=== PATIENT | male | born 1945 | race Caucasian/White ===

== ENCOUNTER 2023-10-10 11:21 | Outpatient (AMB) | payer MEDICARE, SELFPAY ==
--- NOTE | 2023-10-10 11:09 | A.OFFPC_ITS ---
Vital Signs 10/10/23 11:35 Height 5 ft 7.32 in Weight 230 lb 8 oz BMI 35.8 BP 138/86 Blood Pressure Location Lt brachial Position Sitting Respiration 16 Pulse 82 Pulse Source Pulse Oximeter Temp 98.1 F Temp Source Oral Pulse Oximetry (%) 96 Oxygen Delivery Method Room Air Intake Visit Reasons: new patient visit Intake Note: New patient visit. A1c done 09/28/23, 6.7. Needs refill on Lorsartan, has been out for a couple days. Allergies No Known Allergies Allergy (Verified 10/10/23 11:13) Medication List - Last Reconciled 10/10/23 by Lynn Trivedi PA-C allopurinol mg PO apixaban (Eliquis) mg PO canagliflozin (Invokana) 300 mg PO DAILY levothyroxine mcg PO losartan 12.5 mg PO DAILY metformin 1,000 mg PO BID Tobacco use date assessed: 10/10/23 Fall risk assessment: No Falls in past year Last assessed Fall Risk: 10/10/23 Dental Screening Dental Screen Date: 10/10/23 Did you have a dental visit in the last 12 months?: Yes Did you have a dental problem in the last 6 months where you did not have access to dental care?: No Was dental information given to patient?: Patient has dentist HPI new patient visit HPI Details Patient is a 78 year old male with a significant past medical history of type 2 diabetes, hypothyroidism, gout, dyslipidemia, AFib, s/p micra implant and RAYNE presenting today for a follow up. He was seen by myself on 07/22 for a Medicare wellness visit. CV: Blood pressure today in the office is 138/86. He states at home it is usually 116/70. He is on losartan 12.5 mg and has been out of it for a few days. He is followed with Cardiology, Dr. Burton. He was there last month. Stopped Zetia recently due to leg pain. Unable to tolerate most statins. Last LDL was 127 on 10/29/2023. His HDL is 45, triglycerides 85. Endo: DM- A1c is 6.7. This was done on 10/29/23. He is on Invokana 300 mg and metformin 1000 mg twice a day. He does check his blood sugars but usually every other day. Denies any hyper or hypoglycemic events. Follows with podiatry- Dr. Romo. Follows with ophthamology. Tsh- was wnl on the levothyroxine 88 mcg. GI: has a positive cologuard last year. Derm: had a skin check last month with rasheed. [facility] Medical History (Updated 10/10/23 @ 13:09 by Lynn Trivedi PA-C) Obesity with serious comorbidity Severe obesity Pacemaker Hypothyroid Hyperlipidemia HTN (hypertension) Right hip pain Gout Erectile dysfunction Controlled type 2 diabetes mellitus Chronic a-fib Surgical History (Updated 10/10/23 @ 11:12 by Olivia Herr CMA) History of knee replacement Social History Housing: House Patient Tobacco Use Status: Former Tobacco user Tobacco use type: Cigarette Cigarette Packs Per Day: 1 Years Smoked: 9 e-Cigarette/Vaping Use: Never Used Second Hand Smoke Exposure: No service: Yes Current occupational status: retired Cognitive needs: No Hearing needs: Yes (hearing aids) Vision needs: No Questionnaire PHQ-9 Over the last 2 weeks, how often have you been bothered by any of the following problems? 1. Little interest or pleasure in doing things: not at all 2. Feeling down, depressed, or hopeless: not at all 3. Trouble falling or staying asleep, or sleeping too much: not at all 4. Feeling tired or having little energy: not at all 5. Poor appetite or overeating: not at all 6. Feeling bad about yourself - or that you are a failure or have let yourself or your family down: not at all 7. Trouble concentrating on things, such as reading the newspaper or watching television: not at all 8. Moving or speaking so slowly that other people could have noticed. Or the opposite - being so fidgety or restless that you have been moving around a lot more than usual: not at all 9. Thoughts that you would be better off or of hurting yourself in some way: not at all Total score: 0 Depression Screening Interpretation: Negative Depression Screening Done: Yes 00016 - PHQ-9 Billing: Yes Source: Developed by Drs. David Fleming, Talia Guerrero, Dirk Brody and colleagues, with an educational kojo from [employer]. Thrive Questionnaire Date Thrive assessed: 10/10/23 I am a: Patient What is your living situation today?: I have a steady place to live Within the past 12 months, did the food you bought not last and you didn't have the money to get more?: Never true Within the past 12 months, did you worry whether your food would run out before you got money to buy more?: Never true Do you have trouble paying for medicines?: No Do you have trouble getting transportation to medical appointments?: No Do you have trouble paying your heating and electricity bill?: No Do you have trouble taking care of your child, family member or friend?: No Do you have trouble with day-to-day activities such as bathing, preparing meals, shopping, managing finances, etc.?: No Are you currently unemployed and looking for a job?: No Are you interested in more education?: No Please select the resources that you would like help with: None Currently or been in a relationship where the following occur: no concerns reported THRIVE Score: 0 AUDIT C Alcohol Use Questionnaire (AUDIT-C) 1. How often do you have a drink containing alcohol?: Monthly or less 2. How many drinks containing alcohol do you have on a typical day when you are drinking?: 1 or 2 3. How often do you have six or more drinks on one occasion?: Never Total Score: 1 LILY-7 AMB Questionnaire LILY-7 Date LILY - 7 assessed: 10/10/23 Feeling nervous, anxious, or on edge: 0 = Not at all Not being able to stop or control worryin = Not at all Worrying too much about different things: 0 = Not at all Trouble relaxin = Not at all Being so restless that it is hard to sit still: 0 = Not at all Becoming easily annoyed or irritable: 0 = Not at all Feeling afraid as if something awful might happen: 0 = Not at all Total LILY-7 score (0-4 normal; 5-9 mild; 10-14 moderate; 15-21 severe): 0 Source: Developed by Drs. David Fleming, Talia Guerrero, Dirk Brody and colleagues, with an educational kojo from [employer]. LILY-7 Assessment Billing LILY-7 Assessment Tool: LILY-7 Assessment [id number] Physical exam (Primary Care) Tobacco/Smoking Status: Tobacco use Status Tobacco use date assessed 10/10/23 10/10/23 11:14 Patient Tobacco Use Status Former Tobacco user 10/10/23 11:14 Tobacco use type Cigarette 10/10/23 11:14 Depression Screening Interpretation: Negative Currently or been in a relationship where the following occur: no concerns reported Const Orientation/consciousness: patient oriented x3 HENMT Ears: hearing grossly normal bilaterally Neck Thyroid: Thyroid normal Lymphatic: no lymphadenopathy noted Resp Auscultation: clear to auscultation bilaterally Cardio Rate: regular rate Rhythm: regular rhythm Heart sounds: S1 normal heart sound present and S2 normal heart sound present GI Inspection: Yes normal to inspection Palpation (GI): Soft to palpation and Other GI palpation findings present (nontender, no cva tenderness) Auscultation: normoactive bowel sounds Rectal Exam - Male: Yes deferred Skin General skin exam: no rashes or lesions noted Neuro General: patient oriented x3, gait normal and no focal motor deficits Results Reviewed Results Reviewed: As listed in HPI. He did bring in a copy of his lab corps labs Assessment and Plan Assessment & Plan (1) HTN (hypertension): Code(s): I10 - Essential (primary) hypertension Qualifiers: Hypertension type: primary hypertension Qualified Code(s): I10 - Essential (primary) hypertension Plan: Refill medications today. Continue current regimen. (2) Chronic a-fib: Code(s): I48.20 - Chronic atrial fibrillation, unspecified Plan: Continue on Eliquis. Refilled today. (3) Pacemaker: Code(s): Z95.0 - Presence of cardiac pacemaker Plan: Follows closely with Cardiology. Recently had device interrogation. (4) Controlled type 2 diabetes mellitus: Code(s): E11.9 - Type 2 diabetes mellitus without complications Qualifiers: Diabetes mellitus nursing home insulin use: without nursing home use Diabetes mellitus complication status: without complication Qualified Code(s): E11.9 - Type 2 diabetes mellitus without complications Plan: Medications refilled. We will follow up in 3 months and recheck diabetic labs prior to this appointment. (5) Hypothyroid: Code(s): E03.9 - Hypothyroidism, unspecified Qualifiers: Hypothyroidism type: acquired Qualified Code(s): E03.9 - Hypothyroidism, unspecified Plan: Last TSH WNL. Continue levothyroxine 88 mcg Orders: Orders Complete Blood Count Auto Diff Today E03.9 - Hypothyroidism, unspecified, E11.9 - Type 2 diabetes mellitus without complications, I10 - Essential (primary) hypertension, I48.20 - Chronic atrial fibrillation, unspecified, Z95.0 - Presence of cardiac pacemaker Comprehensive Met. Panel Today E03.9 - Hypothyroidism, unspecified, E11.9 - Type 2 diabetes mellitus without complications, I10 - Essential (primary) hypertension, I48.20 - Chronic atrial fibrillation, unspecified, Z95.0 - Presence of cardiac pacemaker Lipid Panel Today E03.9 - Hypothyroidism, unspecified, E11.9 - Type 2 diabetes mellitus without complications, I10 - Essential (primary) hypertension, I48.20 - Chronic atrial fibrillation, unspecified, Z95.0 - Presence of cardiac pacemaker TSH reflex Free T4 Today E03.9 - Hypothyroidism, unspecified, E11.9 - Type 2 diabetes mellitus without complications, I10 - Essential (primary) hypertension, I48.20 - Chronic atrial fibrillation, unspecified, Z95.0 - Presence of cardiac pacemaker Hemoglobin A1c Today E03.9 - Hypothyroidism, unspecified, E11.9 - Type 2 diabetes mellitus without complications, I10 - Essential (primary) hypertension, I48.20 - Chronic atrial fibrillation, unspecified, Z95.0 - Presence of cardiac pacemaker Microalbumin, Random (w Creat) Today E03.9 - Hypothyroidism, unspecified, E11.9 - Type 2 diabetes mellitus without complications, I10 - Essential (primary) hypertension, I48.20 - Chronic atrial fibrillation, unspecified, Z95.0 - Presence of cardiac pacemaker Medications: New losartan 12.5 mg (1/2 x 25 mg) PO DAILY 90 tabs 3RF apixaban (Eliquis) 5 mg PO DAILY 90 tabs 3RF canagliflozin (Invokana) 300 mg PO DAILY 90 tabs 3RF levothyroxine 88 mcg PO DAILY 90 days 90 tabs 3RF metformin 1,000 mg PO BID 180 tabs 3RF Coding Level of Care Code Est Pt Level 4 (11636) Complex EM visit Add On G2211 Diagnoses Primary hypertension I10 Hypertension type: primary hypertension Chronic a-fib I48.20 Pacemaker Z95.0 Controlled type 2 diabetes mellitus without complication, without long-term current use of insulin E11.9 Diabetes mellitus nursing home insulin use: without parts counterman use Diabetes mellitus complication status: without complication Acquired hypothyroidism E03.9 Hypothyroidism type: acquired Additional Codes LILY-7 Assessment Billing - LILY-7 Assessment Tool: LILY-7 Assessment [id number] ([id number])
[2023-10-10 11:35] VITALS: BP 138/86; PULSE 82; RESP 16; TEMP 36.7; O2SAT 96; BMI 35.8
== END 2023-10-10 12:10 | disposition home or self-care (01) ==
PROVIDERS: PCP Physician Assistant; Visit Provider Physician Assistant
DX: I10 Essential (primary) hypertension (principal); I48.20 Chronic atrial fibrillation, unspecified; Z95.0 Presence of cardiac pacemaker; E11.9 Type 2 diabetes mellitus without complications; E03.9 Hypothyroidism, unspecified
CPT/HCPCS: 99214; G2211

== ENCOUNTER 2024-01-14 07:34 | Outpatient (REF) | payer MEDICARE, SELFPAY ==
[2024-01-14 11:56] LABS: Basophils Absolute Auto 0.1 X10*3/uL (0.0-0.2); Basophils Percent Auto 1.1 % (0-2); Eosinophils Absolute Auto 0.2 X10*3/uL (0.0-0.4); Eosinophils Percent Auto 3.6 % (0-4); Hematocrit 49.2 % (42.0-52.0); Hemoglobin 16.5 g/dl (14.0-18.0); Imm Gran Abs Auto 0.04 X10*3/uL (0.00-0.03); Imm Gran Pct Auto 0.6 % (0.0-0.4); Lymphocytes Absolute Auto 1.3 X10*3/uL (1.2-4.9); Lymphocytes Percent Auto 19.9 % (20-40); MANUAL DIFF FLAG SCAN; Mean Corpuscular HGB Conc 33.5 g/dl (31.0-36.0); Mean Corpuscular Hemoglobin 31.1 pg (27.0-33.0); Mean Corpuscular Volume 92.8 fL (80.0-98.0); Monocytes Absolute Auto 0.5 X10*3/uL (0.1-1.2); Monocytes Percent Auto 8.2 % (2-11); Neutrophils Absolute Auto 4.3 x10*3/uL (2.0-8.3); Neutrophils Percent Auto 66.6 % (45-73); PLT CLUMP 1; Red Cell Distribution Width 14.1 % (11.0-16.0); SCAN SMEAR FLAG 1
[2024-01-14 12:11] LABS: Platelet Count 202 X10*3/uL (160-400); White Blood Count 6.4 X10*3/uL (4.8-10.8)
[2024-01-14 12:12] LABS: Mean Platelet Volume 11.6 fL (9.4-12.4); SLIDE REVIEW VERIFIED
[2024-01-14 12:15] LABS: Estimated Average Glucose 137 mg/dL; Hemoglobin A1c % 6.4 % (<6.0)
[2024-01-14 12:30] LABS: Creatinine Urine 79.65 mg/dL; Microalbum/Creatinine Ratio Ur 50.2 ug/mg cr (<30)
[2024-01-14 13:57] LABS: Alanine Aminotransferase 33 U/L (0-40); Albumin Level 4.1 g/dL (3.5-5.0); Alkaline Phosphatase 54 U/L (39-117); Anion Gap 17 (12-20); Aspartate Amino Transferase 39 U/L (5-37); Bilirubin Total 0.7 mg/dL (0.0-1.0); Blood Urea Nitrogen 17 mg/dL (9-16); Calcium 9.9 mg/dL (8.4-10.2); Carbon Dioxide 25 mmol/L (22-29); Chloride 106 mmol/L (96-108); Cholesterol 211 mg/dL (<200); Estimated Glomerular Filt Rate > 60; Glucose Random 133 mg/dL (60-115); HDL Cholesterol 40 mg/dL (>40); LDL Cholesterol Calculated 154 mg/dL (<100); Potassium 4.9 mmol/L (3.3-5.1); Sodium 143 mmol/L (135-145); TSH reflex Free T4 2.73 uIU/mL (0.32-4.0); Total Protein 7.7 g/dL (6.5-8.0); Triglycerides 87 mg/dL (<150)
== END 2024-01-14 07:35 | disposition home or self-care (01) ==
LOC: HO.WFDLDS 07:34
PROVIDERS: Visit Provider Physician Assistant
DX: Z95.0 Presence of cardiac pacemaker (principal); I48.20 Chronic atrial fibrillation, unspecified; E11.9 Type 2 diabetes mellitus without complications; E03.9 Hypothyroidism, unspecified; I10 Essential (primary) hypertension
CPT/HCPCS: 36415; 80053; 80061; 82043; 82570; 83036; 84443; 85025

== ENCOUNTER 2024-01-16 08:23 | Outpatient (AMB) | payer MEDICARE, SELFPAY ==
--- NOTE | 2024-01-16 08:25 | A.OFFPC_ITS ---
Vital Signs 01/16/24 08:30 Height 5 ft 7.32 in Weight 233 lb BMI 36.1 BP 122/84 Blood Pressure Location Lt brachial Position Sitting Respiration 16 Pulse 84 Pulse Source Pulse Oximeter Pulse Oximetry (%) 99 Oxygen Delivery Method Room Air Intake Visit Reasons: dm, htn Intake Note: Follow up diabetes and htn. Lab results. Occupational Health Professional Required: No Allergies No Known Allergies Allergy (Verified 01/16/24 08:28) Medication List - Last Reconciled 01/16/24 by Lynn Trivedi PA-C allopurinol 100 mg PO BID apixaban (Eliquis) 5 mg PO BID canagliflozin (Invokana) 300 mg PO DAILY levothyroxine 88 mcg PO DAILY 90 days metformin 1,000 mg PO BID Tobacco use date assessed: 10/10/23 Dental Screening Dental Screen Date: 10/10/23 HPI dm, htn HPI Details Patient is a 79 year old male with a significant past medical history of type 2 diabetes, hypothyroidism, gout, dyslipidemia, AFib, s/p micra implant and RAYNE presenting today for a follow up. CV: Blood pressure today in the office is 122/84. He had to stop the lostartan 12.5 mg because it was dropping his bp too low. He is followed with Cardiology, Dr. Burton. He is scheduled for follow up in May 2024. Stopped Zetia recently due to leg pain. Unable to tolerate most statins. Last LDL was 154. Lfts slightly elevated. Endo: DM- A1c is 6.4. This was done on 10/29/23. He is on Invokana 300 mg and metformin 1000 mg twice a day. He does check his blood sugars but usually every other day. Denies any hyper or hypoglycemic events. Follows with podiatry- Dr. Veloz. Follows with ophthamology. Tsh- was wnl on the levothyroxine 88 mcg. GI: has a positive cologuard last year. followed with GI and made the decision to no proceed with colonoscopy. understands risks of undiagnosed colon ca. Derm: had a skin check this summer with rasheed. [facility] Medical History (Updated 01/16/24 @ 08:50 by Lynn Trivedi PA-C) Obesity with serious comorbidity Severe obesity Pacemaker Hypothyroid Hyperlipidemia HTN (hypertension) Right hip pain Gout Erectile dysfunction Controlled type 2 diabetes mellitus Chronic a-fib Surgical History (Updated 10/10/23 @ 11:12 by Olivia Herr CMA) History of knee replacement Social History Housing: House Patient Tobacco Use Status: Former Tobacco user Tobacco use type: Cigarette Cigarette Packs Per Day: 1 Years Smoked: 9 e-Cigarette/Vaping Use: Never Used Second Hand Smoke Exposure: No service: Yes Current occupational status: retired Cognitive needs: No Hearing needs: Yes (hearing aids) Vision needs: No Questionnaire PHQ-9 Over the last 2 weeks, how often have you been bothered by any of the following problems? 1. Little interest or pleasure in doing things: not at all 2. Feeling down, depressed, or hopeless: not at all 3. Trouble falling or staying asleep, or sleeping too much: not at all 4. Feeling tired or having little energy: not at all 5. Poor appetite or overeating: not at all 6. Feeling bad about yourself - or that you are a failure or have let yourself or your family down: not at all 7. Trouble concentrating on things, such as reading the newspaper or watching television: not at all 8. Moving or speaking so slowly that other people could have noticed. Or the opposite - being so fidgety or restless that you have been moving around a lot more than usual: not at all 9. Thoughts that you would be better off or of hurting yourself in some way: not at all Total score: 0 Source: Developed by Drs. David Fleming, Talia Guerrero, Dirk Brody and colleagues, with an educational kojo from [employer]. Thrive Questionnaire Date Thrive assessed: 10/10/23 I am a: Patient What is your living situation today?: I have a steady place to live Within the past 12 months, did the food you bought not last and you didn't have the money to get more?: I choose not to answer this question Within the past 12 months, did you worry whether your food would run out before you got money to buy more?: I choose not to answer this question Do you have trouble paying for medicines?: No Do you have trouble getting transportation to medical appointments?: No Do you have trouble paying your heating and electricity bill?: No Do you have trouble taking care of your child, family member or friend?: No Do you have trouble with day-to-day activities such as bathing, preparing meals, shopping, managing finances, etc.?: No Are you currently unemployed and looking for a job?: No Are you interested in more education?: No Please select the resources that you would like help with: None Currently or been in a relationship where the following occur: No concerns reported THRIVE Score: 0 AUDIT C Alcohol Use Questionnaire (AUDIT-C) 1. How often do you have a drink containing alcohol?: 2-4 times a month 2. How many drinks containing alcohol do you have on a typical day when you are drinking?: 1 or 2 3. How often do you have six or more drinks on one occasion?: Never Total Score: 2 LILY-7 AMB Questionnaire LILY-7 Date LILY - 7 assessed: 10/10/23 Feeling nervous, anxious, or on edge: 0 = Not at all Not being able to stop or control worryin = Not at all Worrying too much about different things: 0 = Not at all Trouble relaxin = Not at all Being so restless that it is hard to sit still: 0 = Not at all Becoming easily annoyed or irritable: 0 = Not at all Feeling afraid as if something awful might happen: 0 = Not at all Total LILY-7 score (0-4 normal; 5-9 mild; 10-14 moderate; 15-21 severe): 0 Source: Developed by Drs. David Fleming, Talia Guerrero, Dirk Brody and colleagues, with an educational kojo from [employer]. Physical exam (Primary Care) Tobacco/Smoking Status: Tobacco use Status Tobacco use date assessed 10/10/23 01/16/24 08:27 Patient Tobacco Use Status Former Tobacco user 01/16/24 08:27 Tobacco use type Cigarette 01/16/24 08:27 e-Cigarette/Vaping Use Never Used 01/16/24 08:27 PHQ-9: PHQ-9 Score PHQ-9: Total score 0 01/16/24 08:27 Thrive Assessment: Date of Thrive Assessment Date Thrive assessed 10/10/23 01/16/24 08:27 Currently or been in a relationship where the following occur: No concerns reported Const Orientation/consciousness: patient oriented x3 HENMT Ears: hearing grossly normal bilaterally Neck Thyroid: Thyroid normal Lymphatic: no lymphadenopathy noted Resp Auscultation: clear to auscultation bilaterally Cardio Rate: regular rate Rhythm: regular rhythm Heart sounds: S1 normal heart sound present and S2 normal heart sound present GI Inspection: Yes normal to inspection Palpation (GI): Soft to palpation and Other GI palpation findings present (nontender, no cva tenderness) Auscultation: normoactive bowel sounds Rectal Exam - Male: Yes deferred Skin General skin exam: no rashes or lesions noted Neuro Other: decreased right vibratory sensation. left vibratory sensation intact. monofilament sensation intact. General: patient oriented x3, gait normal and no focal motor deficits Results Reviewed Results Reviewed: Laboratory Tests 01/14/24 01/14/24 07:36 07:44 WBC 6.4 RBC 5.30 Hgb 16.5 Hct 49.2 Plt Count 202 Sodium 143 Potassium 4.9 Chloride 106 Carbon Dioxide 25 Anion Gap 17 BUN 17 H Creatinine 1.03 Hemoglobin A1c % 6.4 H Calcium 9.9 AST 39 H ALT 33 Alkaline Phosphatase 54 Total Protein 7.7 Albumin 4.1 Triglycerides 87 Cholesterol 211 H LDL Cholesterol, Calc 154 H HDL Cholesterol 40 L TSH 2.73 Urine Creatinine 79.65 Urine Microalbumin 40.0 Microalb/Creat Ratio 50.2 H Assessment and Plan Assessment & Plan (1) HTN (hypertension): Code(s): I10 - Essential (primary) hypertension Qualifiers: Hypertension type: primary hypertension Qualified Code(s): I10 - Essential (primary) hypertension Plan: d/c the losartan due to hypotension starting lisinopril 2.5 mg for microalbuminuria. he will monitor bps. f/u in 3 months or sooner prn. (2) Controlled type 2 diabetes mellitus: Code(s): E11.9 - Type 2 diabetes mellitus without complications Qualifiers: Diabetes mellitus complication status: without complication Diabetes mellitus medical terminologist insulin use: without medical terminologist use Qualified Code(s): E11.9 - Type 2 diabetes mellitus without complications Plan: Continue on metformin and Invokana. (3) Microalbuminuria due to type 2 diabetes mellitus: Code(s): E11.29 - Type 2 diabetes mellitus with other diabetic kidney complication; R80.9 - Proteinuria, unspecified Plan: start lisinopril. continue invokana will refer to nephro (4) Hypothyroid: Code(s): E03.9 - Hypothyroidism, unspecified Qualifiers: Hypothyroidism type: acquired Qualified Code(s): E03.9 - Hypothyroidism, unspecified Plan: continue levothyroxine (5) Hyperlipidemia: Code(s): E78.5 - Hyperlipidemia, unspecified Qualifiers: Hyperlipidemia type: mixed hyperlipidemia Qualified Code(s): E78.2 - Mixed hyperlipidemia Plan: discussed reducing baked goods. does not want treatment of this. encouraged healthier lifestyle modifications. will recheck in a few months. (6) Elevated LFTs: Code(s): R79.89 - Other specified abnormal findings of blood chemistry Plan: u/s ordered. will rehceck labs in 3 months with diet changes. Orders: Orders Microalbumin, Random (w Creat) Today E03.9 - Hypothyroidism, unspecified, E11.29 - Type 2 diabetes mellitus with other diabetic kidney complication, E11.9 - Type 2 diabetes mellitus without complications, E78.5 - Hyperlipidemia, unspecified, I10 - Essential (primary) hypertension, R79.89 - Other specified abnormal findings of blood chemistry, R80.9 - Proteinuria, unspecified Lipid Panel 3 Months E03.9 - Hypothyroidism, unspecified, E11.29 - Type 2 diabetes mellitus with other diabetic kidney complication, E11.9 - Type 2 diabetes mellitus without complications, E78.5 - Hyperlipidemia, unspecified, I10 - Essential (primary) hypertension, R79.89 - Other specified abnormal findings of blood chemistry, R80.9 - Proteinuria, unspecified Basic Metabolic Panel Today E03.9 - Hypothyroidism, unspecified, E11.29 - Type 2 diabetes mellitus with other diabetic kidney complication, E11.9 - Type 2 diabetes mellitus without complications, E78.5 - Hyperlipidemia, unspecified, I10 - Essential (primary) hypertension, R79.89 - Other specified abnormal findings of blood chemistry, R80.9 - Proteinuria, unspecified Hemoglobin A1c Today E03.9 - Hypothyroidism, unspecified, E11.29 - Type 2 diabetes mellitus with other diabetic kidney complication, E11.9 - Type 2 diabetes mellitus without complications, E78.5 - Hyperlipidemia, unspecified, I10 - Essential (primary) hypertension, R79.89 - Other specified abnormal findings of blood chemistry, R80.9 - Proteinuria, unspecified US carotid duplex BI Today E11.9 - Type 2 diabetes mellitus without complications, E78.2 - Mixed hyperlipidemia, I10 - Essential (primary) hypertension, I48.20 - Chronic atrial fibrillation, unspecified, Z95.0 - Presence of cardiac pacemaker US abdomen complete Today E11.9 - Type 2 diabetes mellitus without complications, E78.5 - Hyperlipidemia, unspecified, R79.89 - Other specified abnormal findings of blood chemistry Liver Panel Today E03.9 - Hypothyroidism, unspecified, E11.29 - Type 2 diabetes mellitus with other diabetic kidney complication, E11.9 - Type 2 diabetes mellitus without complications, E78.5 - Hyperlipidemia, unspecified, I10 - Essential (primary) hypertension, R79.89 - Other specified abnormal findings of blood chemistry, R80.9 - Proteinuria, unspecified Referrals Nephrology Referral E11.29 - Type 2 diabetes mellitus with other diabetic kidney complication, E11.9 - Type 2 diabetes mellitus without complications, I10 - Essential (primary) hypertension, R80.9 - Proteinuria, unspecified Medications: New lisinopril 2.5 mg PO DAILY 90 tabs 1RF Coding Level of Care Code Est Pt Level 4 (77810) Complex EM visit Add On G2211 Diagnoses Primary hypertension I10 Hypertension type: primary hypertension Controlled type 2 diabetes mellitus without complication, without long-term current use of insulin E11.9 Diabetes mellitus complication status: without complication Diabetes mellitus medical terminologist insulin use: without residential use Microalbuminuria due to type 2 diabetes mellitus E11.29; R80.9 Acquired hypothyroidism E03.9 Hypothyroidism type: acquired Mixed hyperlipidemia E78.2 Hyperlipidemia type: mixed hyperlipidemia Elevated LFTs R79.89
[2024-01-16 08:30] VITALS: BP 122/84; PULSE 84; RESP 16; O2SAT 99; BMI 36.1
== END 2024-01-16 09:02 | disposition home or self-care (01) ==
PROVIDERS: PCP Physician Assistant; Visit Provider Physician Assistant
DX: I10 Essential (primary) hypertension (principal); E11.29 Type 2 diabetes mellitus with other diabetic kidney complication; R80.9 Proteinuria, unspecified; E03.9 Hypothyroidism, unspecified; E78.2 Mixed hyperlipidemia; R79.89 Other specified abnormal findings of blood chemistry
CPT/HCPCS: 99214; G2211

== ENCOUNTER 2024-01-24 09:10 | Outpatient (REF) | payer MEDICARE, SELFPAY ==
--- NOTE | ~2024-01-24 | US_ITS ---
EXAMINATION: US EXTRACRANIAL CAROTID DUPLEX, BILATERAL CLINICAL INFORMATION: Carotid stenosis, history of diabetes mellitus COMPARISON: None available. TECHNIQUE: Real-time ultrasound and Doppler techniques (integrating B-mode 2-D vascular images, Doppler spectral analysis and color-flow Doppler imaging) were utilized to interrogate the extracranial carotid arteries, the vertebral arteries and proximal subclavian arteries bilaterally. The degree of stenosis is determined by criteria similar to NASCET. FINDINGS: Right Side: 1. There is mild atherosclerotic plaque seen in the bifurcation/proximal ICA region. 2. The common carotid artery PSV proximally is 95 cm/s and distally 80 cm/s. 3. The proximal internal carotid artery velocities are 64 cm/s systolic and 31 cm/s diastolic. 4. The proximal external carotid artery PSV is 91 cm/s. 5. The vertebral artery shows antegrade flow. 6. The subclavian artery waveforms are triphasic. Left Side: 1. There is mild atherosclerotic plaque seen in the bifurcation/proximal ICA region. 2. The common carotid artery PSV proximally is 99 cm/s and distally 93 cm/s. 3. The proximal internal carotid artery velocities are 69 cm/s systolic and 18 cm/s diastolic. 4. The proximal external carotid artery PSV is 80 cm/s. 5. The vertebral artery shows antegrade flow. 6. The subclavian artery waveforms are triphasic. US/US carotid duplex BI IMPRESSION: 1. RIGHT: Minimal, non-hemodynamically significant stenosis of the proximal right internal carotid artery corresponding to a 0-49% stenosis by velocity criteria. 2. LEFT: Minimal, non-hemodynamically significant stenosis of the proximal left internal carotid artery corresponding to a 0-49% stenosis by velocity criteria. Electronically signed by: Prakash Zelaya MD 01/29/2024 03:20 PM EDT
--- NOTE | ~2024-01-24 | US_ITS ---
EXAMINATION: US ABDOMEN COMPLETE CLINICAL INFORMATION: Other specified abnormal findings of blood chemistry. Elevated LFTs. COMPARISON: None available. TECHNIQUE: Real-time imaging of the abdominal viscera. Limited visualization due to bowel gas. FINDINGS: PANCREAS: Limited visualization of pancreatic tail and head. Imaged portion of pancreatic body is unremarkable. ABDOMINAL AORTA: Limited visualization. Imaged portions of the abdominal aorta are within normal limits in caliber. Limited visualization of the proximal abdominal aorta. INFERIOR VENA CAVA: Visualized portions are normal. LIVER: Borderline mildly increased hepatic parenchymal heterogeneity and echogenicity could be associated with hepatocellular disease/hepatic steatosis and substantially limits visualization. There are patchy areas of heterogeneous hypoechoic echotexture of uncertain etiology. Correlation with liver function tests and clinical exam recommended to determine further management. GALLBLADDER: No gallstones. No gallbladder wall thickening. COMMON BILE DUCT: Normal in caliber measuring 0.25 cm in diameter. RIGHT KIDNEY: No hydronephrosis. No renal calculi. Limited visualization. The kidney measures 12.6 cm in maximum dimension. LEFT KIDNEY: A 0.5 cm upper pole nonobstructive calculus. No hydronephrosis. Limited visualization. 1.8 cm lower pole cyst with benign features. There is no indication for followup imaging. The kidney measures 12.0 cm in maximum dimension. SPLEEN: Normal. The spleen measures 9.5 cm in maximum dimension. FREE FLUID: None. US/US abdomen complete IMPRESSION: 1. Borderline mildly increased hepatic parenchymal heterogeneity and echogenicity could be associated with hepatocellular disease/hepatic steatosis and substantially limits visualization. There are patchy areas of heterogeneous hypoechoic echotexture of uncertain etiology. Correlation with liver function tests and clinical exam recommended to determine further management. 2. A 0.5 cm upper pole nonobstructive calculus. No hydronephrosis. Electronically signed by: Columba Nunes MD 01/29/2024 01:38 PM EDT
== END 2024-01-24 09:11 | disposition home or self-care (01) ==
LOC: HO.US 09:10
PROVIDERS: PCP Physician Assistant; Visit Provider Physician Assistant
DX: R79.89 Other specified abnormal findings of blood chemistry (principal); E11.9 Type 2 diabetes mellitus without complications; E78.2 Mixed hyperlipidemia; I48.20 Chronic atrial fibrillation, unspecified; Z95.0 Presence of cardiac pacemaker; I10 Essential (primary) hypertension; I65.23 Occlusion and stenosis of bilateral carotid arteries
CPT/HCPCS: 76700; 93880

== ENCOUNTER 2024-02-07 15:02 | Outpatient (AMB) | payer MEDICARE, SELFPAY ==
[2024-02-07 15:03] VITALS: BP 118/80; PULSE 93; O2SAT 95; BMI 36.0
--- NOTE | 2024-02-07 15:03 | HO.NEPHOV ---
Vital Signs 02/07/24 15:03 Height 5 ft 7 in Weight 230 lb BMI 36.0 BP 118/80 Blood Pressure Location Lt brachial Position Sitting Pulse 93 Pulse Source Pulse Oximeter Pulse Oximetry (%) 95 Oxygen Delivery Method Room Air Intake Visit Reasons: Type 2 DM with other diabetic kidney complication Manager Ct Required: No Accompanied by: Spouse Allergies No Known Allergies Allergy (Verified 02/07/24 15:04) HPI Comments Details: Tony is a pleasant 79-year-old man with a history of diabetes mellitus for quite some time. Recently found to have microalbuminuria of 50. He was started on lisinopril 2.5 mg about 3 weeks ago. He is tolerating this well. No new issues. Recent hemoglobin A1c was 6.2%. [facility] Medical History (Updated 02/07/24 @ 15:48 by Navjot Cosme MD) Obesity with serious comorbidity Severe obesity Pacemaker Hypothyroid Hyperlipidemia HTN (hypertension) Right hip pain Gout Erectile dysfunction Controlled type 2 diabetes mellitus Chronic a-fib Surgical History History of knee replacement Social History Housing: House Patient Tobacco Use Status: Former Tobacco user Tobacco use type: Cigarette Cigarette Packs Per Day: 1 Years Smoked: 9 e-Cigarette/Vaping Use: Never Used Second Hand Smoke Exposure: No service: Yes Current occupational status: retired Cognitive needs: No Hearing needs: Yes (hearing aids) Vision needs: No Review of Systems Const Denies fever(s) and Denies weight loss Card Denies chest pain Resp Denies cough and Denies hemoptysis GI Denies abdominal pain, Denies diarrhea and Denies nausea Musc Denies back pain Neuro Denies focal weakness Physical Exam Vital Signs: Last Vital Signs Pulse 93 02/07/24 15:03 BP 118/80 02/07/24 15:03 Pulse Ox 95 02/07/24 15:03 Oxygen Delivery Method Room Air 02/07/24 15:03 BMI result Body Mass Index 36.0 Const General: comfortable; No acute distress Orientation/consciousness: patient oriented x3 Eyes General: appearance normal, both eyes and all related structures Visual Sharp: normal visual sharp by confrontation Neck Neck: Yes supple and Yes no JVD Resp Effort & Inspection: normal respiratory effort and respiratory effort not decreased Auscultation: rhonchi Cardio Palpation: no palpable S3 and no palpable S4 Heart sounds: no rubs GI Inspection: Yes normal to inspection Palpation (GI): Soft to palpation Percussion: Yes normal to percussion Auscultation: normal bowel sounds General: Yes no CVA tenderness Back/Spine/Pelvis Back: no CVA tenderness Skin General skin exam: no petechiae and no purpura Neuro General: patient oriented x3 and no focal motor deficits Extrem General: No clubbing and No edema Results Reviewed Nephrology Results: Hgb 16.5 g/dl (14.0-18.0) 01/14/24 WBC 6.4 X10*3/uL (4.8-10.8) 01/14/24 Plt Count 202 X10*3/uL (160-400) 01/14/24 Sodium 143 mmol/L (135-145) 01/14/24 Potassium 4.9 mmol/L (3.3-5.1) 01/14/24 Chloride 106 mmol/L (96-108) 01/14/24 Carbon Dioxide 25 mmol/L (22-29) 01/14/24 BUN 17 mg/dL (9-16) H 01/14/24 Creatinine 1.03 mg/dL (0.5-1.4) 01/14/24 Calcium 9.9 mg/dL (8.4-10.2) 01/14/24 Urine Creatinine 79.65 mg/dL 01/14/24 Assessment & Plan Assessment & Plan (1) Microalbuminuria due to type 2 diabetes mellitus: Comment: 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 Obesity could be a contributing factor as well. Code(s): E11.29 - Type 2 diabetes mellitus with other diabetic kidney complication; R80.9 - Proteinuria, unspecified Category: Medical Plan Agree with ADELA inhibition for renal protection. He is currently on 2.5 mg of lisinopril and tolerating well. ADELA inhibitor can be gradually titrated upwards as tolerated based on blood pressure Agree with the SGLT2 inhibitors. Maintain blood pressure less than 130/80. I discussed importance of weight loss and the tight control of blood sugar to slow the portion disease. At present EGFR is at baseline for his age. We will continue to monitor this periodically. Orders: Orders Basic Metabolic Panel 6 Months E11.29 - Type 2 diabetes mellitus with other diabetic kidney complication, R80.9 - Proteinuria, unspecified Total Protein Urine Random 6 Months E11. - Type 2 diabetes mellitus with other diabetic kidney complication, R80.9 - Proteinuria, unspecified Creatinine Urine 6 Months E11. - Type 2 diabetes mellitus with other diabetic kidney complication, R80.9 - Proteinuria, unspecified Coding Level of Care Code New Pt Level 4 (67622) Diagnoses Microalbuminuria due to type 2 diabetes mellitus E11.; R80.9
== END 2024-02-07 15:29 | disposition home or self-care (01) ==
PROVIDERS: PCP Physician Assistant; Referring Provider Physician Assistant; Visit Provider Internal Medicine Hypertension Specialist
DX: E11.29 Type 2 diabetes mellitus with other diabetic kidney complication (principal); R80.9 Proteinuria, unspecified
CPT/HCPCS: 99204

== ENCOUNTER → 2024-02-07 15:02 | Outpatient (BNVA) | payer MEDICARE, SELFPAY | PROVIDERS: PCP Physician Assistant; Referring Provider Physician Assistant; Visit Provider Internal Medicine Hypertension Specialist | DX: E11.29 Type 2 diabetes mellitus with other diabetic kidney complication (principal); R80.9 Proteinuria, unspecified | CPT/HCPCS: 99202 ==

== ENCOUNTER 2024-04-15 07:40 | Outpatient (REF) | payer MEDICARE, SELFPAY ==
[2024-04-15 12:14] LABS: Estimated Average Glucose 148 mg/dL; Hemoglobin A1C 198.0645 umol/L; Hemoglobin A1c % 6.8 % (<6.0); Total Hemoglobin (HGBA1C) 3858.5894 umol/L
[2024-04-15 12:46] LABS: Alanine Aminotransferase 33 U/L (0-40); Albumin Level 3.9 g/dL (3.5-5.0); Alkaline Phosphatase 55 U/L (39-117); Anion Gap 13 (12-20); Aspartate Amino Transferase 34 U/L (5-37); Bilirubin Direct 0.3 mg/dL (0.0-0.5); Bilirubin Total 0.9 mg/dL (0.0-1.0); Blood Urea Nitrogen 20 mg/dL (9-16); Calcium 9.4 mg/dL (8.4-10.2); Carbon Dioxide 27 mmol/L (22-29); Chloride 105 mmol/L (96-108); Cholesterol 184 mg/dL (<200); Estimated Glomerular Filt Rate > 60; Glucose Random 138 mg/dL (60-115); HDL Cholesterol 38 mg/dL (>40); LDL Cholesterol Calculated 124 mg/dL (<100); Potassium 4.2 mmol/L (3.3-5.1); Sodium 141 mmol/L (135-145); Total Protein 7.2 g/dL (6.5-8.0); Triglycerides 112 mg/dL (<150)
[2024-04-15 13:07] LABS: Creatinine Urine 92.76 mg/dL; Microalbum/Creatinine Ratio Ur 18.3 ug/mg cr (<30)
== END 2024-04-15 07:41 | disposition home or self-care (01) ==
LOC: HO.WFDLDS 07:40
PROVIDERS: Visit Provider Physician Assistant
DX: R79.89 Other specified abnormal findings of blood chemistry (principal); E78.5 Hyperlipidemia, unspecified; E11.29 Type 2 diabetes mellitus with other diabetic kidney complication; R80.9 Proteinuria, unspecified; E11.9 Type 2 diabetes mellitus without complications; E03.9 Hypothyroidism, unspecified; I10 Essential (primary) hypertension
CPT/HCPCS: 36415; 80048; 80061; 80076; 82043; 82570; 83036

== ENCOUNTER 2024-04-17 10:02 | Outpatient (AMB) | payer MEDICARE, SELFPAY ==
--- NOTE | 2024-04-17 10:06 | A.OFFPC_ITS ---
Vital Signs 04/17/24 10:18 Height 5 ft 7 in Weight 234 lb 4 oz BMI 36.7 BP 128/82 Blood Pressure Location Lt brachial Position Sitting Pulse 86 Pulse Source Pulse Oximeter Pulse Oximetry (%) 96 Oxygen Delivery Method Room Air Intake Visit Reasons: 3month follow up Intake Note: Three month follow up. Lab results. left foot swollen an achy still, has been seeing foot doctor. Urniary frequency, questioning if its related to mediation. 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 Allergies No Known Allergies Allergy (Verified 04/17/24 10:06) Medication List - Last Reconciled 04/17/24 by Lynn Trivedi PA-C allopurinol 100 mg PO BID apixaban (Eliquis) 5 mg PO BID empagliflozin (Jardiance) 10 mg PO QAM levothyroxine 75 mcg PO DAILY lisinopril 2.5 mg PO DAILY metformin 1,000 mg PO BID Tobacco use date assessed: 10/10/23 Dental Screening Dental Screen Date: 10/10/23 HPI 3month follow up HPI Details Patient is a 79 year old male with a significant past medical history of type 2 diabetes, hypothyroidism, gout, dyslipidemia, AFib, s/p micra implant and RAYNE presenting today for a follow up. Musculoskeletal: Left foot pain and swelling on the top of the foot x 1 month. He states that the pain is on the top/ lateral aspect of his left foot. There was no known trauma. At times it does appear to be a little pink. It seems to swell by the end of the day or if he does a lot of walking. He did see his registered nurse behavioral health who thought it was possibly related to just venous insufficiency. CV: Blood pressure today in the office is 128/82. He il 2.5 mg because it was dropping his bp too low. He is followed with Cardiology, Dr. Burton. He is scheduled for follow up in May 2024. Stopped Zetia recently due to leg pain. Unable to tolerate most statins. Last LDL was 154. Lfts slightly elevated. Endo: DM- A1c is 6.8. He states this is a little high for him but he just came off of a 10 day cruise. This was done on 10/29/23. He is still on Invokana but plans to switch to Jardiance next month Jardiance 10 mg (insurance issue) and metformin 1000 mg twice a day. He does check his blood sugars but usually every other day. Denies any hyper or hypoglycemic events. Follows with podiatry- Dr. Veloz. Follows with ophthamology. Tsh- was wnl on the levothyroxine 88 mcg. Uro: Over the past month he has also noticed some increased urinary urgency. He states when he has to go he has to go immediately. He has not noticed any increased frequency significantly. He states he still wakes up at night every 4-5 hours. No burning with urination no fevers or chills. No abdominal pain or flank pain. GI: has a positive cologuard last year. followed with GI and made the decision to no proceed with colonoscopy. understands risks of undiagnosed colon ca. Derm: had a skin check this summer with rasheed. [facility] Medical History (Updated 04/17/24 @ 10:44 by Lynn Trivedi PA-C) Obesity with serious comorbidity Severe obesity Pacemaker Hypothyroid Hyperlipidemia HTN (hypertension) Right hip pain Gout Erectile dysfunction Controlled type 2 diabetes mellitus Chronic a-fib Surgical History History of knee replacement Social History (Updated 04/17/24 @ 10:19 by Olivia Herr CMA) Housing: House Alcohol intake: current Patient Tobacco Use Status: Former Tobacco user Tobacco use type: Cigarette Cigarette Packs Per Day: 1 Years Smoked: 9 e-Cigarette/Vaping Use: Never Used Second Hand Smoke Exposure: No service: Yes Current occupational status: retired Cognitive needs: No Hearing needs: Yes (hearing aids) Vision needs: No Questionnaire Thrive Questionnaire Date Thrive assessed: 01/10/24 I am a: Patient What is your living situation today?: I have a steady place to live Within the past 12 months, did the food you bought not last and you didn't have the money to get more?: I choose not to answer this question Within the past 12 months, did you worry whether your food would run out before you got money to buy more?: I choose not to answer this question Do you have trouble paying for medicines?: No Do you have trouble getting transportation to medical appointments?: No Do you have trouble paying your heating and electricity bill?: No Do you have trouble taking care of your child, family member or friend?: No Do you have trouble with day-to-day activities such as bathing, preparing meals, shopping, managing finances, etc.?: No Are you currently unemployed and looking for a job?: No Are you interested in more education?: No Please select the resources that you would like help with: None Currently or been in a relationship where the following occur: No concerns reported THRIVE Score: 0 LILY-7 AMB Questionnaire LILY-7 Date LILY - 7 assessed: 10/10/23 Source: Developed by Drs. David Fleming, Talia Guerrero, Dirk Brody and colleagues, with an educational kojo from [email or web address]. Physical exam (Primary Care) Vital Signs: Last Vital Signs Pulse 86 04/17/24 10:18 BP 128/82 04/17/24 10:18 Pulse Ox 96 04/17/24 10:18 Oxygen Delivery Method Room Air 04/17/24 10:18 BMI result Body Mass Index 36.7 Tobacco/Smoking Status: Tobacco use Status Tobacco use date assessed 10/10/23 04/17/24 10:06 Patient Tobacco Use Status Former Tobacco user 04/17/24 10:19 Tobacco use type Cigarette 04/17/24 10:19 e-Cigarette/Vaping Use Never Used 04/17/24 10:19 Thrive Assessment: Date of Thrive Assessment Date Thrive assessed 01/10/24 04/17/24 10:06 Currently or been in a relationship where the following occur: No concerns reported Const Orientation/consciousness: patient oriented x3 Neck Neck: Yes no lymphadenopathy Thyroid: Thyroid normal Carotids: no bruits Resp Auscultation: clear to auscultation bilaterally Cardio Rate: regular rate Rhythm: regular rhythm Heart sounds: S1 normal heart sound present and S2 normal heart sound present Peripheral pulses: dorsalis pedis present Neuro General: patient oriented x3, gait normal and no focal motor deficits Extrem Other: There is tenderness to palpation over the dorsum of the left foot along the 5th, 4th and 3rd metatarsal. General: Yes normal to inspection Results Reviewed Results Reviewed: US/US carotid duplex BI IMPRESSION: 1. RIGHT: Minimal, non-hemodynamically significant stenosis of the proximal right internal carotid artery corresponding to a 0-49% stenosis by velocity criteria. 2. LEFT: Minimal, non-hemodynamically significant stenosis of the proximal left internal carotid artery corresponding to a 0-49% stenosis by velocity criteria. Laboratory Tests 01/14/24 04/15/24 04/15/24 07:36 07:42 07:47 WBC 6.4 RBC 5.30 Hgb 16.5 Hct 49.2 Plt Count 202 Sodium 141 Potassium 4.2 Chloride 105 Carbon Dioxide 27 Anion Gap 13 BUN 20 H Creatinine 1.06 Estimated GFR > 60 Random Glucose 138 H Estimat Average Glucose 148 Hemoglobin A1c % 6.8 H AST 34 ALT 33 Triglycerides 112 Cholesterol 184 LDL Cholesterol, Calc 124 H HDL Cholesterol 38 L Urine Creatinine 92.76 Urine Microalbumin 17.0 Coding Level of Care Code Est Pt Level 4 (22235) Complex EM visit Add On G2211 Diagnoses Abnormal liver ultrasound R93.2 Microalbuminuria due to type 2 diabetes mellitus E11.29; R80.9 Controlled type 2 diabetes mellitus without complication, without long-term current use of insulin E11.9 Diabetes mellitus complication status: without complication Diabetes mellitus intermission coordinator insulin use: without group home use Primary hypertension I10 Hypertension type: primary hypertension Acquired hypothyroidism E03.9 Hypothyroidism type: acquired Increased urinary frequency R35.0 Left foot pain M79.672 Assessment & Plan Assessment & Plan (1) Abnormal liver ultrasound: Code(s): R93.2 - Abnormal findings on diagnostic imaging of liver and biliary tract Category: Medical Plan: Has a referral to GI. Working on losing weight. (2) Microalbuminuria due to type 2 diabetes mellitus: Comment: 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 Obesity could be a contributing factor as well. Code(s): E11.29 - Type 2 diabetes mellitus with other diabetic kidney complication; R80.9 - Proteinuria, unspecified Category: Medical Plan: Has followed with Urology. The microalbumin has improved. On an ADELA inhibitor and Jardiance (3) Controlled type 2 diabetes mellitus: Code(s): E11.9 - Type 2 diabetes mellitus without complications Category: Medical Qualifiers: Diabetes mellitus complication status: without complication Diabetes mellitus group home insulin use: without group home use Qualified Code(s): E11.9 - Type 2 diabetes mellitus without complications Plan: Continue current regimen (4) HTN (hypertension): Code(s): I10 - Essential (primary) hypertension Category: Medical Qualifiers: Hypertension type: primary hypertension Qualified Code(s): I10 - Essential (primary) hypertension Plan: WNL (5) Hypothyroid: Code(s): E03.9 - Hypothyroidism, unspecified Category: Medical Qualifiers: Hypothyroidism type: acquired Qualified Code(s): E03.9 - Hypothyroidism, unspecified Plan: WNL. Continue current regimen (6) Increased urinary frequency: Code(s): R35.0 - Frequency of micturition Category: Medical Plan: has not yet switched to jardiance yet, finishing on invokana and does not think related to medication UA and culture ordered. Labs ordered including PSA. Has a referral to urology (7) Left foot pain: Code(s): M79.672 - Pain in left foot Category: Medical Plan: X-ray ordered today. Referral to [facility]. We will check labs including Lyme and uric acid. Orders: Orders Complete Blood Count Auto Diff Today R35.0 - Frequency of micturition UA CC w/rflx Micro + Cult Today R35.0 - Frequency of micturition, Z13.220 - Encounter for screening for lipoid disorders Uric Acid Today M79.672 - Pain in left foot Prostate Specific Antigen Scr Today R35.0 - Frequency of micturition, Z01.89 - Encounter for other specified special examinations Lyme IgG/IgM w/reflex to WB Today M79.672 - Pain in left foot XR foot LT min 3V Today M79.672 - Pain in left foot Referrals Orthopedics Referral M79.672 - Pain in left foot
[2024-04-17 10:18] VITALS: BP 128/82; PULSE 86; O2SAT 96; BMI 36.7
== END 2024-04-17 10:52 | disposition home or self-care (01) ==
PROVIDERS: PCP Physician Assistant; Visit Provider Physician Assistant
DX: R93.2 Abnormal findings on diagnostic imaging of liver and biliary tract (principal); E11.29 Type 2 diabetes mellitus with other diabetic kidney complication; R80.9 Proteinuria, unspecified; I10 Essential (primary) hypertension; E03.9 Hypothyroidism, unspecified; R35.0 Frequency of micturition; M79.672 Pain in left foot

== ENCOUNTER → 2024-04-17 10:02 | Outpatient (BNVA) | payer MEDICARE, SELFPAY | PROVIDERS: PCP Physician Assistant; Visit Provider Physician Assistant | DX: Z12.5 Encounter for screening for malignant neoplasm of prostate (principal); R93.2 Abnormal findings on diagnostic imaging of liver and biliary tract; E11.29 Type 2 diabetes mellitus with other diabetic kidney complication; R80.9 Proteinuria, unspecified; I10 Essential (primary) hypertension; E03.9 Hypothyroidism, unspecified; R35.0 Frequency of micturition; M79.672 Pain in left foot | CPT/HCPCS: 36415; 81001; 84153; 84550; 85025; 86618; 99212 ==

== ENCOUNTER 2024-04-17 10:58 | Outpatient (REF) | payer MEDICARE, SELFPAY ==
[2024-04-17 14:16] LABS: Appearance Urine Clear; Color Urine Yellow; Glucose Urine UA >=1000 mg/dL (Negative); Leukocyte Esterase Urine Negative (Negative); Nitrite Urine Negative (Negative); Specific Gravity - Urine >= 1.030 (1.005-1.025); UMIC TRIGGER UACC YES; Urine Blood Negative (Negative); Urine Ketones Negative (Negative); Urine Protein Negative (Neg-Trace)
[2024-04-17 14:16] LABS: MANUAL DIFF FLAG NO
[2024-04-17 14:22] LABS: Bacteria Urine None Seen (None Seen); Hyaline Casts Urine 0-2 /LPF (0-2); RBC Urine 0-2 /HPF (0-2); Squamous Epithelial Cell Urine 0-2 /HPF (0-2); WBC Urine 0-5 /HPF (0-5)
[2024-04-17 14:27] LABS: Basophils Absolute Auto 0.1 X10*3/uL (0.0-0.2); Basophils Percent Auto 0.8 % (0-2); Eosinophils Absolute Auto 0.1 X10*3/uL (0.0-0.4); Eosinophils Percent Auto 1.7 % (0-4); Hematocrit 47.9 % (42.0-52.0); Hemoglobin 15.7 g/dl (14.0-18.0); Imm Gran Abs Auto 0.02 X10*3/uL (0.00-0.03); Imm Gran Pct Auto 0.3 % (0.0-0.4); Lymphocytes Absolute Auto 1.4 X10*3/uL (1.2-4.9); Lymphocytes Percent Auto 20.9 % (20-40); Mean Corpuscular HGB Conc 32.8 g/dl (31.0-36.0); Mean Corpuscular Hemoglobin 30.1 pg (27.0-33.0); Mean Corpuscular Volume 91.9 fL (80.0-98.0); Mean Platelet Volume 10.8 fL (9.4-12.4); Monocytes Absolute Auto 0.5 X10*3/uL (0.1-1.2); Monocytes Percent Auto 7.7 % (2-11); Neutrophils Absolute Auto 4.5 x10*3/uL (2.0-8.3); Neutrophils Percent Auto 68.6 % (45-73); Platelet Count 277 X10*3/uL (160-400); Red Blood Count 5.21 X10*6/uL (4.60-5.80); Red Cell Distribution Width 14.3 % (11.0-16.0); White Blood Count 6.6 X10*3/uL (4.8-10.8)
[2024-04-17 14:37] LABS: Uric Acid 5.8 mg/dL (3.4-7.0)
[2024-04-17 14:56] LABS: Prostate Specific Antigen Scr 0.29 ng/mL (<0.05-4.0)
[2024-04-18 05:29] LABS: Lyme Abs Screen <0.90 index
== END 2024-04-17 10:59 | disposition home or self-care (01) ==
LOC: HO.WFDLDS 10:58
PROVIDERS: Visit Provider Physician Assistant
DX: Z13.89 Encounter for screening for other disorder (principal)
CPT/HCPCS: 36415; 81001; 84153; 84550; 85025; 86617; 86618

== ENCOUNTER 2024-06-30 13:58 | Outpatient (AMB) | payer MEDICARE, SELFPAY ==
--- NOTE | 2024-06-30 13:59 | A.OFFVIS_ITS ---
Vital Signs 06/30/24 14:14 Height 5 ft 7 in Weight 233 lb 11.04 oz BMI 36.6 BP 128/76 Blood Pressure Location Rt brachial Position Sitting Pulse 76 Pulse Source Pulse Oximeter Pulse Oximetry (%) 98 Oxygen Delivery Method Room Air Intake Visit Reasons: Abnormal findings on diagnostic imaging of liver Intake Note: NEW PATIENT for abn imaging findings. 01/2024. Prior hx of colo/egd? + Cologuard and adamant refusal of colonoscopy. Chief Complaint; No GI concerns per pt. Director Occupational Required: No Accompanied by: Self / Same As Patient Allergies No Known Allergies Allergy (Verified 06/30/24 13:59) HPI HPI Abnormal findings on diagnostic imaging of liver: Details: 79-year-old male with past medical history of hyperlipidemia, diabetes, chronic AFib, pacemaker, hypothyroidism, hypertension, obesity, gout is here today for initial consultation. Patient was sent to us by his PCP. Increased AST back in January of 2024. Patient was sent for abdominal ultrasound that showed increased echogenicity. Patient reports that he is feeling well and denies any GI concerning symptoms. Patient denies melena, hematochezia, unintentional w eight loss or ribbon like stools. Patient denies drinking alcohol excessively. Occasional wine. Patient denies any dyspepsia, dysphagia or odynophagia. [facility] Medical History Obesity with serious comorbidity Severe obesity Pacemaker Hypothyroid Hyperlipidemia HTN (hypertension) Right hip pain Gout Erectile dysfunction Controlled type 2 diabetes mellitus Chronic a-fib Surgical History History of knee replacement Social History Housing: House Alcohol intake: current Patient Tobacco Use Status: Former Tobacco user Tobacco use type: Cigarette Cigarette Packs Per Day: 1 Years Smoked: 9 e-Cigarette/Vaping Use: Never Used Second Hand Smoke Exposure: No service: Yes Current occupational status: retired Cognitive needs: No Hearing needs: Yes (hearing aids) Vision needs: No Review of Systems Const Denies weight gain and Denies weight loss ENT Reports no additional complaints, Denies dysphagia and Denies odynophagia Card Reports no additional complaints Resp Reports no additional complaints GI Denies abdominal pain, Denies belching, Denies melena, Denies bloating, Denies change in bowel habits, Denies dysphagia, Denies excessive flatus, Denies dyspepsia, Denies heartburn, Denies diarrhea, Denies loose stools, Denies nausea, Denies odynophagia and Denies vomiting Reports no additional complaints Musc Reports no additional complaints Neuro Reports no additional complaints Psych Reports no additional complaints Endo Reports no additional complaints Physical Exam Vital Signs: Last Vital Signs Pulse 76 06/30/24 14:14 BP 128/76 06/30/24 14:14 Pulse Ox 98 06/30/24 14:14 Oxygen Delivery Method Room Air 06/30/24 14:14 BMI result Body Mass Index 36.6 Const General: healthy appearing, no acute distress and well developed Nutritional Appearance: well nourished Orientation/consciousness: patient oriented x3 Resp Effort & Inspection: normal respiratory effort, able to speak in complete sentences, no tracheal deviation and symmetric chest movement Auscultation: clear to auscultation bilaterally Cardio Rate: regular rate GI Inspection: Yes normal to inspection and No distended Palpation (GI): Soft to palpation, not firm, nontender and No hepatosplenomegaly present Auscultation: normal bowel sounds General: Yes no CVA tenderness Back/Spine/Pelvis Back: no CVA tenderness Skin General skin exam: elasticity normal, turgor normal and dry skin Neuro General: patient oriented x3 Psych Appearance: grossly normal Mental Status: mental status grossly normal Results Reviewed Results Reviewed: ABDOMINAL US 01/24/24 FINDINGS: PANCREAS: Limited visualization of pancreatic tail and head. Imaged portion of pancreatic body is unremarkable. ABDOMINAL AORTA: Limited visualization. Imaged portions of the abdominal aorta are within normal limits in caliber. Limited visualization of the proximal abdominal aorta. INFERIOR VENA CAVA: Visualized portions are normal. LIVER: Borderline mildly increased hepatic parenchymal heterogeneity and echogenicity could be associated with hepatocellular disease/hepatic steatosis and substantially limits visualization. There are patchy areas of heterogeneous hypoechoic echotexture of uncertain etiology. Correlation with liver function tests and clinical exam recommended to determine further management. GALLBLADDER: No gallstones. No gallbladder wall thickening. COMMON BILE DUCT: Normal in caliber measuring 0.25 cm in diameter. RIGHT KIDNEY: No hydronephrosis. No renal calculi. Limited visualization. The kidney measures 12.6 cm in maximum dimension. LEFT KIDNEY: A 0.5 cm upper pole nonobstructive calculus. No hydronephrosis. Limited visualization. 1.8 cm lower pole cyst with benign features. There is no indication for followup imaging. The kidney measures 12.0 cm in maximum dimension. SPLEEN: Normal. The spleen measures 9.5 cm in maximum dimension. FREE FLUID: None. US/US abdomen complete IMPRESSION: 1. Borderline mildly increased hepatic parenchymal heterogeneity and echogenicity could be associated with hepatocellular disease/hepatic steatosis and substantially limits visualization. There are patchy areas of heterogeneous hypoechoic echotexture of uncertain etiology. Correlation with liver function tests and clinical exam recommended to determine further management. 2. A 0.5 cm upper pole nonobstructive calculus. No hydronephrosis. Assessment & Plan Assessment & Plan (1) Abnormal liver ultrasound: Code(s): R93.2 - Abnormal findings on diagnostic imaging of liver and biliary tract Category: Medical (2) Elevated LFTs: Code(s): R79.89 - Other specified abnormal findings of blood chemistry Category: Medical Plan Will rule out autoimmune disorders. As mentioned above increase echogenicity of the liver seen on ultrasound. Will check liver fibrosis panel as well as send patient for ultrasound with elastography. Discussed with patient diet recommendation. Low carb, low fat and low-sodium diet. Increase protein in his diet. Exercise and weight loss also discussed. Patient will return in the office in 4 months, sooner on as needed basis. He is agreeable to this plan and verbalizes understanding of instructions. He was given the opportunity to ask questions and all questions answered. Thank you for allowing me to participate in his care Orders: Orders Mitochondrial Antibody 06/30/24 R79.89 - Other specified abnormal findings of blood chemistry Gamma Glutamyl Transpeptidase 06/30/24 R74.8 - Abnormal levels of other serum enzymes Liver Fibrosis Pnl 06/30/24 K76.0 - Fatty (change of) liver, not elsewhere classified Smooth Muscle Antibody 06/30/24 R79.89 - Other specified abnormal findings of blood chemistry Alpha Fetoprotein 06/30/24 R79.89 - Other specified abnormal findings of blood chemistry US abdomen sebastian w elastography 06/30/24 K76.0 - Fatty (change of) liver, not elsewhere classified Ferritin 06/30/24 R74.8 - Abnormal levels of other serum enzymes Liver Panel 06/30/24 R74.01 - Elevation of levels of liver transaminase levels Transglutaminase IgA 06/30/24 R10.9 - Unspecified abdominal pain Ceruloplasmin 06/30/24 R79.89 - Other specified abnormal findings of blood chemistry Hepatitis A,B,C Profile 06/30/24 R79.89 - Other specified abnormal findings of blood chemistry C Reactive Protein 06/30/24 K58.9 - Irritable bowel syndrome, unspecified Coding Level of Care Code New Pt Level 4 (16815) Diagnoses Abnormal liver ultrasound R93.2 Elevated LFTs R79.89 Time Spent (min) 45 Comment 30 minutes spent with patient and additional 15 minutes spent reviewing his records
[2024-06-30 14:14] VITALS: BP 128/76; PULSE 76; O2SAT 98; BMI 36.6
--- OUTSIDE RECORDS SUMMARY | 2024-06-30 16:01 | XMS_ITS ---
Author Name Interface, [id number] Address [place] [address] Organization [facility] Address [address] [place] [address] Care Team Providers Care Lead Dental Assistant Name Role Phone Emily Maloney Unavailable Unavailabl e Allergies and Adverse Reactions Medication/Group Name Reaction Severity Date No known allergies Plan Date Type Value 11/10/2021 APPOINTMENT LAb/ 6 month fol lowup 05/19/2021 APPOINTMENT LAB/ 6 month fol lowup 05/19/2021 APPOINTMENT LAB/ 6 month fol lowup 11/10/2021 LABORDER CBC 11/10/2021 LABORDER CMP Reason for Visit LAb/ 6 month followup Encounters Date Name 05/19/2021 Polycythemia Immunizations Date Name Route Dose Instructions Refusal Reason Stat us 02/04/2021 Flu vaccine - Adult C ompleted 02/07/2021 Covid-19 vaccine (PlanG) Completed Diagnostic Results Date Type Test Units Lower Limit Upper Limit Result Flag Comments Status Ordered By Specimen Source Lab Address 05/19 Bilir ubin, total mg/dL 0.1 1.0 1.0 FINAL [facility] 05/19 Alkal ine phosp hatas e U/L 45.0 115.0 48 FINAL [facility] 05/19 ALT/S GPT U/L 7.0 52.0 26 FINAL [facility] 05/19 AST/S GOT U/L 13.0 39.0 24 Performed at [facility] FINAL [facility] 05/19 A/G ratio 1.6 FINAL [facility] 05/19 BUN mg/dL 7.0 25.0 23 FINAL [facility] 05/19 CO2 mmol/L 21.0 31.0 28 FINAL [facility] 05/19 Anion gap 0.0 18.0 8 FINAL [facility] 05/19 Gluco se mg/dL 70.0 140.0 172 High FINAL [facility] 05/19 Creat inine mg/dL 0.8 1.3 1.1 FINAL [facility] 05/19 GFR estim ate 1.73m2 >60 FINAL [facility] 05/19 BUN/C reati nine ratio 20.0 FINAL [facility] 05/19 Osmol ality , calcu lated 270.0 300.0 285 FINAL [facility] 05/19 Calci um mg/dL 8.6 10.2 9.5 FINAL [facility] 05/19 Total prote in g/dL 5.7 8.0 6.7 FINAL [facility] 05/19 Album in g/dL 3.5 5.0 4.1 FINAL [facility] 05/19 Chlor vadim mmol/L 98.0 107.0 103 FINAL [facility] 05/19 Sodiu m mmol/L 136.0 146.0 139 FINAL [facility] 05/19 Potas sium mmol/L 3.5 5.1 4.7 FINAL [facility] 05/19 WBC Thsd/m m3 4.0 11.0 6.0 FINAL [facility] 05/19 RBC Mill/m m3 4.2 5.7 5.4 FINAL [facility] 05/19 HGB g/dL 13.3 17.1 16.9 FINAL [facility] 05/19 HCT % 39.0 50.0 50.1 High FINAL [facility] 05/19 MCV fL 80.0 100.0 93 FINAL [facility] 05/19 MCH, g/dL pg 26.0 34.0 31 FINAL [facility] 05/19 MCHC g/dL 31.0 37.0 34 FINAL [facility] 05/19 RDW % 11.5 14.5 14.9 High FINAL [facility] 05/19 PLT Thsd/m m3 140.0 450.0 233 FINAL [facility] 05/19 MPV fL 7.0 12.0 8.8 FINAL [facility] 05/19 LY % % 20.0 44.0 32.3 FINAL [facility] 05/19 MO % % 2.0 9.0 9.0 FINAL [facility] 05/19 Ronn % % 50.0 70.0 53.7 FINAL [facility] 05/19 Eosin ophil % % 0.0 4.0 4.2 High FINAL [facility] 05/19 Basop hil % % 0.0 2.0 0.8 FINAL [facility] 05/19 LY # Thsd/m m3 1.9 FINAL [facility] 05/19 MO # Thsd/m m3 0.5 FINAL [facility] 05/19 Ronn # (ANC) Thsd/m m3 3.2 FINAL [facility] 05/19 EO # Thsd/m m3 0.3 FINAL [facility] 05/19 BA # Thsd/m m3 0.0 Performed at [facility] FINAL [facility] 11/10 WBC Thsd/m m3 4.0 11.0 7.5 FINAL [facility] 11/10 RBC Mill/m m3 4.2 5.7 5.2 FINAL [facility] 11/10 HGB g/dL 13.3 17.1 16.1 FIN[facility] 11/10 HCT % 39.0 50.0 48.5 [facility] 11/10 MCV fL 80.0 100.0 93 [facility] 11/10 MCH, g/dL pg 26.0 34.0 31 [facility] 11/10 MCHC g/dL 31.0 37.0 33 [facility] 11/10 RDW % 11.5 14.5 15.0 High [facility] 11/10 PLT Thsd/m m3 140.0 450.0 223 FIN[facility] 11/10 MPV fL 7.0 12.0 8.8 FINAL [facility] 11/10 LY % % 20.0 44.0 25.0 FINAL [facility] 11/10 MO % % 2.0 9.0 7.4 FINAL [facility] 11/10 Ronn % % 50.0 70.0 63.0 FINAL [facility] 11/10 Eosin ophil % % 0.0 4.0 3.6 FINAL [facility] 11/10 Basop hil % % 0.0 2.0 1.0 FINAL [facility] 11/10 LY # Thsd/m m3 1.9 FIN[facility] 11/10 MO # Thsd/m m3 0.5 FIN[facility] 11/10 Ronn # (ANC) Thsd/m m3 4.7 FIN[facility] 11/10 EO # Thsd/m m3 0.3 FIN[facility] 11/10 BA # Thsd/m m3 0.1 Performed at [facility] FINAL [facility] 11/10 Sodiu m mmol/L 136.0 146.0 138 FINAL [facility] 11/10 Potas sium mmol/L 3.5 5.1 4.7 FINAL [facility] 11/10 Chlor vadim mmol/L 98.0 107.0 104 FINAL [facility] 11/10 CO2 mmol/L 21.0 31.0 28 FINAL [facility] 11/10 Anion gap 0.0 18.0 6 [facility]AL [facility] 11/10 Gluco se mg/dL 70.0 140.0 131 FINAL [facility] 11/10 BUN mg/dL 7.0 25.0 18 FINAL [facility] 11/10 Creat inine mg/dL 0.8 1.3 1.2 FINAL [facility] 11/10 GFR estim ate 1.73m2 59 Low FINAL [facility] 11/10 BUN/C reati nine ratio 15.0 FINAL [facility] 11/10 Osmol ality , calcu lated 270.0 300.0 279 FINAL [facility] 11/10 Calci um mg/dL 8.6 10.2 10.1 FINAL [facility] 11/10 Total prote in g/dL 5.7 8.0 6.8 FINAL [facility] 11/10 Album in g/dL 3.5 5.0 4.3 FINAL [facility] 11/10 A/G ratio 1.7 FINAL [facility] 11/10 Bilir ubin, total mg/dL 0.1 1.0 0.6 FINAL [facility] 11/10 Alkal ine phosp hatas e U/L 45.0 115.0 40 Low FINAL [facility] 11/10 ALT/S GPT U/L 7.0 52.0 28 FIN[facility] 11/10 AST/S GOT U/L 13.0 39.0 22 Performed at [facility] Medications Date Name Route Dose Frequency Instructions Start Date End Date Status Levothyroxine Oral DAILY active Apixaban Oral BID act constance Canagliflozin Oral DAILY active Metformin Oral BID ac tive Ezetimibe Oral DAILY ac tive Allopurinol Oral BID active Problems Diagnosis Status Date of Diagnosi s Polycythemia Active 10/19/2020 Vital Signs Date Type Value 05/19/2021 Body Temperature 98.00 05/19/2021 Heart Beat 77.00 05/19/2021 BSA 2.23 05/19/2021 BMI 37.25 05/19/2021 Height 68.00 05/19/2021 Weight 245.00 05/19/2021 Pain Scale 0.00 05/19/2021 Intravascular Systolic 125 05/19/2021 Intravascular Diastolic 82 05/19/2021 Respiratory Rate 20.00 11/10/2021 Body Temperature 97.80 11/10/2021 BMI 37.80 11/10/2021 Height 68.00 11/10/2021 Weight 248.60 11/10/2021 BSA 2.24 11/10/2021 Intravascular Systolic 133 11/10/2021 Intravascular Diastolic 86 11/10/2021 Respiratory Rate 18.00 11/10/2021 Heart Beat 88.00 11/10/2021 Pain Scale 0.00
--- OUTSIDE RECORDS SUMMARY | 2024-06-30 16:01 | XMS_ITS | Encounter Summary ---
Author Organization [facility] Address [address] [place] [address] Care Team Providers Care Cupola Liner Name Role Phone Lynn Trivedi Primary Care Provider [phone] Reason for Visit * Reason Onset Date Comments Medical Records 05/12/2024 Encounter Details Date Type Department Care Team (Late st Contact Info) Description 05/12/2024 Telephone [facility] [address] [place] [id number] Lynn Trivedi PA [address] [place] [address] Medical Records Social History Tobacco Use Types Packs/Day Years Used Date Smoking Tobacco: Former Smokeless Tobacco: Never Alcohol Use Standard Drinks/Week Comments Yes 0 (1 standard drink = 0.6 oz pur e alcohol) Sex and Gender Information Value Date Recorded Sex Assigned at Male 05/05/2024 7:43 AM EST Legal Sex Male 9:00 PM EST Gender Identity Male 05/05/2024 7:43 AM EST Sexual Orientation Not on file documented as of this encounter Progress Notes * Komal May - 06/09/2024 11:44 AM EST Faxed 05/09/2024 Vascular Test Report to [facility] Att: Olivia at [phone] on 05/12/2024 documented in this encounter Plan of Treatment Upcoming Encounters Date Type Department Care Team (Late st Contact Info) Description 08/01/2024 7:40 AM EDT Office Visit [facility] Cardiology [facility] [address] [place] [address] Kristy Juárez NP [address] [place] [address] [place] [address] 10/02/2024 9:00 AM EDT Ancillary Procedure [facility] [address] [place] [address] documented as of this encounter Visit Diagnoses Not on filedocumented in this encounter Care Teams Cupola Liner Relationship Specialty Start Date End Date Lynn Trivedi PA [address] [place] [address] PCP - General 08/16/22 documented as of this encounter
--- OUTSIDE RECORDS SUMMARY | 2024-06-30 16:01 | XMS_ITS | Clinical Summary ---
Author Organization [address] [place] [address] [place] [id number] Phone Care Team Providers Care Supervisor Taping Name Role Phone Lynn Trivedi Primary Care Provider [phone] Allergies No known active allergies Medications allopurinoL (ZYLOPRIM) 100 mg tablet Take 1 Tablet by mouth daily. Active apixaban (ELIQUIS) 5 mg tablet Take by mouth. Active canagliflozin (INVOKANA) 300 mg tablet Take by mouth. Active ezetimibe (ZETIA) 10 mg tablet Take 1 Tablet by mouth daily. Active levothyroxine (SYNTHROID, LEVOTHROID) 75 mcg tablet Take 1 Tablet by mouth daily. Active metformin HCl (METFORMIN ORAL) Take 1,000 mg by mouth. Active multivit-min/fol ic acid/lutein (CENTRUM SILVER ORAL) Take by mouth. Active lisinopriL (PRINIVIL,ZESTRI L) 2.5 mg tablet Take 1 tablet (2.5 mg total) by mouth 1 (one) time each day. Active Active Problems Problem Noted Date Diagnosed Date Mixed hyperlipidemia 09/29/2022 Primary hypertension 09/29/2022 Chronic atrial fibrillation 09/26/2022 Assessment & Plan (05/02/2024 10:18 AM EST): [id number] score of 3 based on his age and history of diabetes. He denies history of hypertension, states he is on lisinopril for renal protection. Patient to continue on Eliquis 5 mg twice daily for stroke risk reduction which is appropriate for his age, weight and kidney function. He reports tolerance with no abnormal bleeding noted. He is aware that if he were to sustain a fall and strike his head he would need to seek emergent medical attention. He has a Micra pacemaker and his rate is well-controlled, today it is 78 bpm. Orders: ECG 12 lead Transthoracic echocardiogram (TTE) complete with PRN contrast, bubble, strain, and 3D order panel; Future Vascular US duplex lower extremity venous insufficiency left; Future HLD (hyperlipidemia) 09/26/2022 Assessment & Plan (05/02/2024 10:18 AM EST): Patient with history of hyperlipidemia, continues on Zetia 10 mg daily. Previously intolerant to statins. States he recently had labs completed with his PCP who stated his cholesterol had improved. Will attempt to obtain the labs for system. I have reviewed with the patient the importance of a heart healthy lifestyle which includes eating a low-fat low-salt diet, getting regular exercise, maintaining a healthy weight, not smoking, and following up with routine medical care. Encounters Date Type Department Care Team Description 05/12/2024 Telephone [facility] [address] [place] [address] Lynn Tirvedi PA Medical Records 05/09/2024 7:30 AM EST Ancillary Procedure [facility]iology [facility] - [address] [place] [address] Chronic atrial fibrillation (CMS/HCC); Primary hypertension; Swelling of left lower extremity 05/05/2024 8:00 AM EST Ancillary Procedure [facility] - [address] [place] [address] Chronic atrial fibrillation (CMS/HCC); Primary hypertension; Swelling of left lower extremity 05/02/2024 8:40 AM EST Office Visit [facility]iology [facility] [address] [place] [address] Kristy Juárez NP Swelling of left lower extremity (Primary Dx); Chronic atrial fibrillation (CMS/HCC); Hyperlipidemia, unspecified hyperlipidemia type; Primary hypertension 04/16/2024 2:35 PM EST Ancillary Procedure [facility] [address] [place] [address] from Last 3 Months Surgical History Surgery Date Site/Laterality Comments OTHER SURGICAL HISTORY PROCEDURE: HISTORY OTHER; COMMENT: KNEE REPLACEMENT PACEMAKER IMPLANT PROCEDURE: HISTORICAL PACEMAKER Medical History Medical History Date Comments HTN (hypertension) DX:HTN (hyper tension) Obese DX:Obese; COMMEN T: class I Gout DX:Gout Type 2 diabetes mellitus wit hout complications (CMS/HCC) DX:Type 2 diabetes mellitus without complications (HCC) ED (erectile dysfunction) DX:ED (erectile dysfunction) Family History Medical History Relation Name Comments Other cancer Father Relation Name Status Comments Father Social History Tobacco Use Types Packs/Day Years Used Date Smoking Tobacco: Former Smokeless Tobacco: Never Tobacco Cessation:Counseling Given: Not Answered Alcohol Use Standard Drinks/Week Comments Yes 0 (1 standard drink = 0.6 oz pur e alcohol) Sex and Gender Information Value Date Recorded Sex Assigned at Male 05/05/2024 7:43 AM EST Legal Sex Male 9:00 PM EST Gender Identity Male 05/05/2024 7:43 AM EST Sexual Orientation Not on file Obstetrics History Last Filed Vital Signs Vital Sign Reading Time Taken Comments Blood Pressure 125/85 05/05/2024 8:48 AM EST Pulse 78 05/02/2024 8:13 AM EST Temperature - - Respiratory Rate - - Oxygen Saturation 98% 05/02/2024 8:13 AM EST Inhaled Oxygen Concentration - - Weight 105 kg (232 lb) 05/05/2024 8:48 AM EST Height 172.7 cm (5' 8 ) 05/05/2024 8:48 AM EST Body Mass Index 35.28 05/05/2024 8:48 AM EST Plan of Treatment Upcoming Encounters Date Type Department Care Team (Late st Contact Info) Description 08/01/2024 7:40 AM EDT Office Visit [facility] [address] [place] [id number] Kristy Juárez NP [address] [place] [address] [place] [address] 10/02/2024 9:00 AM EDT Ancillary Procedure [facility] - [address] [place] [address] Health Maintenance Due Date Last Done Comments Diabetes: Annual GFR (Glomerular Filtration Rate) 1946 Diabetes: Annual Foot Exam 01/07/1956 Diabetes: Annual Retina Eye Exam 01/07/1956 DTaP,Tdap,and Td Vaccines (1 - Tdap) 1965 Zoster Vaccines (1 of 2) 01/07/1996 Cholesterol Screening (Lipid Panel) 06/01/2023 Depression Screening 06/01/2023 Falls Risk Assessment 06/01/2023 Hepatitis C Screening 06/01/2023 Medicare Annual Wellness Visit 06/01/2023 04/06/2022 Social Influencers of Health Screening 06/01/2023 Hypertension/CHF/CAD Annual BMP Blood Test 06/05/2023 Diabetes: Annual Urine Albumin-Creatinine Ratio (uACR) 04/17/2024 Diabetes: Blood Sugar Control Test (HGBA1C) 04/17/2024 Pneumococcal Vaccine: 50+ Years Completed 02/16/2023 RSV Immunization Patients 60+ Years Old Completed 02/16/2023 COVID-19 Vaccine Completed 01/25/2024, 01/24/2023 Influenza Vaccine Completed 01/25/2024, , 04/06/2022, Additional history exists HIB Vaccines Aged Out No longer eligi ble based on patient's age to complete this topic HPV Vaccines Aged Out No longer eligi ble based on patient's age to complete this topic Hepatitis A Vaccines Aged Out No long er eligible based on patient's age to complete this topic Hepatitis B Vaccines Aged Out No long er eligible based on patient's age to complete this topic IPV Vaccines Aged Out No longer eligi ble based on patient's age to complete this topic MMR Vaccines Aged Out No longer eligi ble based on patient's age to complete this topic Meningococcal ACWY Vaccine Aged Out N o longer eligible based on patient's age to complete this topic Meningococcal B Vacine Aged Out No lo nger eligible based on patient's age to complete this topic RSV Immunization Patients Under 20 months Aged Out No longer eligible based on patient's age to complete this topic Varicella Vaccines Aged Out No longer eligible based on patient's age to complete this topic Medical Devices Implanted Type Area Wine Cellar Worker Device Identifier Shelf Expiration Date Model / Serial / Lot Medt-Card [id number] Implanted:01/2021 (Quantity not on file) 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 / [id number] / Procedures Procedure Name Priority Date/Time Associated Diagnosis Comments VAS US DUPLEX LOWER EXT VENOUS INSUFFICIENCY LEFT Routine 05/09/2024 7:39 AM EST Chronic atrial fibrillation (CMS/HCC) Primary hypertension Swelling of left lower extremity TRANSTHORACIC ECHOCARDIOGRAM (TTE) COMPLETE W/ CONTRAST Routine 05/05/2024 8:47 AM EST Chronic atrial fibrillation (CMS/HCC) Primary hypertension Swelling of left lower extremity ECG 12-LEAD Routine 05/02/2024 10:15 AM EST Chronic atrial fibrillation (CMS/HCC) CARDIAC DEVICE CHECK- REMOTE- MURJ Routine 04/16/2024 2:32 PM EST from Last 3 Months Results * Vascular US duplex lower extremity venous insufficiency left (05/09/2024 7:39 AM EST) Left fem mid reflux 3,495 ms CV VAS LAB Left GSK justin 0.26 cm CV VAS LAB Left GSDC justin 0.30 cm CV VAS LAB Left GSMT justin 0.31 cm CV VAS LAB Left GSPC justin 0.31 cm CV VAS LAB Left GSPT justin 0.37 cm CV VAS LAB Left SFJ Diameter 0.77 cm CV VAS LAB Left SSMC justin 0.32 cm CV VAS LAB Left SSPC justin 0.43 cm CV VAS LAB Left com fem reflux 878 ms CV VAS LAB Left pop reflux 3,556 ms CV VAS LAB Left SPJ Diameter 0.43 cm CV VAS LAB Anatomical Region Laterality Modality Vascular, Abdomen Ultrasound Narrative 05/09/2024 8:16 AM EST The study performed on the left lower extremity only. No venous thrombus in the left lower extremity. Clinically significant reflux noted in the left mid femoral vein and left popliteal vein. ??Mild reflux is present in the left ANIMAL DAMAGE CONTROL AGENT. No significant reflux in the left GSV and its branches. There is a focal wall thickening and calcification at the proximal SSV with no evidence of thrombus. ??The SSV wall is compressible. ??The left SSV divided into 2 branches at the midportion. Left Lower Venous No evidence of deep vein thrombosis in the common femoral, deep femoral, proximal femoral, mid femoral, distal femoral, popliteal, greater saphenous, small saphenous, posterior tibial and peroneal veins of the left leg. The vessels showed compressibility. Interrogation showed phasic and spontaneous Doppler signals. Left Venous Insufficiency Duplex The exam was performed with the patient in reverse trendelenburg. Echogenic foci seen along proximal small saphenous negrete. Duplicated mid small saphenous vein. Wire Machine Operator Details A wyatt scale, color and doppler analysis ultrasound was performed. During the study longitudinal and transverse views were obtained. Pulsed wave doppler was performed. us Kristy Juárez NP CV VASCULAR PROCEDURES Final R esult * (ABNORMAL) TRANSTHORACIC ECHOCARDIOGRAM (TTE) COMPLETE W/ CONTRAST (05/05/2024 8:47 AM EST) Left Atrium Minor Somerset 7.3 cm CV PACS Left Atrium Major Somerset 6.7 cm CV PACS LA Area Sys (A2C) 32 cm2 CV PACS LA Area Sys (A4C) 26 cm2 CV PACS LA Volume (BP) 96 mL CV PACS RA Area 24.9 cm2 CV PACS RA 2D Volume 75 mL CV PACS Aortic Sinus Valsalva 4.4 cm CV PACS Ascending Aorta 4.0 cm CV PACS IVC Proximal 1.4 cm CV PACS IVC Proximal 0.4 cm CV PACS IVSD 1.0 0.6 - 1.0 cm CV PACS LVIDD 4.8 4.2 - 5.8 cm CV PACS LVIDS 2.7 2.5 - 4.0 cm CV PACS LVOT Diameter 2.2 cm CV PACS LVOT Mean Emilio 0.5 m/s CV PACS LVOT Mean Grad 1 mmHg CV PACS LVOT Mean Grad 1 mmHg CV PACS LVOT Mean Grad 1 mmHg CV PACS LVOT Mean Grad 1 mmHg CV PACS LVOT Mean Grad 1 mmHg CV PACS LVOT Peak VTI 13.0 cm CV PACS LVOT Peak VTI 13.0 cm CV PACS LVOT Peak Emilio 0.7 m/s CV PACS LVOT Peak Gradient 2 mmHg CV PACS LVPWD 1.1(A) 0.6 - 1.0 cm CV PACS LVOT Area 3.8 cm2 CV PACS LVOT Stroke Volume 49 mL CV PACS MV Deceleration Colleton 4.8 m/s2 CV PACS E Wave Deceleration Time 187 119 - 242 ms CV PACS MV PHT 67 ms CV PACS MV Peak E Emilio 0.89 m/s CV PACS MV Area PHT 3.3 cm2 CV PACS PV Acceleration Time 91 ms CV PACS RV Diastolic Basal Dimension 3.5 2.5 - 4.1 cm CV PACS RV S' 8 cm/s CV PACS TAPSE 17 mm CV PACS Relative Wall Thickness ratio 0.46 CV PACS FS 44 % CV PACS LV Mass 2D 182 g CV PACS LVOT flow 190 mL/s CV PACS BSA 2.25 m2 CV PACS LA Volume Index (BP) 44 mL/m2 CV PACS LVIDD Index 2.20 cm/m2 CV PACS LVIDS Index 1.24 cm/m2 CV PACS LV Mass Index 2D 83 50 - 102 g/m2 CV PACS LVOT Stroke Index 22 mL/m2 CV PACS RA 2D Volume Index 34(A) 18 - 32 mL/m2 CV PACS Ascending Aorta Index 1.83 cm/m2 CV PACS Est. RA Pressure 3 mmHg CV PACS Ejection Fraction (BP) 54 % CV PACS Anatomical Region Laterality Modality Ultrasound Narrative 05/26/2024 12:30 PM EST ?Left ventricle cavity size is normal. Wall thickness is normal. Systolic function is low normal. The quantitative EF by 2D Campo biplane is 54%. There are no regional LV wall motion abnormalities. Unable to assess diastolic function. ?Right ventricle cavity is normal. Right ventricular systolic function is normal. ?Left atrium cavity is moderately dilated. Right atrium cavity is normal. ?No hemodynamically significant valvular heart disease. ?The Sinus of Valsalva is dilated (4.4 cm). The ascending aorta is dilated (4.0 cm). Left Ventricle Left ventricle cavity size is normal. Wall thickness is normal. Systolic function is low normal. The quantitative EF by 2D Campo biplane is 54%. There are no regional LV wall motion abnormalities. Unable to assess diastolic function. Right Ventricle Right ventricle cavity appears normal. Systolic function is normal. Left Atrium Left atrium cavity is moderately dilated. Right Atrium Right atrium cavity is normal. IVC/SVC Inferior vena cava structure is normal. RA pressures is estimated to be 3 mmHg (IVC diameter <21 mm and decreases >50% during inspiration). Mitral Valve The leaflets are mildly thickened. There is mild annular calcification. There is trace regurgitation. There is no evidence of mitral valve stenosis. Tricuspid Valve The leaflets exhibit probably normal excursion. There is trace regurgitation. There is no evidence of tricuspid valve stenosis. Aortic Valve The aortic valve is trileaflet. There is no regurgitation or stenosis. Pulmonic Valve There is no regurgitation or stenosis. Ascending Aorta The Sinus of Valsalva is dilated (4.4 cm). The ascending aorta is dilated (4.0 cm). Pericardium Pericardium appears normal. Study Details Overall the study quality was adequate. The underlying ECG rhythm was atrial fibrillation. Definity contrast was given to enhance imaging. Kristy Juárez NP CV ECHO PROCEDURES Final Resul t * ECG 12 lead (05/02/2024 10:15 AM EST) Ventricular Rate ECG 78 BPM GEMUSE Atrial Rate 214 BPM GEMUSE QRS Duration 148 ms GEMUSE Q-T Interval 426 ms GEMUSE QTc 485 ms GEMUSE R Somerset -81 degrees GEMUSE T Somerset 26 degrees GEMUSE ECG Interpretation Atrial fibrillation with occasional ventricular-pac ed complexes Left axis deviation Right bundle branch block Abnormal ECG No previous ECGs available Confirmed by DAKOTA GUTIERREZ ([id number]) on 05/03/2024 9:17:13 AM GEMUSE 05/02/2024 8:21 AM EST 05/03/2024 9:17 AM EST Kristy Juárez NP ECG ORDERABLES Edited Result - Final GEMUSE * Cardiac device check - Remote- MURJ (04/16/2024 2:32 PM EST) Date Time Interrogation Session [id number] CV DEVICE CHECK Type Interrogation Session Remote CV DEVICE CHECK Implantable Pulse Generator Wine Cellar Worker MDKaylan CV DEVICE CHECK Implantable Pulse Generator Type IPG CV DEVICE CHECK Implantable Pulse Generator Model [id number] CV DEVICE CHECK Implantable Pulse Generator Serial Number [id number] CV DEVICE CHECK Implantable Pulse Generator Implant Date 20201213 CV DEVICE CHECK Battery Remaining Longevity 96.0 CV DEVICE CHECK Battery Voltage 3.020 CV D EVICE CHECK Battery DRAWING FRAME TENDER Trigger 2.558 CV DEVICE CHECK Battery Status Middle of Service CV DEVICE CHECK Gab Statistic RV Percent Paced 38.40 CV DEVICE CHECK Lead Channel Sensing Intrinsic Amplitude 20.363 CV DEVICE CHECK Lead Channel Setting Sensing Sensitivity 2.00 CV DEVICE CHECK Lead Channel Impedance Value 840 CV DEVICE CHECK Lead Channel Pacing Threshold Amplitude 0.375 CV DEVICE CHECK Lead Channel Pacing Threshold Pulse Width 0.2 CV DEVICE CHECK Lead Channel RV Pacing Threshold Date 2024-04-11 CV DEVICE CHECK Lead Channel Setting Pacing Amplitude 0.875 CV DEVICE CHECK Lead Channel Setting Pacing Pulse Width 0.2 CV DEVICE CHECK Gab Setting Mode (NBG Code) VVIR CV DEVICE CHECK Gab Setting Lower Rate Limit 60 CV DEVICE CHECK Gab Setting Maximum Sensor Rate 120 CV DEVICE CHECK Date of Service 2024-04-16 CV DEVICE CHECK Anatomical Region Laterality Modality Device Interroga tion 04/11/2024 8:12 AM EST Impressions 04/16/2024 10:39 AM EST Normal Remote: No Events ?? Narrative Procedure Note Dakota Coelho MD - 04/16/2024 IMPRESSION: Normal Remote: No Events Dakota Coelho MD CV IMPLANTABLE CARDIAC DEVICE PROCEDURES Final Result from Last 3 Months Insurance MEDICARE [facility] Care Teams Supervisor Taping Relationship Specialty Start Date End Date Lynn Trivedi PA [address] [place] [id number] PCP - General 08/16/22
--- OUTSIDE RECORDS SUMMARY | 2024-06-30 16:01 | XMS_ITS ---
Author Name Interface, [id number] lity Address [place] [address] Organization [facility] Address [place] [address] Care Team Providers Care Joy Loader Name Role Phone Ritaluisa Milly Unavailable Unavailable Allergies and Adverse Reactions Medication/Group Name Reaction Severity Date No known allergies Plan Date Type Value 11/10/2021 APPOINTMENT LAb/ 6 month fol lowup 11/10/2021 LABORDER CBC 11/10/2021 LABORDER CMP Reason for Visit LAb/ 6 month followup Encounters Date Name 11/10/2021 Polycythemia Immunizations Date Name Route Dose Instructions Refusal Reason Stat us 02/04/2021 Flu vaccine - Adult C ompleted Diagnostic Results Date Type Test Units Lower Limit Upper Limit Result Flag Comments Status Ordered By Specimen Source Lab Address 11/10 Sodiu m mmol/L 136.0 146.0 138 [facility] 11/10 Potas sium mmol/L 3.5 5.1 4.7 FINAL [facility] 11/10 Chlor vadim mmol/L 98.0 107.0 104 [facility] 11/10 CO2 mmol/L 21.0 31.0 28 [facility] 11/10 Anion gap 0.0 18.0 6 [facility] 11/10 Gluco se mg/dL 70.0 140.0 131 [facility] 11/10 BUN mg/dL 7.0 25.0 18 [facility] 11/10 Creat inine mg/dL 0.8 1.3 1.2 [facility] 11/10 GFR estim ate 1.73m2 59 Low [facility] 11/10 BUN/C reati nine ratio 15.0 [facility] 11/10 Osmol ality , calcu lated 270.0 300.0 279 [facility] 11/10 Calci um mg/dL 8.6 10.2 10.1 [facility] 11/10 Total prote in g/dL 5.7 8.0 6.8 [facility] 11/10 Album in g/dL 3.5 5.0 4.3 [facility] 11/10 A/G ratio 1.7 [facility] 11/10 Bilir ubin, total mg/dL 0.1 1.0 0.6 [facility] 11/10 Alkal ine phosp hatas e U/L 45.0 115.0 40 Low [facility] 11/10 ALT/S GPT U/L 7.0 52.0 28 [facility] 11/10 AST/S GOT U/L 13.0 39.0 22 Performed at [facility] FIN[facility] 11/10 WBC Thsd/m m3 4.0 11.0 7.5 [facility] 11/10 RBC Mill/m m3 4.2 5.7 5.2 [facility] 11/10 HGB g/dL 13.3 17.1 16.1 [facility] 11/10 HCT % 39.0 50.0 48.5 [facility] 11/10 MCV fL 80.0 100.0 93 [facility] 11/10 MCH, g/dL pg 26.0 34.0 31 [facility] 11/10 MCHC g/dL 31.0 37.0 33 [facility] 11/10 RDW % 11.5 14.5 15.0 High [facility] 11/10 PLT Thsd/m m3 140.0 450.0 223 [facility] 11/10 MPV fL 7.0 12.0 8.8 [facility] 11/10 LY % % 20.0 44.0 25.0 [facility] 11/10 MO % % 2.0 9.0 7.4 [facility] 11/10 Ronn % % 50.0 70.0 63.0 [facility] 11/10 Eosin ophil % % 0.0 4.0 3.6 [facility] 11/10 Basop hil % % 0.0 2.0 1.0 [facility] 11/10 LY # Thsd/m m3 1.9 [facility] 11/10 MO # Thsd/m m3 0.5 [facility] 11/10 Ronn # (ANC) Thsd/m m3 4.7 [facility] 11/10 EO # Thsd/m m3 0.3 [facility] 11/10 BA # Thsd/m m3 0.1 Performed at [facility] Medications Date Name Route Dose Frequency Instructions Start Date End Date Status Levothyroxine Oral DAILY active Apixaban Oral BID act constance Canagliflozin Oral DAILY active Metformin Oral BID ac tive Ezetimibe Oral DAILY ac tive Allopurinol Oral BID active Problems Diagnosis Status Date of Diagnosi s Polycythemia Active 10/19/2020 Vital Signs Date Type Value 11/10/2021 Body Temperature 97.80 11/10/2021 Heart Beat 88.00 11/10/2021 Respiratory Rate 18.00 11/10/2021 Intravascular Systolic 133 11/10/2021 Intravascular Diastolic 86 11/10/2021 BSA 2.24 11/10/2021 Weight 248.60 11/10/2021 Height 68.00 11/10/2021 BMI 37.80 11/10/2021 Pain Scale 0.00
--- OUTSIDE RECORDS SUMMARY | 2024-06-30 16:02 | XMS_ITS ---
Author Name Interface, [id number] lity Address [place] [address] Organization [facility] Address More breakthroughs[place] [address] Care Team Providers Care Equipment Manager Name Role Phone Ritaluisa Milly Unavailable Unavailable [...] Sodiu m mmol/L 136.0 146.0 138 FINAL [facility] 11/10 Potas sium mmol/L 3.5 5.1 4.7 FINAL [facility] 11/10 Chlor vadim mmol/L 98.0 107.0 104 FINAL [facility] 11/10 CO2 mmol/L 21.0 31.0 28 FINAL [facility] 11/10 Anion gap 0.0 18.0 6 FINAL [facility] 11/10 Gluco se mg/dL 70.0 140.0 131 FINAL [facility] 11/10 BUN mg/dL 7.0 25.0 18 FINAL [facility] 11/10 Creat inine mg/dL 0.8 1.3 1.2 FINAL [facility] 11/10 GFR estim ate 1.73m2 59 Low FINAL [facility] 11/10 BUN/C reati nine ratio 15.0 FINAL [facility] 11/10 Osmol ality , calcu lated 270.0 300.0 279 FINAL [facility] 11/10 Calci um mg/dL 8.6 10.2 10.1 FINAL [facility] 11/10 Total prote in g/dL 5.7 8.0 6.8 FINAL [facility] 11/10 Album in g/dL 3.5 5.0 4.3 FINAL [facility] 11/10 A/G ratio 1.7 FINAL [facility] 11/10 Bilir ubin, total mg/dL 0.1 1.0 0.6 FINAL [facility] 11/10 Alkal ine phosp hatas e U/L 45.0 115.0 40 Low FINAL [facility] 11/10 ALT/S GPT U/L 7.0 52.0 28 FINAL [facility] 11/10 AST/S GOT U/L 13.0 39.0 22 Performed at [facility] FINAL [facility] 11/10 WBC Thsd/m m3 4.0 11.0 7.5 FINAL [facility] 11/10 RBC Mill/m m3 4.2 5.7 5.2 FINAL [facility] 11/10 HGB g/dL 13.3 17.1 16.1 FINAL [facility] 11/10 HCT % 39.0 50.0 48.5 FINAL [facility] 11/10 MCV fL 80.0 100.0 93 FINAL [facility] 11/10 MCH, g/dL pg 26.0 34.0 31 FINAL [facility] 11/10 MCHC g/dL 31.0 37.0 33 FINAL [facility] 11/10 RDW % 11.5 14.5 15.0 High FINAL [facility] 11/10 PLT Thsd/m m3 140.0 450.0 223 FINAL [facility] 11/10 MPV fL 7.0 12.0 8.8 FINAL [facility] 11/10 LY % % 20.0 44.0 25.0 FINAL [facility] 11/10 MO % % 2.0 9.0 7.4 FINAL [facility] 11/10 Ronn % % 50.0 70.0 63.0 FINAL [facility] 11/10 Eosin ophil % % 0.0 4.0 3.6 FINAL [facility] 11/10 Basop hil % % 0.0 2.0 1.0 FINAL [facility] 11/10 LY # Thsd/m m3 1.9 FINAL [facility] 11/10 MO # Thsd/m m3 0.5 FINAL [facility] 11/10 Ronn # (ANC) Thsd/m m3 4.7 FINAL [facility] 11/10 EO # Thsd/m m3 0.3 FINAL [facility] 11/10 BA # Thsd/m m3 0.1 Performed at [facility] FINAL [facility] Medications Date Name Route Dose [...]
--- OUTSIDE RECORDS SUMMARY | 2024-06-30 16:02 | XMS_ITS ---
Author Name Interface, [id number] lity Address [place] [address] Organization [facility] Address More breakthrough[place] [address] Care Team Providers Care Jacquard Plate Maker Name Role Phone Emily Maloney Unavailable Unavailabl [...] Route Dose Instructions Refusal Reason Stat us 02/07/2021 Covid-19 vaccine (Pfizer) Completed 02/04/2021 Flu vaccine - Adult C ompleted Diagnostic Results Date Type Test Units Lower Limit Upper Limit Result Flag Comments Status Ordered By Specimen Source Lab Address 05/19 Bilir ubin, total mg/dL 0.1 1.0 1.0 FINAL [facility] 05/19 Alkal ine phosp hatas e U/L 45.0 115.0 48 FINAL [facility] 05/19 ALT/S GPT U/L 7.0 52.0 26 FINAL [facility] 05/19 AST/S GOT U/L 13.0 39.0 24 Performed at [facility] FINAL [facility] 05/19 A/G ratio 1.6 FINAL [facility] 05/19 CO2 mmol/L 21.0 31.0 28 FINAL [facility] 05/19 Anion gap 0.0 18.0 8 FINAL [facility] 05/19 Gluco se mg/dL 70.0 140.0 172 High FINAL [facility] 05/19 BUN mg/dL 7.0 25.0 23 FINAL [facility] 05/19 Creat inine mg/dL 0.8 1.3 1.1 FINAL [facility] 05/19 GFR estim ate 1.73m2 >60 FINAL [facility] 05/19 BUN/C reati nine ratio 20.0 FINAL [facility] 05/19 Osmol ality , calcu lated 270.0 300.0 285 FINAL [facility] 05/19 Calci um mg/dL 8.6 10.2 9.5 FINAL [facility] 05/19 Total prote in g/dL 5.7 8.0 6.7 FINAL [facility] 05/19 Album in g/dL 3.5 5.0 4.1 FINAL [facility] 05/19 Sodiu m mmol/L 136.0 146.0 139 FINAL [facility] 05/19 Potas sium mmol/L 3.5 5.1 4.7 FINAL [facility] 05/19 Chlor vadim mmol/L 98.0 107.0 103 FINAL [facility] 05/19 WBC Thsd/m m3 4.0 11.0 6.0 FINAL [facility] 05/19 RBC Mill/m m3 4.2 5.7 5.4 FINAL [facility] 05/19 HGB g/dL 13.3 17.1 16.9 FINAL Milly [facility] 05/19 HCT % 39.0 50.0 50.1 High FINAL Mlily [facility] 05/19 MCV fL 80.0 100.0 93 FINAL [facility] 05/19 MCH, g/dL pg 26.0 34.0 31 FINAL Milly [facility] 05/19 MCHC g/dL 31.0 37.0 34 FINAL Mil[facility] 05/19 RDW % 11.5 14.5 14.9 High FINAL Mil[facility] 05/19 PLT Thsd/m m3 140.0 450.0 233 FINAL [facility] 05/19 MPV fL 7.0 12.0 8.8 FINAL Milly [facility] 05/19 LY % % 20.0 44.0 32.3 FINAL Mil[facility] 05/19 MO % % 2.0 9.0 9.0 FINAL Mil[facility] 05/19 Ronn % % 50.0 70.0 53.7 FINAL [facility] 05/19 Eosin ophil % % 0.0 4.0 4.2 High FINAL Mil[facility] 05/19 Basop hil % % 0.0 2.0 0.8 FINAL Mil[facility] 05/19 LY # Thsd/m m3 1.9 FINAL Mil[facility] 05/19 MO # Thsd/m m3 0.5 FINAL Mil[facility] 05/19 Ronn # (ANC) Thsd/m m3 3.2 FINAL Mil[facility] 05/19 EO # Thsd/m m3 0.3 FINAL [facility] 05/19 BA # Thsd/m m3 0.0 Performed at [facility] FINAL [facility] 11/10 WBC Thsd/m m3 4.0 11.0 7.5 FINAL [facility] 11/10 RBC Mill/m m3 4.2 5.7 5.2 FINAL [facility] [place] [facility] 11/10 HGB g/dL 13.3 17.1 16.1 FINAL [facility] [place] [facility] 11/10 HCT % 39.0 50.0 48.5 FINAL [facility] [place] [facility] 11/10 MCV fL 80.0 100.0 93 FINAL [facility] [place] [facility] 11/10 MCH, g/dL pg 26.0 34.0 31 FINAL [facility] [place] [facility] 11/10 MCHC g/dL 31.0 37.0 33 FINAL [facility] [place] [facility] 11/10 RDW % 11.5 14.5 15.0 High FINAL [facility] [place] [facility] 11/10 PLT Thsd/m m3 140.0 450.0 223 FINAL [facility] [place] [facility] 11/10 MPV fL 7.0 12.0 8.8 FINAL [facility] [place] [facility] 11/10 LY % % 20.0 44.0 25.0 FINAL [facility] [place] [facility] 11/10 MO % % 2.0 9.0 7.4 FINAL [facility] [place] [facility] 11/10 Ronn % % 50.0 70.0 63.0 FINAL [facility] [place] [facility] 11/10 Eosin ophil % % 0.0 4.0 3.6 FINAL [facility] [place] [facility] 11/10 Basop hil % % 0.0 2.0 1.0 FINAL [facility] [place] [facility] 11/10 LY # Thsd/m m3 1.9 FINAL [facility] [place] [facility] 11/10 MO # Thsd/m m3 0.5 FINAL [facility] [place] [facility] 11/10 Ronn # (ANC) Thsd/m m3 4.7 FINAL [facility] [place] [facility] 11/10 EO # Thsd/m m3 0.3 FINAL [facility] [place] [facility] 11/10 BA # Thsd/m m3 0.1 Performed at [facility] FINAL [facility] [place] [facility] 11/10 Sodiu m mmol/L 136.0 146.0 138 FINAL [facility] [place] [facility] 11/10 Potas sium mmol/L 3.5 5.1 4.7 FINAL [facility] [place] [facility] 11/10 Chlor vadim mmol/L 98.0 107.0 104 FINAL [facility] [place] [facility] 11/10 CO2 mmol/L 21.0 31.0 28 FINAL [facility] [place] [facility] 11/10 Anion gap 0.0 18.0 6 FINAL [facility] [place] [facility] 11/10 Gluco se mg/dL 70.0 140.0 131 FINAL [facility] [place] [facility] 11/10 BUN mg/dL 7.0 25.0 18 FINAL [facility] [place] [facility] 11/10 Creat inine mg/dL 0.8 1.3 1.2 FINAL [facility] [place] [facility] 11/10 GFR estim ate 1.73m2 59 Low FINAL [facility] [place] [facility] 11/10 BUN/C reati nine ratio 15.0 FINAL [facility] [place] [facility] 11/10 Osmol ality , calcu lated 270.0 300.0 279 FINAL [facility] [place] [facility] 11/10 Calci um mg/dL 8.6 10.2 10.1 FINAL [facility] [place] [facility] 11/10 Total prote in g/dL 5.7 8.0 6.8 FINAL [facility] [place] [facility] 11/10 Album in g/dL 3.5 5.0 4.3 FINAL [facility] [place] [facility] 11/10 A/G ratio 1.7 FINAL [facility] [place] [facility] 11/10 Bilir ubin, total mg/dL 0.1 1.0 0.6 FINAL [facility] [place] [facility] 11/10 Alkal ine phosp hatas e U/L 45.0 115.0 40 Low FINAL [facility] [place] [facility] 11/10 ALT/S GPT U/L 7.0 52.0 28 FINAL [facility] [place] [facility] 11/10 AST/S GOT U/L 13.0 39.0 22 Performed at [facility] FINAL [facility] [place] [facility] Medications Date Name Route Dose [...]
--- OUTSIDE RECORDS SUMMARY | 2024-06-30 16:02 | XMS_ITS | CCD ---
Author Name Interface, [id number] lity Address [place] breakthrough[place] [address] Organization [facility] Address More breakthroughs[place] [address] Care Team Providers Care Latex Ribbon Machine Operator Name Role Phone Milly Martin Unavailable Unavailable Allergies and Adverse Reactions Medication/Group Name Reaction Severity Date No known allergies Reason for Visit LAb/ 6 month followup Encounters Date Name 11/10/2021 Polycythemia Functional Status Date Name Score 11/10/2021 Karnofsky performance status 100 05/19/2021 Karnofsky performance status 100 11/10/2020 Karnofsky performance status 100 10/19/2020 Karnofsky performance status 100 Medications Date Name Route Dose Frequency Instructions Start Date End Date Status Allopurinol Oral BID active Canagliflozin Oral DAILY active Levothyroxine Oral DAILY active Metformin Oral BID ac tive Ezetimibe Oral DAILY ac tive Apixaban Oral BID act constance Social History Date Name Value 11/10/2020 Sex Male
--- OUTSIDE RECORDS SUMMARY | 2024-06-30 16:02 | XMS_ITS | CCD ---
Author Name Interface, [id number] lity Address [place] breakthroughs[place] [address] [facility] Address More breakthroughs. [place] [address] Care Team Providers Care Web Services Manager Name Role Phone Milly Martin Unavailable Unavailable Allergies and Adverse Reactions Reason for Visit Encounters Functional Status Medications Social History
--- OUTSIDE RECORDS SUMMARY | 2024-06-30 16:02 | XMS_ITS | Patient Health Record ---
Author Organization [facility] Billing Info Address [address] [place] [id number] Support Name Relationship Address Phone Horacio Ratliff Guarantor Unknown [phone] Reason For Referral No Information Plan Of Treatment No Information Insurance Providers Payer Name Payer Address Payer Phone Subscriber Number Group Number Insured Name Patient Relationship to Insured Coverage Start Date Coverage End Date MEDICARE [place] PART B [address] [place] [id number] Horacio Ratliff Self - patient is the insured [employer] PPO MEDICARE [address] [address] [place], [place] [id number] Horacio Ratliff Self - patient is the insured
== END 2024-06-30 16:12 | disposition home or self-care (01) ==
PROVIDERS: PCP Physician Assistant; Visit Provider Nurse Practitioner Family
DX: R93.2 Abnormal findings on diagnostic imaging of liver and biliary tract (principal); R79.89 Other specified abnormal findings of blood chemistry
CPT/HCPCS: 99204

== ENCOUNTER 2024-06-30 13:58 | Outpatient (REF) | payer MEDICARE, SELFPAY ==
--- OUTSIDE RECORDS SUMMARY | 2024-06-30 16:59 | XMS_ITS ---
Author Name Interface, [id number] lity Address [place] [address] Organization [facility] Address [place] [address] Care Team Providers Care Post Commander Name Role Phone Emily Maloney Unavailable Unavailabl [...] ubin, total mg/dL 0.1 1.0 1.0 FINAL [facility] 05/19 Alkal ine phosp hatas e U/L 45.0 115.0 48 FINAL [facility] 05/19 ALT/S GPT U/L 7.0 52.0 26 FINAL [facility] 05/19 AST/S GOT U/L 13.0 39.0 24 Performed at [facility] FINAL [facility] 05/19 A/G ratio 1.6 FINAL [facility] 05/19 CO2 mmol/L 21.0 31.0 28 FINAL [facility] 05/19 Anion gap 0.0 18.0 8 FINAL [facility] 05/19 Gluco se mg/dL 70.0 140.0 172 High FINAL [facility] 05/19 BUN mg/dL 7.0 25.0 23 FINAL [facility] 05/19 Creat inine mg/dL 0.8 1.3 1.1 FINAL [facility] 05/19 GFR estim ate 1.73m2 >60 FINAL [facility] 05/19 BUN/C reati nine ratio 20.0 FINAL [facility] 05/19 Osmol ality , calcu lated 270.0 300.0 285 FINAL [facility] 05/19 Calci um mg/dL 8.6 10.2 9.5 FINAL [facility] 05/19 Total prote in g/dL 5.7 8.0 6.7 FINAL [facility] 05/19 Album in g/dL 3.5 5.0 4.1 FINAL [facility] 05/19 Sodiu m mmol/L 136.0 146.0 139 FINAL [facility] 05/19 Potas sium mmol/L 3.5 5.1 4.7 FINAL [facility] 05/19 Chlor vadim mmol/L 98.0 107.0 103 FINAL [facility] 05/19 WBC Thsd/m m3 4.0 11.0 6.0 FINAL [facility] 05/19 RBC Mill/m m3 4.2 5.7 5.4 FINAL [facility] 05/19 HGB g/dL 13.3 17.1 16.9 FINAL Milly [facility] 05/19 HCT % 39.0 50.0 50.1 High FINAL Milly [facility] 05/19 MCV fL 80.0 100.0 93 FINAL [facility] 05/19 MCH, g/dL pg 26.0 34.0 31 FINAL Mil[facility] 05/19 MCHC g/dL 31.0 37.0 34 FINAL Mil[facility] 05/19 RDW % 11.5 14.5 14.9 High FINAL Mil[facility] 05/19 PLT Thsd/m m3 140.0 450.0 233 FINAL [facility] 05/19 MPV fL 7.0 12.0 8.8 FINAL Mil[facility] 05/19 LY % % 20.0 44.0 32.3 FINAL Mil[facility] 05/19 MO % % 2.0 9.0 9.0 FINAL Milly [facility] 05/19 Ronn % % 50.0 70.0 53.7 FINAL [facility] 05/19 Eosin ophil % % 0.0 4.0 4.2 High FINAL Mil[facility] 05/19 Basop hil % % 0.0 2.0 0.8 FINAL Mil[facility] 05/19 LY # Thsd/m m3 1.9 FINAL Mil[facility] 05/19 MO # Thsd/m m3 0.5 FINAL Mil[facility] 05/19 Ronn # (ANC) Thsd/m m3 3.2 FINAL Mil[facility] 05/19 EO # Thsd/m m3 0.3 FINAL [facility] 05/19 BA # Thsd/m m3 0.0 Performed at [facility] FINAL [facility] 11/10 WBC Thsd/m m3 4.0 11.0 7.5 FINAL [facility] 11/10 RBC Mill/m m3 4.2 5.7 5.2 FINAL [facility] 11/10 HGB g/dL 13.3 17.1 16.1 FINAL [facility] 11/10 HCT % 39.0 50.0 48.5 FINAL [facility] 11/10 MCV fL 80.0 100.0 93 FINAL [facility] 11/10 MCH, g/dL pg 26.0 34.0 31 FINAL [facility] 11/10 MCHC g/dL 31.0 37.0 33 FINAL [facility] 11/10 RDW % 11.5 14.5 15.0 High FINAL [facility] 11/10 PLT Thsd/m m3 140.0 450.0 223 FINAL [facility] 11/10 MPV fL 7.0 12.0 8.8 FINAL [facility] 11/10 LY % % 20.0 44.0 25.0 FINAL [facility] 11/10 MO % % 2.0 9.0 7.4 FINAL [facility] 11/10 Ronn % % 50.0 70.0 63.0 FINAL [facility] 11/10 Eosin ophil % % 0.0 4.0 3.6 FINAL [facility] 11/10 Basop hil % % 0.0 2.0 1.0 FINAL [facility] 11/10 LY # Thsd/m m3 1.9 FINAL [facility] 11/10 MO # Thsd/m m3 0.5 FINAL [facility] 11/10 Ronn # (ANC) Thsd/m m3 4.7 FINAL [facility] 11/10 EO # Thsd/m m3 0.3 FINAL [facility] 11/10 BA # Thsd/m m3 0.1 Performed at [facility] FINAL [facility] 11/10 Sodiu m mmol/L 136.0 146.0 138 FINAL [facility] 11/10 Potas sium mmol/L 3.5 5.1 4.7 FINAL [facility] 11/10 Chlor vadim mmol/L 98.0 107.0 104 FINAL [facility] 11/10 CO2 mmol/L 21.0 31.0 28 FINAL [facility] 11/10 Anion gap 0.0 18.0 6 FINAL [facility] 11/10 Gluco se mg/dL 70.0 140.0 131 FINAL [facility] 11/10 BUN mg/dL 7.0 25.0 18 FINAL [facility] 11/10 Creat inine mg/dL 0.8 1.3 1.2 FINAL [facility] 11/10 GFR estim ate 1.73m2 59 Low FINAL [facility] 11/10 BUN/C reati nine ratio 15.0 FINAL [facility] 11/10 Osmol ality , calcu lated 270.0 300.0 279 FINAL [facility] 11/10 Calci um mg/dL 8.6 10.2 10.1 FINAL [facility] 11/10 Total prote in g/dL 5.7 8.0 6.8 FINAL [facility] 11/10 Album in g/dL 3.5 5.0 4.3 FINAL [facility] 11/10 A/G ratio 1.7 FINAL [facility] 11/10 Bilir ubin, total mg/dL 0.1 1.0 0.6 FINAL [facility] 11/10 Alkal ine phosp hatas e U/L 45.0 115.0 40 Low FINAL [facility] 11/10 ALT/S GPT U/L 7.0 52.0 28 FINAL [facility] 11/10 AST/S GOT U/L 13.0 39.0 22 Performed at [facility] FINAL [facility] Medications Date Name Route Dose Frequency Instructions [...]
--- OUTSIDE RECORDS SUMMARY | 2024-06-30 16:59 | XMS_ITS | Clinical Summary ---
Author Organization [address] [place] [address] [place] [id number] Phone Care Team Providers Care Plumbing Drafter Name Role Phone Lynn Trivedi Primary Care Provider [phone] Allergies No known active allergies Medications allopurinoL [...] Assessment & Plan (05/02/2024 10:18 AM EST): [id number] score of 3 based on his age [...] Type Department Care Team Description 05/12/2024 Telephone [facility] [address] [place] [address] Lynn Trivedi PA Medical Records 05/09/2024 7:30 AM EST Ancillary Procedure [facility] [address] [place] [address] Chronic atrial fibrillation (CMS/HCC); Primary hypertension; Swelling of left lower extremity 05/05/2024 8:00 AM EST Ancillary Procedure [facility] [address] [place] [address] Chronic atrial fibrillation (CMS/HCC); Primary hypertension; Swelling of left lower extremity 05/02/2024 8:40 AM EST Office Visit [facility] [address] [place] [address] Kristy Juárez NP Swelling of left lower extremity (Primary Dx); Chronic atrial fibrillation (CMS/HCC); Hyperlipidemia, unspecified hyperlipidemia type; Primary hypertension 04/16/2024 2:35 PM EST Ancillary Procedure [facility] [address] [facility] [address] [place] [address] from Last 3 Months Surgical [...] AM EDT Office Visit [facility] [address] [place] [id number] Kristy Juárez NP [address] [place] [address] [place] [address] 10/02/2024 9:00 AM EDT Ancillary Procedure [facility] - [address] [facility] [address] [place] [address] Health Maintenance Due Date Last [...] this topic Medical Devices Implanted Type Area Strategic Marketing Leader Device Identifier Shelf Expiration Date Model / Serial / Lot Medt-Card [id number] Implanted:01/2021 (Quantity not on file) 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 No significant reflux in the left GSV [...] saphenous negrete. Duplicated mid small saphenous vein. Sld Inclusion Teacher Details A wyatt scale, color and doppler analysis ultrasound was performed. During the study longitudinal and transverse views were obtained. Pulsed wave doppler was performed. us Kristy Juárez NP CV VASCULAR PROCEDURES Final R esult * (ABNORMAL) TRANSTHORACIC ECHOCARDIOGRAM (TTE) COMPLETE W/ CONTRAST (05/05/2024 8:47 AM EST) Left Atrium Minor [place] 7.3 cm CV PACS Left Atrium Major [place] 6.7 cm CV PACS LA Area Sys [...] Volume 49 mL CV PACS MV Deceleration [place] 4.8 m/s2 CV PACS E Wave Deceleration [...] ms GEMUSE QTc 485 ms GEMUSE R [place] -81 degrees GEMUSE T [place] 26 degrees GEMUSE ECG Interpretation Atrial fibrillation [...] 2:32 PM EST) Date Time Interrogation Session [id number] CV DEVICE CHECK Type Interrogation Session Remote CV DEVICE CHECK Implantable Pulse Generator Strategic Marketing Leader MDKaylan CV DEVICE CHECK Implantable Pulse Generator Type IPG CV DEVICE CHECK Implantable Pulse Generator Model [id number] CV DEVICE CHECK Implantable Pulse Generator Serial Number [id number] CV DEVICE CHECK Implantable Pulse Generator Implant Date 20201213 CV DEVICE CHECK Battery Remaining Longevity 96.0 CV DEVICE CHECK Battery Voltage 3.020 CV D EVICE CHECK Battery LICENSED LOAN OFFICER ASSISTANT Trigger 2.558 CV DEVICE CHECK Battery Status [...] Result from Last 3 Months Insurance MEDICARE [facility] Care Teams Plumbing Drafter Relationship Specialty Start Date End Date Lynn Trivedi PA [address] [place] [address] PCP - General 08/16/22
--- OUTSIDE RECORDS SUMMARY | 2024-06-30 16:59 | XMS_ITS | Encounter Summary ---
Author Organization [facility] Address [address] [place] [address] Care Team Providers Care Revenue Audit Clerk Name Role Phone Lynn Trivedi Primary Care Provider [phone] Reason for Visit * Reason Onset Date Comments Medical Records 05/12/2024 Encounter Details Date Type Department Care Team (Late st Contact Info) Description 05/12/2024 Telephone [facility] [address] [place] [phone] Lynn Trivedi PA [address] [place] [address] Medical Records Social History Tobacco Use Types [...] EST Faxed 05/09/2024 Vascular Test Report to [facility] Att: Olivia at [phone] on 05/12/2024 documented in this encounter Plan of Treatment Upcoming Encounters Date Type Department Care Team (Late st Contact Info) Description 08/01/2024 7:40 AM EDT Office Visit [facility] [address] [place] [address] Kristy Juárez NP [address] [place] [address] [place] [address] 10/02/2024 9:00 AM EDT Ancillary Procedure [facility] [address] [place] [address] documented as of this encounter Visit Diagnoses Not on filedocumented in this encounter Care Teams Revenue Audit Clerk Relationship Specialty Start Date End Date Lynn Trivedi PA [address] [place] [address] PCP - General 08/16/22 documented as of this encounter
--- OUTSIDE RECORDS SUMMARY | 2024-06-30 16:59 | XMS_ITS | CCD ---
Author Name Interface, [id number] lity Address [place] [address] Organization [facility] Address More breakthroughs[place] [address] Care Team Providers Care Oral And Maxillofacial Surgery Name Role Phone Milly Martin Unavailable Unavailable [...]
--- OUTSIDE RECORDS SUMMARY | 2024-06-30 16:59 | XMS_ITS | CCD ---
Author Name Interface, [id number] lity Address [place] breakthrough[place] [address] [facility] Address More breakthroughs[place] [address] Care Team Providers Care Team Psychologist Name Role Phone Milly Martin Unavailable Unavailable Allergies and Adverse Reactions Reason for Visit Encounters Functional Status Medications Social History
--- OUTSIDE RECORDS SUMMARY | 2024-06-30 16:59 | XMS_ITS ---
Author Name Interface, [id number] lity Address [place] [address] Organization [facility] Address More breakthrough[place] [address] Care Team Providers Care Internet Site Designer Name Role Phone Ritaluisa Milly Unavailable Unavailable [...] Sodiu m mmol/L 136.0 146.0 138 FINAL [facility] 11/10 Potas sium mmol/L 3.5 5.1 4.7 FINAL [facility] 11/10 Chlor vadim mmol/L 98.0 107.0 104 FINAL [facility] 11/10 CO2 mmol/L 21.0 31.0 28 FINAL [facility] 11/10 Anion gap 0.0 18.0 6 FINAL [facility] 11/10 Gluco se mg/dL 70.0 140.0 131 FINAL [facility] 11/10 BUN mg/dL 7.0 25.0 18 FINAL [facility] 11/10 Creat inine mg/dL 0.8 1.3 1.2 FINAL [facility] 11/10 GFR estim ate 1.73m2 59 Low FINAL [facility] 11/10 BUN/C reati nine ratio 15.0 FINAL [facility] 11/10 Osmol ality , calcu lated 270.0 300.0 279 FINAL [facility] 11/10 Calci um mg/dL 8.6 10.2 10.1 FINAL [facility] 11/10 Total prote in g/dL 5.7 8.0 6.8 FINAL [facility] 11/10 Album in g/dL 3.5 5.0 4.3 FINAL [facility] 11/10 A/G ratio 1.7 FINAL [facility] 11/10 Bilir ubin, total mg/dL 0.1 1.0 0.6 FINAL [facility] 11/10 Alkal ine phosp hatas e U/L 45.0 115.0 40 Low FINAL [facility] 11/10 ALT/S GPT U/L 7.0 52.0 28 FINAL [facility] 11/10 AST/S GOT U/L 13.0 39.0 22 Performed at [facility] FINAL [facility] 11/10 WBC Thsd/m m3 4.0 11.0 7.5 FINAL [facility] 11/10 RBC Mill/m m3 4.2 5.7 5.2 FINAL [facility] 11/10 HGB g/dL 13.3 17.1 16.1 FINAL [facility] 11/10 HCT % 39.0 50.0 48.5 FINAL [facility] 11/10 MCV fL 80.0 100.0 93 FINAL [facility] 11/10 MCH, g/dL pg 26.0 34.0 31 FINAL [facility] 11/10 MCHC g/dL 31.0 37.0 33 FINAL [facility] 11/10 RDW % 11.5 14.5 15.0 High FINAL [facility] 11/10 PLT Thsd/m m3 140.0 450.0 223 FINAL [facility] 11/10 MPV fL 7.0 12.0 8.8 FINAL [facility] 11/10 LY % % 20.0 44.0 25.0 FINAL [facility] 11/10 MO % % 2.0 9.0 7.4 FINAL [facility] 11/10 Ronn % % 50.0 70.0 63.0 FINAL [facility] 11/10 Eosin ophil % % 0.0 4.0 3.6 FINAL [facility] 11/10 Basop hil % % 0.0 2.0 1.0 FINAL [facility] 11/10 LY # Thsd/m m3 1.9 FINAL [facility] 11/10 MO # Thsd/m m3 0.5 FINAL [facility] 11/10 Ronn # (ANC) Thsd/m m3 4.7 FINAL [facility] 11/10 EO # Thsd/m m3 0.3 FINAL [facility] 11/10 BA # Thsd/m m3 0.1 Performed at [facility] FINAL [facility] Medications Date Name Route Dose Frequency Instructions [...]
--- OUTSIDE RECORDS SUMMARY | 2024-06-30 17:00 | XMS_ITS ---
Author Name Interface, [id number] lity Address [place] breakthrough[place] [address] Organization [facility] Address More breakthroughs[place] [address] Care Team Providers Care Hospice Case Manager Name Role Phone Emily Maloney Unavailable Unavailabl [...] ubin, total mg/dL 0.1 1.0 1.0 FINAL [facility] 05/19 Alkal ine phosp hatas e U/L 45.0 115.0 48 FINAL [facility] 05/19 ALT/S GPT U/L 7.0 52.0 26 FINAL [facility] 05/19 AST/S GOT U/L 13.0 39.0 24 Performed at [facility] FINAL [facility] 05/19 A/G ratio 1.6 FINAL [facility] 05/19 CO2 mmol/L 21.0 31.0 28 FINAL [facility] 05/19 Anion gap 0.0 18.0 8 FINAL [facility] 05/19 Gluco se mg/dL 70.0 140.0 172 High FINAL [facility] 05/19 BUN mg/dL 7.0 25.0 23 FINAL [facility] 05/19 Creat inine mg/dL 0.8 1.3 1.1 FINAL [facility] 05/19 GFR estim ate 1.73m2 >60 FINAL [facility] 05/19 BUN/C reati nine ratio 20.0 FINAL [facility] 05/19 Osmol ality , calcu lated 270.0 300.0 285 FINAL [facility] 05/19 Calci um mg/dL 8.6 10.2 9.5 FINAL [facility] 05/19 Total prote in g/dL 5.7 8.0 6.7 FINAL [facility] 05/19 Album in g/dL 3.5 5.0 4.1 FINAL [facility] 05/19 Sodiu m mmol/L 136.0 146.0 139 FINAL [facility] 05/19 Potas sium mmol/L 3.5 5.1 4.7 FINAL [facility] 05/19 Chlor vadim mmol/L 98.0 107.0 103 FINAL [facility] 05/19 WBC Thsd/m m3 4.0 11.0 6.0 FINAL [facility] 05/19 RBC Mill/m m3 4.2 5.7 5.4 FINAL [facility] 05/19 HGB g/dL 13.3 17.1 16.9 FINAL [facility] 05/19 HCT % 39.0 50.0 50.1 High FINAL [facility] 05/19 MCV fL 80.0 100.0 93 FINAL [facility] 05/19 MCH, g/dL pg 26.0 34.0 31 FINAL [facility] 05/19 MCHC g/dL 31.0 37.0 34 FINAL [facility] 05/19 RDW % 11.5 14.5 14.9 High FINAL [facility] 05/19 PLT Thsd/m m3 140.0 450.0 233 FINAL [facility] 05/19 MPV fL 7.0 12.0 8.8 FINAL [facility] 05/19 LY % % 20.0 44.0 32.3 FINAL [facility] 05/19 MO % % 2.0 9.0 9.0 FINAL [facility] 05/19 Ronn % % 50.0 70.0 53.7 FINAL [facility] 05/19 Eosin ophil % % 0.0 4.0 4.2 High FINAL [facility] 05/19 Basop hil % % 0.0 2.0 0.8 FINAL [facility] 05/19 LY # Thsd/m m3 1.9 FINAL [facility] 05/19 MO # Thsd/m m3 0.5 FINAL [facility] 05/19 Ronn # (ANC) Thsd/m m3 3.2 FINAL [facility] 05/19 EO # Thsd/m m3 0.3 FINAL [facility] 05/19 BA # Thsd/m m3 0.0 Performed at [facility] FINAL [facility] 11/10 WBC Thsd/m m3 4.0 11.0 7.5 FINAL [facility] 11/10 RBC Mill/m m3 4.2 5.7 5.2 FINAL [facility] 11/10 HGB g/dL 13.3 17.1 16.1 FINAL [facility] 11/10 HCT % 39.0 50.0 48.5 FINAL [facility] 11/10 MCV fL 80.0 100.0 93 FINAL [facility] 11/10 MCH, g/dL pg 26.0 34.0 31 FINAL [facility] 11/10 MCHC g/dL 31.0 37.0 33 FINAL [facility] 11/10 RDW % 11.5 14.5 15.0 High FINAL [facility] 11/10 PLT Thsd/m m3 140.0 450.0 223 FINAL [facility] 11/10 MPV fL 7.0 12.0 8.8 FINAL [facility] 11/10 LY % % 20.0 44.0 25.0 FINAL [facility] 11/10 MO % % 2.0 9.0 7.4 FINAL [facility] 11/10 Ronn % % 50.0 70.0 63.0 FINAL [facility] 11/10 Eosin ophil % % 0.0 4.0 3.6 FINAL [facility] 11/10 Basop hil % % 0.0 2.0 1.0 FINAL [facility] 11/10 LY # Thsd/m m3 1.9 FINAL [facility] 11/10 MO # Thsd/m m3 0.5 FINAL [facility] 11/10 Ronn # (ANC) Thsd/m m3 4.7 FINAL [facility] 11/10 EO # Thsd/m m3 0.3 FINAL [facility] 11/10 BA # Thsd/m m3 0.1 Performed at [facility] FINAL [facility] 11/10 Sodiu m mmol/L 136.0 146.0 138 FINAL [facility] 11/10 Potas sium mmol/L 3.5 5.1 4.7 FINAL [facility] 11/10 Chlor vadim mmol/L 98.0 107.0 104 FINAL [facility] 11/10 CO2 mmol/L 21.0 31.0 28 FINAL [facility] 11/10 Anion gap 0.0 18.0 6 FINAL [facility] 11/10 Gluco se mg/dL 70.0 140.0 131 FINAL [facility] 11/10 BUN mg/dL 7.0 25.0 18 FINAL [facility] 11/10 Creat inine mg/dL 0.8 1.3 1.2 FINAL [facility] 11/10 GFR estim ate 1.73m2 59 Low FINAL [facility] 11/10 BUN/C reati nine ratio 15.0 FINAL [facility] 11/10 Osmol ality , calcu lated 270.0 300.0 279 FINAL [facility] 11/10 Calci um mg/dL 8.6 10.2 10.1 FINAL [facility] 11/10 Total prote in g/dL 5.7 8.0 6.8 FINAL [facility] 11/10 Album in g/dL 3.5 5.0 4.3 FINAL [facility] 11/10 A/G ratio 1.7 FINAL [facility] 11/10 Bilir ubin, total mg/dL 0.1 1.0 0.6 FINAL [facility] 11/10 Alkal ine phosp hatas e U/L 45.0 115.0 40 Low FINAL [facility] 11/10 ALT/S GPT U/L 7.0 52.0 28 FINAL [facility] 11/10 AST/S GOT U/L 13.0 39.0 22 Performed at [facility] FINAL [facility] Medications Date Name Route Dose Frequency [...]
--- OUTSIDE RECORDS SUMMARY | 2024-06-30 17:00 | XMS_ITS ---
Author Name Interface, [id number] lity Address [place] [address] Organization [facility] Address More breakthroughs[place] [address] Care Team Providers Care Games Dealer Name Role Phone Ritaluisa Milly Unavailable Unavailable [...] 146.0 138 FINAL [facility] 11/10 Potas sium mmol/L 3.5 5.1 4.7 FINAL [facility] 11/10 Chlor vadim mmol/L 98.0 107.0 104 FINAL [facility] 11/10 CO2 mmol/L 21.0 31.0 28 FINAL [facility] 11/10 Anion gap 0.0 18.0 6 FINAL [facility] 11/10 Gluco se mg/dL 70.0 140.0 131 FINAL [facility] 11/10 BUN mg/dL 7.0 25.0 18 FINAL [facility] 11/10 Creat inine mg/dL 0.8 1.3 1.2 FINAL [facility] 11/10 GFR estim ate 1.73m2 59 Low FINAL [facility] 11/10 BUN/C reati nine ratio 15.0 FINAL [facility] 11/10 Osmol ality , calcu lated 270.0 300.0 279 FINAL [facility] 11/10 Calci um mg/dL 8.6 10.2 10.1 FINAL [facility] 11/10 Total prote in g/dL 5.7 8.0 6.8 FINAL [facility] 11/10 Album in g/dL 3.5 5.0 4.3 FINAL [facility] 11/10 A/G ratio 1.7 FINAL [facility] 11/10 Bilir ubin, total mg/dL 0.1 1.0 0.6 FINAL [facility] 11/10 Alkal ine phosp hatas e U/L 45.0 115.0 40 Low FINAL [facility] 11/10 ALT/S GPT U/L 7.0 52.0 28 FINAL [facility] 11/10 AST/S GOT U/L 13.0 39.0 22 Performed at [facility] FINAL [facility] 11/10 WBC Thsd/m m3 4.0 11.0 7.5 FINAL [facility] 11/10 RBC Mill/m m3 4.2 5.7 5.2 FINAL [facility] 11/10 HGB g/dL 13.3 17.1 16.1 FINAL [facility] 11/10 HCT % 39.0 50.0 48.5 FINAL [facility] 11/10 MCV fL 80.0 100.0 93 FINAL [facility] 11/10 MCH, g/dL pg 26.0 34.0 31 FINAL [facility] 11/10 MCHC g/dL 31.0 37.0 33 FINAL [facility] 11/10 RDW % 11.5 14.5 15.0 High FINAL [facility] 11/10 PLT Thsd/m m3 140.0 450.0 223 FINAL [facility] 11/10 MPV fL 7.0 12.0 8.8 FINAL [facility] 11/10 LY % % 20.0 44.0 25.0 FINAL [facility] 11/10 MO % % 2.0 9.0 7.4 FINAL [facility] 11/10 Ronn % % 50.0 70.0 63.0 FINAL [facility] 11/10 Eosin ophil % % 0.0 4.0 3.6 FINAL [facility] 11/10 Basop hil % % 0.0 2.0 1.0 FINAL [facility] 11/10 LY # Thsd/m m3 1.9 FINAL [facility] 11/10 MO # Thsd/m m3 0.5 FINAL [facility] 11/10 Ronn # (ANC) Thsd/m m3 4.7 FINAL [facility] 11/10 EO # Thsd/m m3 0.3 FINAL [facility] 11/10 BA # Thsd/m m3 0.1 Performed at [facility] FINAL [facility] Medications Date Name Route Dose [...]
[2024-06-30 17:06] LABS: Alanine Aminotransferase 28 U/L (0-40); Albumin Level 4.3 g/dL (3.5-5.0); Aspartate Amino Transferase 33 U/L (5-37); Bilirubin Direct 0.1 mg/dL (0.0-0.5); Bilirubin Total 0.5 mg/dL (0.0-1.0); C Reactive Protein 0.46 mg/dL (< or = 0.50); Gamma Glutamyl Transpeptidase 21 U/L (11-51); Total Protein 7.8 g/dL (6.5-8.0)
[2024-06-30 17:21] LABS: Alkaline Phosphatase 61 U/L (39-117); Ferritin 63 ng/mL (20-250)
[2024-07-01 08:30] LABS: HBS Num1 0.55 mIU/mL (0-7.99); HBc Num1 0.14 S/CO (0.00-0.79); HBsAGNum1 0.25 S/CO (0.00-0.99); Hepatitis B Core Antibody Nonreactive (Nonreactive); Hepatitis B Surface Antigen Negative (Negative); ~HepC Num1 0.14 S/CO (0.00-0.79); ~Hepatitis A Antibody IgM Nonreactive (Nonreactive); ~Hepatitis B Surface Antibody NONREACTIVE (Nonreactive); ~Hepatitis C Antibody Nonreactive (Nonreactive)
[2024-07-01 18:44] LABS: Ceruloplasmin 25 mg/dL (14-30)
[2024-07-01 20:48] LABS: Transglutaminase IgA <1.0 U/mL
[2024-07-02 10:43] LABS: Alpha Fetoprotein 1.5 ng/mL (<6.1)
[2024-07-03 08:53] LABS: Smooth Muscle Antibody <20 U (<20)
[2024-07-03 09:53] LABS: Mitochondrial Antibodies NEGATIVE (NEGATIVE)
[2024-07-06 23:39] LABS: FIB-ALT 23 U/L (9-46); FIB-Alpha-2-Macroglobulin 312 mg/dL (106-279); FIB-Apolipoprotein A1 130 mg/dL (94-176); FIB-GGT 16 U/L (3-70); FIB-Haptoglobin 188 mg/dL (43-212); FIB-Total Bilirubin 0.4 mg/dL (0.2-1.2); Liver Fibrosis Score 0.48; Liver Fibrosis Stage F2; Nec Inflam Act Grade A0; Nec Inflam Act Score 0.13; Reference ID 5362284
== END 2024-06-30 13:59 | disposition home or self-care (01) ==
LOC: HO.LAB 13:58
PROVIDERS: PCP Physician Assistant; Visit Provider Nurse Practitioner Family
DX: R79.89 Other specified abnormal findings of blood chemistry (principal); R10.9 Unspecified abdominal pain; R74.8 Abnormal levels of other serum enzymes; K76.0 Fatty (change of) liver, not elsewhere classified; R74.01 Elevation of levels of liver transaminase levels; K58.9 Irritable bowel syndrome, unspecified; R19.5 Other fecal abnormalities
CPT/HCPCS: 36415; 80076; 81596; 82105; 82390; 82728; 82977; 86015; 86140; 86364; 86381; 86704; 86706; 86709; 86803; 87340; 99202

== ENCOUNTER 2024-07-16 14:28 | Outpatient (REF) | payer MEDICARE, SELFPAY ==
--- OUTSIDE RECORDS SUMMARY | 2024-07-16 17:07 | XMS_ITS | Patient Health Record ---
Author Organization [facility] Billing Info Address [address] [place] [id number] Support Name Relationship Address Phone Horacio Ratliff Guarantor Unknown [phone] Reason For Referral No Information Plan Of Treatment No Information Insurance Providers Payer Name Payer Address Payer Phone Subscriber Number Group Number Insured Name Patient Relationship to Insured Coverage Start Date Coverage End Date MEDICARE [place] PART B [address] [place] [id number] [phone] [id number] Horacio Ratliff Self - patient is the insured [employer] PPO MEDICARE [address] [address] [place], [place] [id number] [phone] [id number] Horacio Ratliff Self - patient is the insured
--- OUTSIDE RECORDS SUMMARY | 2024-07-16 17:07 | XMS_ITS ---
Author Name Interface, [id number] lity Address [place] [address] Organization [facility] Address More breakthroughs[place] [address] Care Team Providers Care Nautical Instrument Mechanic Name Role Phone Emily Maloney Unavailable Unavailabl [...] ubin, total mg/dL 0.1 1.0 1.0 FINAL [facility] 05/19 Alkal ine phosp hatas e U/L 45.0 115.0 48 FINAL [facility] 05/19 ALT/S GPT U/L 7.0 52.0 26 FINAL [facility] 05/19 AST/S GOT U/L 13.0 39.0 24 Performed at [facility] FINAL [facility] 05/19 A/G ratio 1.6 FINAL [facility] 05/19 CO2 mmol/L 21.0 31.0 28 FINAL [facility] 05/19 Anion gap 0.0 18.0 8 FINAL [facility] 05/19 Gluco se mg/dL 70.0 140.0 172 High FINAL [facility] 05/19 BUN mg/dL 7.0 25.0 23 FINAL [facility] 05/19 Creat inine mg/dL 0.8 1.3 1.1 FINAL [facility] 05/19 GFR estim ate 1.73m2 >60 FINAL [facility] 05/19 BUN/C reati nine ratio 20.0 FINAL [facility] 05/19 Osmol ality , calcu lated 270.0 300.0 285 FINAL [facility] 05/19 Calci um mg/dL 8.6 10.2 9.5 FINAL [facility] 05/19 Total prote in g/dL 5.7 8.0 6.7 FINAL [facility] 05/19 Album in g/dL 3.5 5.0 4.1 FINAL [facility] 05/19 Sodiu m mmol/L 136.0 146.0 139 FINAL [facility] 05/19 Potas sium mmol/L 3.5 5.1 4.7 FINAL [facility] 05/19 Chlor vadim mmol/L 98.0 107.0 103 FINAL [facility] 05/19 WBC Thsd/m m3 4.0 11.0 6.0 FINAL [facility] 05/19 RBC Mill/m m3 4.2 5.7 5.4 FINAL [facility] 05/19 HGB g/dL 13.3 17.1 16.9 FINAL [facility] 05/19 HCT % 39.0 50.0 50.1 High FINAL [facility] 05/19 MCV fL 80.0 100.0 93 FINAL [facility] 05/19 MCH, g/dL pg 26.0 34.0 31 FINAL [facility] 05/19 MCHC g/dL 31.0 37.0 34 FINAL [facility] 05/19 RDW % 11.5 14.5 14.9 High FINAL [facility] 05/19 PLT Thsd/m m3 140.0 450.0 233 FINAL [facility] 05/19 MPV fL 7.0 12.0 8.8 FINAL [facility] 05/19 LY % % 20.0 44.0 32.3 FINAL [facility] 05/19 MO % % 2.0 9.0 9.0 FINAL [facility] 05/19 Ronn % % 50.0 70.0 53.7 FINAL [facility] 05/19 Eosin ophil % % 0.0 4.0 4.2 High FINAL [facility] 05/19 Basop hil % % 0.0 2.0 0.8 FINAL [facility] 05/19 LY # Thsd/m m3 1.9 FINAL [facility] 05/19 MO # Thsd/m m3 0.5 FINAL [facility] 05/19 Ronn # (ANC) Thsd/m m3 3.2 FINAL [facility] 05/19 EO # Thsd/m m3 0.3 FINAL [facility] 05/19 BA # Thsd/m m3 0.0 Performed at [facility] FINAL [facility] 11/10 WBC Thsd/m m3 4.0 11.0 7.5 FINAL [facility] 11/10 RBC Mill/m m3 4.2 5.7 5.2 FINAL [facility] 11/10 HGB g/dL 13.3 17.1 16.1 FINAL [facility] 11/10 HCT % 39.0 50.0 48.5 FINAL [facility] 11/10 MCV fL 80.0 100.0 93 FINAL [facility] 11/10 MCH, g/dL pg 26.0 34.0 31 FINAL [facility] 11/10 MCHC g/dL 31.0 37.0 33 FINAL [facility] 11/10 RDW % 11.5 14.5 15.0 High FINAL [facility] 11/10 PLT Thsd/m m3 140.0 450.0 223 FINAL [facility] 11/10 MPV fL 7.0 12.0 8.8 FINAL [facility] 11/10 LY % % 20.0 44.0 25.0 FINAL [facility] 11/10 MO % % 2.0 9.0 7.4 FINAL [facility] 11/10 Ronn % % 50.0 70.0 63.0 FINAL [facility] 11/10 Eosin ophil % % 0.0 4.0 3.6 FINAL [facility] 11/10 Basop hil % % 0.0 2.0 1.0 FINAL [facility] 11/10 LY # Thsd/m m3 1.9 FINAL [facility] 11/10 MO # Thsd/m m3 0.5 FINAL [facility] 11/10 Ronn # (ANC) Thsd/m m3 4.7 FINAL [facility] 11/10 EO # Thsd/m m3 0.3 FINAL [facility] 11/10 BA # Thsd/m m3 0.1 Performed at [facility] FINAL [facility] 11/10 Sodiu m mmol/L 136.0 146.0 138 FINAL [facility] 11/10 Potas sium mmol/L 3.5 5.1 4.7 FINAL [facility] 11/10 Chlor vadim mmol/L 98.0 107.0 104 FINAL [facility] 11/10 CO2 mmol/L 21.0 31.0 28 FINAL [facility] 11/10 Anion gap 0.0 18.0 6 FINAL [facility] 11/10 Gluco se mg/dL 70.0 140.0 131 FINAL [facility] 11/10 BUN mg/dL 7.0 25.0 18 FINAL [facility] 11/10 Creat inine mg/dL 0.8 1.3 1.2 FINAL [facility] 11/10 GFR estim ate 1.73m2 59 Low FINAL [facility] 11/10 BUN/C reati nine ratio 15.0 FINAL [facility] 11/10 Osmol ality , calcu lated 270.0 300.0 279 FINAL [facility] 11/10 Calci um mg/dL 8.6 10.2 10.1 FINAL [facility] 11/10 Total prote in g/dL 5.7 8.0 6.8 FINAL [facility] 11/10 Album in g/dL 3.5 5.0 4.3 FINAL [facility] 11/10 A/G ratio 1.7 FINAL [facility] 11/10 Bilir ubin, total mg/dL 0.1 1.0 0.6 FINAL [facility] 11/10 Alkal ine phosp hatas e U/L 45.0 115.0 40 Low FINAL [facility] 11/10 ALT/S GPT U/L 7.0 52.0 28 FINAL [facility] 11/10 AST/S GOT U/L 13.0 39.0 22 Performed at [facility] FINAL [facility] Medications Date Name Route Dose Frequency Instructions [...]
--- OUTSIDE RECORDS SUMMARY | 2024-07-16 17:07 | XMS_ITS ---
Author Name Interface, [id number] lity Address [place] [address] Organization [facility] Address [place] breakthrough[place] [address] Care Team Providers Care Grounds And Nursery Specialist Name Role Phone Ritaluisa Milly Unavailable Unavailable [...] Sodiu m mmol/L 136.0 146.0 138 FINAL [facility] 11/10 Potas sium mmol/L 3.5 5.1 4.7 FINAL [facility] 11/10 Chlor vadim mmol/L 98.0 107.0 104 FINAL [facility] 11/10 CO2 mmol/L 21.0 31.0 28 FINAL [facility] 11/10 Anion gap 0.0 18.0 6 FINAL [facility] 11/10 Gluco se mg/dL 70.0 140.0 131 FINAL [facility] 11/10 BUN mg/dL 7.0 25.0 18 FINAL [facility] 11/10 Creat inine mg/dL 0.8 1.3 1.2 FINAL [facility] 11/10 GFR estim ate 1.73m2 59 Low FINAL [facility] 11/10 BUN/C reati nine ratio 15.0 FINAL [facility] 11/10 Osmol ality , calcu lated 270.0 300.0 279 FINAL [facility] 11/10 Calci um mg/dL 8.6 10.2 10.1 FINAL [facility] 11/10 Total prote in g/dL 5.7 8.0 6.8 FINAL [facility] 11/10 Album in g/dL 3.5 5.0 4.3 FINAL [facility] 11/10 A/G ratio 1.7 FINAL [facility] 11/10 Bilir ubin, total mg/dL 0.1 1.0 0.6 FINAL [facility] 11/10 Alkal ine phosp hatas e U/L 45.0 115.0 40 Low FINAL [facility] 11/10 ALT/S GPT U/L 7.0 52.0 28 FINAL [facility] 11/10 AST/S GOT U/L 13.0 39.0 22 Performed at [facility] FINAL [facility] 11/10 WBC Thsd/m m3 4.0 11.0 7.5 FINAL [facility] 11/10 RBC Mill/m m3 4.2 5.7 5.2 FINAL [facility] 11/10 HGB g/dL 13.3 17.1 16.1 FINAL [facility] 11/10 HCT % 39.0 50.0 48.5 FINAL [facility] 11/10 MCV fL 80.0 100.0 93 FINAL [facility] 11/10 MCH, g/dL pg 26.0 34.0 31 FINAL [facility] 11/10 MCHC g/dL 31.0 37.0 33 FINAL [facility] 11/10 RDW % 11.5 14.5 15.0 High FINAL [facility] 11/10 PLT Thsd/m m3 140.0 450.0 223 FINAL [facility] 11/10 MPV fL 7.0 12.0 8.8 FINAL [facility] 11/10 LY % % 20.0 44.0 25.0 FINAL [facility] 11/10 MO % % 2.0 9.0 7.4 FINAL [facility] 11/10 Ronn % % 50.0 70.0 63.0 FINAL [facility] 11/10 Eosin ophil % % 0.0 4.0 3.6 FINAL [facility] 11/10 Basop hil % % 0.0 2.0 1.0 FINAL [facility] 11/10 LY # Thsd/m m3 1.9 FINAL [facility] 11/10 MO # Thsd/m m3 0.5 FINAL [facility] 11/10 Ronn # (ANC) Thsd/m m3 4.7 FINAL [facility] 11/10 EO # Thsd/m m3 0.3 FINAL [facility] 11/10 BA # Thsd/m m3 0.1 Performed at [facility] FINAL [facility] Medications Date Name Route Dose Frequency Instructions [...]
--- OUTSIDE RECORDS SUMMARY | 2024-07-16 17:07 | XMS_ITS ---
Author Name Interface, [id number] lity Address [place] [address] Organization [facility] Address [place] [address] Care Team Providers Care News Videotape Editor Name Role Phone Emily Maloney Unavailable Unavailabl [...] GOT U/L 13.0 39.0 24 Performed at [facility] FINAL [facility] 05/19 A/G ratio [...] HGB g/dL 13.3 17.1 16.9 FINAL [facility] 05/19 HCT % 39.0 50.0 50.1 High FINAL [facility] 05/19 MCV fL 80.0 100.0 93 FINAL [facility] 05/19 MCH, g/dL pg 26.0 34.0 31 FINAL [facility] 05/19 MCHC g/dL 31.0 37.0 34 FINAL [facility] 05/19 RDW % 11.5 14.5 14.9 High FINAL [facility] 05/19 PLT Thsd/m m3 140.0 450.0 233 FINAL [facility] 05/19 MPV fL 7.0 12.0 8.8 FINAL [facility] 05/19 LY % % 20.0 44.0 32.3 FINAL [facility] 05/19 MO % % 2.0 9.0 9.0 FINAL [facility] 05/19 Ronn % % 50.0 70.0 53.7 FINAL [facility] 05/19 Eosin ophil % % 0.0 4.0 4.2 High FINAL [facility] 05/19 Basop hil % % 0.0 2.0 0.8 FINAL [facility] 05/19 LY # Thsd/m m3 1.9 FINAL [facility] 05/19 MO # Thsd/m m3 0.5 FINAL [facility] 05/19 Ronn # (ANC) Thsd/m m3 3.2 FINAL [facility] 05/19 EO # Thsd/m m3 0.3 FINAL [facility] 05/19 BA # Thsd/m m3 0.0 Performed at [facility] FINAL [facility] 11/10 WBC Thsd/m m3 4.0 11.0 7.5 FINAL [facility] [place] [place] 11/10 RBC Mill/m m3 4.2 5.7 5.2 FINAL [facility] [place] [place] 11/10 HGB g/dL 13.3 17.1 16.1 FINAL [facility] [place] [place] 11/10 HCT % 39.0 50.0 48.5 FINAL [facility] [place] [place] 11/10 MCV fL 80.0 100.0 93 FINAL [facility] [place] [place] 11/10 MCH, g/dL pg 26.0 34.0 31 FINAL [facility] [place] [place] 11/10 MCHC g/dL 31.0 37.0 33 FINAL [facility] [place] [place] 11/10 RDW % 11.5 14.5 15.0 High FINAL [facility] [place] [place] 11/10 PLT Thsd/m m3 140.0 450.0 223 FINAL [facility] [place] [place] 11/10 MPV fL 7.0 12.0 8.8 FINAL [facility] [place] [place] 11/10 LY % % 20.0 44.0 25.0 FINAL [facility] [place] [place] 11/10 MO % % 2.0 9.0 7.4 FINAL [facility] [place] [place] 11/10 Ronn % % 50.0 70.0 63.0 FINAL [facility] [place] [place] 11/10 Eosin ophil % % 0.0 4.0 3.6 FINAL [facility] [place] [place] 11/10 Basop hil % % 0.0 2.0 1.0 FINAL [facility] [place] [place] 11/10 LY # Thsd/m m3 1.9 FINAL [facility] [place] [place] 11/10 MO # Thsd/m m3 0.5 FINAL [facility] [place] [place] 11/10 Ronn # (ANC) Thsd/m m3 4.7 FINAL [facility] [place] [place] 11/10 EO # Thsd/m m3 0.3 FINAL [facility] [place] [place] 11/10 BA # Thsd/m m3 0.1 Performed at [facility] FINAL [facility] [place] [place] 11/10 Sodiu m mmol/L 136.0 146.0 138 FINAL [facility] [place] [place] 11/10 Potas sium mmol/L 3.5 5.1 4.7 FINAL [facility] [place] [place] 11/10 Chlor vadim mmol/L 98.0 107.0 104 FINAL [facility] [place] [place] 11/10 CO2 mmol/L 21.0 31.0 28 FINAL [facility] [place] [place] 11/10 Anion gap 0.0 18.0 6 FINAL [facility] [place] [place] 11/10 Gluco se mg/dL 70.0 140.0 131 FINAL [facility] [place] [place] 11/10 BUN mg/dL 7.0 25.0 18 FINAL [facility] [place] [place] 11/10 Creat inine mg/dL 0.8 1.3 1.2 FINAL [facility] [place] [place] 11/10 GFR estim ate 1.73m2 59 Low FINAL [facility] [place] [place] 11/10 BUN/C reati nine ratio 15.0 FINAL [facility] [place] [place] 11/10 Osmol ality , calcu lated 270.0 300.0 279 FINAL [facility] [place] [place] 11/10 Calci um mg/dL 8.6 10.2 10.1 FINAL [facility] [place] [place] 11/10 Total prote in g/dL 5.7 8.0 6.8 FINAL [facility] [place] [place] 11/10 Album in g/dL 3.5 5.0 4.3 FINAL [facility] [place] [place] 11/10 A/G ratio 1.7 FINAL [facility] [place] [place] 11/10 Bilir ubin, total mg/dL 0.1 1.0 0.6 FINAL [facility] [place] [place] 11/10 Alkal ine phosp hatas e U/L 45.0 115.0 40 Low FINAL [facility] [place] [place] 11/10 ALT/S GPT U/L 7.0 52.0 28 FINAL [facility] [place] [place] 11/10 AST/S GOT U/L 13.0 39.0 22 Performed at [facility] FINAL [facility] [place] [place] Medications Date Name Route Dose Frequency Instructions [...]
--- OUTSIDE RECORDS SUMMARY | 2024-07-16 17:07 | XMS_ITS | Clinical Summary ---
Author Organization [address] [place] [address] [place] [phone] Phone Care Team Providers Care Slug Press Operator Name Role Phone Lynn Trivedi Primary Care Provider [phone] Allergies No known active allergies Medications allopurinoL [...] Assessment & Plan (05/02/2024 10:18 AM EST): [id number] score of 3 based on his age [...] Encounters Date Type Department Care Team Description 07/07/2024 2:25 PM EST Ancillary Procedure [facility] [address] [place] [address] 05/12/2024 Telephone [facility] [address] [place] [address] Lynn Trivedi PA Medical Records 05/09/2024 7:30 AM EST Ancillary Procedure [facility] [address] [place] [address] Chronic atrial fibrillation (CMS/HCC); Primary hypertension; Swelling of left lower extremity 05/05/2024 8:00 AM EST Ancillary Procedure [facility] [address] [place] [address] Chronic atrial fibrillation (CMS/HCC); Primary hypertension; Swelling of left lower extremity 05/02/2024 8:40 AM EST Office Visit [facility] [address] [facility] [address] [place] [address] Kristy Juárez NP Swelling of left lower extremity (Primary Dx); Chronic atrial fibrillation (CMS/HCC); Hyperlipidemia, unspecified hyperlipidemia type; Primary hypertension from Last 3 Months Surgical History Surgery [...] Description 08/01/2024 7:40 AM EDT Office Visit [facility] [place] [address] Kristy Juárez NP [address] [place] [address] [place] [address] 10/02/2024 9:00 AM EDT Ancillary Procedure [facility] - [address] [facility] [address] [place] [address] Health Maintenance Due Date Last [...] this topic Medical Devices Implanted Type Area Store Mgr Device Identifier Shelf Expiration Date Model / Serial / Lot Medt-Card [id number] Implanted:01/2021 (Quantity not on file) 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 [id number] / [id number] / Procedures Procedure Name Priority Date/Time Associated Diagnosis Comments CARDIAC DEVICE CHECK- REMOTE- MURJ Routine 07/07/2024 2:22 PM EST VAS US DUPLEX LOWER EXT VENOUS INSUFFICIENCY LEFT Routine 05/09/2024 7:39 AM EST Chronic atrial fibrillation (CMS/HCC) Primary hypertension Swelling of left lower extremity TRANSTHORACIC ECHOCARDIOGRAM (TTE) COMPLETE W/ CONTRAST Routine 05/05/2024 8:47 AM EST Chronic atrial fibrillation (CMS/HCC) Primary hypertension Swelling of left lower extremity ECG 12-LEAD Routine 05/02/2024 10:15 AM EST Chronic atrial fibrillation (CMS/HCC) from Last 3 Months Results * Cardiac device check - Remote- MURJ (07/07/2024 2:22 PM EST) Date Time Interrogation Session [id number] CV DEVICE CHECK Type Interrogation Session Remote CV DEVICE CHECK Implantable Pulse Generator Store Mgr MDT CV DEVICE CHECK Implantable Pulse Generator Type IPG CV DEVICE CHECK Implantable Pulse Generator Model [id number] CV DEVICE CHECK Implantable Pulse Generator Serial Number [id number] CV DEVICE CHECK Implantable Pulse Generator Implant Date 20201213 CV DEVICE CHECK Battery Remaining Longevity 96.0 CV DEVICE CHECK Battery Voltage 3.020 CV D EVICE CHECK Battery FURNITURE DECALS INSPECTOR Trigger 2.558 CV DEVICE CHECK Battery Status Middle of Service CV DEVICE CHECK Gab Statistic RV Percent Paced 40.80 CV DEVICE CHECK Lead Channel Sensing Intrinsic Amplitude 19.913 CV DEVICE CHECK Lead Channel Setting Sensing Sensitivity 2.00 CV DEVICE CHECK Lead Channel Impedance Value 830 CV DEVICE CHECK Lead Channel Pacing Threshold Amplitude 0.375 CV DEVICE CHECK Lead Channel Pacing Threshold Pulse Width 0.2 CV DEVICE CHECK Lead Channel RV Pacing Threshold Date 2024-07-03 CV DEVICE CHECK Lead Channel Setting Pacing Amplitude 0.875 CV DEVICE CHECK Lead Channel Setting Pacing Pulse Width 0.2 CV DEVICE CHECK Gab Setting Mode (NBG Code) VVIR CV DEVICE CHECK Gab Setting Lower Rate Limit 60 CV DEVICE CHECK Gab Setting Maximum Sensor Rate 120 CV DEVICE CHECK Date of Service 2024-07-16 CV DEVICE CHECK Anatomical Region Laterality Modality Device Interroga tion 07/03/2024 8:41 AM EST Impressions 07/07/2024 7:31 AM EST Normal Remote: No Events * Normal Device Function * Alerts or events: None * Battery: OK, 8.00 yrs * Sensing, impedance and thresholds reviewed * Programmed parameters reviewed * Presenting rhythm reviewed * Heart Rate Histograms reviewed * No significant changes noted Narrative Procedure Note Dakota Coelho MD - 07/07/2024 IMPRESSION: Normal Remote: No Events * Normal Device Function * Alerts or events: None * Battery: OK, 8.00 yrs * Sensing, impedance and thresholds reviewed * Programmed parameters reviewed * Presenting rhythm reviewed * Heart Rate Histograms reviewed * No significant changes noted us Dakota Coelho MD CV IMPLANTABLE CARDIAC DEVICE PROCEDURES Final Result * Vascular US duplex lower extremity venous [...] ??Mild reflux is present in the left SPLIT LEATHER MOSSER. No significant reflux in the left GSV [...] saphenous negrete. Duplicated mid small saphenous vein. Cutting Machine Operator Details A wyatt scale, color and doppler analysis ultrasound was performed. During the study longitudinal and transverse views were obtained. Pulsed wave doppler was performed. us Kristy Juárez NP CV VASCULAR PROCEDURES Final R esult * (ABNORMAL) TRANSTHORACIC ECHOCARDIOGRAM (TTE) COMPLETE W/ CONTRAST (05/05/2024 8:47 AM EST) Left Atrium Minor Bingham 7.3 cm CV PACS Left Atrium Major Bingham 6.7 cm CV PACS LA Area Sys [...] Volume 49 mL CV PACS MV Deceleration Gem 4.8 m/s2 CV PACS E Wave Deceleration [...] ms GEMUSE QTc 485 ms GEMUSE R Bingham -81 degrees GEMUSE T Bingham 26 degrees GEMUSE ECG Interpretation Atrial fibrillation with occasional ventricular-pac ed complexes Left axis deviation Right bundle branch block Abnormal ECG No previous ECGs available Confirmed by DAKOTA GUTIERREZ ([id number]) on 05/03/2024 9:17:13 AM GEMUSE 05/02/2024 8:21 AM EST 05/03/2024 9:17 AM EST Kristy Juárez NP ECG ORDERABLES Edited Result - Final GEMUSE from Last 3 Months Insurance MEDICARE [facility] Care Teams Slug Press Operator Relationship Specialty Start Date End Date Lynn Trivedi PA [address] [place] [address] PCP - General 08/16/22
--- OUTSIDE RECORDS SUMMARY | 2024-07-16 17:07 | XMS_ITS | CCD ---
Author Name Interface, [id number] lity Address [place] [address] Organization [facility] Address [place] [address] Care Team Providers Care Whipped Topping Finisher Name Role Phone Milly Martin Unavailable Unavailable [...]
--- OUTSIDE RECORDS SUMMARY | 2024-07-16 17:07 | XMS_ITS ---
Author Name Interface, [id number] lity Address [place] [address] Organization [facility] Address [place] breakthroughs[place] [address] Care Team Providers Care Customer Operations Intern Name Role Phone Ritaluisa Milly Unavailable Unavailable [...] 146.0 138 FINAL [facility] [place] 11/10 Potas sium mmol/L 3.5 5.1 4.7 FINAL [facility] 11/10 Chlor vadim mmol/L 98.0 107.0 104 FINAL [facility] [place] 11/10 CO2 mmol/L 21.0 31.0 28 FINAL [facility] [place] 11/10 Anion gap 0.0 18.0 6 FINAL [facility] [place] 11/10 Gluco se mg/dL 70.0 140.0 131 FINAL [facility] [place] 11/10 BUN mg/dL 7.0 25.0 18 FINAL [facility] [place] 11/10 Creat inine mg/dL 0.8 1.3 1.2 FINAL [facility] [place] 11/10 GFR estim ate 1.73m2 59 Low FINAL [facility] [place] 11/10 BUN/C reati nine ratio 15.0 FINAL [facility] [place] 11/10 Osmol ality , calcu lated 270.0 300.0 279 FINAL [facility] [place] 11/10 Calci um mg/dL 8.6 10.2 10.1 FINAL [facility] [place] 11/10 Total prote in g/dL 5.7 8.0 6.8 FINAL [facility] [place] 11/10 Album in g/dL 3.5 5.0 4.3 FINAL [facility] [place] 11/10 A/G ratio 1.7 FINAL [facility] [place] 11/10 Bilir ubin, total mg/dL 0.1 1.0 0.6 FINAL [facility] [place] 11/10 Alkal ine phosp hatas e U/L 45.0 115.0 40 Low FINAL [facility] [place] 11/10 ALT/S GPT U/L 7.0 52.0 28 FINAL [facility] [place] 11/10 AST/S GOT U/L 13.0 39.0 22 Performed at [facility] FINAL [facility] 11/10 WBC Thsd/m m3 4.0 11.0 7.5 FINAL [facility] 11/10 RBC Mill/m m3 4.2 5.7 5.2 FINAL [facility] 11/10 HGB g/dL 13.3 17.1 16.1 FINAL [facility] 11/10 HCT % 39.0 50.0 48.5 FINAL [facility] 11/10 MCV fL 80.0 100.0 93 FINAL [facility] 11/10 MCH, g/dL pg 26.0 34.0 31 FINAL [facility] [place] 11/10 MCHC g/dL 31.0 37.0 33 FINAL [facility] 11/10 RDW % 11.5 14.5 15.0 High FINAL [facility] 11/10 PLT Thsd/m m3 140.0 450.0 223 FINAL [facility] 11/10 MPV fL 7.0 12.0 8.8 FINAL [facility] 11/10 LY % % 20.0 44.0 25.0 FINAL [facility] 11/10 MO % % 2.0 9.0 7.4 FINAL [facility] 11/10 Rnon % % 50.0 70.0 63.0 FINAL [facility] [place] 11/10 Eosin ophil % % 0.0 4.0 3.6 FINAL [facility] [place] 11/10 Basop hil % % 0.0 2.0 1.0 FINAL [facility] 11/10 LY # Thsd/m m3 1.9 FINAL [facility] 11/10 MO # Thsd/m m3 0.5 FINAL [facility] 11/10 Ronn # (ANC) Thsd/m m3 4.7 FINAL [facility] [place] 11/10 EO # Thsd/m m3 0.3 FINAL [facility] 11/10 BA # Thsd/m m3 0.1 Performed at [facility] FINAL [facility] Medications Date Name Route Dose Frequency Instructions [...]
--- OUTSIDE RECORDS SUMMARY | 2024-07-16 17:07 | XMS_ITS | CCD ---
Author Name Interface, [id number] lity Address [place] [address] [facility] Address More breakthroughs[place] [address] Care Team Providers Care Calciminer Name Role Phone Milly Martin Unavailable Unavailable Allergies and Adverse Reactions Reason for Visit Encounters Functional Status Medications Social History
--- OUTSIDE RECORDS SUMMARY | 2024-07-16 17:07 | XMS_ITS | Encounter Summary ---
Author Organization [facility] Address [address] [place] [address] Care Team Providers Care Proposal Writer Name Role Phone Lynn Trivedi Primary Care Provider [phone] Encounter Details Date Type Department Care Team (Late st Contact Info) Description 07/07/2024 2:25 PM EST Ancillary Procedure [facility] [address] [facility] [address] [place] [address] Social History Tobacco Use Types Packs/Day Years [...] on file documented as of this encounter Plan of Treatment Upcoming Encounters Date Type Department Care Team (Late st Contact Info) Description 08/01/2024 7:40 AM EDT Office Visit [facility] [address] [facility] [place] [phone] Kristy Juárez NP [address] [place] [address] [place] [address] 10/02/2024 9:00 AM EDT Ancillary Procedure [facility] [address] [facility] [address] [place] [id number] documented as of this encounter Procedures Procedure Name Priority Date/Time Associated Diagnosis Comments CARDIAC DEVICE CHECK- REMOTE- MURJ Routine 07/07/2024 2:22 PM EST documented in this encounter Results * Cardiac device check - Remote- MURJ (07/07/2024 2:22 PM EST) Date Time Interrogation Session [id number] CV DEVICE CHECK Type Interrogation Session Remote CV DEVICE CHECK Implantable Pulse Generator Fish Cleaner Machine Tender MDT CV DEVICE CHECK Implantable Pulse Generator Type IPG CV DEVICE CHECK Implantable Pulse Generator Model [id number] CV DEVICE CHECK Implantable Pulse Generator Serial Number [id number] CV DEVICE CHECK Implantable Pulse Generator Implant Date 20201213 CV DEVICE CHECK Battery Remaining Longevity 96.0 CV DEVICE CHECK Battery Voltage 3.020 CV D EVICE CHECK Battery AUTOMOBILE DESIGNER Trigger 2.558 CV DEVICE CHECK Battery Status [...] No significant changes noted Narrative Procedure Note Clovis Coelho MD - 07/07/2024 IMPRESSION: Normal Remote: No Events * Normal Device Function * Alerts or events: None * Battery: OK, 8.00 yrs * Sensing, impedance and thresholds reviewed * Programmed parameters reviewed * Presenting rhythm reviewed * Heart Rate Histograms reviewed * No significant changes noted us Clovis Coelho MD CV IMPLANTABLE CARDIAC DEVICE PROCEDURES Final Result documented in this encounter Visit Diagnoses Not on filedocumented in this encounter Care Teams Proposal Writer Relationship Specialty Start Date End Date Lynn Trivedi PA [address] [place] [address] PCP - General 08/16/22 documented as of this encounter
[2024-07-16 18:15] LABS: MANUAL DIFF FLAG NO
[2024-07-16 18:26] LABS: Basophils Absolute Auto 0.1 X10*3/uL (0.0-0.2); Basophils Percent Auto 0.8 % (0-2); Eosinophils Absolute Auto 0.2 X10*3/uL (0.0-0.4); Eosinophils Percent Auto 2.6 % (0-4); Hematocrit 47.4 % (42.0-52.0); Hemoglobin 15.6 g/dl (14.0-18.0); Imm Gran Abs Auto 0.03 X10*3/uL (0.00-0.03); Imm Gran Pct Auto 0.4 % (0.0-0.4); Lymphocytes Absolute Auto 1.7 X10*3/uL (1.2-4.9); Lymphocytes Percent Auto 21.4 % (20-40); Mean Corpuscular HGB Conc 32.9 g/dl (31.0-36.0); Mean Corpuscular Hemoglobin 30.4 pg (27.0-33.0); Mean Corpuscular Volume 92.2 fL (80.0-98.0); Mean Platelet Volume 11.3 fL (9.4-12.4); Monocytes Absolute Auto 0.6 X10*3/uL (0.1-1.2); Monocytes Percent Auto 7.8 % (2-11); Neutrophils Absolute Auto 5.3 x10*3/uL (2.0-8.3); Platelet Count 262 X10*3/uL (160-400); Red Blood Count 5.14 X10*6/uL (4.60-5.80); Red Cell Distribution Width 14.4 % (11.0-16.0); White Blood Count 7.8 X10*3/uL (4.8-10.8)
[2024-07-16 18:52] LABS: Alanine Aminotransferase 33 U/L (0-40); Albumin Level 4.1 g/dL (3.5-5.0); Alkaline Phosphatase 65 U/L (39-117); Anion Gap 11 (12-20); Aspartate Amino Transferase 33 U/L (5-37); Bilirubin Total 0.4 mg/dL (0.0-1.0); Blood Urea Nitrogen 25 mg/dL (9-16); Calcium 9.9 mg/dL (8.4-10.2); Carbon Dioxide 26 mmol/L (22-29); Chloride 106 mmol/L (96-108); Estimated Glomerular Filt Rate > 60; Glucose Random 133 mg/dL (60-115); Potassium 4.4 mmol/L (3.3-5.1); Sodium 139 mmol/L (135-145); Total Protein 7.8 g/dL (6.5-8.0)
[2024-07-16 19:07] LABS: TSH reflex Free T4 2.83 uIU/mL (0.32-4.0)
[2024-07-17 06:03] LABS: Estimated Average Glucose 143 mg/dL; Hemoglobin A1c % 6.6 % (<6.0)
== END 2024-07-16 14:29 | disposition home or self-care (01) ==
LOC: HO.WFDLDS 14:28
PROVIDERS: Visit Provider Physician Assistant
DX: E11.29 Type 2 diabetes mellitus with other diabetic kidney complication (principal); R80.9 Proteinuria, unspecified; I48.20 Chronic atrial fibrillation, unspecified; E03.9 Hypothyroidism, unspecified
CPT/HCPCS: 36415; 80053; 83036; 84443; 85025

== ENCOUNTER 2024-07-24 09:19 | Outpatient (AMB) | payer MEDICARE, SELFPAY ==
--- NOTE | 2024-07-24 09:30 | MHC.PC.OV ---
Vital Signs 07/24/24 09:32 Height 5 ft 7 in Weight 237 lb BMI 37.1 BP 136/84 Blood Pressure Location Rt brachial Position Sitting Respiration 14 Pulse 88 Pulse Source Pulse Oximeter Pulse Oximetry (%) 98 Oxygen Delivery Method Room Air Intake Visit Reasons: 3 months follow up for dm Intake Note: Three month follow up. Rash left arm Carburetor Expert Required: No Allergies No Known Allergies Allergy (Verified 07/24/24 09:32) Medication List - Last Reconciled 07/24/24 by Lynn Trivedi PA-C allopurinol 100 mg PO BID apixaban (Eliquis) 5 mg PO BID empagliflozin (Jardiance) 10 mg PO QAM levothyroxine mcg PO lisinopril 2.5 mg PO DAILY metformin 1,000 mg PO BID metronidazole 0.75% 1 appl topical DAILY Tobacco use date assessed: 07/24/24 Dental Screening Dental Screen Date: 10/10/23 HPI 3 months follow up for dm HPI Details Patient is a 79 year old male with a significant past medical history of type 2 diabetes, hypothyroidism, gout, dyslipidemia, AFib, s/p micra implant and RAYNE presenting today for a follow up. Musculoskeletal: Left foot pain and swelling on the top of the foot x 1 month. He states that the pain is on the top/ lateral aspect of his left foot. There was no known trauma. At times it does appear to be a little pink. It seems to swell by the end of the day or if he does a lot of walking. He did see his chrome tanning drum operator who thought it was possibly related to just venous insufficiency. CV: Blood pressure today in the office is 128/76.. He is on lisinopril 2.5 mg. He is followed with Cardiology, Dr. Burton. He is scheduled for follow up in May 2024. Stopped Zetia recently due to leg pain. Unable to tolerate most statins. Last LDL was 154. Endo: DM- A1c is 6.6, improved from 6.8. He is on Jardiance 10 mg and metformin 1000 mg twice a day. He does check his blood sugars but usually every other day. Denies any hyper or hypoglycemic events. Follows with podiatry- Dr. Veloz. Follows with ophthamology. Tsh- was wnl on the levothyroxine 88 mcg. Uro: Over the past month he has also noticed some increased urinary urgency. He states when he has to go he has to go immediately. He has not noticed any increased frequency significantly. He states he still wakes up at night every 4-5 hours. No burning with urination no fevers or chills. No abdominal pain or flank pain. GI: has a positive cologuard last year. followed with GI and made the decision to not proceed with colonoscopy. understands risks of undiagnosed colon ca. He recently saw GI for the elevated LFTs and abnormal liver ultrasound. Weight loss was recommended. Derm: had a skin check this summer with rasheed. [facility] Medical History Obesity with serious comorbidity Severe obesity Pacemaker Hypothyroid Hyperlipidemia HTN (hypertension) Right hip pain Gout Erectile dysfunction Controlled type 2 diabetes mellitus Chronic a-fib Surgical History History of knee replacement Social History Housing: House Alcohol intake: current Patient Tobacco Use Status: Former Tobacco user Tobacco use type: Cigarette Cigarette Packs Per Day: 1 Years Smoked: 9 e-Cigarette/Vaping Use: Never Used Second Hand Smoke Exposure: No service: Yes Current occupational status: retired Cognitive needs: No Hearing needs: Yes (hearing aids) Vision needs: No Questionnaire Thrive Questionnaire Date Thrive assessed: 07/23/24 I am a: Patient What is your living situation today?: I have a steady place to live Within the past 12 months, did the food you bought not last and you didn't have the money to get more?: Never true Within the past 12 months, did you worry whether your food would run out before you got money to buy more?: Never true Do you have trouble paying for medicines?: No Do you have trouble getting transportation to medical appointments?: No Do you have trouble paying your heating and electricity bill?: No Do you have trouble taking care of your child, family member or friend?: No Do you have trouble with day-to-day activities such as bathing, preparing meals, shopping, managing finances, etc.?: No Are you currently unemployed and looking for a job?: No Are you interested in more education?: No Please select the resources that you would like help with: None Currently or been in a relationship where the following occur: No concerns reported THRIVE Score: 0 AUDIT C Alcohol Use Questionnaire (AUDIT-C) 1. How often do you have a drink containing alcohol?: Monthly or less 2. How many drinks containing alcohol do you have on a typical day when you are drinking?: 1 or 2 3. How often do you have six or more drinks on one occasion?: Never Total Score: 1 LILY-7 AMB Questionnaire LILY-7 Date LILY - 7 assessed: 10/10/23 Feeling nervous, anxious, or on edge: 0 = Not at all Not being able to stop or control worryin = Not at all Worrying too much about different things: 0 = Not at all Trouble relaxin = Not at all Being so restless that it is hard to sit still: 0 = Not at all Becoming easily annoyed or irritable: 0 = Not at all Feeling afraid as if something awful might happen: 0 = Not at all Total LILY-7 score (0-4 normal; 5-9 mild; 10-14 moderate; 15-21 severe): 0 Source: Developed by Drs. David Fleming, Talia uGerrero, Dirk Brody and colleagues, with an educational kojo from [employer]. Physical exam (Primary Care) BMI result Body Mass Index 37.1 Tobacco/Smoking Status: Tobacco use Status Tobacco use date assessed 10/10/23 04/17/24 10:06 Patient Tobacco Use Status Former Tobacco user 04/17/24 10:19 Tobacco use type Cigarette 04/17/24 10:19 e-Cigarette/Vaping Use Never Used 04/17/24 10:19 Thrive Assessment: Date of Thrive Assessment Date Thrive assessed 07/23/24 07/23/24 09:02 Currently or been in a relationship where the following occur: No concerns reported Const Orientation/consciousness: patient oriented x3 HENMT Ears: hearing grossly normal bilaterally Neck Thyroid: Thyroid normal Lymphatic: no lymphadenopathy noted Resp Auscultation: clear to auscultation bilaterally Cardio Rate: regular rate Rhythm: regular rhythm Heart sounds: S1 normal heart sound present and S2 normal heart sound present GI Inspection: Yes normal to inspection Palpation (GI): Soft to palpation and Other GI palpation findings present (nontender, no cva tenderness) Auscultation: normoactive bowel sounds Rectal Exam - Male: Yes deferred Skin General skin exam: no rashes or lesions noted Neuro General: patient oriented x3, gait normal and no focal motor deficits Coding Level of Care Code Est Pt Level 4 (77880) Complex EM visit Add On G2211 Diagnoses Controlled type 2 diabetes mellitus with microalbuminuria, without long-term current use of insulin E11.29; R80.9 Diabetes mellitus skilled nursing insulin use: without regional intermodal truck driver use Diabetes mellitus complication status: with kidney complications Diabetes mellitus complication detail: with diabetic microalbuminuria Microalbuminuria due to type 2 diabetes mellitus E11.29; R80.9 Chronic a-fib I48.20 Acquired hypothyroidism E03.9 Hypothyroidism type: acquired Primary hypertension I10 Hypertension type: primary hypertension Assessment & Plan Assessment & Plan (1) Controlled type 2 diabetes mellitus: Code(s): E11.9 - Type 2 diabetes mellitus without complications Category: Medical Qualifiers: Diabetes mellitus regional intermodal truck driver insulin use: without regional intermodal truck driver use Diabetes mellitus complication status: with kidney complications Diabetes mellitus complication detail: with diabetic microalbuminuria Qualified Code(s): E11.29 - Type 2 diabetes mellitus with other diabetic kidney complication; R80.9 - Proteinuria, unspecified Plan: will start trulicity and discussed risks and benefits and adverse effects. discussed he would benefit from the weight loss. Continue metformin and Jardiance. (2) Microalbuminuria due to type 2 diabetes mellitus: Comment: 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 Obesity could be a contributing factor as well. Code(s): E11.29 - Type 2 diabetes mellitus with other diabetic kidney complication; R80.9 - Proteinuria, unspecified Category: Medical Plan: following with nephrology discussed need to lsoe weight (3) Chronic a-fib: Code(s): I48.20 - Chronic atrial fibrillation, unspecified Category: Medical Plan: follows with cards stable, on ac (4) Hypothyroid: Code(s): E03.9 - Hypothyroidism, unspecified Category: Medical Qualifiers: Hypothyroidism type: acquired Qualified Code(s): E03.9 - Hypothyroidism, unspecified Plan: continue current dose (5) HTN (hypertension): Code(s): I10 - Essential (primary) hypertension Category: Medical Qualifiers: Hypertension type: primary hypertension Qualified Code(s): I10 - Essential (primary) hypertension Plan: wnl Medications: New dulaglutide (Trulicity) 0.75 mg (0.5 mL) subcut QWEEK 2 mL 3RF
[2024-07-24 09:32] VITALS: BP 136/84; PULSE 88; RESP 14; O2SAT 98; BMI 37.1
--- OUTSIDE RECORDS SUMMARY | 2024-07-24 10:05 | XMS_ITS | Clinical Summary ---
Author Organization [address] [place] [address] [place] [phone] Phone Care Team Providers Care Sprinkler Truck Driver Name Role Phone Lynn Trivedi Primary Care Provider [phone] Allergies No known active allergies Medications allopurinoL [...] Assessment & Plan (05/02/2024 10:18 AM EST): [id number] score of 3 based on his age [...] Description 07/07/2024 2:25 PM EST Ancillary Procedure [facility] [address] [place] [address] 05/12/2024 Telephone [facility] [address] [place] [address] Lynn Trivedi PA Medical Records 05/09/2024 7:30 AM EST Ancillary Procedure [facility] [address] [place] [address] Chronic atrial fibrillation (CMS/HCC); Primary hypertension; Swelling of left lower extremity 05/05/2024 8:00 AM EST Ancillary Procedure [facility] [address] [place] [address] Chronic atrial fibrillation (CMS/HCC); Primary hypertension; Swelling of left lower extremity 05/02/2024 8:40 AM EST Office Visit [facility] [address] [facility] [address] [place] [address] Kristy Juárez NP Swelling of left lower [...] Type 2 diabetes mellitus wit hout complications DX:Type 2 diabetes mellitus without complications (HCC) [...] Description 08/01/2024 7:40 AM EDT Office Visit [facility] [place] [address] Kristy Juárez NP [address] [place] [address] [place] [address] 10/02/2024 9:00 AM EDT Ancillary Procedure [facility] [address] [facility] [address] [place] [address] Health Maintenance Due Date Last [...] this topic Medical Devices Implanted Type Area Cissp Device Identifier Shelf Expiration Date Model / Serial / Lot Medt-Card [id number] Implanted:01/2021 (Quantity not on file) 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 [id number] / [id number] / Procedures Procedure Name Priority Date/Time Associated [...] 2:22 PM EST) Date Time Interrogation Session [id number] CV DEVICE CHECK Type Interrogation Session Remote CV DEVICE CHECK Implantable Pulse Generator Cissp MDT CV DEVICE CHECK Implantable Pulse Generator Type IPG CV DEVICE CHECK Implantable Pulse Generator Model [id number] CV DEVICE CHECK Implantable Pulse Generator Serial Number [id number] CV DEVICE CHECK Implantable Pulse Generator Implant Date 20201213 CV DEVICE CHECK Battery Remaining Longevity 96.0 CV DEVICE CHECK Battery Voltage 3.020 CV D EVICE CHECK Battery RN TELEHEALTH Trigger 2.558 CV DEVICE CHECK Battery Status [...] ??Mild reflux is present in the left SEARCH ANALYST. No significant reflux in the left GSV [...] saphenous negrete. Duplicated mid small saphenous vein. Rotary Surface Grinder Details A wyatt scale, color and doppler analysis ultrasound was performed. During the study longitudinal and transverse views were obtained. Pulsed wave doppler was performed. us Kristy Juárez NP CV VASCULAR PROCEDURES Final R esult * (ABNORMAL) TRANSTHORACIC ECHOCARDIOGRAM (TTE) COMPLETE W/ CONTRAST (05/05/2024 8:47 AM EST) Left At[facility] [place] 7.3 cm CV PACS Left At[facility] [place] 6.7 cm CV PACS LA Area Sys [...] Volume 49 mL CV PACS MV Deceleration [place] 4.8 m/s2 CV PACS E Wave Deceleration [...] ms GEMUSE QTc 485 ms GEMUSE R [place] -81 degrees GEMUSE T [place] 26 degrees GEMUSE ECG Interpretation Atrial fibrillation with occasional ventricular-pac ed complexes Left axis deviation Right bundle branch block Abnormal ECG No previous ECGs available Confirmed by DAKOTA GUTIERREZ ([id number]) on 05/03/2024 9:17:13 AM GEMUSE 05/02/2024 8:21 AM EST 05/03/2024 9:17 AM EST Kristy Juárez NP ECG ORDERABLES Edited Result - Final GEMUSE from Last 3 Months Insurance MEDICARE [facility] Care Teams Sprinkler Truck Driver Relationship Specialty Start Date End Date Lynn Trivedi PA [address] [place] [address] PCP - General 08/16/22
--- OUTSIDE RECORDS SUMMARY | 2024-07-24 10:05 | XMS_ITS | Encounter Summary ---
Author Organization [facility] Address [address] [place] [address] Care Team Providers Care Chute Operator Name Role Phone Lynn Trivedi Primary Care Provider Encounter Details Date Type Department Care Team (Late st Contact Info) Description 07/07/2024 2:25 PM EST Ancillary Procedure [facility] Cardiology [facility] [address] [facility] [address] [place] [address] Social History Tobacco Use Types Packs/Day Years [...] Description 08/01/2024 7:40 AM EDT Office Visit [facility] [place] [phone] Kristy Juárez NP [address] [place] [address] [place] [address] 10/02/2024 9:00 AM EDT Ancillary Procedure [facility] Cardiology [facility] [address] [facility] [address] [place] [phone] documented as of this encounter Procedures Procedure Name Priority Date/Time Associated Diagnosis Comments CARDIAC DEVICE CHECK- REMOTE- MURJ Routine 07/07/2024 2:22 PM EST documented in this encounter Results * Cardiac device check - Remote- MURJ (07/07/2024 2:22 PM EST) Date Time Interrogation Session [id number] CV DEVICE CHECK Type Interrogation Session Remote CV DEVICE CHECK Implantable Pulse Generator Glass Cleaner MDT CV DEVICE CHECK Implantable Pulse Generator Type IPG CV DEVICE CHECK Implantable Pulse Generator Model [id number] CV DEVICE CHECK Implantable Pulse Generator Serial Number [id number] CV DEVICE CHECK Implantable Pulse Generator Implant Date 20201213 CV DEVICE CHECK Battery Remaining Longevity 96.0 CV DEVICE CHECK Battery Voltage 3.020 CV D EVICE CHECK Battery NEWCOMER HOSTESS Trigger 2.558 CV DEVICE CHECK Battery Status Middle of Service CV DEVICE CHECK Gba Statistic RV Percent Paced 40.80 CV DEVICE [...] on filedocumented in this encounter Care Teams Chute Operator Relationship Specialty Start Date End Date Lynn Trivdei PA [address] [place] [address] PCP - General 08/16/22 documented as of this encounter
--- OUTSIDE RECORDS SUMMARY | 2024-07-24 10:05 | XMS_ITS ---
Author Name Interface, [id number] lity Address [place] [address] Organization [facility] Address [place] [address] Care Team Providers Care Photographic Intelligence Officer Name Role Phone Ritaluisa Milly Unavailable Unavailable [...] Ordered By Specimen Source Lab Address 11/10 WBC Thsd/m m3 4.0 11.0 7.5 [...] BA # Thsd/m m3 0.1 Performed at [facility] FINAL [facility] 11/10 Sodiu m mmol/L 136.0 146.0 138 [...] GOT U/L 13.0 39.0 22 Performed at [facility] Medications Date [...]
--- OUTSIDE RECORDS SUMMARY | 2024-07-24 10:06 | XMS_ITS | CCD ---
Author Name Interface, [id number] lity Address [place] [address] [facility] Address [place] [address] Care Team Providers Care Biomed Tech Name Role Phone Milly Martin Unavailable Unavailable Allergies and Adverse Reactions Reason for Visit Encounters Functional Status Medications Social History
--- OUTSIDE RECORDS SUMMARY | 2024-07-24 10:06 | XMS_ITS ---
Author Name Interface, [id number] lity Address [place] [address] Organization [facility] Address [address] [place] [address] Care Team Providers Care Smoke Inspector Name Role Phone Ritaluisa Milly Unavailable Unavailable [...] Sodiu m mmol/L 136.0 146.0 138 [facility] 11/10 Potas sium mmol/L 3.5 5.1 4.7 [facility]AL [facility] 11/10 Chlor vadim mmol/L 98.0 107.0 104 [facility]AL [facility] 11/10 CO2 mmol/L 21.0 31.0 28 [facility]AL [facility] 11/10 Anion gap 0.0 18.0 6 [facility]AL [facility] 11/10 Gluco se mg/dL 70.0 140.0 131 [facility] 11/10 BUN mg/dL 7.0 25.0 18 [facility] 11/10 Creat inine mg/dL 0.8 1.3 1.2 [facility]AL [facility] 11/10 GFR estim ate 1.73m2 59 Low [facility] 11/10 BUN/C reati nine ratio 15.0 [facility]AL [facility] 11/10 Osmol ality , calcu lated 270.0 300.0 279 [facility] 11/10 Calci um mg/dL 8.6 10.2 10.1 [facility]AL [facility] 11/10 Total prote in g/dL 5.7 8.0 6.8 [facility]AL [facility] 11/10 Album in g/dL 3.5 5.0 4.3 [facility]AL [facility] 11/10 A/G ratio 1.7 [facility] 11/10 Bilir ubin, total mg/dL 0.1 1.0 0.6 [facility] 11/10 Alkal ine phosp hatas e U/L 45.0 115.0 40 Low [facility] 11/10 ALT/S GPT U/L 7.0 52.0 28 [facility] 11/10 AST/S GOT U/L 13.0 39.0 [address] [facility]/10 WBC Thsd/m m3 4.0 11.0 7.5 [facility]AL [facility] 11/10 RBC Mill/m m3 4.2 5.7 5.2 [facility]AL [facility] 11/10 HGB g/dL 13.3 17.1 16.1 [facility]/10 HCT % 39.0 50.0 48.5 [facility] 11/10 MCV fL 80.0 100.0 93 [facility] 11/10 MCH, g/dL pg 26.0 34.0 31 [facility] 11/10 MCHC g/dL 31.0 37.0 33 [facility] 11/10 RDW % 11.5 14.5 15.0 High [facility] 11/10 PLT Thsd/m m3 140.0 450.0 223 [facility]/10 MPV fL 7.0 12.0 8.8 [facility] LY % % 20.0 44.0 25.0 [facility] 11/[facility] MO % % 2.0 9.0 7.4 [facility]AL [facility]/10 Ronn % % 50.0 70.0 63.0 [facility]AL [facility]/10 Eosin ophil % % 0.0 4.0 3.6 [facility]AL [facility]/10 Basop hil % % 0.0 2.0 1.0 [facility]AL [facility] 11/[facility] LY # Thsd/m m3 1.9 [facility] 11/[facility] MO # Thsd/m m3 0.5 [facility] 11/10 Ronn # (ANC) Thsd/m m3 4.7 [facility] 11/10 EO # Thsd/m m3 0.3 [facility] 11/10 BA # Thsd/m m3 0.[address] [facility]AL [facility] Medications Date Name Route Dose Frequency Instructions [...]
--- OUTSIDE RECORDS SUMMARY | 2024-07-24 10:06 | XMS_ITS ---
Author Name Interface, [id number] lity Address [place] [address] Organization [facility] Address More breakthroughs[place] [address] Care Team Providers Care Leadership Development Consultant Name Role Phone Emily Maloney Unavailable Unavailabl [...] total mg/dL 0.1 1.0 1.0 FINAL [facility] 05/19 Alkal ine phosp hatas e U/L 45.0 115.0 48 FINAL [facility] 05/19 ALT/S GPT U/L 7.0 52.0 26 FINAL [facility] 05/19 AST/S GOT U/L 13.0 39.0 24 Performed at [facility] FINAL [facility] 05/19 A/G ratio 1.6 FINAL [facility] 05/19 BUN mg/dL 7.0 25.0 23 FINAL [facility] 05/19 CO2 mmol/L 21.0 31.0 28 FINAL [facility] 05/19 Anion gap 0.0 18.0 8 FINAL [facility] 05/19 Gluco se mg/dL 70.0 140.0 172 High FINAL [facility] 05/19 Creat inine mg/dL 0.8 1.3 1.1 FINAL [facility] 05/19 GFR estim ate 1.73m2 >60 FINAL [facility] 05/19 BUN/C reati nine ratio 20.0 FINAL [facility] 05/19 Osmol ality , calcu lated 270.0 300.0 285 FINAL [facility] 05/19 Calci um mg/dL 8.6 10.2 9.5 FINAL [facility] 05/19 Total prote in g/dL 5.7 8.0 6.7 FINAL [facility] 05/19 Album in g/dL 3.5 5.0 4.1 FINAL [facility] 05/19 Chlor vadim mmol/L 98.0 107.0 103 FINAL [facility] 05/19 Sodiu m mmol/L 136.0 146.0 139 FINAL [facility] 05/19 Potas sium mmol/L 3.5 5.1 4.7 FINAL [facility] 05/19 WBC Thsd/m m3 4.0 11.0 6.0 FINAL [facility] 05/19 RBC Mill/m m3 4.2 5.7 5.4 FINAL [facility] 05/19 HGB g/dL 13.3 17.1 16.9 FINAL [facility] 05/19 HCT % 39.0 50.0 50.1 High FINAL [facility] 05/19 MCV fL 80.0 100.0 93 FINAL [facility] 05/19 MCH, g/dL pg 26.0 34.0 31 FINAL [facility] 05/19 MCHC g/dL 31.0 37.0 34 FINAL [facility] 05/19 RDW % 11.5 14.5 14.9 High FINAL [facility] 05/19 PLT Thsd/m m3 140.0 450.0 233 FINAL [facility] 05/19 MPV fL 7.0 12.0 8.8 FINAL [facility] 05/19 LY % % 20.0 44.0 32.3 FINAL [facility] 05/19 MO % % 2.0 9.0 9.0 FINAL [facility] 05/19 Ronn % % 50.0 70.0 53.7 FINAL [facility] 05/19 Eosin ophil % % 0.0 4.0 4.2 High FINAL [facility] 05/19 Basop hil % % 0.0 2.0 0.8 FINAL [facility] 05/19 LY # Thsd/m m3 1.9 FINAL [facility] 05/19 MO # Thsd/m m3 0.5 FINAL [facility] 05/19 Ronn # (ANC) Thsd/m m3 3.2 FINAL [facility] 05/19 EO # Thsd/m m3 0.3 FINAL [facility] 05/19 BA # Thsd/m m3 0.0 Performed at [facility] FINAL [facility] 11/10 WBC Thsd/m m3 4.0 11.0 7.5 FINAL [facility] 11/10 RBC Mill/m m3 4.2 5.7 5.2 FINAL [facility] 11/10 HGB g/dL 13.3 17.1 16.1 FINAL [facility] 11/10 HCT % 39.0 50.0 48.5 FINAL [facility] 11/10 MCV fL 80.0 100.0 93 FINAL [facility] 11/10 MCH, g/dL pg 26.0 34.0 31 FINAL [facility] 11/10 MCHC g/dL 31.0 37.0 33 FINAL [facility] 11/10 RDW % 11.5 14.5 15.0 High FINAL [facility] 11/10 PLT Thsd/m m3 140.0 450.0 223 FINAL [facility] 11/10 MPV fL 7.0 12.0 8.8 FINAL [facility] 11/10 LY % % 20.0 44.0 25.0 FINAL [facility] 11/10 MO % % 2.0 9.0 7.4 FINAL [facility] 11/10 Ronn % % 50.0 70.0 63.0 FINAL [facility] 11/10 Eosin ophil % % 0.0 4.0 3.6 FINAL [facility] 11/10 Basop hil % % 0.0 2.0 1.0 FINAL [facility] 11/10 LY # Thsd/m m3 1.9 FINAL [facility] 11/10 MO # Thsd/m m3 0.5 FINAL [facility] 11/10 Ronn # (ANC) Thsd/m m3 4.7 FINAL [facility] 11/10 EO # Thsd/m m3 0.3 FINAL [facility] 11/10 BA # Thsd/m m3 0.1 Performed at [facility] FINAL [facility] 11/10 Sodiu m mmol/L 136.0 146.0 138 FINAL [facility] 11/10 Potas sium mmol/L 3.5 5.1 4.7 FINAL [facility] 11/10 Chlor vadim mmol/L 98.0 107.0 104 FINAL [facility] 11/10 CO2 mmol/L 21.0 31.0 28 FINAL [facility] 11/10 Anion gap 0.0 18.0 6 FINAL [facility] 11/10 Gluco se mg/dL 70.0 140.0 131 FINAL [facility] 11/10 BUN mg/dL 7.0 25.0 18 FINAL [facility] 11/10 Creat inine mg/dL 0.8 1.3 1.2 FINAL [facility] 11/10 GFR estim ate 1.73m2 59 Low FINAL [facility] 11/10 BUN/C reati nine ratio 15.0 FINAL [facility] 11/10 Osmol ality , calcu lated 270.0 300.0 279 FINAL [facility] 11/10 Calci um mg/dL 8.6 10.2 10.1 FINAL [facility] 11/10 Total prote in g/dL 5.7 8.0 6.8 FINAL [facility] 11/10 Album in g/dL 3.5 5.0 4.3 FINAL [facility] 11/10 A/G ratio 1.7 FINAL [facility] 11/10 Bilir ubin, total mg/dL 0.1 1.0 0.6 FINAL [facility] 11/10 Alkal ine phosp hatas e U/L 45.0 115.0 40 Low FINAL [facility] 11/10 ALT/S GPT U/L 7.0 52.0 28 FINAL [facility] 11/10 AST/S GOT U/L 13.0 39.0 22 Performed at [facility] FINAL [facility] Medications Date Name Route Dose Frequency [...]
--- OUTSIDE RECORDS SUMMARY | 2024-07-24 10:06 | XMS_ITS | Patient Health Record ---
Author Organization [facility] Billing Info Address [address] [place] [address] Support Name Relationship Address Phone Horacio Ratliff Guarantor Unknown [phone] Reason For Referral No Information Plan Of Treatment No Information Insurance Providers Payer Name Payer Address Payer Phone Subscriber Number Group Number Insured Name Patient Relationship to Insured Coverage Start Date Coverage End Date MEDICARE [place] PART B [address] [place] [id number] Horacio Ratliff Self - patient is the insured [employer] PPO MEDICARE [address] [address] [place], [place] [id number] [phone] [id number] Horacio Ratliff Self - patient is the insured
--- OUTSIDE RECORDS SUMMARY | 2024-07-24 10:06 | XMS_ITS | CCD ---
Author Name Interface, [id number] lity Address [place] [address] [facility] Address More breakthroughs[place] [address] Care Team Providers Care Cabin Cleaning Supervisor Name Role Phone Milly Martin Unavailable Unavailable Allergies and Adverse Reactions Reason for Visit Encounters Functional Status Medications Social History
--- OUTSIDE RECORDS SUMMARY | 2024-07-24 10:06 | XMS_ITS ---
Author Name Interface, [id number] lity Address [place] [address] Organization [facility] Address More breakthroughs[place] [address] Care Team Providers Care Rehanger Name Role Phone Emily Maloney Unavailable Unavailabl [...] total mg/dL 0.1 1.0 1.0 FINAL [facility] 05/19 Alkal ine phosp hatas e U/L 45.0 115.0 48 FINAL [facility] 05/19 ALT/S GPT U/L 7.0 52.0 26 FINAL [facility] 05/19 AST/S GOT U/L 13.0 39.0 24 Performed at [facility] FINAL [facility] 05/19 A/G ratio 1.6 FINAL [facility] 05/19 CO2 mmol/L 21.0 31.0 28 FINAL [facility] 05/19 Anion gap 0.0 18.0 8 FINAL [facility] 05/19 Gluco se mg/dL 70.0 140.0 172 High FINAL [facility] 05/19 BUN mg/dL 7.0 25.0 23 FINAL [facility] 05/19 Creat inine mg/dL 0.8 1.3 1.1 FINAL [facility] 05/19 GFR estim ate 1.73m2 >60 FINAL [facility] 05/19 BUN/C reati nine ratio 20.0 FINAL [facility] 05/19 Osmol ality , calcu lated 270.0 300.0 285 FINAL [facility] 05/19 Calci um mg/dL 8.6 10.2 9.5 FINAL [facility] 05/19 Total prote in g/dL 5.7 8.0 6.7 FINAL [facility] 05/19 Album in g/dL 3.5 5.0 4.1 FINAL [facility] 05/19 Sodiu m mmol/L 136.0 146.0 139 FINAL [facility] 05/19 Potas sium mmol/L 3.5 5.1 4.7 FINAL [facility] 05/19 Chlor vadim mmol/L 98.0 107.0 103 FINAL [facility] 05/19 WBC Thsd/m m3 4.0 11.0 6.0 FINAL [facility] 05/19 RBC Mill/m m3 4.2 5.7 5.4 FINAL [facility] 05/19 HGB g/dL 13.3 17.1 16.9 FINAL [facility] 05/19 HCT % 39.0 50.0 50.1 High FINAL [facility] 05/19 MCV fL 80.0 100.0 93 FINAL [facility] 05/19 MCH, g/dL pg 26.0 34.0 31 FINAL [facility] 05/19 MCHC g/dL 31.0 37.0 34 FINAL [facility] 05/19 RDW % 11.5 14.5 14.9 High FINAL [facility] 05/19 PLT Thsd/m m3 140.0 450.0 233 FINAL [facility] 05/19 MPV fL 7.0 12.0 8.8 FINAL [facility] 05/19 LY % % 20.0 44.0 32.3 FINAL [facility] 05/19 MO % % 2.0 9.0 9.0 FINAL [facility] 05/19 Ronn % % 50.0 70.0 53.7 FINAL [facility] 05/19 Eosin ophil % % 0.0 4.0 4.2 High FINAL [facility] 05/19 Basop hil % % 0.0 2.0 0.8 FINAL [facility] 05/19 LY # Thsd/m m3 1.9 FINAL [facility] 05/19 MO # Thsd/m m3 0.5 FINAL [facility] 05/19 Ronn # (ANC) Thsd/m m3 3.2 FINAL [facility] 05/19 EO # Thsd/m m3 0.3 FINAL [facility] 05/19 BA # Thsd/m m3 0.0 Performed at [facility] FINAL [facility] 11/10 WBC Thsd/m m3 4.[address] [facility] 11/10 RBC Mill/m m3 4.[address] [facility] 11/10 HGB g/dL 13.[address] [facility] 11/10 HCT % 39.[address] [facility] 11/10 MCV fL 80.[address] [facility] 11/10 MCH, g/dL pg 26.[address] [facility] 11/10 MCHC g/dL 31.[address] 37[address] [facility] 11/10 RDW % 11.5 14.[address] [facility] 11/10 PLT Thsd/m m3 140.[address] [facility] 11/10 MPV fL 7.[address] [facility] 11/10 LY % % 20.[address] [facility] 11/10 MO % % 2.[address] [facility] 11/10 Ronn % % 50.[address] [facility] 11/10 Eosin ophil % % 0.[address] [facility] 11/10 Basop hil % % 0.[address] [facility] 11/10 LY # Thsd/m m3 1.[address] [facility] 11/10 MO # Thsd/m m3 0.[address] [facility] 11/10 Ronn # (ANC) Thsd/m m3 4.[address] [facility] 11/10 EO # Thsd/m m3 0.[address] [facility] 11/10 BA # Thsd/m m3 0.1 Performed at [facility] FINAL [facility] 11/10 Sodiu m mmol/L 136.0 [address] [facility] 11/10 Potas sium mmol/L 3.[address] [facility] 11/10 Chlor vadim mmol/L 98.0 [address] [facility] 11/10 CO2 mmol/L 21.0 31.[address] [facility] 11/10 Anion gap 0.0 18.[address] [facility] 11/10 Gluco se mg/dL 70.[address] [facility] 11/10 BUN mg/dL 7.[address] 25.[address] [facility] 11/10 Creat inine mg/dL 0.[address] [facility] 11/10 GFR estim ate 1.73m2 [address] [facility] 11/10 BUN/C reati nine ratio 15.[address] [facility] 11/10 Osmol ality , calcu lated 270.[address] [facility] 11/10 Calci um mg/dL 8.[address] [facility] 11/10 Total prote in g/dL 5.[address] [facility] 11/10 Album in g/dL 3.[address] [facility] 11/10 A/G ratio 1.[address] [facility] 11/10 Bilir ubin, total mg/dL 0.[address] [facility] 11/10 Alkal ine phosp hatas e U/L 45.0 115.[address] [facility] 11/10 ALT/S GPT U/L 7.0 52.[address] [facility] 11/10 AST/S GOT U/L 13.0 39.0 22 Performed at [facility] FINAL [facility] Medications Date Name Route Dose [...]
== END 2024-07-24 10:01 | disposition home or self-care (01) ==
LOC: HO.HMCFM 09:19
PROVIDERS: PCP Physician Assistant; Visit Provider Physician Assistant
DX: E11.29 Type 2 diabetes mellitus with other diabetic kidney complication (principal); R80.9 Proteinuria, unspecified; I48.20 Chronic atrial fibrillation, unspecified; E03.9 Hypothyroidism, unspecified; I10 Essential (primary) hypertension

== ENCOUNTER → 2024-07-24 09:19 | Outpatient (BNVA) | payer MEDICARE, SELFPAY | PROVIDERS: PCP Physician Assistant; Visit Provider Physician Assistant | DX: E11.29 Type 2 diabetes mellitus with other diabetic kidney complication (principal); R80.9 Proteinuria, unspecified; I48.20 Chronic atrial fibrillation, unspecified; E03.9 Hypothyroidism, unspecified; I10 Essential (primary) hypertension | CPT/HCPCS: 99212 ==

== ENCOUNTER 2024-08-06 07:35 | Outpatient (REF) | payer MEDICARE, SELFPAY ==
--- NOTE | ~2024-08-06 | US_ITS ---
EXAMINATION: US ABDOMEN LIMITED WITH LIVER ELASTOGRAPHY HISTORY: K76.0 - Fatty (change of) liver, not elsewhere classified TECHNIQUE: Real-time grayscale ultrasound imaging of the right upper quadrant was performed and images were reviewed. COMPARISON: Comparison is made with the prior examination dated 01/24/2024. FINDINGS: Liver: The right lobe of the liver measures 15.6 cm in size. The left lobe of the liver measures 8.1 cm in size. The liver demonstrates normal homogeneous echotexture. No focal mass is identified. There are scattered dilated intrahepatic ducts. There is normal hepatopedal flow in the portal vein. Ultrasound elastography of the liver was performed with 10 separate measurements of the liver parenchyma with the patient in the supine position. Measurements were obtained approximately 2 cm below Dieter's capsule and perpendicular to the capsule. Images are of satisfactory quality. The median shear wave velocity is 1.44 m/s. The interquartile range/median (IQR/median) is 0.15. Gallbladder and biliary tree: There are tiny gallbladder polyps versus wall calcification. The gallbladder is otherwise unremarkable, without evidence of calculi, wall thickening, or pericholecystic fluid. There is no sonographic Obrien sign. The common bile duct is normal in caliber measuring 6 mm. Right Kidney: The right kidney measures 12.5 cm in length. The right kidney is unremarkable, without evidence of masses, hydronephrosis, or calculi. Pancreas: The pancreatic head, neck, and body are unremarkable. The pancreatic tail is obscured by bowel gas. Abdominal aorta and inferior vena cava: The visualized portions of the abdominal aorta and inferior vena cava are normal in caliber. There is no free fluid in the right upper quadrant. US/US abdomen sebastian w elastography IMPRESSION: Scattered mildly dilated intrahepatic ducts of uncertain significance. The common bile duct is at the upper limits of normal in caliber. If there are LFT abnormalities, MRI of the liver is suggested. The median shear wave velocity in the liver is 1.44 m/s, corresponding to a median liver stiffness of 6.34 kPa. The IQR/median value is 0.15. This is indicative of a poor quality data set, and the estimated liver stiffness may be unreliable. Findings are indicative of a low elastography value which rules out advanced chronic liver disease in asymptomatic patients. REFERENCE: Society of Radiologists in Ultrasound Liver Stiffness Thresholds (2020): LIVER STIFFNESS THRESHOLDS: *Shear wave velocity less than 1.3 m/s (Liver Stiffness equal or less than 5 kPa): High probability of being normal. *Shear wave velocity less than 1.7 m/s (Liver Stiffness less than 9 kPa): In the absence of other known clinical signs, rules out compensated advanced chronic liver disease. *Shear wave velocity between 1.7-2.1 m/s (Liver Stiffness 9-13 kPa): Suggestive of compensated advanced chronic liver disease but need further test for confirmation. *Shear wave velocity between 2.1-2.4 m/s (Liver Stiffness 13-17 kPa): Rules in compensated advanced chronic liver disease. *Shear wave velocity greater than 2.4 m/s (Liver Stiffness over 17 kPa): Suggestive of clinically significant portal hypertension. QUALITY OF DATA SET: *IQR/Median value equal or less than 0.15 implies a quality data set. *IQR/Median value over 0.15 implies a poor quality data set. SIGNIFICANT CHANGE FROM PRIOR EXAM: Significant change if liver stiffness measurement is 10% or greater from prior exam. OTHER CONSIDERATIONS: The stage of liver fibrosis may be overestimated in the setting of acute hepatitis, liver inflammation, elevated liver function tests, hepatic vascular congestion, obstructive cholestasis, non-fasting state, and infiltrative diseases such as amyloidosis and lymphoma. In some patients with NAFLD, the liver stiffness thresholds for compensated advanced chronic liver disease may be lower. In causes other than viral hepatitis and NAFLD, liver stiffness thresholds are not well established. Electronically signed by: David Becker MD 08/06/2024 08:26 AM EDT
--- OUTSIDE RECORDS SUMMARY | 2024-08-06 07:38 | XMS_ITS ---
Author Name Interface, [id number] lity Address [place] [address] Organization [facility] Address More breakthroughs[place] [address] Care Team Providers Care Unit Educator Name Role Phone Emily Maloney Unavailable Unavailabl [...] ubin, total mg/dL 0.1 1.0 1.0 FINAL [facility] 05/19 Alkal ine phosp hatas e U/L 45.0 115.0 48 FINAL [facility] 05/19 ALT/S GPT U/L 7.0 52.0 26 FINAL [facility] 05/19 AST/S GOT U/L 13.0 39.0 24 Performed at [facility] FINAL [facility] 05/19 A/G ratio 1.6 FINAL [facility] 05/19 BUN mg/dL 7.0 25.0 23 FINAL [facility] 05/19 CO2 mmol/L 21.0 31.0 28 FINAL [facility] 05/19 Anion gap 0.0 18.0 8 FINAL [facility] 05/19 Gluco se mg/dL 70.0 140.0 172 High FINAL [facility] 05/19 Creat inine mg/dL 0.8 1.3 1.1 FINAL [facility] 05/19 GFR estim ate 1.73m2 >60 FINAL [facility] 05/19 BUN/C reati nine ratio 20.0 FINAL [facility] 05/19 Osmol ality , calcu lated 270.0 300.0 285 FINAL [facility] 05/19 Calci um mg/dL 8.6 10.2 9.5 FINAL [facility] 05/19 Total prote in g/dL 5.7 8.0 6.7 FINAL [facility] 05/19 Album in g/dL 3.5 5.0 4.1 FINAL [facility] 05/19 Chlor vadim mmol/L 98.0 107.0 103 FINAL [facility] 05/19 Sodiu m mmol/L 136.0 146.0 139 FINAL [facility] 05/19 Potas sium mmol/L 3.5 5.1 4.7 FINAL [facility] 05/19 WBC Thsd/m m3 4.0 11.0 6.0 FINAL [facility] 05/19 RBC Mill/m m3 4.2 5.7 5.4 FINAL [facility] 05/19 HGB g/dL 13.3 17.1 16.9 FINAL [facility] 05/19 HCT % 39.0 50.0 50.1 High FINAL [facility] 05/19 MCV fL 80.0 100.0 93 FINAL [facility] 05/19 MCH, g/dL pg 26.0 34.0 31 FINAL [facility] 05/19 MCHC g/dL 31.0 37.0 34 FINAL [facility] 05/19 RDW % 11.5 14.5 14.9 High FINAL [facility] 05/19 PLT Thsd/m m3 140.0 450.0 233 FINAL [facility] 05/19 MPV fL 7.0 12.0 8.8 FINAL [facility] 05/19 LY % % 20.0 44.0 32.3 FINAL [facility] 05/19 MO % % 2.0 9.0 9.0 FINAL [facility] 05/19 Ronn % % 50.0 70.0 53.7 FINAL [facility] 05/19 Eosin ophil % % 0.0 4.0 4.2 High FINAL [facility] 05/19 Basop hil % % 0.0 2.0 0.8 FINAL [facility] 05/19 LY # Thsd/m m3 1.9 FINAL [facility] 05/19 MO # Thsd/m m3 0.5 FINAL [facility] 05/19 Ronn # (ANC) Thsd/m m3 3.2 FINAL [facility] 05/19 EO # Thsd/m m3 0.3 FINAL [facility] 05/19 BA # Thsd/m m3 0.0 Performed at [facility] FINAL [facility] 11/10 WBC Thsd/m m3 [...] BA # Thsd/m m3 0.1 Performed at [facility] GOT U/L 13.0 39.0 22 Performed at [facility] [...]
--- OUTSIDE RECORDS SUMMARY | 2024-08-06 07:38 | XMS_ITS ---
Author Name Interface, [id number] lity Address [place] [address] Organization [facility] Address More breakthroughs[place] [address] Care Team Providers Care Supervisor Tan Room Name Role Phone Ritaluisa Milly Unavailable Unavailable [...] # Thsd/m m3 0.1 Performed at [facility] FINAL [facility] 11/10 Sodiu m mmol/L 136.0 [...] U/L 13.0 39.0 22 Performed at [facility] FINAL [facility] Medications Date [...]
--- OUTSIDE RECORDS SUMMARY | 2024-08-06 07:38 | XMS_ITS | Clinical Summary ---
Author Organization [address] [place] [address] [place] [phone] Phone Care Team Providers Care Locker Room Attendant Name Role Phone Lynn Trivedi Primary Care Provider [phone] Allergies No known active allergies Medications allopurinoL (ZYLOPRIM) 100 mg tablet Take 1 Tablet by mouth daily. Active apixaban (ELIQUIS) 5 mg tablet Take 1 tablet (5 mg total) by mouth 2 (two) times a day. Active levothyroxine (SYNTHROID, LEVOTHROID) 75 mcg tablet Take 1 Tablet by mouth daily. Active metformin HCl (METFORMIN ORAL) Take 1,000 mg by mouth. Active multivit-min/fo lic acid/lutein (CENTRUM SILVER ORAL) Take by mouth. Active lisinopriL (PRINIVIL,ZESTR IL) 2.5 mg tablet Take 1 tablet (2.5 mg total) by mouth 1 (one) time each day. Active empagliflozin (JARDIANCE) 10 mg tablet Take 1 tablet (10 mg total) by mouth 1 (one) time each day in the morning. Active canagliflozin (INVOKANA) 300 mg tablet Take by mouth. 08/02/19 25 Discontinu ed(Therapy completed) ezetimibe (ZETIA) 10 mg tablet Take 1 Tablet by mouth daily. 08/02/19 25 Discontinu ed(Therapy completed) Active Problems Problem Noted Date Diagnosed Date Mixed hyperlipidemia 09/29/2022 Primary hypertension 09/29/2022 Chronic atrial fibrillation 09/26/2022 Assessment & Plan (05/02/2024 10:18 AM EST): [id number] score of 3 based on his age [...] Encounters Date Type Department Care Team Description 08/01/2024 7:40 AM EDT Office Visit [facility] Cardiology [facility] [address] [place] [address] Kristy Juárez NP Chronic atrial fibrillation (CMS/HCC) (Primary Dx); Hyperlipidemia, unspecified hyperlipidemia type; Aortic dilatation (CMS/HCC) 07/07/2024 2:25 PM EST Ancillary Procedure [facility] Cardiology [facility] [address] [place] [address] 05/12/2024 Telephone [facility] [address] [facility] [address] [place] [address] Lynn Trivedi PA Medical Records 05/09/2024 7:30 AM EST Ancillary Procedure [facility] [address] [place] [phone] Chronic atrial fibrillation (CMS/HCC); Primary hypertension; Swelling of left lower extremity from Last 3 Months Surgical History Surgery [...] drink = 0.6 oz pur e alcohol) rare Sex and Gender Information Value Date Recorded Sex Assigned at Male 05/05/2024 7:43 AM EST Legal Sex Male 9:00 PM EST Gender Identity Male 05/05/2024 7:43 AM EST Sexual Orientation Not on file Obstetrics History Last Filed Vital Signs Vital Sign Reading Time Taken Comments Blood Pressure 130/80 08/01/2024 7:35 AM EDT Pulse 77 08/01/2024 7:35 AM EDT Temperature - - Respiratory Rate - - Oxygen Saturation 98% 08/01/2024 7:35 AM EDT Inhaled Oxygen Concentration - - Weight 103 kg (226 lb) 08/01/2024 7:35 AM EDT Height 172.7 cm (5' 8 ) 08/01/2024 7:35 AM EDT Body Mass Index 34.36 08/01/2024 7:35 AM EDT Plan of Treatment Upcoming Encounters Date Type Department Care Team (Late st Contact Info) Description 10/02/2024 9:00 AM EDT Ancillary Procedure [facility] Cardiology [facility] - [address] [place] [phone] 04/16/2025 7:40 AM EST Office Visit [facility] Cardiology [facility] [place] [address] [place] [phone] Kristy Juárez, [place] [address] [place] [address] Dr [address]UENAS, SURJIT [address] Health Maintenance Due Date Last Done Comments [...] this topic Medical Devices Implanted Type Area Unattended Ground Sensor Specialist Device Identifier Shelf Expiration Date Model / Serial / Lot Medt-Card [id number] Implanted:01/2021 (Quantity not on file) 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 / [id number] / Procedures Procedure Name Priority Date/Time Associated Diagnosis Comments CARDIAC DEVICE CHECK- REMOTE- MURJ Routine 07/07/2024 2:22 PM EST VAS US DUPLEX LOWER EXT VENOUS INSUFFICIENCY LEFT Routine 05/09/2024 7:39 AM EST Chronic atrial fibrillation (CMS/HCC) Primary hypertension Swelling of left lower extremity from Last 3 Months Results * Cardiac device check - Remote- MURJ (07/07/2024 2:22 PM EST) Date Time Interrogation Session [id number] CV DEVICE CHECK Type Interrogation Session Remote CV DEVICE CHECK Implantable Pulse Generator Unattended Ground Sensor Specialist MDT CV DEVICE CHECK Implantable Pulse Generator Type IPG CV DEVICE CHECK Implantable Pulse Generator Model [id number] CV DEVICE CHECK Implantable Pulse Generator Serial Number [id number] CV DEVICE CHECK Implantable Pulse Generator Implant Date 20201213 CV DEVICE CHECK Battery Remaining Longevity 96.0 CV DEVICE CHECK Battery Voltage 3.020 CV D EVICE CHECK Battery SERVICE WRITER ADVISOR Trigger 2.558 CV DEVICE CHECK Battery Status [...] ??Mild reflux is present in the left MICROBIAL SPECIALIST. No significant reflux in the left GSV [...] saphenous negrete. Duplicated mid small saphenous vein. Chemist Instrumentation Details A wyatt scale, color and doppler analysis ultrasound was performed. During the study longitudinal and transverse views were obtained. Pulsed wave doppler was performed. us Kristy Juárez NP CV VASCULAR PROCEDURES Final R esult from Last 3 Months Insurance MEDICARE [facility] Care Teams Locker Room Attendant Relationship Specialty Start Date End Date Lynn Trivedi PA [facility] [place] [address] PCP - General 08/16/22
--- OUTSIDE RECORDS SUMMARY | 2024-08-06 07:38 | XMS_ITS ---
Author Name Interface, [id number] lity Address [place] [address] Organization [facility] Address [place] breakthrough[place] [address] Care Team Providers Care Road Roller Operator Name Role Phone Ritaluisa Milly Unavailable Unavailable [...] 136.0 146.0 138 FINAL [facility] 11/10 Potas sium mmol/L 3.5 5.1 4.7 FINAL [facility] 11/10 Chlor vadim mmol/L 98.0 107.0 104 FINAL [facility] 11/10 CO2 mmol/L 21.0 31.0 28 FINAL [facility] 11/10 Anion gap 0.0 18.0 6 FINAL [facility] 11/10 Gluco se mg/dL 70.0 140.0 131 FINAL [facility] 11/10 BUN mg/dL 7.0 25.0 18 FINAL [facility] 11/10 Creat inine mg/dL 0.8 1.3 1.2 FINAL [facility] 11/10 GFR estim ate 1.73m2 59 Low FINAL [facility] 11/10 BUN/C reati nine ratio 15.0 FINAL [facility] 11/10 Osmol ality , calcu lated 270.0 300.0 279 FINAL [facility] 11/10 Calci um mg/dL 8.6 10.2 10.1 FINAL [facility] 11/10 Total prote in g/dL 5.7 8.0 6.8 FINAL [facility] 11/10 Album in g/dL 3.5 5.0 4.3 FINAL [facility] 11/10 A/G ratio 1.7 FINAL [facility] 11/10 Bilir ubin, total mg/dL 0.1 1.0 0.6 FINAL [facility] 11/10 Alkal ine phosp hatas e U/L 45.0 115.0 40 Low FINAL [facility] 11/10 ALT/S GPT U/L 7.0 52.0 28 FINAL [facility] 11/10 AST/S GOT U/L 13.0 39.0 22 Performed at [facility] FINAL [facility] 11/10 WBC Thsd/m m3 4.0 11.0 7.5 FINAL [facility] 11/10 RBC Mill/m m3 4.2 5.7 5.2 FINAL [facility] 11/10 HGB g/dL 13.3 17.1 16.1 FINAL [facility] 11/10 HCT % 39.0 50.0 48.5 FINAL [facility] 11/10 MCV fL 80.0 100.0 93 FINAL [facility] 11/10 MCH, g/dL pg 26.0 34.0 31 FINAL [facility] 11/10 MCHC g/dL 31.0 37.0 33 FINAL [facility] 11/10 RDW % 11.5 14.5 15.0 High FINAL [facility] 11/10 PLT Thsd/m m3 140.0 450.0 223 FINAL [facility] 11/10 MPV fL 7.0 12.0 8.8 FINAL [facility] 11/10 LY % % 20.0 44.0 25.0 FINAL [facility] 11/10 MO % % 2.0 9.0 7.4 FINAL [facility] 11/10 Ronn % % 50.0 70.0 63.0 FINAL [facility] 11/10 Eosin ophil % % 0.0 4.0 3.6 FINAL [facility] 11/10 Basop hil % % 0.0 2.0 1.0 FINAL [facility] 11/10 LY # Thsd/m m3 1.9 FINAL [facility] 11/10 MO # Thsd/m m3 0.5 FINAL [facility] 11/10 Ronn # (ANC) Thsd/m m3 4.7 FINAL [facility] 11/10 EO # Thsd/m m3 0.3 FINAL [facility] 11/10 BA # Thsd/m m3 0.1 Performed at [facility] FINAL [facility] Medications Date Name Route Dose Frequency Instructions [...]
--- OUTSIDE RECORDS SUMMARY | 2024-08-06 07:38 | XMS_ITS | Patient Health Record ---
Author Organization [facility] Billing Info Address [address] [place] [id number] Support Name Relationship Address Phone Horacio Ratliff Guarantor Unknown [phone] Reason For Referral No Information Plan Of Treatment No Information Insurance Providers Payer Name Payer Address Payer Phone Subscriber Number Group Number Insured Name Patient Relationship to Insured Coverage Start Date Coverage End Date MEDICARE [place] PART B [address] [place] [id number] Horacio Ratliff Self - patient is the insured [employer] PPO MEDICARE [address] [address] [place], [place] [id number] Horacio Ratliff Self - patient is the insured
--- OUTSIDE RECORDS SUMMARY | 2024-08-06 07:38 | XMS_ITS | CCD ---
Author Name Interface, [id number] lity Address [place] [address] [facility] Address [place] breakthrough[place] [address] Care Team Providers Care Producer Name Role Phone Milly Martin Unavailable Unavailable Allergies and Adverse Reactions Reason for Visit Encounters Functional Status Medications Social History
--- OUTSIDE RECORDS SUMMARY | 2024-08-06 07:38 | XMS_ITS | CCD ---
Author Name Interface, [id number] lity Address [place] [address] Organization [facility] Address [place] [address] Care Team Providers Care Convention Services Director Name Role Phone Milly Martin Unavailable Unavailable [...]
--- OUTSIDE RECORDS SUMMARY | 2024-08-06 07:38 | XMS_ITS | Encounter Summary ---
Author Organization [facility] Address [address] [place] [address] Care Team Providers Care Assembler Aircraft Power Plant Name Role Phone Lynn Trivedi Primary Care Provider [phone] Reason for Visit * Reason Comments Follow-up Encounter Details Date Type Department Care Team (Latest Contact Info) Description 08/01/2024 7:40 AM EDT Office Visit [facility] [address] [place] [address] Kristy Juárez NP [address] [place] [address] [place] [address] Chronic atrial fibrillation (CMS/HCC) (Primary Dx); Hyperlipidemia, unspecified hyperlipidemia type; Aortic dilatation (CMS/HCC) Social History Tobacco Use Types Packs/Day Years [...] on file documented as of this encounter Last Filed Vital Signs Vital Sign Reading [...] Mass Index 34.36 08/01/2024 7:35 AM EDT documented in this encounter Progress Notes * Kristy Juárez, [place] - 08/01/2024 7:40 AM EDT Images from the original note were not included. [facility] PRIMARY FINANCE PROFESSOR: Abebe Burton MD PCP: ORQUIDEA Farah HPI: Horacio Portillo Gaudencio is a 79 y.o. old male with past medical history of of atrial fibrillation, RBBB, status post Micra device placement, diabetes mellitus, obesity and hyperlipidemia. He was previously seen by spout positioner in [facility] by Dr. Meade. [place]. Most recent echocardiogram was in 2021 showing ejection fraction of 55 to 60%, normal LV wall motion, normal ventricular size, dilated left atrium, mild to moderate mitral regurgitation, mild to moderate tricuspid regurgitation. Vascular US duplex to the left lower extremity completed on 05/09/2024 showing no venous thrombus in the left lower extremity, clinically significant reflux noted in the left mid femoral vein and left popliteal vein. 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 No significant reflux in the left GSV and its branches. Echocardiogram completed showing EF by 2D Campo biplane is 54%. No regional LV wall motion abnormalities. Left atrium cavity is moderately dilated. No hemodynamically significant valvular heart disease. 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 Device check completed 07/07/2024, showing normal device function, battery 8 years, no alerts or events. I have obtained verbal consent from Horacio Ratliff Jr. prior to the recording. I have advised Horacio Ratliff Jr. that he may refuse the recording and require the recording to be turned off at anytime during this encounter. History of Present Illness The patient presents for cardiac follow-up He reports a significant improvement in his leg swelling, which had previously remained unchanged. He has been using compression socks, which have been beneficial for his foot but have caused irritation to his bunion and arthritis. Consequently, he has discontinued their use. He also notes that wearing regular socks, as opposed to being barefoot, seems to provide some relief. He is not currently on any cholesterol-lowering medication. His cholesterol levels are being monitored by ORQUIDEA Farah primary care. He is scheduled to start Ozempic injections for his diabetes, with a follow-up appointment in 6 weeks. He continues to take Eliquis 5 mg twice daily and reports no abnormal bleeding, hematuria, or hematochezia. He does not experience chest pain, shortness of breath, palpitations, or syncope. He also reports no episodes of dizziness or lightheadedness. ACTIVE MEDICATIONS: No outpatient medications have been marked as taking for the 08/01/24 encounter (Office Visit) with Kristy Juárez NP. PAST MEDICAL HISTORY: Patient Active Problem List Diagnosis Chronic atrial fibrillation (CMS/HCC) HLD (hyperlipidemia) Mixed hyperlipidemia Primary hypertension ALLERGIES: No Known Allergies SOCIAL HISTORY: Social History Tobacco Use Smoking status: Former Smokeless tobacco: Never Substance Use Topics Alcohol use: Yes PHYSICAL EXAM: There were no vitals filed for this visit. Physical Exam Constitutional: General: He is awake. He is not in acute distress. Appearance: He is well-developed. He is not diaphoretic. HENT: Head: Normocephalic. Eyes: Pupils: Pupils are equal, round, and reactive to light. Neck: Vascular: No carotid bruit, hepatojugular reflux or JVD. Cardiovascular: Rate and Rhythm: Normal rate and regular rhythm. Pulses: Normal pulses and intact distal pulses. Heart sounds: Normal heart sounds, S1 normal and S2 normal. No murmur heard. Pulmonary: Effort: Pulmonary effort is normal. No respiratory distress. Breath sounds: Normal breath sounds. No wheezing, rhonchi or rales. Chest: Chest wall: No tenderness. Abdominal: General: Bowel sounds are normal. There is no distension. Palpations: Abdomen is soft. Tenderness: There is no abdominal tenderness. Musculoskeletal: General: No deformity. Cervical back: Normal range of motion. No edema. Right lower leg: No edema. Left lower leg: No edema. Skin: General: Skin is warm and dry. Neurological: Mental Status: He is alert and oriented to person, place, and time. Psychiatric: Attention and Perception: Attention normal. Mood and Affect: Mood normal. Speech: Speech normal. EKG: None completed today ASSESSMENT/PLAN: Assessment & Plan 1. Leg swelling: - Improved with use of socks/elevation - Ultrasound showed venous reflux, no deep vein thrombosis - Continue wearing socks to help with swelling 2. Aortic Dilatation: - Echocardiogram revealed Sinus of Valsalva is dilated at 4.4 cm, ascending aorta is dilated 4.0 cm. - Avoid heavy lifting, especially activities requiring holding breath - Avoid general lifting over 30-35 pounds, no contact sports - Yearly ultrasounds to monitor progression 3. Atrial Fibrillation : - [id number] score of 3 based on his age and history of diabetes. He denies history of hypertension, states he is on lisinopril for renal protection - Patient to continue on Eliquis 5 mg twice daily for stroke risk reduction which is appropriate for his age, weight and kidney function. 4. Hyperlipidemia - Not on cholesterol medication due to adverse effects from Zetia and Statins - Cholesterol levels monitored by Dr. Deanna Trivedi - Recommend PCSK9 inhibitor if cholesterol levels elevated - Requesting labs from PCP office 5. Syncope s/p Micra pacemaker placement: - No further episodes of syncope or presyncope - Continue with remote device monitoring Thank you for allowing us to participate in the care of this patient. The patient will follow up in9 mo, sooner PRN. As per AHA guidelines and previously established plan of care by Dr. Abebe Burton MD, we discussed the following today: Atrial fibrillation, aortic dilation, hyperlipidemia, lower extremity edema, syncope status post pacemaker placement. [facility] Cosigned by Ab Lozano MD at 08/01/2024 10:08 AM EDT documented in this encounter Plan of Treatment Upcoming Encounters Date Type Department Care Team (Late st Contact Info) Description 10/02/2024 9:00 AM EDT Ancillary Procedure [facility] - [address] [place] [address] 04/16/2025 7:40 AM EST Office Visit [facility] [address] [place] [address] Kristy Juárez NP [address] [place] [address] [place] [address] documented as of this encounter Visit Diagnoses Diagnosis Chronic atrial fibrillation (CMS/HCC)- Primary Atrial fibrillation Hyperlipidemia, unspecified hyperlipidemia type Aortic dilatation ([facility]) Encounter for adjustment or management of cardiac device documented in this encounter Discontinued Medications Medication Sig Discontinue Reason Start Date End Da te ezetimibe (ZETIA) 10 mg tablet Take 1 Tablet by mouth daily. Therapy completed 08/01/2024 canagliflozin (INVOKANA) 300 mg tablet Take by mouth. Therapy completed 08/01/2024 documented as of this encounter Historical Medications * This list may reflect changes made after this encounter. empagliflozin (JARDIANCE) 10 mg tablet Take 1 tablet (10 mg total) by mouth 1 (one) time each day in the morning. added in this encounter Care Teams Assembler Aircraft Power Plant Relationship Specialty Start Date End Date Lynn Trivedi PA [address] [place] [id number] PCP - General 08/16/22 documented as of this encounter
--- OUTSIDE RECORDS SUMMARY | 2024-08-06 07:38 | XMS_ITS ---
Author Name Interface, [id number] lity Address [place] [address] Organization [facility] Address [place] breakthrough[place] [address] Care Team Providers Care Career Guidance Counselor Name Role Phone Emily Maloney Unavailable Unavailabl [...] ubin, total mg/dL 0.1 1.0 1.0 FINAL [facility] 05/19 Alkal ine phosp hatas e U/L 45.0 115.0 48 FINAL [facility] 05/19 ALT/S GPT U/L 7.0 52.0 26 FINAL [facility] 05/19 AST/S GOT U/L 13.0 39.0 24 Performed at [facility] FINAL [facility] 05/19 A/G ratio 1.6 FINAL [facility] 05/19 CO2 mmol/L 21.0 31.0 28 FINAL [facility] 05/19 Anion gap 0.0 18.0 8 FINAL [facility] 05/19 Gluco se mg/dL 70.0 140.0 172 High FINAL [facility] 05/19 BUN mg/dL 7.0 25.0 23 FINAL [facility] 05/19 Creat inine mg/dL 0.8 1.3 1.1 FINAL [facility] 05/19 GFR estim ate 1.73m2 >60 FINAL [facility] 05/19 BUN/C reati nine ratio 20.0 FINAL [facility] 05/19 Osmol ality , calcu lated 270.0 300.0 285 FINAL [facility] 05/19 Calci um mg/dL 8.6 10.2 9.5 FINAL [facility] 05/19 Total prote in g/dL 5.7 8.0 6.7 FINAL [facility] 05/19 Album in g/dL 3.5 5.0 4.1 FINAL [facility] 05/19 Sodiu m mmol/L 136.0 146.0 139 FINAL [facility] 05/19 Potas sium mmol/L 3.5 5.1 4.7 FINAL [facility] 05/19 Chlor vadim mmol/L 98.0 107.0 103 FINAL [facility] 05/19 WBC Thsd/m m3 4.0 11.0 6.0 FINAL [facility] 05/19 RBC Mill/m m3 4.2 5.7 5.4 FINAL [facility] 05/19 HGB g/dL 13.3 17.1 16.9 FINAL Milly [facility] 05/19 HCT % 39.0 50.0 50.1 High FINAL Milly [facility] 05/19 MCV fL 80.0 100.0 93 FINAL [facility] 05/19 MCH, g/dL pg 26.0 34.0 31 FINAL Milly [facility] 05/19 MCHC g/dL 31.0 37.0 34 FINAL Mil[facility] 05/19 RDW % 11.5 14.5 14.9 High FINAL Mil[facility] 05/19 PLT Thsd/m m3 140.0 450.0 233 FINAL [facility] 05/19 MPV fL 7.0 12.0 8.8 FINAL Mil[facility] 05/19 LY % % 20.0 44.0 32.3 FINAL Mil[facility] 05/19 MO % % 2.0 9.0 9.0 FINAL Mil[facility] 05/19 Ronn % % 50.0 70.0 53.7 FINAL [facility] 05/19 Eosin ophil % % 0.0 4.0 4.2 High FINAL Mil[facility] 05/19 Basop hil % % 0.0 2.0 0.8 FINAL Mil[facility] 05/19 LY # Thsd/m m3 1.9 FINAL Mil[facility] 05/19 MO # Thsd/m m3 0.5 FINAL Mil[facility] 05/19 Ronn # (ANC) Thsd/m m3 3.2 FINAL Milly [facility] 05/19 EO # Thsd/m m3 0.3 FINAL [facility] 05/19 BA # Thsd/m m3 0.0 Performed at [facility] FINAL [facility] 11/10 WBC Thsd/m m3 4.0 11.0 7.5 [facility] 11/10 RBC Mill/m m3 4.2 5.7 5.2 [facility] 11/10 HGB g/dL 13.3 17.1 16.1 [facility] 11/10 HCT % 39.0 50.0 48.5 [facility] 11/10 MCV fL 80.0 100.0 93 [facility] 11/10 MCH, g/dL pg 26.0 34.0 31 [facility] 11/10 MCHC g/dL 31.0 37.0 33 [facility] 11/10 RDW % 11.5 14.5 15.0 High [facility] 11/10 PLT Thsd/m m3 140.0 450.0 223 [facility] 11/10 MPV fL 7.0 12.0 8.8 FIN[facility] 11/10 LY % % 20.0 44.0 25.0 FINAL [facility] 11/10 MO % % 2.0 9.0 7.4 FINAL [facility] 11/10 Ronn % % 50.0 70.0 63.0 FINAL [facility] 11/10 Eosin ophil % % 0.0 4.0 3.6 FINAL [facility] 11/10 Basop hil % % 0.0 2.0 1.0 FINAL [facility] 11/10 LY # Thsd/m m3 1.9 FINAL [facility] 11/10 MO # Thsd/m m3 0.5 FINAL [facility] 11/10 Ronn # (ANC) Thsd/m m3 4.7 FIN[facility] 11/10 EO # Thsd/m m3 0.3 [facility] 11/10 BA # Thsd/m m3 0.1 Performed at [facility] 11/10 Sodiu m mmol/L 136.0 146.0 138 FINAL [facility] 11/10 Potas sium mmol/L 3.5 5.1 4.7 FINAL [facility] 11/10 Chlor vadim mmol/L 98.0 107.0 104 [facility] 11/10 CO2 mmol/L 21.0 31.0 28 [facility] 11/10 Anion gap 0.0 18.0 6 FIN[facility] 11/10 Gluco se mg/dL 70.0 140.0 131 [facility] 11/10 BUN mg/dL 7.0 25.0 18 FIN[facility] 11/10 Creat inine mg/dL 0.8 1.3 1.2 FINAL [facility] 11/10 GFR estim ate 1.73m2 59 Low [facility] 11/10 BUN/C reati nine ratio 15.0 FIN[facility] 11/10 Osmol ality , calcu lated 270.0 300.0 279 [facility] 11/10 Calci um mg/dL 8.6 10.2 10.1 [facility] 11/10 Total prote in g/dL 5.7 8.0 6.8 FINAL [facility] 11/10 Album in g/dL 3.5 5.0 4.3 FIN[facility] 11/10 A/G ratio 1.7 [facility] 11/10 Bilir ubin, total mg/dL 0.1 1.0 0.6 [facility] 11/10 Alkal ine phosp hatas e U/L 45.0 115.0 40 Low [facility] 11/10 ALT/S GPT U/L 7.0 52.0 28 [facility] 11/10 AST/S GOT U/L 13.0 39.0 22 Performed at [facility] Medications Date Name Route Dose Frequency [...]
== END 2024-08-06 07:36 | disposition home or self-care (01) ==
LOC: HO.US 07:35
PROVIDERS: PCP Physician Assistant; Visit Provider Nurse Practitioner Family
DX: K76.0 Fatty (change of) liver, not elsewhere classified (principal)
CPT/HCPCS: 76705; 76981

== ENCOUNTER → 2024-08-06 07:37 | Outpatient (BNV) | payer MEDICARE, SELFPAY | PROVIDERS: PCP Physician Assistant; Visit Provider Radiology Diagnostic Radiology | DX: R93.2 Abnormal findings on diagnostic imaging of liver and biliary tract (principal) | CPT/HCPCS: 76705; 76981 ==

== ENCOUNTER 2024-08-21 07:36 | Outpatient (REF) | payer MEDICARE, SELFPAY ==
--- OUTSIDE RECORDS SUMMARY | 2024-08-21 07:38 | XMS_ITS | CCD ---
Author Name Interface, [id number] lity Address [place] [address] Organization [facility] Address More breakthroughs[place] [address] Care Team Providers Care Corsage Maker Name Role Phone Milly Martin Unavailable Unavailable [...]
--- OUTSIDE RECORDS SUMMARY | 2024-08-21 07:38 | XMS_ITS ---
Author Name Interface, [id number] lity Address [place] [address] Organization [facility] Address [place] [address] Care Team Providers Care Bedspread Cutter Hand Name Role Phone Emily Maloney Unavailable Unavailabl [...] - Adult C ompleted 02/07/2021 Covid-19 vaccine (Taglocity) Completed Diagnostic Results Date Type Test Units [...] GOT U/L 13.0 39.0 24 Performed at [facility] FINAL [facility] 05/19 A/G ratio 1.6 FINAL [facility] 05/19 BUN mg/dL 7.0 25.0 23 FINAL [facility] 05/19 CO2 mmol/L 21.0 31.0 28 FINAL [facility] 05/19 Anion gap 0.0 18.0 8 FINAL [facility] 05/19 Gluco se mg/dL 70.0 140.0 172 High FINAL [facility] 05/19 Creat inine [...] 5.0 4.1 FINAL [facility] 05/19 Chlor vadim mmol/L 98.0 107.0 103 FINAL [facility] 05/19 Sodiu m mmol/L 136.0 146.0 139 FINAL [facility] 05/19 Potas sium mmol/L 3.5 5.1 4.7 FINAL [facility] 05/19 WBC Thsd/m m3 4.0 11.0 6.0 FINAL [facility] 05/19 RBC Mill/m m3 4.2 5.7 5.4 FINAL [facility] 05/19 HGB g/dL 13.3 17.1 16.9 FINAL [facility] 05/19 HCT % 39.0 50.0 50.1 High [facility] 05/19 MCV fL 80.0 100.0 93 FINAL [facility] 05/19 MCH, g/dL pg 26.0 34.0 31 FINAL [facility] 05/19 MCHC g/dL 31.0 37.0 34 [facility] 05/19 RDW % 11.5 14.5 14.9 High [facility] 05/19 PLT Thsd/m m3 140.0 450.0 233 FINAL [facility] 05/19 MPV fL 7.0 12.0 8.8 [facility]AL [facility] 05/19 LY % % 20.0 44.0 32.3 FINAL [facility] 05/19 MO % % 2.0 9.0 9.0 FINAL [facility] 05/19 Ronn % % 50.0 70.0 53.7 FINAL [facility] 05/19 Eosin ophil % % 0.0 4.0 4.2 High [facility] 05/19 Basop hil % % 0.0 2.0 0.8 FINAL [facility] 05/19 LY # Thsd/m m3 1.9 [facility]AL [facility] 05/19 MO # Thsd/m m3 0.5 [facility]AL [facility] 05/19 Ronn # (ANC) Thsd/m m3 3.2 FINAL [facility] 05/19 EO # Thsd/m m3 0.3 FINAL [facility] 05/19 BA # Thsd/m m3 0.0 Performed at [facility] FINAL [facility] 11/10 Sodiu m mmol/L 136.0 146.0 [...] GOT U/L 13.0 39.0 22 Performed at [facility] FINAL [facility] [...] BA # Thsd/m m3 0.1 Performed at [facility] FINAL [facility] [...]
--- OUTSIDE RECORDS SUMMARY | 2024-08-21 07:38 | XMS_ITS ---
Author Name Interface, [id number] lity Address [place] [address] Organization [facility] Address More breakthroughs[place] [address] Care Team Providers Care Digital Traffic Coordinator Name Role Phone Ritaluisa Milly Unavailable Unavailable [...] 138 FINAL [facility] 11/10 Potas sium mmol/L 3.5 5.1 4.7 FINAL [facility] 11/10 Chlor vadim mmol/L 98.0 107.0 104 FINAL [facility] 11/10 CO2 mmol/L 21.0 31.0 28 FINAL [facility] 11/10 Anion gap 0.0 18.0 6 FINAL [facility] 11/10 Gluco se mg/dL 70.0 140.0 131 FINAL [facility] 11/10 BUN mg/dL 7.0 25.0 18 FINAL [facility] 11/10 Creat inine mg/dL 0.8 1.3 1.2 FINAL [facility] 11/10 GFR estim ate 1.73m2 59 Low FINAL [facility] 11/10 BUN/C reati nine ratio 15.0 FINAL [facility] 11/10 Osmol ality , calcu lated 270.0 300.0 279 FINAL [facility] 11/10 Calci um mg/dL 8.6 10.2 10.1 FINAL [facility] 11/10 Total prote in g/dL 5.7 8.0 6.8 FINAL [facility] 11/10 Album in g/dL 3.5 5.0 4.3 FINAL [facility] 11/10 A/G ratio 1.7 FINAL [facility] 11/10 Bilir ubin, total mg/dL 0.1 1.0 0.6 FINAL [facility] 11/10 Alkal ine phosp hatas e U/L 45.0 115.0 40 Low FINAL [facility] 11/10 ALT/S GPT U/L 7.0 52.0 28 FINAL [facility] 11/10 AST/S GOT U/L 13.0 39.0 22 Performed at [facility] FINAL [facility] 11/10 WBC Thsd/m m3 4.0 11.0 7.5 FINAL [facility] 11/10 RBC Mill/m m3 4.2 5.7 5.2 FINAL [facility] 11/10 HGB g/dL 13.3 17.1 16.1 FINAL [facility] 11/10 HCT % 39.0 50.0 48.5 FINAL [facility] 11/10 MCV fL 80.0 100.0 93 FINAL [facility] 11/10 MCH, g/dL pg 26.0 34.0 31 FINAL [facility] 11/10 MCHC g/dL 31.0 37.0 33 FINAL [facility] 11/10 RDW % 11.5 14.5 15.0 High FINAL [facility] 11/10 PLT Thsd/m m3 140.0 450.0 223 FINAL [facility] 11/10 MPV fL 7.0 12.0 8.8 FINAL [facility] 11/10 LY % % 20.0 44.0 25.0 FINAL [facility] 11/10 MO % % 2.0 9.0 7.4 FINAL [facility] 11/10 Ronn % % 50.0 70.0 63.0 FINAL [facility] 11/10 Eosin ophil % % 0.0 4.0 3.6 FINAL [facility] 11/10 Basop hil % % 0.0 2.0 1.0 FINAL [facility] 11/10 LY # Thsd/m m3 1.9 FINAL [facility] 11/10 MO # Thsd/m m3 0.5 FINAL [facility] 11/10 Ronn # (ANC) Thsd/m m3 4.7 FINAL [facility] 11/10 EO # Thsd/m m3 0.3 FINAL [facility] 11/10 BA # Thsd/m m3 0.1 Performed at [facility] FINAL [facility] Medications Date Name Route Dose Frequency Instructions [...]
--- OUTSIDE RECORDS SUMMARY | 2024-08-21 07:38 | XMS_ITS | Clinical Summary ---
Author Organization [address] [place] [address] [place] [phone] Phone Care Team Providers Care Spool Sander Name Role Phone Lynn Trivedi Primary Care Provider [phone] Allergies No known active allergies Medications allopurinoL [...] 09/29/2022 Primary hypertension 09/29/2022 Chronic atrial fibrillation (CMS/HCC V24, CMS/HC C V28) 09/26/2022 Assessment & Plan (05/02/2024 10:18 AM EST): [id number] score of 3 based on his age [...] Encounters Date Type Department Care Team Description 08/08/2024 9:20 PM EDT Ancillary Procedure [facility] [address] [place] [address] 08/01/2024 7:40 AM EDT Office Visit [facility] Cardiology [facility] [address] [place] [address] Kristy Juárez NP Chronic atrial fibrillation (CMS/HCC V24, CMS/HCC V28) (Primary Dx); Hyperlipidemia, unspecified hyperlipidemia type; Aortic dilatation (CMS/HCC V24) 07/07/2024 2:25 PM EST Ancillary Procedure [facility] [address] [place] [address] from Last 3 Months Surgical History Surgery Date Site/Laterality Comments OTHER SURGICAL HISTORY PROCEDURE: HISTORY OTHER; COMMENT: KNEE REPLACEMENT PACEMAKER IMPLANT PROCEDURE: HISTORICAL PACEMAKER Medical History Medical History Date Comments HTN (hypertension) DX:HTN (hyper tension) Obese DX:Obese; COMMEN T: class I Gout DX:Gout Type 2 diabetes mellitus wit hout complications (CMS/HCC V24, CMS/HCC V28) DX:Type 2 justin betes mellitus without complications (HCC) ED (erectile dysfunction) [...] Description 10/02/2024 9:00 AM EDT Ancillary Procedure [facility] [address] [place] [address] 04/16/2025 7:40 AM EST [facility] [place] [address] [place] [address] Dr Kendrick [address] [phone] Kristy Juárez NP [address] [place] [address] [place] [address] Health Maintenance Due Date Last Done Comments [...] Vaccine: 50+ Years Completed 02/16/2023 RSV Immunization Adult Patients Completed 02/16/2023 COVID-19 Vaccine Completed 01/25/2024, 01/24/2023 [...] age to complete this topic Meningococcal B Vaccine Aged Out No l onger eligible based on patient's age to complete this topic RSV Immunization Patients Under 20 months Aged Out No longer eligible based on patient's age to complete this topic Varicella Vaccines Aged Out No longer eligible based on patient's age to complete this topic Medical Devices Implanted Type Area Yield Improvement Engineer Device Identifier Shelf Expiration Date Model / Serial / Lot Medt-Card [id number] Implanted:01/2021 (Quantity not on file) 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 [id number] / [id number] / Procedures Procedure Name Priority Date/Time Associated Diagnosis Comments CARDIAC DEVICE CHECK- REMOTE- MURJ Routine 08/08/2024 9:18 PM EDT CARDIAC DEVICE CHECK- REMOTE- MURJ Routine 07/07/2024 2:22 PM EST from Last 3 Months Results * Cardiac device check - Remote- MURJ (08/08/2024 9:18 PM EDT) Only the most recent of2 resultswithin the time period is included. Date Time Interrogation Session [id number] CV DEVICE CHECK Type Interrogation Session Remote CV DEVICE CHECK Implantable Pulse Generator Yield Improvement Engineer MDT CV DEVICE CHECK Implantable Pulse Generator Type IPG CV DEVICE CHECK Implantable Pulse Generator Model [id number] CV DEVICE CHECK Implantable Pulse Generator Serial Number [id number] CV DEVICE CHECK Implantable Pulse Generator Implant Date 20201213 CV DEVICE CHECK Battery Remaining Longevity 96.0 CV DEVICE CHECK Battery Voltage 3.020 CV D EVICE CHECK Battery FIBERGLASS PRODUCT TESTER Trigger 2.558 CV DEVICE CHECK Battery Status Middle of Service CV DEVICE CHECK Gab Statistic RV Percent Paced 37.64 CV DEVICE CHECK Lead Channel Sensing Intrinsic Amplitude 19.688 CV DEVICE CHECK Lead Channel Setting Sensing Sensitivity 2.00 CV DEVICE CHECK Lead Channel Impedance Value 840 CV DEVICE CHECK Lead Channel Pacing Threshold Amplitude 0.375 CV DEVICE CHECK Lead Channel Pacing Threshold Pulse Width 0.2 CV DEVICE CHECK Lead Channel RV Pacing Threshold Date 2024-01-03 CV DEVICE CHECK Lead Channel Setting Pacing Amplitude 0.875 CV DEVICE CHECK Lead Channel Setting Pacing Pulse Width 0.2 CV DEVICE CHECK Gab Setting Mode (NBG Code) VVIR CV DEVICE CHECK Gab Setting Lower Rate Limit 60 CV DEVICE CHECK Gab Setting Maximum Sensor Rate 120 CV DEVICE CHECK Date of Service 2024-01-14 CV DEVICE CHECK Anatomical Region Laterality Modality Device Interroga tion 01/03/2024 5:38 PM EDT Impressions 01/14/2024 1:14 PM EDT Normal Remote: No Events ?? Narrative Procedure Note Laquita, Clovis P, MD - 08/08/2024 IMPRESSION: Normal Remote: No Events Clovis Coelho MD CV IMPLANTABLE CARDIAC DEVICE PROCEDURES Final Result from Last 3 Months Insurance MEDICARE [facility] Care Teams Spool Sander Relationship Specialty Start Date End Date Lynn Trivedi PA [address] [place] [id number] PCP - General 08/16/22
[2024-08-21 12:14] LABS: Anion Gap 12 (12-20); Blood Urea Nitrogen 21 mg/dL (9-16); Calcium 9.8 mg/dL (8.4-10.2); Carbon Dioxide 28 mmol/L (22-29); Chloride 105 mmol/L (96-108); Estimated Glomerular Filt Rate > 60; Glucose Random 107 mg/dL (60-115); Potassium 4.5 mmol/L (3.3-5.1); Sodium 140 mmol/L (135-145)
[2024-08-21 12:18] LABS: Creatinine Urine 64.48 mg/dL; Total Protein Urine Random < 7 mg/dL (<12)
== END 2024-08-21 07:37 | disposition home or self-care (01) ==
LOC: HO.WFDLDS 07:36
PROVIDERS: Visit Provider Internal Medicine Hypertension Specialist
DX: E11.29 Type 2 diabetes mellitus with other diabetic kidney complication (principal); R80.9 Proteinuria, unspecified
CPT/HCPCS: 36415; 80048; 82570; 84156

== ENCOUNTER 2024-08-26 14:31 | Outpatient (AMB) | payer MEDICARE, SELFPAY ==
[2024-08-26 14:30] VITALS: BP 140/86; PULSE 81; O2SAT 97; BMI 35.9
--- NOTE | 2024-08-26 14:30 | HO.NEPHOV ---
Vital Signs 08/26/24 14:30 08/26/24 14:46 Height 5 ft 7 in Weight 229 lb 8 oz BMI 35.9 BP 140/86 H 120/70 Blood Pressure Location Lt brachial Rt brachial Position Sitting Sitting Pulse 81 Pulse Source Pulse Oximeter Pulse Oximetry (%) 97 Oxygen Delivery Method Room Air Intake Visit Reasons: Microalbuminuria due to type 2 DM/ Conf Allergies No Known Allergies Allergy (Verified 08/26/24 14:39) Medication List - Last Reconciled 08/26/24 by Navjot Cosme MD allopurinol 100 mg PO BID apixaban (Eliquis) 5 mg PO BID empagliflozin (Jardiance) 10 mg PO QAM levothyroxine mcg PO lisinopril 2.5 mg PO DAILY metformin 1,000 mg PO BID metronidazole 0.75% 1 appl topical DAILY HPI Comments Details: Tony is a pleasant 79-year-old man with a history of diabetes mellitus for quite some time. Recently found to have microalbuminuria of 50. He was started on lisinopril 2.5 mg about 3 weeks ago. He is tolerating this well. No new issues. Recent hemoglobin A1c was 6.2%. 08/26/24 OVerall doing well Tried Ozempic- 2 doses- did not tolerate PFSH Medical History Obesity with serious comorbidity Severe obesity Pacemaker Hypothyroid Hyperlipidemia HTN (hypertension) Right hip pain Gout Erectile dysfunction Controlled type 2 diabetes mellitus Chronic a-fib Surgical History History of knee replacement Social History Housing: House Alcohol intake: current Patient Tobacco Use Status: Former Tobacco user Tobacco use type: Cigarette Cigarette Packs Per Day: 1 Years Smoked: 9 e-Cigarette/Vaping Use: Never Used Second Hand Smoke Exposure: No service: Yes Current occupational status: retired Cognitive needs: No Hearing needs: Yes (hearing aids) Vision needs: No Physical Exam Vital Signs: Last Vital Signs Pulse 81 08/26/24 14:30 BP 120/70 08/26/24 14:46 Pulse Ox 97 08/26/24 14:30 Oxygen Delivery Method Room Air 08/26/24 14:30 BMI result Body Mass Index 35.9 Const General: comfortable; No acute distress Orientation/consciousness: patient oriented x3 Eyes General: appearance normal, both eyes and all related structures Visual Sharp: normal visual sharp by confrontation Neck Neck: Yes supple and Yes no JVD Resp Effort & Inspection: normal respiratory effort and respiratory effort not decreased Cardio Palpation: no palpable S3 and no palpable S4 Heart sounds: no rubs GI Inspection: Yes normal to inspection Palpation (GI): Soft to palpation Percussion: Yes normal to percussion Auscultation: normal bowel sounds General: Yes no CVA tenderness Back/Spine/Pelvis Back: no CVA tenderness Skin General skin exam: no petechiae and no purpura Neuro General: patient oriented x3 and no focal motor deficits Extrem General: No clubbing and No edema Results Reviewed Nephrology Results: Hgb 15.6 g/dl (14.0-18.0) 07/16/24 WBC 7.8 X10*3/uL (4.8-10.8) 07/16/24 Plt Count 262 X10*3/uL (160-400) 07/16/24 Sodium 140 mmol/L (135-145) 08/21/24 Potassium 4.5 mmol/L (3.3-5.1) 08/21/24 Chloride 105 mmol/L (96-108) 08/21/24 Carbon Dioxide 28 mmol/L (22-29) 08/21/24 BUN 21 mg/dL (9-16) H 08/21/24 Creatinine 0.95 mg/dL (0.5-1.4) 08/21/24 Calcium 9.8 mg/dL (8.4-10.2) 08/21/24 Urine Protein Negative mg/dL (Neg-Trace) 04/17/24 Urine Creatinine 64.48 mg/dL 08/21/24 Assessment & Plan Assessment & Plan (1) Microalbuminuria due to type 2 diabetes mellitus: Comment: 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 Obesity could be a contributing factor as well. Code(s): E11.29 - Type 2 diabetes mellitus with other diabetic kidney complication; R80.9 - Proteinuria, unspecified Category: Medical Plan Agree with ADELA inhibition for renal protection. He is currently on 2.5 mg of lisinopril and tolerating well. ADELA inhibitor can be gradually titrated upwards as tolerated based on blood pressure Agree with the SGLT2 inhibitors. Maintain blood pressure less than 130/80. I discussed importance of weight loss and the tight control of blood sugar to slow the portion disease. At present EGFR is at baseline for his age. We will continue to monitor this periodically. No changes were made Orders: Orders Total Protein Urine Random 6 Months E11. - Type 2 diabetes mellitus with other diabetic kidney complication, R80.9 - Proteinuria, unspecified UA and rflx microscopic 6 Months E11. - Type 2 diabetes mellitus with other diabetic kidney complication, R80.9 - Proteinuria, unspecified Creatinine Urine 6 Months E11. - Type 2 diabetes mellitus with other diabetic kidney complication, R80.9 - Proteinuria, unspecified Basic Metabolic Panel 6 Months E11. - Type 2 diabetes mellitus with other diabetic kidney complication, R80.9 - Proteinuria, unspecified Coding Level of Care Code Est Pt Level 4 (87019) Diagnoses Microalbuminuria due to type 2 diabetes mellitus ; R80.9
[2024-08-26 14:46] VITALS: BP 120/70
--- OUTSIDE RECORDS SUMMARY | 2024-08-26 17:21 | XMS_ITS | Clinical Summary ---
Author Organization [address] [place] [address] [place] [phone] Phone Care Team Providers Care Anodizer Name Role Phone Lynn Trivedi Primary Care Provider Allergies No known active allergies Medications allopurinoL [...] Assessment & Plan (05/02/2024 10:18 AM EST): [id number] score of 3 based on his age [...] Description 08/08/2024 9:20 PM EDT Ancillary Procedure [facility] Cardiology [facility] [address] [place] [address] 08/01/2024 7:40 AM EDT Office Visit [facility] Cardiology [facility] [address] [place] [address] Kristy Juárez NP Chronic atrial fibrillation (CMS/HCC V24, CMS/HCC V28) (Primary Dx); Hyperlipidemia, unspecified hyperlipidemia type; Aortic dilatation (CMS/HCC V24) 07/07/2024 2:25 PM EST Ancillary Procedure [facility] [address] [place] [address] from Last 3 Months Surgical History Surgery [...] Description 10/02/2024 9:00 AM EDT Ancillary Procedure [facility] [address] [place] [address] 04/16/2025 7:40 AM EST [facility] [place] [address] [place] [address] Dr Kendrick [address] [phone] Kristy Juárez NP [address] [place] [address] [place] [address] Health Maintenance Due Date Last Done Comments [...] this topic Medical Devices Implanted Type Area Blood Bank Assistant Device Identifier Shelf Expiration Date Model / Serial / Lot Medt-Card [id number] Implanted:01/2021 (Quantity not on file) 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 [id number] / [id number] / Procedures Procedure Name Priority Date/Time Associated Diagnosis Comments CARDIAC DEVICE CHECK- REMOTE- MURJ Routine 08/08/2024 9:18 PM EDT CARDIAC DEVICE CHECK- REMOTE- MURJ Routine 07/07/2024 2:22 PM EST from Last 3 Months Results * Cardiac device check - Remote- MURJ (08/08/2024 9:18 PM EDT) Only the most recent of2 resultswithin the time period is included. Date Time Interrogation Session [id number] CV DEVICE CHECK Type Interrogation Session Remote CV DEVICE CHECK Implantable Pulse Generator Blood Bank Assistant MDT CV DEVICE CHECK Implantable Pulse Generator Type IPG CV DEVICE CHECK Implantable Pulse Generator Model [id number] CV DEVICE CHECK Implantable Pulse Generator Serial Number [id number] CV DEVICE CHECK Implantable Pulse Generator Implant Date 20201213 CV DEVICE CHECK Battery Remaining Longevity 96.0 CV DEVICE CHECK Battery Voltage 3.020 CV D EVICE CHECK Battery GLAZING MACHINE OPERATOR Trigger 2.558 CV DEVICE CHECK Battery Status [...] Result from Last 3 Months Insurance MEDICARE [facility] Care Teams Anodizer Relationship Specialty Start Date End Date Lynn Trivedi PA [address] [place] [id number] PCP - General 08/16/22
--- OUTSIDE RECORDS SUMMARY | 2024-08-26 17:21 | XMS_ITS | Patient Health Record ---
Author Organization [facility] Billing Info Address [address] [place] [address] Support Name Relationship Address Phone Horacio Ratliff Guarantor Unknown [phone] Reason For Referral No Information Plan Of Treatment No Information Insurance Providers Payer Name Payer Address Payer Phone Subscriber Number Group Number Insured Name Patient Relationship to Insured Coverage Start Date Coverage End Date MEDICARE [place] PART B [address] [place] [id number] [phone] [id number] Horacio Ratliff Self - patient is the insured [employer] PPO MEDICARE [address] [address] [place], [place] [id number] [phone] [id number] Horacio Ratliff Self - patient is the insured
--- OUTSIDE RECORDS SUMMARY | 2024-08-26 17:21 | XMS_ITS | CCD ---
Author Name Interface, [id number] lity Address [place] [address] Organization [facility] Address [place] [address] Care Team Providers Care Tennis Professional Name Role Phone Milly Martin Unavailable Unavailable [...]
--- OUTSIDE RECORDS SUMMARY | 2024-08-26 17:21 | XMS_ITS ---
Author Name Interface, [id number] lity Address [place] [address] Organization [facility] Address [place] [address] Care Team Providers Care Leather Goods Ii Assembler Name Role Phone Ritaluisa Milly Unavailable Unavailable [...] Sodiu m mmol/L 136.0 146.0 138 FINAL [facility] 11/10 Potas sium mmol/L 3.5 5.1 4.7 FINAL [facility] 11/10 Chlor vadim mmol/L 98.0 107.0 104 FINAL [facility] 11/10 CO2 mmol/L 21.0 31.0 28 FINAL [facility] 11/10 Anion gap 0.0 18.0 6 FINAL [facility] 11/10 Gluco se mg/dL 70.0 140.0 131 FINAL [facility] 11/10 BUN mg/dL 7.0 25.0 18 FINAL [facility] 11/10 Creat inine mg/dL 0.8 1.3 1.2 FINAL [facility] 11/10 GFR estim ate 1.73m2 59 Low FINAL [facility] 11/10 BUN/C reati nine ratio 15.0 FINAL [facility] 11/10 Osmol ality , calcu lated 270.0 300.0 279 FINAL [facility] 11/10 Calci um mg/dL 8.6 10.2 10.1 FINAL [facility] 11/10 Total prote in g/dL 5.7 8.0 6.8 FINAL [facility] 11/10 Album in g/dL 3.5 5.0 4.3 FINAL [facility] 11/10 A/G ratio 1.7 FINAL [facility] 11/10 Bilir ubin, total mg/dL 0.1 1.0 0.6 FINAL [facility] 11/10 Alkal ine phosp hatas e U/L 45.0 115.0 40 Low FINAL [facility] 11/10 ALT/S GPT U/L 7.0 52.0 28 FINAL [facility] 11/10 AST/S GOT U/L 13.0 39.0 22 Performed at [facility] FINAL [facility] 11/10 WBC Thsd/m m3 4.0 11.0 7.5 FINAL [facility] 11/10 RBC Mill/m m3 4.2 5.7 5.2 FINAL [facility] 11/10 HGB g/dL 13.3 17.1 16.1 FINAL [facility] 11/10 HCT % 39.0 50.0 48.5 FINAL [facility] 11/10 MCV fL 80.0 100.0 93 FINAL [facility] 11/10 MCH, g/dL pg 26.0 34.0 31 FINAL [facility] 11/10 MCHC g/dL 31.0 37.0 33 FINAL [facility] 11/10 RDW % 11.5 14.5 15.0 High FINAL [facility] 11/10 PLT Thsd/m m3 140.0 450.0 223 FINAL [facility] 11/10 MPV fL 7.0 12.0 8.8 FINAL [facility] 11/10 LY % % 20.0 44.0 25.0 FINAL [facility] 11/10 MO % % 2.0 9.0 7.4 FINAL [facility] 11/10 Ronn % % 50.0 70.0 63.0 FINAL [facility] 11/10 Eosin ophil % % 0.0 4.0 3.6 FINAL [facility] 11/10 Basop hil % % 0.0 2.0 1.0 FINAL [facility] 11/10 LY # Thsd/m m3 1.9 FINAL [facility] 11/10 MO # Thsd/m m3 0.5 FINAL [facility] 11/10 Ronn # (ANC) Thsd/m m3 4.7 FINAL [facility] 11/10 EO # Thsd/m m3 0.3 FINAL [facility] 11/10 BA # Thsd/m m3 0.1 Performed at [facility] FINAL [facility] Medications Date Name Route Dose Frequency Instructions [...]
--- OUTSIDE RECORDS SUMMARY | 2024-08-26 17:21 | XMS_ITS ---
Author Name Interface, [id number] lity Address [place] breakthroughs[place] [address] Organization [facility] Address More breakthroughs[place] [address] Care Team Providers Care Customer Service Sales Consultant Name Role Phone Emily Maloney Unavailable [...] GOT U/L 13.0 39.0 24 Performed at [facility] FINAL [facility] 05/19 A/G ratio 1.6 FINAL [facility] 05/19 BUN mg/dL 7.0 25.0 23 FINAL [facility] 05/19 CO2 mmol/L 21.0 31.0 28 FINAL [facility] 05/19 Anion gap 0.0 18.0 8 FINAL [facility] 05/19 Gluco se mg/dL 70.0 140.0 172 High FINAL [facility] 05/19 Creat inine [...] 5.0 4.1 FINAL [facility] 05/19 Chlor vadim mmol/L 98.0 107.0 103 FINAL [facility] 05/19 Sodiu m mmol/L 136.0 146.0 139 FINAL [facility] 05/19 Potas sium mmol/L 3.5 5.1 4.7 FINAL [facility] 05/19 WBC Thsd/m m3 4.0 11.0 6.0 FINAL [facility] 05/19 RBC Mill/m m3 4.2 5.7 5.4 FINAL [facility] 05/19 HGB g/dL 13.3 17.1 16.9 FINAL [facility] 05/19 HCT % 39.0 50.0 50.1 High FINAL [facility] 05/19 MCV fL 80.0 100.0 93 FINAL [facility] 05/19 MCH, g/dL pg 26.0 34.0 31 FINAL [facility] 05/19 MCHC g/dL 31.0 37.0 34 FINAL [facility] 05/19 RDW % 11.5 14.5 14.9 High FINAL [facility] 05/19 PLT Thsd/m m3 140.0 450.0 233 FINAL [facility] 05/19 MPV fL 7.0 12.0 8.8 FINAL [facility] 05/19 LY % % 20.0 44.0 32.3 FINAL [facility] 05/19 MO % % 2.0 9.0 9.0 FINAL [facility] 05/19 Ronn % % 50.0 70.0 53.7 FINAL [facility] 05/19 Eosin ophil % % 0.0 4.0 4.2 High FINAL [facility] 05/19 Basop hil % % 0.0 2.0 0.8 FINAL [facility] 05/19 LY # Thsd/m m3 1.9 FINAL [facility] 05/19 MO # Thsd/m m3 0.5 FINAL [facility] 05/19 Ronn # (ANC) Thsd/m m3 3.2 FINAL [facility] 05/19 EO # Thsd/m m3 0.3 FINAL [facility] 05/19 BA # Thsd/m m3 0.0 Performed at [facility] FINAL [facility] 11/10 WBC Thsd/m m3 4.0 11.0 7.5 FINAL [facility] 11/10 RBC Mill/m m3 4.2 5.7 5.2 FINAL [facility] 11/10 HGB g/dL 13.3 17.1 16.1 FINAL [facility] 11/10 HCT % 39.0 50.0 48.5 FINAL [facility] 11/10 MCV fL 80.0 100.0 93 FINAL [facility] 11/10 MCH, g/dL pg 26.0 34.0 31 FINAL [facility] 11/10 MCHC g/dL 31.0 37.0 33 FINAL [facility] 11/10 RDW % 11.5 14.5 15.0 High FINAL [facility] 11/10 PLT Thsd/m m3 140.0 450.0 223 FINAL [facility] 11/10 MPV fL 7.0 12.0 8.8 FINAL [facility] 11/10 LY % % 20.0 44.0 25.0 FINAL [facility] 11/10 MO % % 2.0 9.0 7.4 FINAL [facility] 11/10 Ronn % % 50.0 70.0 63.0 FINAL [facility] 11/10 Eosin ophil % % 0.0 4.0 3.6 FINAL [facility] 11/10 Basop hil % % 0.0 2.0 1.0 FINAL [facility] 11/10 LY # Thsd/m m3 1.9 FINAL [facility] 11/10 MO # Thsd/m m3 0.5 FINAL [facility] 11/10 Ronn # (ANC) Thsd/m m3 4.7 FINAL [facility] 11/10 EO # Thsd/m m3 0.3 FINAL [facility] 11/10 BA # Thsd/m m3 0.1 Performed at [facility] FINAL [facility] 11/10 Sodiu m mmol/L 136.0 146.0 138 FINAL [facility] 11/10 Potas sium mmol/L 3.5 5.1 4.7 FINAL [facility] 11/10 Chlor vadim mmol/L 98.0 107.0 104 FINAL [facility] 11/10 CO2 mmol/L 21.0 31.0 28 FINAL [facility] 11/10 Anion gap 0.0 18.0 6 FINAL [facility] 11/10 Gluco se mg/dL 70.0 140.0 131 FINAL [facility] 11/10 BUN mg/dL 7.0 25.0 18 FINAL [facility] 11/10 Creat inine mg/dL 0.8 1.3 1.2 FINAL [facility] 11/10 GFR estim ate 1.73m2 59 Low FINAL [facility] 11/10 BUN/C reati nine ratio 15.0 FINAL [facility] 11/10 Osmol ality , calcu lated 270.0 300.0 279 FINAL [facility] 11/10 Calci um mg/dL 8.6 10.2 10.1 FINAL [facility] 11/10 Total prote in g/dL 5.7 8.0 6.8 FINAL [facility] 11/10 Album in g/dL 3.5 5.0 4.3 FINAL [facility] 11/10 A/G ratio 1.7 FINAL [facility] 11/10 Bilir ubin, total mg/dL 0.1 1.0 0.6 FINAL [facility] 11/10 Alkal ine phosp hatas e U/L 45.0 115.0 40 Low FINAL [facility] 11/10 ALT/S GPT U/L 7.0 52.0 28 FINAL [facility] 11/10 AST/S GOT U/L 13.0 39.0 22 Performed at [facility] FINAL [facility] Medications Date Name Route Dose [...]
--- OUTSIDE RECORDS SUMMARY | 2024-08-26 17:21 | XMS_ITS ---
Author Name Interface, [id number] lity Address [place] [address] Organization [facility] Address More breakthroughs[place] [address] Care Team Providers Care Emu Farm Worker Name Role Phone Ritaluisa Milly Unavailable Unavailable [...] mmol/L 136.0 146.0 138 FINAL [facility] 11/10 Potas sium mmol/L 3.5 5.1 4.7 FINAL [facility] 11/10 Chlor vadim mmol/L 98.0 107.0 104 FINAL [facility] 11/10 CO2 mmol/L 21.0 31.0 28 FINAL [facility] 11/10 Anion gap 0.0 18.0 6 FINAL [facility] 11/10 Gluco se mg/dL 70.0 140.0 131 FINAL [facility] 11/10 BUN mg/dL 7.0 25.0 18 FINAL [facility] 11/10 Creat inine mg/dL 0.8 1.3 1.2 FINAL [facility] 11/10 GFR estim ate 1.73m2 59 Low [facility] 11/10 BUN/C reati nine ratio 15.0 FINAL [facility] 11/10 Osmol ality , calcu lated 270.0 300.0 279 FINAL [facility] 11/10 Calci um mg/dL 8.6 10.2 10.1 FINAL [facility] 11/10 Total prote in g/dL 5.7 8.0 6.8 FINAL [facility] 11/10 Album in g/dL 3.5 5.0 4.3 FINAL [facility] 11/10 A/G ratio 1.7 FINAL [facility] 11/10 Bilir ubin, total mg/dL 0.1 1.0 0.6 FINAL [facility] 11/10 Alkal ine phosp hatas e U/L 45.0 115.0 40 Low [facility] 11/10 ALT/S GPT U/L 7.0 52.0 28 FINAL [facility] 11/10 AST/S GOT U/L 13.0 39.0 22 Performed at [facility] FINAL [facility] 11/10 WBC Thsd/m m3 4.0 11.0 7.5 FINAL [facility] 11/10 RBC Mill/m m3 4.2 5.7 5.2 FINAL [facility] 11/10 HGB g/dL 13.3 17.1 16.1 FINAL [facility] 11/10 HCT % 39.0 50.0 48.5 FINAL [facility] 11/10 MCV fL 80.0 100.0 93 FINAL [facility] 11/10 MCH, g/dL pg 26.0 34.0 31 FINAL [facility] 11/10 MCHC g/dL 31.0 37.0 33 FINAL [facility] 11/10 RDW % 11.5 14.5 15.0 High [facility]AL [facility] 11/10 PLT Thsd/m m3 140.0 450.0 223 FINAL [facility] 11/10 MPV fL 7.0 12.0 8.8 FINAL [facility] 11/10 LY % % 20.0 44.0 25.0 FINAL [facility] 11/10 MO % % 2.0 9.0 7.4 FINAL [facility] 11/10 Ronn % % 50.0 70.0 63.0 FINAL [facility] 11/10 Eosin ophil % % 0.0 4.0 3.6 FINAL [facility] 11/10 Basop hil % % 0.0 2.0 1.0 FINAL [facility] 11/10 LY # Thsd/m m3 1.9 FINAL [facility] 11/10 MO # Thsd/m m3 0.5 FINAL [facility] 11/10 Ronn # (ANC) Thsd/m m3 4.7 FINAL [facility] 11/10 EO # Thsd/m m3 0.3 FINAL [facility] 11/10 BA # Thsd/m m3 0.1 Performed at [facility] FINAL [facility] Medications Date Name Route Dose Frequency Instructions [...]
--- OUTSIDE RECORDS SUMMARY | 2024-08-26 17:22 | XMS_ITS ---
Author Name Interface, [id number] lity Address [place] [address] Organization [facility] Address More breakthroughs[place] [address] Care Team Providers Care Construction Skills Teacher Name Role Phone Emily Maloney Unavailable Unavailabl [...] total mg/dL 0.1 1.0 1.0 FINAL [facility] 05/19 Alkal ine phosp hatas e U/L 45.0 115.0 48 FINAL [facility] 05/19 ALT/S GPT U/L 7.0 52.0 26 FINAL [facility] 05/19 AST/S GOT U/L 13.0 39.[address] [facility] FINAL [facility] 05/19 A/G ratio 1.6 FINAL [facility] 05/19 CO2 mmol/L 21.0 31.0 28 FINAL [facility] 05/19 Anion gap 0.0 18.0 8 FINAL [facility] 05/19 Gluco se mg/dL 70.0 140.0 172 High FINAL [facility] 05/19 BUN mg/dL 7.0 25.0 23 FINAL [facility] 05/19 Creat inine mg/dL 0.8 1.3 1.1 FINAL [facility] 05/19 GFR estim ate 1.73m2 >60 FINAL [facility] 05/19 BUN/C reati nine ratio 20.0 FINAL [facility] 05/19 Osmol ality , calcu lated 270.0 300.0 285 FINAL [facility] 05/19 Calci um mg/dL 8.6 10.2 9.5 FINAL [facility] 05/19 Total prote in g/dL 5.7 8.0 6.7 FINAL [facility] 05/19 Album in g/dL 3.5 5.0 4.1 FINAL [facility] 05/19 Sodiu m mmol/L 136.0 146.0 139 FINAL [facility] 05/19 Potas sium mmol/L 3.5 5.1 4.7 FINAL [facility] 05/19 Chlor vadim mmol/L 98.0 107.0 103 FINAL [facility] 05/19 WBC Thsd/m m3 4.0 11.0 6.0 FINAL [facility] 05/19 RBC Mill/m m3 4.2 5.7 5.4 FINAL [facility] 05/19 HGB g/dL 13.3 17.1 16.9 FINAL [facility] 05/19 HCT % 39.0 50.0 50.1 High FINAL [facility] 05/19 MCV fL 80.0 100.0 93 FINAL [facility] 05/19 MCH, g/dL pg 26.0 34.0 31 FINAL [facility] 05/19 MCHC g/dL 31.0 37.0 34 FINAL [facility] 05/19 RDW % 11.5 14.5 14.9 High FINAL [facility] 05/19 PLT Thsd/m m3 140.0 450.0 233 FINAL [facility] 05/19 MPV fL 7.0 12.0 8.8 FINAL [facility] 05/19 LY % % 20.0 44.0 32.3 FINAL [facility] 05/19 MO % % 2.0 9.0 9.0 FINAL [facility] 05/19 Ronn % % 50.0 70.0 53.7 FINAL [facility] 05/19 Eosin ophil % % 0.0 4.0 4.2 High FINAL [facility] 05/19 Basop hil % % 0.0 2.0 0.8 FINAL [facility] 05/19 LY # Thsd/m m3 1.9 FINAL [facility] 05/19 MO # Thsd/m m3 0.5 FINAL [facility] 05/19 Ronn # (ANC) Thsd/m m3 3.2 FINAL [facility] 05/19 EO # Thsd/m m3 0.3 FINAL [facility] 05/19 BA # Thsd/m m3 0.[address] [facility] FINAL [facility] 11/10 WBC Thsd/m m3 4.0 11.0 7.5 FINAL [facility] 11/10 RBC Mill/m m3 4.2 5.7 5.2 FINAL [facility] 11/10 HGB g/dL 13.3 17.1 16.1 FINAL [facility] 11/10 HCT % 39.0 50.0 48.5 FINAL [facility] 11/10 MCV fL 80.0 100.0 93 FINAL [facility] 11/10 MCH, g/dL pg 26.0 34.0 31 FINAL [facility] 11/10 MCHC g/dL 31.0 37.0 33 FINAL [facility] 11/10 RDW % 11.5 14.5 15.0 High FINAL [facility] 11/10 PLT Thsd/m m3 140.0 450.0 223 FINAL [facility] 11/10 MPV fL 7.0 12.0 8.8 FINAL [facility] 11/10 LY % % 20.0 44.0 25.0 FINAL [facility] 11/10 MO % % 2.0 9.0 7.4 FINAL [facility] 11/10 Ronn % % 50.0 70.0 63.0 FINAL [facility] 11/10 Eosin ophil % % 0.0 4.0 3.6 FINAL [facility] 11/10 Basop hil % % 0.0 2.0 1.0 FINAL [facility] 11/10 LY # Thsd/m m3 1.9 FINAL [facility] 11/10 MO # Thsd/m m3 0.5 FINAL [facility] 11/10 Ronn # (ANC) Thsd/m m3 4.7 FINAL [facility] 11/10 EO # Thsd/m m3 0.3 FINAL [facility] 11/10 BA # Thsd/m m3 0.[address] [facility] FINAL [facility] 11/10 Sodiu m mmol/L 136.0 146.0 138 FINAL [facility] 11/10 Potas sium mmol/L 3.5 5.1 4.7 FINAL [facility] 11/10 Chlor vadim mmol/L 98.0 107.0 104 FINAL [facility] 11/10 CO2 mmol/L 21.0 31.0 28 FINAL [facility] 11/10 Anion gap 0.0 18.0 6 FINAL [facility] 11/10 Gluco se mg/dL 70.0 140.0 131 FINAL [facility] 11/10 BUN mg/dL 7.0 25.0 18 FINAL [facility] 11/10 Creat inine mg/dL 0.8 1.3 1.2 FINAL [facility] 11/10 GFR estim ate 1.73m2 59 Low FINAL [facility] 11/10 BUN/C reati nine ratio 15.0 FINAL [facility] 11/10 Osmol ality , calcu lated 270.0 300.0 279 FINAL [facility] 11/10 Calci um mg/dL 8.6 10.2 10.1 FINAL [facility] 11/10 Total prote in g/dL 5.7 8.0 6.8 FINAL [facility] 11/10 Album in g/dL 3.5 5.0 4.3 FINAL [facility] 11/10 A/G ratio 1.7 FINAL [facility] 11/10 Bilir ubin, total mg/dL 0.1 1.0 0.6 FINAL [facility] 11/10 Alkal ine phosp hatas e U/L 45.0 115.0 40 Low FINAL [facility] 11/10 ALT/S GPT U/L 7.0 52.0 28 FINAL [facility] 11/10 AST/S GOT U/L 13.0 39.[address] [facility] FINAL [facility] Medications Date Name Route Dose Frequency Instructions [...]
--- OUTSIDE RECORDS SUMMARY | 2024-08-26 17:22 | XMS_ITS | CCD ---
Author Name Interface, [id number] lity Address [place] [address] Organization [facility] Address More breakthrough[place] [address] Care Team Providers Care Presales Engineer Name Role Phone Milly Martin Unavailable Unavailable [...]
== END 2024-08-26 14:48 | disposition home or self-care (01) ==
LOC: HO.HKA 14:32
PROVIDERS: PCP Physician Assistant; Visit Provider Internal Medicine Hypertension Specialist
DX: E11.29 Type 2 diabetes mellitus with other diabetic kidney complication (principal); R80.9 Proteinuria, unspecified
CPT/HCPCS: 99214

== ENCOUNTER → 2024-08-26 14:31 | Outpatient (BNVA) | payer MEDICARE, SELFPAY | PROVIDERS: PCP Physician Assistant; Visit Provider Internal Medicine Hypertension Specialist | DX: E11.29 Type 2 diabetes mellitus with other diabetic kidney complication (principal); R80.9 Proteinuria, unspecified; E66.9 Obesity, unspecified; Z68.35 Body mass index [BMI] 35.0-35.9, adult | CPT/HCPCS: 99212 ==

== ENCOUNTER 2024-09-22 07:47 | Outpatient (REF) | payer MEDICARE, SELFPAY ==
--- OUTSIDE RECORDS SUMMARY | 2024-09-22 07:51 | XMS_ITS | CCD ---
Author Name Interface, [id number] lity Address [place] breakthroughs[place] [address] [facility] Address More breakthroughs[place] [address] Care Team Providers Care Career Counselor Name Role Phone Milly Martin Unavailable Unavailable Allergies and Adverse Reactions Reason for Visit Encounters Functional Status Medications Social History
--- OUTSIDE RECORDS SUMMARY | 2024-09-22 07:51 | XMS_ITS ---
Author Name Interface, [id number] lity Address [place] [address] Organization [facility] Address [place] [address] Care Team Providers Care Aircraft Loadmaster Superintendent Name Role Phone Emily Maloney Unavailable Unavailabl [...] - Adult C ompleted 02/07/2021 Covid-19 vaccine (CRMnext) Completed Diagnostic Results Date Type Test Units Lower Limit Upper Limit Result Flag Comments Status Ordered By Specimen Source Lab Address 05/19 Bilir ubin, total mg/dL 0.1 1.0 1.0 FINAL [facility] 05/19 Alkal ine phosp hatas e U/L 45.0 115.0 48 FINAL [facility] 05/19 ALT/S GPT U/L 7.0 52.0 26 FINAL [facility] 05/19 AST/S GOT U/L 13.0 39.0 24 Performed at [facility] FINAL [facility] 05/19 A/G ratio 1.6 FINAL [facility] 05/19 BUN mg/dL 7.0 25.0 23 FINAL [facility] 05/19 CO2 mmol/L 21.0 31.0 28 FINAL [facility] 05/19 Anion gap 0.0 18.0 8 FINAL [facility] 05/19 Gluco se mg/dL 70.0 140.0 172 High FINAL [facility] 05/19 Creat inine mg/dL 0.8 1.3 1.1 FINAL [facility] 05/19 GFR estim ate 1.73m2 >60 FINAL [facility] 05/19 BUN/C reati nine ratio 20.0 FINAL [facility] 05/19 Osmol ality , calcu lated 270.0 300.0 285 FINAL [facility] 05/19 Calci um mg/dL 8.6 10.2 9.5 FINAL [facility] 05/19 Total prote in g/dL 5.7 8.0 6.7 FINAL [facility] 05/19 Album in g/dL 3.5 5.0 4.1 FINAL [facility] 05/19 Chlor vadim mmol/L 98.0 107.0 103 FINAL [facility] 05/19 Sodiu m mmol/L 136.0 146.0 139 FINAL [facility] 05/19 Potas sium mmol/L 3.5 5.1 4.7 FINAL [facility] 05/19 WBC Thsd/m m3 4.0 11.0 6.0 FINAL [facility] 05/19 RBC Mill/m m3 4.2 5.7 5.4 FINAL [facility] 05/19 HGB g/dL 13.3 17.1 16.9 FINAL [facility] 05/19 HCT % 39.0 50.0 50.1 High FINAL [facility] 05/19 MCV fL 80.0 100.0 93 FINAL [facility] 05/19 MCH, g/dL pg 26.0 34.0 31 FINAL [facility] 05/19 MCHC g/dL 31.0 37.0 34 FINAL [facility] 05/19 RDW % 11.5 14.5 14.9 High FINAL [facility] 05/19 PLT Thsd/m m3 140.0 450.0 233 FINAL [facility] 05/19 MPV fL 7.0 12.0 8.8 FINAL [facility] 05/19 LY % % 20.0 44.0 32.3 FINAL [facility] 05/19 MO % % 2.0 9.0 9.0 FINAL [facility] 05/19 Ronn % % 50.0 70.0 53.7 FINAL [facility] 05/19 Eosin ophil % % 0.0 4.0 4.2 High FINAL [facility] 05/19 Basop hil % % 0.0 2.0 0.8 FINAL [facility] 05/19 LY # Thsd/m m3 1.9 FINAL [facility] 05/19 MO # Thsd/m m3 0.5 FINAL [facility] 05/19 Ronn # (ANC) Thsd/m m3 3.2 FINAL [facility] 05/19 EO # Thsd/m m3 0.3 FINAL [facility] 05/19 BA # Thsd/m m3 0.0 Performed at [facility] FINAL [facility] 11/10 Sodiu m mmol/L 136.0 146.0 138 FINAL [facility] 11/10 Potas sium mmol/L 3.5 5.1 4.7 FINAL [facility] 11/10 Chlor vadim mmol/L 98.0 107.0 104 FINAL [facility] 11/10 CO2 mmol/L 21.0 31.0 28 FINAL [facility] 11/10 Anion gap 0.0 18.0 6 FINAL [facility] 11/10 Gluco se mg/dL 70.0 140.0 131 FINAL [facility] 11/10 BUN mg/dL 7.0 25.0 18 FINAL [facility] 11/10 Creat inine mg/dL 0.8 1.3 1.2 FINAL [facility] 11/10 GFR estim ate 1.73m2 59 Low FINAL [facility] 11/10 BUN/C reati nine ratio 15.0 FINAL [facility] 11/10 Osmol ality , calcu lated 270.0 300.0 279 FINAL [facility] 11/10 Calci um mg/dL 8.6 10.2 10.1 FINAL [facility] 11/10 Total prote in g/dL 5.7 8.0 6.8 FINAL [facility] 11/10 Album in g/dL 3.5 5.0 4.3 FINAL [facility] 11/10 A/G ratio 1.7 FINAL [facility] 11/10 Bilir ubin, total mg/dL 0.1 1.0 0.6 FINAL [facility] 11/10 Alkal ine phosp hatas e U/L 45.0 115.0 40 Low FINAL [facility] 11/10 ALT/S GPT U/L 7.0 52.0 28 FINAL [facility] 11/10 AST/S GOT U/L 13.0 39.0 22 Performed at [facility] FINAL [facility] 11/10 WBC Thsd/m m3 4.0 11.0 7.5 FINAL [facility] 11/10 RBC Mill/m m3 4.2 5.7 5.2 FINAL [facility] 11/10 HGB g/dL 13.3 17.1 16.1 FINAL [facility] 11/10 HCT % 39.0 50.0 48.5 FINAL [facility] 11/10 MCV fL 80.0 100.0 93 FINAL [facility] 11/10 MCH, g/dL pg 26.0 34.0 31 FINAL [facility] 11/10 MCHC g/dL 31.0 37.0 33 FINAL [facility] 11/10 RDW % 11.5 14.5 15.0 High FINAL [facility] 11/10 PLT Thsd/m m3 140.0 450.0 223 FINAL [facility] 11/10 MPV fL 7.0 12.0 8.8 FINAL [facility] 11/10 LY % % 20.0 44.0 25.0 FINAL [facility] 11/10 MO % % 2.0 9.0 7.4 FINAL [facility] 11/10 Ronn % % 50.0 70.0 63.0 FINAL [facility] 11/10 Eosin ophil % % 0.0 4.0 3.6 FINAL [facility] 11/10 Basop hil % % 0.0 2.0 1.0 FINAL [facility] 11/10 LY # Thsd/m m3 1.9 FINAL [facility] 11/10 MO # Thsd/m m3 0.5 FINAL [facility] 11/10 Ronn # (ANC) Thsd/m m3 4.7 FINAL [facility] 11/10 EO # Thsd/m m3 0.3 FINAL [facility] 11/10 BA # Thsd/m m3 0.1 Performed at [facility] FINAL [facility] Medications Date Name Route Dose Frequency Instructions [...]
--- OUTSIDE RECORDS SUMMARY | 2024-09-22 07:51 | XMS_ITS | CCD ---
Author Name Interface, [id number] lity Address [place] [address] [facility] Address More breakthrough[place] [address] Care Team Providers Care Manager Pricing Name Role Phone Milly Martin Unavailable Unavailable Allergies and Adverse Reactions Reason for Visit Encounters Functional Status Medications Social History
--- OUTSIDE RECORDS SUMMARY | 2024-09-22 07:51 | XMS_ITS | Patient Health Record ---
Author Organization [facility] Billing Info Address [address] [place] [id number] Support Name Relationship Address Phone Horacio Ratliff Guarantor Unknown [phone] Reason For Referral No Information Plan Of Treatment No Information Insurance Providers Payer Name Payer Address Payer Phone Subscriber Number Group Number Insured Name Patient Relationship to Insured Coverage Start Date Coverage End Date MEDICARE [place] PART B [address] [place] [id number] Horacio Ratliff Self - patient is the insured [employer] PPO MEDICARE [address] [address] [place], [place] [id number] [phone] [id number] Horacio Ratliff Self - patient is the insured
--- OUTSIDE RECORDS SUMMARY | 2024-09-22 07:51 | XMS_ITS ---
Author Name Interface, [id number] lity Address [place] breakthroughs[place] [address] Organization [facility] Address More breakthroughs. [place] [address] Care Team Providers Care Anesthesiology Medical Doctor Name Role Phone Ritaluisa Milly Unavailable Unavailable [...] 136.0 146.0 138 [facility]AL [facility]/10 Potas sium mmol/L 3.5 5.1 4.7 FINAL [facility] 11/10 Chlor vadim mmol/L 98.0 107.0 104 FINAL [facility] 11/10 CO2 mmol/L 21.0 31.0 28 FINAL [facility] 11/10 Anion gap 0.0 18.0 6 FINAL [facility] 11/10 Gluco se mg/dL 70.0 140.0 131 FINAL [facility] 11/10 BUN mg/dL 7.0 25.0 18 FINAL [facility] 11/10 Creat inine mg/dL 0.8 1.3 1.2 FINAL [facility] 11/10 GFR estim ate 1.73m2 59 Low FINAL [facility] 11[facility]10 BUN/C reati nine ratio 15.0 FINAL [facility] 11/10 Osmol ality , calcu lated 270.0 300.0 279 FINAL [facility] 11/10 Calci um mg/dL 8.6 10.2 10.1 FINAL [facility] 11/10 Total prote in g/dL 5.7 8.0 6.8 FINAL [facility] 11/10 Album in g/dL 3.5 5.0 4.3 FINAL [facility] 11/10 A/G ratio 1.7 FINAL [facility] 11/10 Bilir ubin, total mg/dL 0.1 1.0 0.6 FINAL [facility] 11/10 Alkal ine phosp hatas e U/L 45.0 115.0 40 Low FINAL [facility] 11/10 ALT/S GPT U/L 7.0 52.0 28 FINAL [facility] 11/10 AST/S GOT U/L 13.0 39.0 22 Performed at [facility] FINAL [facility] 11/10 WBC Thsd/m m3 4.0 11.0 7.5 FINAL [facility] 11/10 RBC Mill/m m3 4.2 5.7 5.2 FINAL [facility] 11/10 HGB g/dL 13.3 17.1 16.1 FINAL [facility] 11/10 HCT % 39.0 50.0 48.5 FINAL [facility] 11/10 MCV fL 80.0 100.0 93 FINAL [facility] 11/10 MCH, g/dL pg 26.0 34.0 31 FINAL [facility] 11/10 MCHC g/dL 31.0 37.0 33 FINAL [facility] 11/10 RDW % 11.5 14.5 15.0 High FINAL [facility] 11/10 PLT Thsd/m m3 140.0 450.0 223 FINAL [facility] 11/10 MPV fL 7.0 12.0 8.8 FINAL [facility] 11/10 LY % % 20.0 44.0 25.0 FINAL [facility] 11/10 MO % % 2.0 9.0 7.4 FINAL [facility] 11/10 Ronn % % 50.0 70.0 63.0 FINAL [facility] 11/10 Eosin ophil % % 0.0 4.0 3.6 FINAL [facility] 11/10 Basop hil % % 0.0 2.0 1.0 FINAL [facility] 11/10 LY # Thsd/m m3 1.9 FINAL [facility] 11/10 MO # Thsd/m m3 0.5 FINAL [facility] 11/10 Ronn # (ANC) Thsd/m m3 4.7 FINAL [facility] 11/10 EO # Thsd/m m3 0.3 FINAL [facility] 11/10 BA # Thsd/m m3 0.1 Performed at [facility] FINAL [facility] Medications Date Name Route Dose [...]
--- OUTSIDE RECORDS SUMMARY | 2024-09-22 07:51 | XMS_ITS | Clinical Summary ---
Author Organization [address] [place] [address] [place] [id number] Phone Care Team Providers Care Production Line Welder Name Role Phone Lynn Trivedi Primary Care Provider [phone] Allergies No known active allergies Medications allopurinoL [...] time each day in the morning. Active Active Problems Problem Noted Date Diagnosed Date Mixed hyperlipidemia 09/29/2022 Primary hypertension 09/29/2022 Chronic atrial fibrillation (CMS/HCC V24, CMS/HC C V28) 09/26/2022 Assessment & Plan (05/02/2024 10:18 AM EST): [id number] score of 3 based on his age [...] Description 08/08/2024 9:20 PM EDT Ancillary Procedure [facility] Cardiology [facility] [address] [place] [address] 08/01/2024 7:40 AM EDT Office Visit [facility] Cardiology [facility] [address] [facility] [address] [place] [address] Kristy Juárez NP Chronic atrial fibrillation (CMS/HCC V24, CMS/HCC V28) (Primary Dx); Hyperlipidemia, unspecified hyperlipidemia type; Aortic dilatation (CMS/HCC V24) 07/07/2024 2:25 PM EST Ancillary Procedure [facility] Cardiology [facility] [address] [place] [address] from Last 3 Months Surgical History Surgery Date Site/Laterality Comments OTHER SURGICAL HISTORY PROCEDURE: HISTORY OTHER; COMMENT: KNEE REPLACEMENT PACEMAKER IMPLANT PROCEDURE: HISTORICAL PACEMAKER Medical History Medical History Date Comments HTN (hypertension) DX:HTN (hyper tension) Obese DX:Obese; COMMEN T: class I Gout DX:Gout Type 2 diabetes mellitus wit hout complications (CMS/HCC V24, CMS/HCC V28) DX:Type 2 justin betes mellitus without complications ([facility]) ED (erectile dysfunction) DX:ED (erectile dysfunction) Family [...] Description 10/02/2024 9:00 AM EDT Ancillary Procedure [facility] Cardiology [facility] [address] [facility] [address] [place] [address] 04/16/2025 7:40 AM EST Office Visit [facility] Cardiology [facility] - Medical [facility] [address] [place] [phone] Kristy Juárez NP [address] [place] [address] [place] [address] Health Maintenance Due Date Last Done Comments [...] Diabetes: Blood Sugar Control Test (HGBA1C) 04/17/2024 COVID-19 Vaccine (2023- season) 2024 01/25/2024, 01/24/2023 Pneumococcal Vaccine: 50+ Years Completed 02/16/2023 RSV Immunization Adult Patients Completed 02/16/2023 Influenza Vaccine Completed 01/25/2024, , 04/06/2022, Additional [...] this topic Medical Devices Implanted Type Area Beam Department Supervisor Device Identifier Shelf Expiration Date Model / Serial / Lot Medt-Card [id number] Implanted:01/2021 (Quantity not on file) Cardiac Pacemaker [employer] - CARDIAC RHYTH-REGENCY MERIDIAN [id number] / [id number] / Procedures Procedure Name Priority Date/Time Associated Diagnosis Comments CARDIAC DEVICE CHECK- REMOTE- MURJ Routine 08/08/2024 9:18 PM EDT CARDIAC DEVICE CHECK- REMOTE- MURJ Routine 07/07/2024 2:22 PM EST from Last 3 Months Results * Cardiac device check - Remote- MURJ (08/08/2024 9:18 PM EDT) Only the most recent of2 resultswithin the time period is included. Date Time Interrogation Session [id number] CV DEVICE CHECK Type Interrogation Session Remote CV DEVICE CHECK Implantable Pulse Generator Beam Department Supervisor MDT CV DEVICE CHECK Implantable Pulse Generator Type IPG CV DEVICE CHECK Implantable Pulse Generator Model [id number] CV DEVICE CHECK Implantable Pulse Generator Serial Number [id number] CV DEVICE CHECK Implantable Pulse Generator Implant Date 20201213 CV DEVICE CHECK Battery Remaining Longevity 96.0 CV DEVICE CHECK Battery Voltage 3.020 CV D EVICE CHECK Battery MANUAL PLATE FILLER Trigger 2.558 CV DEVICE CHECK Battery Status [...] Remote: No Events ?? Narrative Procedure Note Clovis Coelho MD - 08/08/2024 IMPRESSION: Normal Remote: No Events us Clovis Coelho MD CV IMPLANTABLE CARDIAC DEVICE PROCEDURES Final Result from Last 3 Months Insurance MEDICARE [facility] Care Teams Production Line Welder Relationship Specialty Start Date End Date Lynn Trivedi PA [address] [place] [address] PCP - General 08/16/22
--- OUTSIDE RECORDS SUMMARY | 2024-09-22 07:51 | XMS_ITS ---
Author Name Interface, [id number] lity Address [place] [address] Organization [facility] Address More breakthroughs[place] [address] Care Team Providers Care Director Of Student Financial Services Name Role Phone Ritaluisa Milly Unavailable Unavailable [...] Sodiu m mmol/L 136.0 146.0 138 FINAL [facility] 11/10 Potas sium mmol/L 3.5 5.1 4.7 FINAL [facility] 11/10 Chlor vadim mmol/L 98.0 107.0 104 FINAL [facility] 11/10 CO2 mmol/L 21.0 31.0 28 FINAL [facility] 11/10 Anion gap 0.0 18.0 6 FINAL [facility] 11/10 Gluco se mg/dL 70.0 140.0 131 FINAL [facility] 11/10 BUN mg/dL 7.0 25.0 18 FINAL [facility] 11/10 Creat inine mg/dL 0.8 1.3 1.2 FINAL [facility] 11/10 GFR estim ate 1.73m2 59 Low FINAL [facility] 11/10 BUN/C reati nine ratio 15.0 FINAL [facility] 11/10 Osmol ality , calcu lated 270.0 300.0 279 FINAL [facility] 11/10 Calci um mg/dL 8.6 10.2 10.1 FINAL [facility] 11/10 Total prote in g/dL 5.7 8.0 6.8 FINAL [facility] 11/10 Album in g/dL 3.5 5.0 4.3 FINAL [facility] 11/10 A/G ratio 1.7 FINAL [facility] 11/10 Bilir ubin, total mg/dL 0.1 1.0 0.6 FINAL [facility] 11/10 Alkal ine phosp hatas e U/L 45.0 115.0 40 Low FINAL [facility] 11/10 ALT/S GPT U/L 7.0 52.0 28 FINAL [facility] 11/10 AST/S GOT U/L 13.0 39.0 22 Performed at [facility] FINAL [facility] 11/10 WBC Thsd/m m3 4.0 11.0 7.5 FINAL [facility] 11/10 RBC Mill/m m3 4.2 5.7 5.2 FINAL [facility] 11/10 HGB g/dL 13.3 17.1 16.1 FINAL [facility] 11/10 HCT % 39.0 50.0 48.5 FINAL [facility] 11/10 MCV fL 80.0 100.0 93 FINAL [facility] 11/10 MCH, g/dL pg 26.0 34.0 31 FINAL [facility] 11/10 MCHC g/dL 31.0 37.0 33 FINAL [facility] 11/10 RDW % 11.5 14.5 15.0 High FINAL [facility] 11/10 PLT Thsd/m m3 140.0 450.0 223 FINAL [facility] 11/10 MPV fL 7.0 12.0 8.8 FINAL [facility] 11/10 LY % % 20.0 44.0 25.0 FINAL [facility] 11/10 MO % % 2.0 9.0 7.4 FINAL [facility] 11/10 Ronn % % 50.0 70.0 63.0 FINAL [facility] 11/10 Eosin ophil % % 0.0 4.0 3.6 FINAL [facility] 11/10 Basop hil % % 0.0 2.0 1.0 FINAL [facility] 11/10 LY # Thsd/m m3 1.9 FINAL [facility] 11/10 MO # Thsd/m m3 0.5 FINAL [facility] 11/10 Ronn # (ANC) Thsd/m m3 4.7 FINAL [facility] 11/10 EO # Thsd/m m3 0.3 FINAL [facility] 11/10 BA # Thsd/m m3 0.1 Performed at [facility] FINAL [facility] Medications Date Name Route Dose Frequency Instructions [...]
--- OUTSIDE RECORDS SUMMARY | 2024-09-22 07:51 | XMS_ITS ---
Author Name Interface, [id number] lity Address [place] breakthrough[place] [address] Organization [facility] Address More breakthroughs[place] [address] Care Team Providers Care Medical Education Coordinator Name Role Phone Emily Maloney Unavailable Unavailabl [...] 0.1 1.0 1.0 FINAL [facility] 05/19 Alkal ine phosp hatas e U/L 45.0 115.0 48 FINAL [facility] 05/19 ALT/S GPT U/L 7.0 52.0 26 FINAL [facility] 05/19 AST/S GOT U/L 13.0 39.0 24 Performed at [facility] FINAL [facility] 05/19 A/G ratio 1.6 FINAL [facility] 05/19 CO2 mmol/L 21.0 31.0 28 FINAL [facility] 05/19 Anion gap 0.0 18.0 8 FINAL [facility] 05/19 Gluco se mg/dL 70.0 140.0 172 High FINAL [facility] 05/19 BUN mg/dL 7.0 25.0 23 FINAL [facility] 05/19 Creat inine mg/dL 0.8 1.3 1.1 FINAL [facility] 05/19 GFR estim ate 1.73m2 >60 FINAL [facility] 05/19 BUN/C reati nine ratio 20.0 FINAL [facility] 05/19 Osmol ality , calcu lated 270.0 300.0 285 FINAL [facility] 05/19 Calci um mg/dL 8.6 10.2 9.5 FINAL [facility] 05/19 Total prote in g/dL 5.7 8.0 6.7 FINAL [facility] 05/19 Album in g/dL 3.5 5.0 4.1 FINAL [facility] 05/19 Sodiu m mmol/L 136.0 146.0 139 FINAL [facility] 05/19 Potas sium mmol/L 3.5 5.1 4.7 FINAL [facility] 05/19 Chlor vadim mmol/L 98.0 107.0 103 FINAL [facility] 05/19 WBC Thsd/m m3 4.0 11.0 6.0 FINAL [facility] 05/19 RBC Mill/m m3 4.2 5.7 5.4 FINAL [facility] 05/19 HGB g/dL 13.3 17.[address] [facility] 05/19 HCT % 39.0 50.0 50.[address] [facility] 05/19 MCV fL 80.0 100.0 93 FINAL [facility] 05/19 MCH, g/dL pg 26.0 34.[address] [facility] 05/19 MCHC g/dL 31.0 37.[address] [facility] 05/19 RDW % 11.5 14.5 14.[address] [facility] 05/19 PLT Thsd/m m3 140.0 450.0 233 FINAL [facility] 05/19 MPV fL 7.0 12.[address] [facility] 05/19 LY % % 20.0 44.[address] [facility] 05/19 MO % % 2.0 9.0 9.[address] [facility] 05/19 Ronn % % 50.0 70.0 53.7 FINAL [facility] 05/19 Eosin ophil % % 0.0 4.0 4.[address] [facility] 05/19 Basop hil % % 0.0 2.0 [address] [facility] 05/19 LY # Thsd/m m3 1.[address] [facility] 05/19 MO # Thsd/m m3 0.[address] [facility] 05/19 Ronn # (ANC) Thsd/m m3 3.[address] [facility] 05/19 EO # Thsd/m m3 0.3 FINAL [facility] 05/19 BA # Thsd/m m3 0.0 Performed at [facility] FINAL [facility] 11/10 WBC Thsd/m m3 4.0 11.0 [...] # Thsd/m m3 0.1 Performed at [facility] FINAL [facility] 11/10 Sodiu m mmol/L 136.0 146.0 138 [...] U/L 13.0 39.0 22 Performed at [facility] FINAL [facility] [...]
[2024-09-22 11:00] LABS: MANUAL DIFF FLAG NO
[2024-09-22 11:14] LABS: Appearance Urine Clear; Color Urine Yellow; Glucose Urine UA >=1000 mg/dL (Negative); Leukocyte Esterase Urine Negative (Negative); Nitrite Urine Negative (Negative); PH 5.5 (5.0-9.0); Specific Gravity - Urine 1.025 (1.005-1.025); UMIC TRIGGER UACC YES; Urine Blood Negative (Negative); Urine Ketones Negative (Negative); Urine Protein Negative (Neg-Trace)
[2024-09-22 11:19] LABS: Estimated Average Glucose 134 mg/dL; Hemoglobin A1C 182.7429 umol/L; Hemoglobin A1c % 6.3 % (<6.0); Total Hemoglobin (HGBA1C) 4059.3526 umol/L
[2024-09-22 11:20] LABS: Basophils Absolute Auto 0.1 X10*3/uL (0.0-0.2); Eosinophils Absolute Auto 0.2 X10*3/uL (0.0-0.4); Eosinophils Percent Auto 3.8 % (0-4); Hematocrit 49.8 % (42.0-52.0); Hemoglobin 15.9 g/dl (14.0-18.0); Imm Gran Abs Auto 0.02 X10*3/uL (0.00-0.03); Imm Gran Pct Auto 0.3 % (0.0-0.4); Lymphocytes Absolute Auto 1.5 X10*3/uL (1.2-4.9); Lymphocytes Percent Auto 23.5 % (20-40); Mean Corpuscular HGB Conc 31.9 g/dl (31.0-36.0); Mean Corpuscular Hemoglobin 30.5 pg (27.0-33.0); Mean Corpuscular Volume 95.6 fL (80.0-98.0); Mean Platelet Volume 11.3 fL (9.4-12.4); Monocytes Absolute Auto 0.5 X10*3/uL (0.1-1.2); Monocytes Percent Auto 8.6 % (2-11); Neutrophils Absolute Auto 3.9 x10*3/uL (2.0-8.3); Neutrophils Percent Auto 62.8 % (45-73); Platelet Count 244 X10*3/uL (160-400); Red Blood Count 5.21 X10*6/uL (4.60-5.80); Red Cell Distribution Width 14.5 % (11.0-16.0); White Blood Count 6.3 X10*3/uL (4.8-10.8)
[2024-09-22 11:56] LABS: Bacteria Urine None Seen (None Seen); Hyaline Casts Urine 0-2 /LPF (0-2); RBC Urine 0-2 /HPF (0-2); Squamous Epithelial Cell Urine 0-2 /HPF (0-2); WBC Urine 0-5 /HPF (0-5)
[2024-09-22 12:16] LABS: TSH reflex Free T4 2.76 uIU/mL (0.32-4.0)
[2024-09-22 12:19] LABS: Anion Gap 12 (12-20)
[2024-09-22 12:24] LABS: Alanine Aminotransferase 31 U/L (0-40); Alkaline Phosphatase 54 U/L (39-117); Aspartate Amino Transferase 35 U/L (5-37); Bilirubin Total 0.5 mg/dL (0.0-1.0); Blood Urea Nitrogen 23 mg/dL (9-16); Calcium 9.8 mg/dL (8.4-10.2); Carbon Dioxide 28 mmol/L (22-29); Chloride 106 mmol/L (96-108); Estimated Glomerular Filt Rate > 60; Glucose Fasting 123 mg/dL (60-99); Potassium 4.5 mmol/L (3.3-5.1); Sodium 141 mmol/L (135-145); Total Protein 7.2 g/dL (6.5-8.0)
== END 2024-09-22 07:48 | disposition home or self-care (01) ==
LOC: HO.WFDLDS 07:47
PROVIDERS: Visit Provider Physician Assistant
DX: E11.29 Type 2 diabetes mellitus with other diabetic kidney complication (principal); R80.9 Proteinuria, unspecified; E11.65 Type 2 diabetes mellitus with hyperglycemia
CPT/HCPCS: 36415; 80053; 81001; 83036; 84443; 85025

== ENCOUNTER 2024-09-24 09:38 | Outpatient (AMB) | payer MEDICARE, SELFPAY ==
--- NOTE | 2024-09-24 09:41 | MHC.PC.OV ---
Vital Signs 09/24/24 09:43 Height 5 ft 7 in Weight 228 lb 4 oz BMI 35.7 BP 134/74 Blood Pressure Location Lt brachial Position Sitting Respiration 14 Pulse 80 Pulse Source Pulse Oximeter Pulse Oximetry (%) 98 Oxygen Delivery Method Room Air Intake Visit Reasons: dm check Intake Note: Diabetes follow up Electric Motor Tester Required: No Allergies No Known Allergies Allergy (Verified 09/24/24 09:42) Medication List - Last Reconciled 09/24/24 by Lynn Trivedi PA-C allopurinol 100 mg PO BID apixaban (Eliquis) 5 mg PO BID empagliflozin (Jardiance) 10 mg PO QAM levothyroxine mcg PO lisinopril 2.5 mg PO DAILY metformin 1,000 mg PO BID Tobacco use date assessed: 07/24/24 Fall risk assessment: No Falls in past year Last assessed Fall Risk: 09/24/24 Dental Screening Dental Screen Date: 09/24/24 Did you have a dental visit in the last 12 months?: Yes Did you have a dental problem in the last 6 months where you did not have access to dental care?: No Was dental information given to patient?: Patient has dentist HPI dm check HPI Details Patient is a 79 year old male with a significant past medical history of type 2 diabetes, hypothyroidism, gout, dyslipidemia, AFib, s/p micra implant and RAYNE presenting today for a follow up. CV: Blood pressure today in the office is 128/76.. He is on lisinopril 2.5 mg. He is followed with Cardiology, Dr. Burton. He is scheduled for follow up in the fall 2024. Stopped Zetia recently due to leg pain. Unable to tolerate most statins. Last LDL was 154. Endo: DM- A1c is 6.3, improved from 6.8. He is on Jardiance 10 mg and metformin 1000 mg twice a day. He does check his blood sugars but usually every other day. wants to get off of metformin eventually. Denies any hyper or hypoglycemic events. Follows with podiatry- Dr. Veloz. Follows with ophthamology. Tsh- was wnl on the levothyroxine 88 mcg. GI: has a positive cologuard last year. followed with GI and made the decision to not proceed with colonoscopy. understands risks of undiagnosed colon ca. He recently saw GI for the elevated LFTs and abnormal liver ultrasound. Weight loss was recommended. Possible MRI was recommended depending on liver tests. Pt has follow up arranged with them next month to discuss this. Derm: had a skin check this summer with rasheed. [facility] [place] Medical History Obesity with serious comorbidity Severe obesity Pacemaker Hypothyroid Hyperlipidemia HTN (hypertension) Right hip pain Gout Erectile dysfunction Controlled type 2 diabetes mellitus Chronic a-fib Surgical History History of knee replacement Social History (Updated 09/24/24 @ 10:05 by Olivia Herr CMA) Housing: House Alcohol intake: current Patient Tobacco Use Status: Former Tobacco user Tobacco use type: Cigarette Cigarette Packs Per Day: 1 Years Smoked: 9 e-Cigarette/Vaping Use: Never Used Second Hand Smoke Exposure: No service: Yes Current occupational status: retired Cognitive needs: No Hearing needs: Yes (hearing aids) Vision needs: No Questionnaire PHQ-9 Over the last 2 weeks, how often have you been bothered by any of the following problems? 1. Little interest or pleasure in doing things: not at all 2. Feeling down, depressed, or hopeless: not at all 3. Trouble falling or staying asleep, or sleeping too much: not at all 4. Feeling tired or having little energy: not at all 5. Poor appetite or overeating: not at all 6. Feeling bad about yourself - or that you are a failure or have let yourself or your family down: not at all 7. Trouble concentrating on things, such as reading the newspaper or watching television: not at all 8. Moving or speaking so slowly that other people could have noticed. Or the opposite - being so fidgety or restless that you have been moving around a lot more than usual: not at all 9. Thoughts that you would be better off or of hurting yourself in some way: not at all Total score: 0 Depression Screening Interpretation: Negative Depression Screening Done: Yes 71631 - PHQ-9 Billing: Yes Source: Developed by Drs. David Fleming, Talia Guerrero, Dirk Brody and colleagues, with an educational kojo from [employer]. Thrive Questionnaire Date Thrive assessed: 07/23/24 I am a: Patient What is your living situation today?: I have a steady place to live Within the past 12 months, did the food you bought not last and you didn't have the money to get more?: Never true Within the past 12 months, did you worry whether your food would run out before you got money to buy more?: Never true Do you have trouble paying for medicines?: No Do you have trouble getting transportation to medical appointments?: No Do you have trouble paying your heating and electricity bill?: No Do you have trouble taking care of your child, family member or friend?: No Do you have trouble with day-to-day activities such as bathing, preparing meals, shopping, managing finances, etc.?: No Are you currently unemployed and looking for a job?: No Are you interested in more education?: No Please select the resources that you would like help with: None Currently or been in a relationship where the following occur: No concerns reported THRIVE Score: 0 AUDIT C Alcohol Use Questionnaire (AUDIT-C) 1. How often do you have a drink containing alcohol?: Never 3. How often do you have six or more drinks on one occasion?: Never Total Score: 0 LILY-7 AMB Questionnaire LILY-7 Date LILY - 7 assessed: 10/10/23 Source: Developed by Drs. David Fleming, Talia Guerrero, Dirk Brody and colleagues, with an educational kojo from [employer]. Physical exam (Primary Care) Vital Signs: Last Vital Signs Pulse 80 09/24/24 09:43 Resp 14 09/24/24 09:43 BP 134/74 09/24/24 09:43 Pulse Ox 98 09/24/24 09:43 Oxygen Delivery Method Room Air 09/24/24 09:43 BMI result Body Mass Index 35.7 Tobacco/Smoking Status: Tobacco use Status Tobacco use date assessed 07/24/24 09/24/24 09:47 Patient Tobacco Use Status Former Tobacco user 09/24/24 09:47 Tobacco use type Cigarette 09/24/24 09:47 e-Cigarette/Vaping Use Never Used 09/24/24 09:47 PHQ-9: PHQ-9 Score PHQ-9: Total score 0 09/24/24 09:51 Depression Screening Interpretation: Negative Thrive Assessment: Date of Thrive Assessment Date Thrive assessed 07/23/24 09/24/24 09:47 Currently or been in a relationship where the following occur: No concerns reported Const Orientation/consciousness: patient oriented x3 HENMT Ears: hearing grossly normal bilaterally Neck Thyroid: Thyroid normal Lymphatic: no lymphadenopathy noted Resp Auscultation: clear to auscultation bilaterally Cardio Rate: regular rate Rhythm: regular rhythm Heart sounds: S1 normal heart sound present and S2 normal heart sound present GI Inspection: Yes normal to inspection Palpation (GI): Soft to palpation and Other GI palpation findings present (nontender, no cva tenderness) Auscultation: normoactive bowel sounds Rectal Exam - Male: Yes deferred Skin General skin exam: no rashes or lesions noted Neuro General: patient oriented x3, gait normal and no focal motor deficits Results Reviewed Results Reviewed: Laboratory Tests 07/16/24 09/22/24 14:30 07:50 WBC 7.8 6.3 RBC 5.14 5.21 Hgb 15.6 15.9 Hct 47.4 49.8 Plt Count 262 244 Sodium 139 141 Potassium 4.4 4.5 Chloride 106 106 Carbon Dioxide 26 28 Anion Gap 11 L 12 BUN 25 H 23 H Creatinine 1.12 1.08 Estimated GFR > 60 > 60 Random Glucose 133 H Fasting Glucose 123 H Estimat Average Glucose 143 134 Hemoglobin A1c % 6.6 H 6.3 H Calcium 9.9 9.8 Total Bilirubin 0.4 0.5 AST 33 35 ALT 33 31 Alkaline Phosphatase 65 54 Total Protein 7.2 Albumin 4.0 TSH 2.76 Coding Level of Care Code Est Pt Level 4 (35748) Complex EM visit Add On G2211 Diagnoses Microalbuminuria due to type 2 diabetes mellitus E11.29; R80.9 Chronic a-fib I48.20 Acquired hypothyroidism E03.9 Hypothyroidism type: acquired Primary hypertension I10 Hypertension type: primary hypertension Additional Codes PHQ-9 - 22286 - PHQ-9 Billing: Yes ([id number]) Assessment & Plan Assessment & Plan (1) Microalbuminuria due to type 2 diabetes mellitus: Comment: 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 Obesity could be a contributing factor as well. Code(s): E11.29 - Type 2 diabetes mellitus with other diabetic kidney complication; R80.9 - Proteinuria, unspecified Category: Medical Plan: well controlled wants to get off of metformin will reduce metformin to 500 mg bid increase jardiance to 25 mg repeat labs in a few months (2) Chronic a-fib: Code(s): I48.20 - Chronic atrial fibrillation, unspecified Category: Medical Plan: has follow up with cards stable (3) Hypothyroid: Code(s): E03.9 - Hypothyroidism, unspecified Category: Medical Qualifiers: Hypothyroidism type: acquired Qualified Code(s): E03.9 - Hypothyroidism, unspecified Plan: on levothyroxine 88 mcg tsh wnl continue will monitor (4) HTN (hypertension): Code(s): I10 - Essential (primary) hypertension Category: Medical Qualifiers: Hypertension type: primary hypertension Qualified Code(s): I10 - Essential (primary) hypertension Plan: wnl continue current plan Orders: Orders Lipid Panel Today E03.9 - Hypothyroidism, unspecified, E11.29 - Type 2 diabetes mellitus with other diabetic kidney complication, I10 - Essential (primary) hypertension, I48.20 - Chronic atrial fibrillation, unspecified, R80.9 - Proteinuria, unspecified TSH reflex Free T4 Today E03.9 - Hypothyroidism, unspecified, E11.29 - Type 2 diabetes mellitus with other diabetic kidney complication, I10 - Essential (primary) hypertension, I48.20 - Chronic atrial fibrillation, unspecified, R80.9 - Proteinuria, unspecified Hemoglobin A1c Today E03.9 - Hypothyroidism, unspecified, E11.29 - Type 2 diabetes mellitus with other diabetic kidney complication, I10 - Essential (primary) hypertension, I48.20 - Chronic atrial fibrillation, unspecified, R73.01 - Impaired fasting glucose, R80.9 - Proteinuria, unspecified Prostate Specific Antigen Scr Today E03.9 - Hypothyroidism, unspecified, E11.29 - Type 2 diabetes mellitus with other diabetic kidney complication, I10 - Essential (primary) hypertension, I48.20 - Chronic atrial fibrillation, unspecified, R80.9 - Proteinuria, unspecified, Z01.89 - Encounter for other specified special examinations Complete Blood Count Auto Diff Today E03.9 - Hypothyroidism, unspecified, E11.29 - Type 2 diabetes mellitus with other diabetic kidney complication, I10 - Essential (primary) hypertension, I48.20 - Chronic atrial fibrillation, unspecified, R80.9 - Proteinuria, unspecified Comprehensive Pelzer. Panel Fast Today E03.9 - Hypothyroidism, unspecified, E11.29 - Type 2 diabetes mellitus with other diabetic kidney complication, I10 - Essential (primary) hypertension, I48.20 - Chronic atrial fibrillation, unspecified, R80.9 - Proteinuria, unspecified Medications: New metformin 500 mg PO BID 180 tabs 2RF blood-glucose meter (FreeStyle Lite Meter kit) Use daily As directed to check blood sugars 1 ea 0RF E11.65 - Type 2 diabetes mellitus with hyperglycemia lancets (FreeStyle Lancets) use daily as directed to check blood glucose 100 ea 3RF E11.65 - Type 2 diabetes mellitus with hyperglycemia blood sugar diagnostic (FreeStyle Lite Strips) Use daily As directed to check blood glucose 100 ea 3RF E11.9 - Type 2 diabetes mellitus without complications empagliflozin (Jardiance) 25 mg PO QAM 90 tabs 3RF Discontinued metformin Discontinued Reason: Doctor's Order 1,000 mg PO BID 180 tabs 3RF empagliflozin (Jardiance) Discontinued Reason: Doctor's Order 10 mg PO QAM 90 tabs 2RF
[2024-09-24 09:43] VITALS: BP 134/74; PULSE 80; RESP 14; O2SAT 98; BMI 35.7
--- OUTSIDE RECORDS SUMMARY | 2024-09-24 10:56 | XMS_ITS ---
Author Name Interface, [id number] lity Address [place] [address] Organization [facility] Address [place] [address] Care Team Providers Care Weight And Balance Control Agent Name Role Phone Emily Maloney Unavailable Unavailabl [...] ubin, total mg/dL 0.1 1.0 1.0 FINAL [facility] 05/19 Alkal ine phosp hatas e U/L 45.0 115.0 48 FINAL [facility] 05/19 ALT/S GPT U/L 7.0 52.0 26 FINAL [facility] 05/19 AST/S GOT U/L 13.0 39.[address] [facility] FINAL [facility] 05/19 A/G ratio 1.6 FINAL [facility] 05/19 CO2 mmol/L 21.0 31.0 28 FINAL [facility] 05/19 Anion gap 0.0 18.0 8 FINAL [facility] 05/19 Gluco se mg/dL 70.0 140.0 172 High FINAL [facility] 05/19 BUN mg/dL 7.0 25.0 23 FINAL [facility] 05/19 Creat inine mg/dL 0.8 1.3 1.1 FINAL [facility] 05/19 GFR estim ate 1.73m2 >60 FINAL [facility] 05/19 BUN/C reati nine ratio 20.0 FINAL [facility] 05/19 Osmol ality , calcu lated 270.0 300.0 285 FINAL [facility] 05/19 Calci um mg/dL 8.6 10.2 9.5 FINAL [facility] 05/19 Total prote in g/dL 5.7 8.0 6.7 FINAL [facility] 05/19 Album in g/dL 3.5 5.0 4.1 FINAL [facility] 05/19 Sodiu m mmol/L 136.0 146.0 139 FINAL [facility] 05/19 Potas sium mmol/L 3.5 5.1 4.7 FINAL [facility] 05/19 Chlor vadim mmol/L 98.0 107.0 103 FINAL [facility] 05/19 WBC Thsd/m m3 4.0 11.0 6.0 FINAL [facility] 05/19 RBC Mill/m m3 4.2 5.7 5.4 FINAL [facility] 05/19 HGB g/dL 13.3 17.1 16.9 FINAL [facility] 05/19 HCT % 39.0 50.0 50.1 High FINAL [facility] 05/19 MCV fL 80.0 100.0 93 FINAL [facility] 05/19 MCH, g/dL pg 26.0 34.0 31 FINAL [facility] 05/19 MCHC g/dL 31.0 37.0 34 FINAL [facility] 05/19 RDW % 11.5 14.5 14.9 High FINAL [facility] 05/19 PLT Thsd/m m3 140.0 450.0 233 FINAL [facility] 05/19 MPV fL 7.0 12.0 8.8 FINAL [facility] 05/19 LY % % 20.0 44.0 32.3 FINAL [facility] 05/19 MO % % 2.0 9.0 9.0 FINAL [facility] 05/19 Ronn % % 50.0 70.0 53.7 FINAL [facility] 05/19 Eosin ophil % % 0.0 4.0 4.2 High FINAL [facility] 05/19 Basop hil % % 0.0 2.0 0.8 FINAL [facility] 05/19 LY # Thsd/m m3 1.9 FINAL [facility] 05/19 MO # Thsd/m m3 0.5 FINAL [facility] 05/19 Ronn # (ANC) Thsd/m m3 3.2 FINAL [facility] 05/19 EO # Thsd/m m3 0.3 FINAL [facility] 05/19 BA # Thsd/m m3 0.[address] [facility] FINAL [facility] 11/10 WBC Thsd/m m3 4.0 11.0 7.5 [...] Thsd/m m3 0.[address] [facility] FINAL [facility] 11/10 [...] 13.0 39.[address] [facility] FINAL [facility] Medications [...]
--- OUTSIDE RECORDS SUMMARY | 2024-09-24 10:56 | XMS_ITS | CCD ---
Author Name Interface, [id number] lity Address [place] [address] [facility] Address [place] [address] Care Team Providers Care Boilermaker'S Assistant Name Role Phone Milly Martin Unavailable Unavailable Allergies and Adverse Reactions Reason for Visit Encounters Functional Status Medications Social History
--- OUTSIDE RECORDS SUMMARY | 2024-09-24 10:56 | XMS_ITS | CCD ---
Author Name Interface, [id number] lity Address [place] [address] Organization [facility] Address [place] [address] Care Team Providers Care Globe Cleaner Name Role Phone Milly Martin Unavailable Unavailable [...]
--- OUTSIDE RECORDS SUMMARY | 2024-09-24 10:56 | XMS_ITS ---
Author Name Interface, [id number] lity Address [place] [address] Organization [facility] Address [place] [address] Care Team Providers Care Arts And Crafts Instructor Name Role Phone Ritaluisa Milly Unavailable Unavailable [...] Performed at [facility] FINAL [facility] 11/10 [...] Performed at [facility] FINAL [facility] Medications [...]
--- OUTSIDE RECORDS SUMMARY | 2024-09-24 10:56 | XMS_ITS ---
Author Name Interface, [id number] lity Address [place] [address] Organization [facility] Address [place] [address] Care Team Providers Care Timber Treatment Plant Operator Name Role Phone Ritaluisa Milly Unavailable [...] 136.0 146.0 138 FINAL [facility] 11/10 Potas sium mmol/L 3.5 5.1 4.7 FINAL [facility] 11/10 Chlor vadim mmol/L 98.0 107.0 104 FINAL [facility] 11/10 CO2 mmol/L 21.0 31.0 28 FINAL [facility] 11/10 Anion gap 0.0 18.0 6 FINAL [facility] 11/10 Gluco se mg/dL 70.0 140.0 131 FINAL [facility] 11/10 BUN mg/dL 7.0 25.0 18 FINAL [facility] 11/10 Creat inine mg/dL 0.8 1.3 1.2 FINAL [facility] 11/10 GFR estim ate 1.73m2 59 Low FINAL [facility] 11/10 BUN/C reati nine ratio 15.0 FINAL [facility] 11/10 Osmol ality , calcu lated 270.0 300.0 279 FINAL [facility] 11/10 Calci um mg/dL 8.6 10.2 10.1 FINAL [facility] 11/10 Total prote in g/dL 5.7 8.0 6.8 FINAL [facility] 11/10 Album in g/dL 3.5 5.0 4.3 FINAL [facility] 11/10 A/G ratio 1.7 FINAL [facility] 11/10 Bilir ubin, total mg/dL 0.1 1.0 0.6 FINAL [facility] 11/10 Alkal ine phosp hatas e U/L 45.0 115.0 40 Low FINAL [facility] 11/10 ALT/S GPT U/L 7.0 52.0 28 FINAL [facility] 11/10 AST/S GOT U/L 13.0 39.0 22 Performed at [facility] FINAL [facility] 11/10 WBC Thsd/m m3 4.0 11.0 7.5 FINAL [facility] 11/10 RBC Mill/m m3 4.2 5.7 5.2 FINAL [facility] 11/10 HGB g/dL 13.3 17.1 16.1 FINAL [facility] 11/10 HCT % 39.0 50.0 48.5 FINAL [facility] 11/10 MCV fL 80.0 100.0 93 FINAL [facility] 11/10 MCH, g/dL pg 26.0 34.0 31 FINAL [facility] 11/10 MCHC g/dL 31.0 37.0 33 FINAL [facility] 11/10 RDW % 11.5 14.5 15.0 High FINAL [facility] 11/10 PLT Thsd/m m3 140.0 450.0 223 FINAL [facility] 11/10 MPV fL 7.0 12.0 8.8 FINAL [facility] 11/10 LY % % 20.0 44.0 25.0 FINAL [facility] 11/10 MO % % 2.0 9.0 7.4 FINAL [facility] 11/10 Ronn % % 50.0 70.0 63.0 FINAL [facility] 11/10 Eosin ophil % % 0.0 4.0 3.6 FINAL [facility] 11/10 Basop hil % % 0.0 2.0 1.0 FINAL [facility] 11/10 LY # Thsd/m m3 1.9 FINAL [facility] 11/10 MO # Thsd/m m3 0.5 FINAL [facility] 11/10 Ronn # (ANC) Thsd/m m3 4.7 FINAL [facility] 11/10 EO # Thsd/m m3 0.3 FINAL [facility] 11/10 BA # Thsd/m m3 0.1 Performed at [facility] FINAL [facility] Medications Date Name Route Dose [...]
--- OUTSIDE RECORDS SUMMARY | 2024-09-24 10:56 | XMS_ITS ---
Author Name Interface, D0Tqrosfl lity Address [place] [address] Organization [facility] Address [place] [address] Care Team Providers Care Inspector [employer] Name Role Phone Emily Maloney Unavailable Unavailabl [...] GOT U/L 13.0 39.0 24 Performed at [facility] FINAL [facility] 05/19 A/G ratio 1.6 FINAL [facility] 05/19 CO2 mmol/L 21.0 31.0 28 FINAL [facility] 05/19 Anion gap 0.0 18.0 8 FINAL [facility] 05/19 Gluco se mg/dL 70.0 140.0 172 High FINAL [facility] 05/19 BUN mg/dL 7.0 25.0 23 FINAL [facility] 05/19 Creat [...] 4.1 FINAL [facility] 05/19 Sodiu m mmol/L 136.0 146.0 139 FINAL [facility] 05/19 Potas sium mmol/L 3.5 5.1 4.7 FINAL [facility] 05/19 Chlor vadim mmol/L 98.0 107.0 103 FINAL [facility] 05/19 WBC Thsd/m m3 4.0 11.0 6.0 FINAL [facility] 05/19 RBC Mill/m m3 4.2 5.7 5.4 FINAL [facility] 05/19 HGB g/dL 13.3 17.1 16.9 FINAL [facility] 05/19 HCT % 39.0 50.0 50.1 High FINAL [facility] 05/19 MCV fL 80.0 100.0 93 FINAL [facility] 05/19 MCH, g/dL pg 26.0 34.0 31 FINAL [facility] 05/19 MCHC g/dL 31.0 37.0 34 FINAL [facility] 05/19 RDW % 11.5 14.5 14.9 High FINAL [facility] 05/19 PLT Thsd/m m3 140.0 450.0 233 FINAL [facility] 05/19 MPV fL 7.0 12.0 8.8 FINAL [facility] 05/19 LY % % 20.0 44.0 32.3 FINAL [facility] 05/19 MO % % 2.0 9.0 9.0 FINAL [facility] 05/19 Ronn % % 50.0 70.0 53.7 FINAL [facility] 05/19 Eosin ophil % % 0.0 4.0 4.2 High FINAL [facility] 05/19 Basop hil % % 0.0 2.0 0.8 FINAL [facility] 05/19 LY # Thsd/m m3 1.9 FINAL [facility] 05/19 MO # Thsd/m m3 0.5 FINAL [facility] 05/19 Ronn # (ANC) Thsd/m m3 3.2 FINAL [facility] 05/19 EO # Thsd/m m3 0.3 FINAL [facility] 05/19 BA # Thsd/m m3 0.0 Performed at [facility] FINAL [facility] 11/10 WBC Thsd/m m3 4.0 11.0 7.5 FINAL [facility] 11/10 RBC Mill/m m3 4.2 5.7 5.2 FINAL [facility] 11/10 HGB g/dL 13.3 17.1 16.1 FINAL [facility] 11/10 HCT % 39.0 50.0 48.5 FINAL [facility] 11/10 MCV fL 80.0 100.0 93 FINAL [facility] 11/10 MCH, g/dL pg 26.0 34.0 31 FINAL [facility] 11/10 MCHC g/dL 31.0 37.0 33 FINAL [facility] 11/10 RDW % 11.5 14.5 15.0 High FINAL [facility] 11/10 PLT Thsd/m m3 140.0 450.0 223 FINAL [facility] 11/10 MPV fL 7.0 12.0 8.8 FINAL [facility] 11/10 LY % % 20.0 44.0 25.0 FINAL [facility] 11/10 MO % % 2.0 9.0 7.4 FINAL [facility] 11/10 Ronn % % 50.0 70.0 63.0 FINAL [facility] 11/10 Eosin ophil % % 0.0 4.0 3.6 FINAL [facility] 11/10 Basop hil % % 0.0 2.0 1.0 FINAL [facility] 11/10 LY # Thsd/m m3 1.9 FINAL [facility] 11/10 MO # Thsd/m m3 0.5 FINAL [facility] 11/10 Ronn # (ANC) Thsd/m m3 4.7 FINAL [facility] 11/10 EO # Thsd/m m3 0.3 FINAL [facility] 11/10 BA # Thsd/m m3 0.1 Performed at [facility] FINAL [facility] 11/10 Sodiu m mmol/L 136.0 146.0 138 FINAL [facility] 11/10 Potas sium mmol/L 3.5 5.1 4.7 FINAL [facility] 11/10 Chlor vadim mmol/L 98.0 107.0 104 FINAL [facility] 11/10 CO2 mmol/L 21.0 31.0 28 FINAL [facility] 11/10 Anion gap 0.0 18.0 6 FINAL [facility] 11/10 Gluco se mg/dL 70.0 140.0 131 FINAL [facility] 11/10 BUN mg/dL 7.0 25.0 18 FINAL [facility] 11/10 Creat inine mg/dL 0.8 1.3 1.2 FINAL [facility] 11/10 GFR estim ate 1.73m2 59 Low FINAL [facility] 11/10 BUN/C reati nine ratio 15.0 FINAL [facility] 11/10 Osmol ality , calcu lated 270.0 300.0 279 FINAL [facility] 11/10 Calci um mg/dL 8.6 10.2 10.1 FINAL [facility] 11/10 Total prote in g/dL 5.7 8.0 6.8 FINAL [facility] 11/10 Album in g/dL 3.5 5.0 4.3 FINAL [facility] 11/10 A/G ratio 1.7 FINAL [facility] 11/10 Bilir ubin, total mg/dL 0.1 1.0 0.6 FINAL [facility] 11/10 Alkal ine phosp hatas e U/L 45.0 115.0 40 Low FINAL [facility] 11/10 ALT/S GPT U/L 7.0 52.0 28 FINAL [facility] 11/10 AST/S GOT U/L 13.0 39.0 22 Performed at [facility] FINAL [facility] Medications Date Name Route Dose Frequency Instructions [...]
== END 2024-09-24 12:33 | disposition home or self-care (01) ==
LOC: HO.HMCFM 09:39
PROVIDERS: PCP Physician Assistant; Visit Provider Physician Assistant
DX: E11.29 Type 2 diabetes mellitus with other diabetic kidney complication (principal); R80.9 Proteinuria, unspecified; I48.20 Chronic atrial fibrillation, unspecified; E03.9 Hypothyroidism, unspecified; I10 Essential (primary) hypertension

== ENCOUNTER → 2024-09-24 09:38 | Outpatient (BNVA) | payer MEDICARE, SELFPAY | PROVIDERS: PCP Physician Assistant; Visit Provider Physician Assistant | DX: E11.29 Type 2 diabetes mellitus with other diabetic kidney complication (principal); R80.9 Proteinuria, unspecified; I48.20 Chronic atrial fibrillation, unspecified; E03.9 Hypothyroidism, unspecified; I10 Essential (primary) hypertension | CPT/HCPCS: 96127; 99212 ==

== ENCOUNTER 2024-12-24 09:45 | Outpatient (AMB) | payer MEDICARE, SELFPAY ==
--- NOTE | 2024-12-24 09:47 | A.OFFVIS_ITS ---
Vital Signs 12/24/24 09:48 Height 5 ft 7 in Weight 226 lb BMI 35.4 BP 128/86 Blood Pressure Location Rt brachial Position Sitting Pulse 90 Pulse Source Pulse Oximeter Pulse Oximetry (%) 98 Oxygen Delivery Method Room Air Intake Visit Reasons: f/u hernandez Intake Note: Est pt for mgmt of [facility]. CC; Pt denies any GI changes or new sx since last visit. Social Worker [employer] Required: No Accompanied by: Self / Same As Patient Allergies No Known Allergies Allergy (Verified 12/24/24 09:48) HPI HPI f/u hernandez: Details: LAST VISIT Abnormal liver ultrasound Elevated LFTs Plan Will rule out autoimmune disorders. As mentioned above increase echogenicity of the liver seen on ultrasound. Will check liver fibrosis panel as well as send patient for ultrasound with elastography. Discussed with patient diet recommendation. Low carb, low fat and low-sodium diet. Increase protein in his diet. Exercise and weight loss also discussed. Patient will return in the office in 4 months, sooner on as needed basis. He is agreeable to this plan and verbalizes understanding of instructions. He was given the opportunity to ask questions and all questions answered. ? Thank you for allowing me to participate in his care Orders Mitochondrial Antibody 06/30/24 R79.89 Gamma Glutamyl Transpeptidase 06/30/24 R74.8 Liver Fibrosis Pnl 06/30/24 K76.0 Smooth Muscle Antibody 06/30/24 R79.89 Alpha Fetoprotein 06/30/24 R79.89 US abdomen sebastian w elastography 06/30/24 K76.0 Ferritin 06/30/24 R74.8 Liver Panel 06/30/24 R74.01 Transglutaminase IgA 06/30/24 R10.9 Ceruloplasmin 06/30/24 R79.89 Hepatitis A,B,C Profile 06/30/24 R79.89 C Reactive Protein 06/30/24 K58.9 TODAY'S VISIT Patient is here today for follow-up and to discuss ultrasound and lab results. Patient reports that he has been feeling well. Denies any GI concerning symptoms. Liver enzymes normal, we have ruled out any out immune disorders. Patient had normal blood work. Low elastography. FIB-4 INDEX FOR LIVER FIBROSIS 2.01?points Further investigation needed Approximate fibrosis stage: Mariella 2-3 (Walter et al 2006) [facility] Medical History (Updated 12/24/24 @ 10:19 by Eunice Gutierrez, [facility]) Non-alcoholic fatty liver disease Obesity with serious comorbidity Severe obesity Pacemaker Hypothyroid Hyperlipidemia HTN (hypertension) Right hip pain Gout Erectile dysfunction Controlled type 2 diabetes mellitus Chronic a-fib Surgical History History of knee replacement Social History Housing: House Alcohol intake: current Patient Tobacco Use Status: Former Tobacco user Tobacco use type: Cigarette Cigarette Packs Per Day: 1 Years Smoked: 9 e-Cigarette/Vaping Use: Never Used Second Hand Smoke Exposure: No service: Yes Current occupational status: retired Cognitive needs: No Hearing needs: Yes (hearing aids) Vision needs: No Review of Systems Const Denies weight gain and Denies weight loss ENT Reports no additional complaints, Denies dysphagia and Denies odynophagia Card Reports no additional complaints Resp Reports no additional complaints GI Denies abdominal pain, Denies belching, Denies melena, Denies bloating, Denies change in bowel habits, Denies dysphagia, Denies excessive flatus, Denies dyspepsia, Denies heartburn, Denies diarrhea, Denies loose stools, Denies nausea, Denies odynophagia and Denies vomiting Reports no additional complaints Musc Reports no additional complaints Neuro Reports no additional complaints Psych Reports no additional complaints Endo Reports no additional complaints Physical Exam Vital Signs: Last Vital Signs Pulse 90 12/24/24 09:48 BP 128/86 12/24/24 09:48 Pulse Ox 98 12/24/24 09:48 Oxygen Delivery Method Room Air 12/24/24 09:48 BMI result Body Mass Index 35.4 Const General: healthy appearing, no acute distress and well developed Nutritional Appearance: well nourished Orientation/consciousness: patient oriented x3 Resp Effort & Inspection: normal respiratory effort, able to speak in complete sentences, no tracheal deviation and symmetric chest movement Auscultation: clear to auscultation bilaterally Cardio Rate: regular rate GI Inspection: Yes normal to inspection and No distended Palpation (GI): Soft to palpation, not firm, nontender and No hepatosplenomegaly present Auscultation: normal bowel sounds General: Yes no CVA tenderness Back/Spine/Pelvis Back: no CVA tenderness Skin General skin exam: elasticity normal, turgor normal and dry skin Neuro General: patient oriented x3 Psych Appearance: grossly normal Mental Status: mental status grossly normal Results Reviewed Results Reviewed: LIVER ELASTOGRAPHY FINDINGS: Liver: The right lobe of the liver measures 15.6 cm in size. The left lobe of the liver measures 8.1 cm in size. The liver demonstrates normal homogeneous echotexture. No focal mass is identified. There are scattered dilated intrahepatic ducts. There is normal hepatopedal flow in the portal vein. Ultrasound elastography of the liver was performed with 10 separate measurements of the liver parenchyma with the patient in the supine position. Measurements were obtained approximately 2 cm below Dieter's capsule and perpendicular to the capsule. Images are of satisfactory quality. The median shear wave velocity is 1.44 m/s. The interquartile range/median (IQR/median) is 0.15. Gallbladder and biliary tree: There are tiny gallbladder polyps versus wall calcification. The gallbladder is otherwise unremarkable, without evidence of calculi, wall thickening, or pericholecystic fluid. There is no sonographic Obrien sign. The common bile duct is normal in caliber measuring 6 mm. Right Kidney: The right kidney measures 12.5 cm in length. The right kidney is unremarkable, without evidence of masses, hydronephrosis, or calculi. Pancreas: The pancreatic head, neck, and body are unremarkable. The pancreatic tail is obscured by bowel gas. Abdominal aorta and inferior vena cava: The visualized portions of the abdominal aorta and inferior vena cava are normal in caliber. There is no free fluid in the right upper quadrant. US/US abdomen sebastian w elastography IMPRESSION: Scattered mildly dilated intrahepatic ducts of uncertain significance. The common bile duct is at the upper limits of normal in caliber. If there are LFT abnormalities, MRI of the liver is suggested. The median shear wave velocity in the liver is 1.44 m/s, corresponding to a median liver stiffness of 6.34 kPa. The IQR/median value is 0.15. This is indicative of a poor quality data set, and the estimated liver stiffness may be unreliable. Findings are indicative of a low elastography value which rules out advanced chronic liver disease in asymptomatic patients. Laboratory Tests 06/30/24 15:02 Ferritin 63 Total Bilirubin 0.5 Direct Bilirubin 0.1 GGT 21 AST 33 ALT 28 Alkaline Phosphatase 61 Liver Fibrosis Stage F2 C-Reactive Protein 0.46 Total Protein 7.8 Albumin 4.3 Ceruloplasmin 25 Alpha Fetoprotein 1.5 Anti-Mitochondrial Ab NEGATIVE Anti-Smooth Muscle Ab <20 Tiss Transglutamin IgA <1.0 Hepatitis A IgM Ab Nonreactive Hep Bs Antigen Negative Hep Bs Antibody NONREACTIVE Hep B Core Total Ab Nonreactive Hepatitis C Ab (EIA) Nonreactive Assessment & Plan Assessment & Plan (1) Elevated LFTs: Code(s): R79.89 - Other specified abnormal findings of blood chemistry Category: Medical (2) Non-alcoholic fatty liver disease: Code(s): K76.0 - Fatty (change of) liver, not elsewhere classified Category: Medical Plan Discussed with patient low fat, low salt, low carb and high-protein diet. Guidance for diet for patients with non alcoholic fatty liver disease given to patient. Patient will repeat liver enzymes, liver fibrosis panel and will repeat ultrasound in 6 months. Follow-up in the office in 6 months, sooner on as needed basis. He is agreeable to this plan and verbalizes understanding of instructions PICC was given the opportunity to ask questions and all questions answered. Thank you for allowing me to participate in his care Orders: Orders Liver Panel Today R74.01 - Elevation of levels of liver transaminase levels Liver Fibrosis Pnl Today K76.0 - Fatty (change of) liver, not elsewhere classified Hemoglobin A1c Today Z83.3 - Family history of diabetes mellitus US abdomen sebastian w elastography 6 Months K76.0 - Fatty (change of) liver, not elsewhere classified Coding Level of Care Code Est Pt Level 3 (04962) Diagnoses Elevated LFTs R79.89 Non-alcoholic fatty liver disease K76.0 Time Spent (min) 25 Comment 15 minutes spent with patient and additional 10 minutes spent reviewing his records
[2024-12-24 09:48] VITALS: BP 128/86; PULSE 90; O2SAT 98; BMI 35.4
--- OUTSIDE RECORDS SUMMARY | 2024-12-24 10:36 | XMS_ITS | Patient Health Record ---
Author Organization [facility] Address [address] [place], [place] [id number] Care Team Providers Care Balance Clerk Name Role Phone Winsome Dutta Primary Care Provider Lana Gaston Unavailable Unavailable Reason For Referral No Information Medications Medication SIG (Take, Route, Frequency, Duration) Notes Start Date End Date Status Ezetimibe 10 MG 1 tablet Orally Once a day; Duration: 30 Active Colcrys 0.6 mg TAKE 2 TABLETS BY MO UTH AT ONSET OF SYMPTOMS THEN REPEAT AFTER 1 HOUR DIRECTED; Duration: 7 Active Invokana 300 MG TAKE 1 TABLET BY RAJNI TH DAILY; Duration: 30 Active Valsartan-hydroCHLOROthiazid e 320-12.5 MG 1 tablet Orally Once a day; Duration: 90 Active Levothyroxine Sodium 75 MCG 1 tablet on an empty stomach in the morning Orally Once a day; Duration: 90 days Active metFORMIN HCl 1000 MG TAKE 1 TABLET BY M OUTH TWICE DAILY; Duration: 30 Active Invokana 300 TAKE 1 TABLET BY RAJNI TH EVERY DAY; Duration: 90 Active Brant Aspirin 325 MG 1 tablet Orally Onc e a day Active Immunizations Vaccine Route Administration Date Status Comme nts AFLURIA QUAD INFLUENZA MEDICARE IM Intramuscular 02/12/2019 Administered Influenza (split), preservative free, 6-35 months Unknown 02/18/2018 Administered INFLUENZA QUAD MEDICARE IM Intramuscular 02/18/2018 Admini stered Pneumococcal polysaccharide PPV23 Unknown 02/07/2017 Administered Zoster Unknown 02/12/2018 Administered Social History Tobacco Use: Social History Observation Description Date Details (start date - stop date) Never Smoker NA - NA Tobacco Use/Smoking Question Answer Notes Are you a nonsmoker Alcohol Screen (Audit-C) Question Answer Notes Did you have a drink containing alcohol in the p ast year? No Points 0 Interpretation Negative Sexual History Question Answer Notes Had sex in the past 12 months (vaginal, oral, or anal)? Yes Have you ever had a Sexually transmitted disease ? No Problems Problem Type SNOMED Code ICD Code Onset Dates Problem Status W/U Status Risk Notes Problem Obese class II (950878940208951) BMI 39.0-39.9,adult (Z68.39) Active confirmed Problem Body mass index 40+ - morbidly obese (353768424) BMI 40.0-44.9, adult (Z68.41) Active confirmed Problem Essential hypertension (25800528) Essential hypertension (I10) Active confirmed Problem Type II diabetes mellitus without complication (806162906) Type 2 diabetes mellitus without complication, without long-term current use of insulin (E11.9) Active confirmed Problem Acquired hypothyroidism (272474137) Acquired hypothyroidism (E03.9) Active confirmed Problem Idiopathic gout (16297063) 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) Active confirmed Problem Lower urinary tract symptoms due to benign prostatic hypertrophy (03531811151796) Benign prostatic hyperplasia with lower urinary tract symptoms (N40.1) Active confirmed Problem Atrial fibrillation (40187205) Atrial fibrillation by electrocardiogram (I48.91) Active confirmed Problem Inflammation of foot joint (658679811) Inflammation of foot joint (M19.079) Active confirmed Plan Of Treatment Pending Test Test Name Order Date Echocardiogram 02/12/2019 X-Ray LEFT foot 3V, AP, lateral, oblique 02/18/2018 MICROALBw/RATIO 01/17/2018 CBC with AUTO DIFF 01/17/2018 COMPREHENSIVE METABOLIC PANEL 01/17/2018 A1C GLYCATED HEMOGLOBIN 01/17/2018 LIPID PANEL 01/17/2018 PROSTATE SPECIFIC ANTIGEN,TOTL 8 THYROID STIM HORMONE (ULTRA-S) 8 Insurance Providers Payer Name Payer Address Payer Phone Subscriber Number Group Number Insured Name Patient Relationship to Insured Coverage Start Date Coverage End Date MEDICARE [address] [place] [id number] RUDY ALEXANDER Self - patient is the insured [employer] [address] [address] [place], [place] [id number] RUDY ALEXANDER Self - patient is the insured Medical (General) History Medical History History ICD Code Essential hypertension I10 Type 2 diabetes mellitus wit hout complication, without long-term current use of insulin E11.9 Acquired hypothyroidism E03.9 Mixed hyperlipidemia E78.2 Surgical History Surgery Date(Month/Year) SAMANTHA KNEE REPLACEMENT 2015
--- OUTSIDE RECORDS SUMMARY | 2024-12-24 10:36 | XMS_ITS | Patient Health Record ---
Author Organization [facility] Billing Info Address [address] [place] [address] Support Name Relationship Address Phone Horacio Ratliff Guarantor Unknown [phone] Reason For Referral No Information Plan Of Treatment No Information Insurance Providers Payer Name Payer Address Payer Phone Subscriber Number Group Number Insured Name Patient Relationship to Insured Coverage Start Date Coverage End Date MEDICARE [place] PART B [address] [place] [id number] [phone] [id number] Horacio Ratliff Self - patient is the insured [employer] PPO MEDICARE [address] [address] [place], [place] [id number] Horacio Ratliff Self - patient is the insured
--- OUTSIDE RECORDS SUMMARY | 2024-12-24 10:36 | XMS_ITS | Clinical Summary ---
Author Organization [address] [place] [address] [place] [phone] Phone Care Team Providers Care Photocopying Machine Operator Name Role Phone Lynn Trivedi Primary Care Provider [phone] Allergies No known active allergies Medications allopurinoL [...] Assessment & Plan (05/02/2024 10:18 AM EST): [id number] score of 3 based on his age [...] Encounters Date Type Department Care Team Description 11/28/2024 1:25 PM EDT Ancillary Procedure [facility] [address] [facility] [address] [place] [address] 10/02/2024 9:00 AM EDT Ancillary Procedure [facility] [address] [place] [address] Encounter for adjustment or management of cardiac device from Last 3 Months Surgical History Surgery Date Site/Laterality Comments OTHER SURGICAL HISTORY PROCEDURE: HISTORY OTHER; COMMENT: KNEE REPLACEMENT PACEMAKER IMPLANT PROCEDURE: HISTORICAL PACEMAKER Medical History Medical History Date Comments HTN (hypertension) DX:HTN (hyper tension) Obese DX:Obese; COMMEN T: class I Gout DX:Gout Type 2 diabetes mellitus wit hout complications (CMS/HCC V24, CMS/[facility] V28) DX:Type 2 justin betes mellitus without [...] Care Team (Late st Contact Info) Description 04/16/2025 7:40 AM EST Office Visit [facility] [address] [place] [phone] Kristy Juárez NP [address] [place] [address] [place] [address] 10/05/2025 8:30 AM EDT Ancillary Procedure [facility] [address] [facility] [address] [place] [address] Health Maintenance Due Date Last Done Comments Diabetes: Annual GFR (Glomerular Filtration Rate) 1946 Diabetes: Annual Foot Exam 01/07/1956 Diabetes: Annual Retina Eye Exam 01/07/1956 DTaP,Tdap,and Td Vaccines (1 - Tdap) 1965 Zoster Vaccines (1 of 2) 01/07/1996 Cholesterol Screening (Lipid Panel) 06/01/2023 Falls Risk Assessment 06/01/2023 Hepatitis C Screening 06/01/2023 Medicare Annual Wellness Visit 06/01/2023 04/06/2022 Social Influencers of Health Screening 06/01/2023 Hypertension/CHF/CAD Annual BMP Blood Test 06/05/2023 Diabetes: Annual Urine Albumin-Creatinine Ratio (uACR) 04/17/2024 Diabetes: Blood Sugar Control Test (HGBA1C) 04/17/2024 Depression Screening 05/07/2024 COVID-19 Vaccine ( season) 2024 01/25/2024, 01/24/2023 Influenza Vaccine (#1) 2025 , 01/24/2023, 04/06/2022, Additional history exists Pneumococcal Vaccine: 50+ Years Completed 02/16/2023 RSV Immunization Adult Patients Completed 02/16/2023 HIB Vaccines Aged Out No longer eligi [...] this topic Medical Devices Implanted Type Area Shampoo Technician Device Identifier Shelf Expiration Date Model / Serial / Lot Medt-Card [id number] Implanted:01/2021 (Quantity not on file) 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 [id number] / [id number] / Medt-Card Micra Vr Tcp [id number] Implanted:01/2021 (Quantity not on file) 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 MICRA VR TCP / [id number] / Procedures Procedure Name Priority Date/Time Associated Diagnosis Comments CARDIAC DEVICE CHECK- REMOTE- MURJ Routine 11/28/2024 1:21 PM EDT CARDIAC DEVICE CHECK- IN CLINIC- MURJ Routine 10/02/2024 9:03 AM EDT Encounter for adjustment or management of cardiac device from Last 3 Months Results * Cardiac device check - Remote- MURJ (11/28/2024 1:21 PM EDT) Date Time Interrogation Session [id number] CV DEVICE CHECK Type Interrogation Session Remote CV DEVICE CHECK Implantable Pulse Generator Shampoo Technician MDT CV DEVICE CHECK Implantable Pulse Generator Type IPG CV DEVICE CHECK Implantable Pulse Generator Model [id number] CV DEVICE CHECK Implantable Pulse Generator Serial Number [id number] CV DEVICE CHECK Implantable Pulse Generator Implant Date 20201213 CV DEVICE CHECK Battery Remaining Longevity 96.0 CV DEVICE CHECK Battery Voltage 3.010 CV D EVICE CHECK Battery DAMAGE APPRAISER Trigger 2.558 CV DEVICE CHECK Battery Status Middle of Service CV DEVICE CHECK Lead Channel Sensing Intrinsic Amplitude 20.025 CV DEVICE CHECK Lead Channel Setting Sensing Sensitivity 2.00 CV DEVICE CHECK Lead Channel Impedance Value 820 CV DEVICE CHECK Lead Channel Pacing Threshold Amplitude 0.375 CV DEVICE CHECK Lead Channel Pacing Threshold Pulse Width 0.2 CV DEVICE CHECK Lead Channel RV Pacing Threshold Date 2024-11-13 CV DEVICE CHECK Lead Channel Setting Pacing Amplitude 0.875 CV DEVICE CHECK Lead Channel Setting Pacing Pulse Width 0.2 CV DEVICE CHECK Gab Setting Mode (NBG Code) VVIR CV DEVICE CHECK Gab Setting Lower Rate Limit 60 CV DEVICE CHECK Gab Setting Maximum Sensor Rate 120 CV DEVICE CHECK Date of Service 2024-11-28 CV DEVICE CHECK Anatomical Region Laterality Modality Device Interroga tion 11/13/2024 7:14 PM EDT Impressions 11/28/2024 1:04 PM EDT Normal Remote: No Events * Normal Device Function * Alerts or events: None * Battery: OK, 8.00 yrs * Sensing, impedance and thresholds reviewed * Programmed parameters reviewed * Presenting rhythm reviewed * Heart Rate Histograms reviewed * No significant changes noted Narrative Procedure Note Clovis Coelho MD - 11/28/2024 IMPRESSION: Normal Remote: No Events * Normal Device Function * Alerts or events: None * Battery: OK, 8.00 yrs * Sensing, impedance and thresholds reviewed * Programmed parameters reviewed * Presenting rhythm reviewed * Heart Rate Histograms reviewed * No significant changes noted Clovis Coelho MD CV IMPLANTABLE CARDIAC DEVICE PROCEDURES Final Result * CARDIAC DEVICE CHECK- IN CLINIC- [facility] (10/02/2024 9:03 AM EDT) Date Time Interrogation Session [id number] CV DEVICE CHECK Implantable Pulse Generator Shampoo Technician MDT CV DEVICE CHECK Implantable Pulse Generator Type IPG CV DEVICE CHECK Implantable Pulse Generator Model Micra VR TCP CV DEVICE CHECK Implantable Pulse Generator Serial Number [id number] CV DEVICE CHECK Implantable Pulse Generator Implant Date 20201213 CV DEVICE CHECK Battery Voltage 3.020 CV D EVICE CHECK Battery Status Middle of Service CV DEVICE CHECK Lead Channel Sensing Intrinsic Amplitude 19.400 CV DEVICE CHECK Lead Channel Setting Sensing Sensitivity 2.00 CV DEVICE CHECK Lead Channel Impedance Value 820 CV DEVICE CHECK Lead Channel Pacing Threshold Amplitude 0.380 CV DEVICE CHECK Lead Channel Pacing Threshold Pulse Width 0.2 CV DEVICE CHECK Lead Channel RV Pacing Threshold Date 2024-10-02 CV DEVICE CHECK Lead Channel Setting Pacing Amplitude 0.880 CV DEVICE CHECK Lead Channel Setting Pacing Pulse Width 0.2 CV DEVICE CHECK Gab Setting Mode (NBG Code) VVIR CV DEVICE CHECK Gab Setting Lower Rate Limit 60 CV DEVICE CHECK Gab Setting Maximum Sensor Rate 120 CV DEVICE CHECK Date of Service 2024-10-14 CV DEVICE CHECK Anatomical Region Laterality Modality Device Interroga tion 10/02/2024 Impressions 10/03/2024 10:28 AM EDT Normal In-Office: No Events * Normal Device Function * Alerts or events: None * Battery: MOS, >8.0 years (>7.0 - >9.0 years) * Sensing, impedance and thresholds reviewed and tested * Presenting Rhythm: FARM BUTCHER/VS 75-95 bpm irregular, patient is on Eliquis * Underlying Rhythm: VS 60s-80s * Heart Rate Histograms reviewed * Pacing and Detection Parameters were evaluated Narrative Procedure Note Clovis Coelho MD - 10/03/2024 IMPRESSION: Normal In-Office: No Events * Normal Device Function * Alerts or events: None * Battery: MOS, >8.0 years (>7.0 - >9.0 years) * Sensing, impedance and thresholds reviewed and tested * Presenting Rhythm: FARM BUTCHER/VS 75-95 bpm irregular, patient is on Eliquis * Underlying Rhythm: VS 60s-80s * Heart Rate Histograms reviewed * Pacing and Detection Parameters were evaluated us Order Referral Cardiovascular CV IMPLANTABLE CAR DIAC DEVICE PROCEDURES Final Result from Last 3 Months Insurance MEDICARE [facility] Care Teams Photocopying Machine Operator Relationship Specialty Start Date End Date Lynn Trivedi PA [address] [place] [address] PCP - General 08/16/22
--- OUTSIDE RECORDS SUMMARY | 2024-12-24 10:36 | XMS_ITS ---
Author Name Interface, [id number] lity Address [place] [address] [facility] Address [address] [address] Allergies and Adverse Reactions Plan Reason for Visit Encounters Immunizations Diagnostic Results Medications Problems Vital Signs
== END 2024-12-24 10:10 | disposition home or self-care (01) ==
LOC: HO.HGI 09:46
PROVIDERS: PCP Physician Assistant; Visit Provider Nurse Practitioner Family
DX: R79.89 Other specified abnormal findings of blood chemistry (principal); K76.0 Fatty (change of) liver, not elsewhere classified
CPT/HCPCS: 99213

== ENCOUNTER 2024-12-24 09:45 | Outpatient (REF) | payer MEDICARE, SELFPAY ==
[2024-12-24 10:47] LABS: Hemoglobin A1C 202.2801 umol/L; Total Hemoglobin (HGBA1C) 4034.5056 umol/L
[2024-12-24 11:05] LABS: Albumin Level 4.3 g/dL (3.5-5.0); Alkaline Phosphatase 63 U/L (39-117); Aspartate Amino Transferase 37 U/L (5-37); Total Protein 7.4 g/dL (6.5-8.0)
[2024-12-24 11:16] LABS: Alanine Aminotransferase 32 U/L (0-40)
[2024-12-29 14:58] LABS: FIB-ALT 23 U/L (9-46); FIB-Alpha-2-Macroglobulin 327 mg/dL (106-279); FIB-Apolipoprotein A1 136 mg/dL (94-176); FIB-GGT 17 U/L (3-70); FIB-Haptoglobin 211 mg/dL (43-212); FIB-Total Bilirubin 0.7 mg/dL (0.2-1.2); Liver Fibrosis Score 0.59; Liver Fibrosis Stage F3; Nec Inflam Act Grade A0; Nec Inflam Act Score 0.15
== END 2024-12-24 09:46 | disposition home or self-care (01) ==
LOC: HO.LAB 09:45
PROVIDERS: PCP Physician Assistant; Visit Provider Nurse Practitioner Family
DX: K76.0 Fatty (change of) liver, not elsewhere classified (principal); R79.89 Other specified abnormal findings of blood chemistry; Z83.3 Family history of diabetes mellitus
CPT/HCPCS: 36415; 80076; 81596; 83036; 99212

== ENCOUNTER 2025-02-25 07:30 | Outpatient (REF) | payer MEDICARE, SELFPAY ==
--- OUTSIDE RECORDS SUMMARY | 2025-02-25 07:33 | XMS_ITS ---
Author Name Interface, [id number] lity Address [address] [address] Organization [facility] Address [address] [address] Allergies and Adverse Reactions Medication/Group Name Reaction Severity Date No known allergies Plan Date Type Value 11/10/2021 APPOINTMENT LAb/ 6 month fol lowup 05/19/2021 APPOINTMENT LAB/ 6 month fol lowup 05/19/2021 APPOINTMENT LAB/ 6 month fol lowup 11/10/2021 LAB_ORDER CBC 11/10/2021 LAB_ORDER CMP Reason for Visit LAb/ 6 month [...] ubin, total mg/dL 0.1 1.0 1.0 FINAL [facility] 05/19 Alkal ine phosp hatas e U/L 45.0 115.0 48 FINAL [facility] 05/19 ALT/S GPT U/L 7.0 52.0 26 FINAL [facility] 05/19 AST/S GOT U/L 13.0 39.0 24 Performed at [facility] FINAL [facility] 05/19 A/G ratio 1.6% FINAL [facility] 05/19 BUN mg/dL 7.0 25.0 23 FINAL [facility] 05/19 CO2 mmol/L 21.0 31.0 28 FINAL [facility] 05/19 Anion gap 0.0 18.0 8.0% FINAL [facility] 05/19 Gluco se mg/dL 70.0 140.0 172 High FINAL [facility] 05/19 Creat inine mg/dL 0.8 1.3 1.1 FINAL [facility] 05/19 GFR estim ate 1.73m2 >60 FINAL [facility] 05/19 BUN/C reati nine ratio 20.0% FINAL [facility] 05/19 Osmol ality , calcu lated 270.0 300.0 285.0% FINAL [facility] 05/19 Calci um mg/dL 8.6 10.2 9.5 FINAL [facility] 05/19 Total prote in g/dL 5.7 8.0 6.7 FINAL [facility] 05/19 Album in g/dL 3.5 5.0 4.1 FINAL [facility] 05/19 Chlor vadim mmol/L 98.0 107.0 103 FINAL [facility] 05/19 Sodiu m mmol/L 136.0 146.0 139 FINAL [facility] 05/19 Potas sium mmol/L 3.5 5.1 4.7 FINAL [facility] 05/19 WBC Thsd/m m3 4.0 11.0 6.0 FINAL [facility] 05/19 RBC Mill/m m3 4.2 5.7 5.4 FINAL [facility] 05/19 HGB g/dL 13.3 17.1 16.9 FINAL [facility] 05/19 HCT % 39.0 50.0 50.1 High FINAL [facility] 05/19 MCV fL 80.0 100.0 93 FINAL [facility] 05/19 MCH, g/dL pg 26.0 34.0 31 FINAL [facility] 05/19 MCHC g/dL 31.0 37.0 34 FINAL [facility] 05/19 RDW % 11.5 14.5 14.9 High FINAL [facility] 05/19 PLT Thsd/m m3 140.0 450.0 233 FINAL [facility] 05/19 MPV fL 7.0 12.0 8.8 FINAL [facility] 05/19 LY % % 20.0 44.0 32.3 FINAL [facility] 05/19 MO % % 2.0 9.0 9.0 FINAL [facility] 05/19 Ronn % % 50.0 70.0 53.7 FINAL [facility] 05/19 Eosin ophil % % 0.0 4.0 4.2 High FINAL [facility] 05/19 Basop hil % % 0.0 2.0 0.8 FINAL [facility] 05/19 LY # Thsd/m m3 1.9 FINAL [facility] 05/19 MO # Thsd/m m3 0.5 FINAL [facility] 05/19 Ronn # (ANC) Thsd/m m3 3.2 FINAL [facility] 05/19 EO # Thsd/m m3 0.3 FINAL [facility] 05/19 BA # Thsd/m m3 0.0 Performed at [facility] FINAL [facility] 11/10 WBC Thsd/m m3 4.0 11.0 7.5 FINAL [facility] 11/10 RBC Mill/m m3 4.2 5.7 5.2 FINAL [facility] 11/10 HGB g/dL 13.3 17.1 16.1 FINAL [facility] 11/10 HCT % 39.0 50.0 48.5 FINAL [facility] 11/10 MCV fL 80.0 100.0 93 FINAL [facility] 11/10 MCH, g/dL pg 26.0 34.0 31 FINAL [facility] 11/10 MCHC g/dL 31.0 37.0 33 FINAL [facility] 11/10 RDW % 11.5 14.5 15.0 High FINAL [facility] 11/10 PLT Thsd/m m3 140.0 450.0 223 FINAL [facility] 11/10 MPV fL 7.0 12.0 8.8 FINAL [facility] 11/10 LY % % 20.0 44.0 25.0 FINAL [facility] 11/10 MO % % 2.0 9.0 7.4 FINAL [facility] 11/10 Ronn % % 50.0 70.0 63.0 FINAL [facility] 11/10 Eosin ophil % % 0.0 4.0 3.6 FINAL [facility] 11/10 Basop hil % % 0.0 2.0 1.0 FINAL [facility] 11/10 LY # Thsd/m m3 1.9 FINAL [facility] 11/10 MO # Thsd/m m3 0.5 FINAL [facility] 11/10 Ronn # (ANC) Thsd/m m3 4.7 FINAL [facility] 11/10 EO # Thsd/m m3 0.3 FINAL [facility] 11/10 BA # Thsd/m m3 0.1 Performed at [facility] FINAL [facility] 11/10 Sodiu m mmol/L 136.0 146.0 138 FINAL [facility] 11/10 Potas sium mmol/L 3.5 5.1 4.7 FINAL [facility] 11/10 Chlor vadim mmol/L 98.0 107.0 104 FINAL [facility] 11/10 CO2 mmol/L 21.0 31.0 28 FINAL [facility] 11/10 Anion gap 0.0 18.0 6.0% FINAL [facility] 11/10 Gluco se mg/dL 70.0 140.0 131 FINAL [facility] 11/10 BUN mg/dL 7.0 25.0 18 FINAL [facility] 11/10 Creat inine mg/dL 0.8 1.3 1.2 FINAL [facility] 11/10 GFR estim ate 1.73m2 59 Low FINAL [facility] 11/10 BUN/C reati nine ratio 15.0% FINAL [facility] 11/10 Osmol ality , calcu lated 270.0 300.0 279.0% FINAL [facility] 11/10 Calci um mg/dL 8.6 10.2 10.1 FINAL [facility] 11/10 Total prote in g/dL 5.7 8.0 6.8 FINAL [facility] 11/10 Album in g/dL 3.5 5.0 4.3 FINAL [facility] 11/10 A/G ratio 1.7% FINAL [facility] 11/10 Bilir ubin, total mg/dL 0.1 1.0 0.6 FINAL [facility] 11/10 Alkal ine phosp hatas e U/L 45.0 115.0 40 Low FINAL [facility] 11/10 ALT/S GPT U/L 7.0 52.0 28 FINAL [facility] 11/10 AST/S GOT U/L 13.0 39.0 22 Performed at [facility] FINAL [facility] Medications Date Name Route Dose Frequency Instructions Start Date End Date Status Fill Status Indication 10/19 Metformin Oral BID active 10/19 Ezetimibe Oral DAILY active 10/19 Canagliflo zin Oral DAILY active 10/19 Apixaban Oral BID active 10/19 Allopurino l Oral BID active 10/19 Levothyrox ine Oral DAILY active Problems Diagnosis Status Date of Diagnosis Resolution Date Polycythemia Active 10/19/2020 Vital Signs Date Type [...]
--- OUTSIDE RECORDS SUMMARY | 2025-02-25 07:33 | XMS_ITS | Patient Health Record ---
Author Organization [facility] Address [address] [place], [place] [id number] Care Team Providers Care Agricultural Plow Operator Name Role Phone Winsome Dutta Primary Care Provider [phone] Lana Gaston Unavailable Unavailable Reason For Referral [...] Status Risk Notes Problem Obese class II (128376403321885) BMI 39.0-39.9,adult (Z68.39) Active confirmed Problem Body mass index 40+ - morbidly obese (173784100) BMI 40.0-44.9, adult (Z68.41) Active confirmed Problem Essential hypertension (09914522) Essential hypertension (I10) Active confirmed Problem Type II diabetes mellitus without complication (953403167) Type 2 diabetes mellitus without complication, without long-term current use of insulin (E11.9) Active confirmed Problem Acquired hypothyroidism (839270719) Acquired hypothyroidism (E03.9) Active confirmed Problem Idiopathic gout (81725801) 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) Active confirmed Problem Lower urinary tract symptoms due to benign prostatic hypertrophy (82463711981683) Benign prostatic hyperplasia with lower urinary tract symptoms (N40.1) Active confirmed Problem Atrial fibrillation (67226331) Atrial fibrillation by electrocardiogram (I48.91) Active confirmed Problem Inflammation of foot joint (534656842) Inflammation of foot joint (M19.079) Active confirmed [...] MEDICARE [address] [place] De Dios [id number] RUDY ALEXANDER Self - patient is the insured [employer] [address] [address] [place], [place] [id number] [phone] [id number] RUDY ALEXANDER Self - patient is the insured Medical (General) History Medical History History ICD Code Essential hypertension I10 Type 2 diabetes mellitus wit hout complication, without long-term current use of insulin E11.9 Acquired hypothyroidism E03.9 Mixed hyperlipidemia E78.2 Surgical History Surgery Date(Month/Year) SAMANTHA KNEE REPLACEMENT 2015
--- OUTSIDE RECORDS SUMMARY | 2025-02-25 07:33 | XMS_ITS | Patient Health Record ---
Author Organization [facility] Billing Info Address [address] [place] [address] Support Name Relationship Address Phone Horacio Ratliff Guarantor Unknown [phone] Reason For Referral No Information Plan Of Treatment No Information Insurance Providers Payer Name Payer Address Payer Phone Subscriber Number Group Number Insured Name Patient Relationship to Insured Coverage Start Date Coverage End Date MEDICARE [place] PART B [address] [place] [id number] Horacio Ratliff Self - patient is the insured [employer] PPO MEDICARE [address] [address] [place], [place] [id number] Horacio Ratliff Self - patient is the insured
--- OUTSIDE RECORDS SUMMARY | 2025-02-25 07:33 | XMS_ITS | CCD ---
Author Name Interface, [id number] lity Address [address] [address] Organization [facility] Address [address] [address] Care Team Providers Care Traffic Maintenance Supervisor Name Role Phone Veronica GIPSON, Milly Unavailable Unavailable Allergies and Adverse Reactions Medication/Group Name Reaction Severity Date No known allergies Reason for Visit LAb/ 6 month followup Mental Status Date Value 10/19/2020 Normal concentration 10/19/2020 Memory function norm al 10/19/2020 Mentally alert 10/19/2020 Oriented to person t lolita and place Functional Status Date Name/Question Score/Answer 10/19/2020 Karnofsky performance status 100 11/10/2020 Karnofsky performance status 100 05/19/2021 Karnofsky performance status 100 11/10/2021 Karnofsky performance status 100 Medications Date Name Route Dose Frequency Instructions Start Date End Date Status Fill Status Indication 10/19 Metformin Oral BID active 10/19 Apixaban Oral BID active 10/19 Canagliflo zin Oral DAILY active 10/19 Levothyrox ine Oral DAILY active 10/19 Ezetimibe Oral DAILY active 10/19 Allopurino l Oral BID active Problems Diagnosis Status Date of Diagnosis Resolution Date Polycythemia Active 10/19/2020 Social History Date Name Value 11/10/2020 Sex Male
--- OUTSIDE RECORDS SUMMARY | 2025-02-25 07:33 | XMS_ITS ---
Author Name Interface, [id number] lity Address [place] [address] Organization [facility] Address [address] [address] Allergies and Adverse Reactions Medication/Group Name Reaction Severity Date No known allergies Plan Date Type Value 11/10/2021 APPOINTMENT LAb/ 6 month fol lowup 11/10/2021 LAB_ORDER CBC [facility] Anion gap 0.0 18.0 6.0% FINAL [facility] 11/10 Gluco se mg/dL 70.0 140.0 131 FINAL [facility] 11/10 BUN mg/dL 7.0 25.0 18 FINAL [facility] 11/10 Creat inine mg/dL 0.8 1.3 1.2 FINAL [facility] 11/10 GFR estim ate 1.73m2 59 Low FINAL [facility] 11/10 BUN/C reati nine ratio 15.0% FINAL [facility] 11/10 Osmol ality , calcu lated 270.0 300.0 279.0% FINAL [facility] 11/10 Calci um mg/dL 8.6 10.2 10.1 FINAL [facility] 11/10 Total prote in g/dL 5.7 8.0 6.8 FINAL [facility] 11/10 Album in g/dL 3.5 5.0 4.3 FINAL [facility] 11/10 A/G ratio 1.7% FINAL [facility] 11/10 Bilir ubin, total mg/dL 0.1 1.0 0.6 FINAL [facility] 11/10 Alkal ine phosp hatas e U/L 45.0 115.0 40 Low FINAL [facility] 11/10 ALT/S GPT U/L 7.0 52.0 28 FINAL [facility] 11/10 AST/S GOT U/L 13.0 39.0 [address] [facility] FINAL [facility] 11/10 WBC Thsd/m m3 [...] at [facility] FINAL [facility] Medications Date [...]
--- OUTSIDE RECORDS SUMMARY | 2025-02-25 07:33 | XMS_ITS | Clinical Summary ---
Author Organization [address] [place] [address] [place] [phone] Phone Care Team Providers Care Hammer Smith Name Role Phone Lynn Trivedi Primary Care Provider [phone] Allergies No known active allergies Medications allopurinoL [...] Assessment & Plan (05/02/2024 10:18 AM EST): [id number] score of 3 based on his age [...] Encounters Date Type Department Care Team Description 02/13/2025 1:20 PM EDT Ancillary Procedure [facility] [address] [facility] [address] [place] [address] 11/28/2024 1:25 PM EDT Ancillary Procedure [facility] [address] [place] [address] from Last 3 Months Surgical History Surgery [...] Care Team (Late st Contact Info) Description 10/05/2025 8:30 AM EDT Ancillary Procedure [facility] [address] [facility] [address] [place] [address] Health Maintenance Due Date Last [...] Control Test (HGBA1C) 04/17/2024 Depression Screening 05/07/2024 Pneumococcal Vaccine: 50+ Years Completed 02/16/2023 RSV Immunization Adult Patients Completed 02/16/2023 COVID-19 Vaccine Completed 02/04/2025, , 01/24/2023 Influenza Vaccine Completed 02/04/2025, , 01/24/2023, Additional history exists HIB Vaccines Aged Out [...] this topic Medical Devices Implanted Type Area Breakfast Bar Attendant Device Identifier Shelf Expiration Date Model / Serial / Lot Medt-Card [id number] Implanted:01/2021 (Quantity not on file) 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 [id number] / [id number] / Medt-Card Micra Vr Tcp [id number] Implanted:01/2021 (Quantity not on file) 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 MICRA VR TCP / [id number] / Procedures Procedure Name Priority Date/Time Associated Diagnosis Comments CARDIAC DEVICE CHECK- REMOTE- MURJ Routine 02/13/2025 1:15 PM EDT CARDIAC DEVICE CHECK- REMOTE- MURJ Routine 11/28/2024 1:21 PM EDT from Last 3 Months Results * Cardiac device check - Remote- MURJ (02/13/2025 1:15 PM EDT) Only the most recent of2 resultswithin the time period is included. Date Time Interrogation Session [id number] CV DEVICE CHECK Type Interrogation Session Remote CV DEVICE CHECK Implantable Pulse Generator Breakfast Bar Attendant MDKaylan CV DEVICE CHECK Implantable Pulse Generator Type IPG CV DEVICE CHECK Implantable Pulse Generator Model [id number] CV DEVICE CHECK Implantable Pulse Generator Serial Number [id number] CV DEVICE CHECK Implantable Pulse Generator Implant Date 20201213 CV DEVICE CHECK Battery Remaining Longevity 96.0 CV DEVICE CHECK Battery Voltage 3.010 CV D EVICE CHECK Battery CUSTOMER MARKETING ASSISTANT Trigger 2.558 CV DEVICE CHECK Battery Status Middle of Service CV DEVICE CHECK Lead Channel Sensing Intrinsic Amplitude 20.588 CV DEVICE CHECK Lead Channel Setting Sensing Sensitivity 2.00 CV DEVICE CHECK Lead Channel Impedance Value 830 CV DEVICE CHECK Lead Channel Pacing Threshold Amplitude 0.375 CV DEVICE CHECK Lead Channel Pacing Threshold Pulse Width 0.2 CV DEVICE CHECK Lead Channel RV Pacing Threshold Date 2025-02-12 CV DEVICE CHECK Lead Channel Setting Pacing Amplitude 0.875 CV DEVICE CHECK Lead Channel Setting Pacing Pulse Width 0.2 CV DEVICE CHECK Gab Setting Mode (NBG Code) VVIR CV DEVICE CHECK Gab Setting Lower Rate Limit 60 CV DEVICE CHECK Gab Setting Maximum Sensor Rate 120 CV DEVICE CHECK Date of Service 2025-02-27 CV DEVICE CHECK Anatomical Region Laterality Modality Device Interroga tion 02/12/2025 7:23 AM EDT Impressions 02/13/2025 7:51 AM EDT Normal Remote: No Events * Normal Device Function * Alerts or events: None * Battery: OK, 8.00 yrs * Sensing, impedance and thresholds reviewed * Programmed parameters reviewed * Presenting rhythm reviewed * Heart Rate Histograms reviewed * No significant changes noted Narrative Procedure Note Clovis Coelho MD - 02/13/2025 IMPRESSION: Normal Remote: No Events * Normal Device Function * Alerts or events: None * Battery: OK, 8.00 yrs * Sensing, impedance and thresholds reviewed * Programmed parameters reviewed * Presenting rhythm reviewed * Heart Rate Histograms reviewed * No significant changes noted Clovis Coelho MD CV IMPLANTABLE CARDIAC DEVICE PROCEDURES Final Result from Last 3 Months Insurance MEDICARE [facility] Care Teams Hammer Smith Relationship Specialty Start Date End Date Lynn Trivedi PA [address] [place] [address] PCP - General 08/16/22
[2025-02-25 11:24] LABS: MANUAL DIFF FLAG NO
[2025-02-25 11:30] LABS: Hematocrit 49.4 % (42.0-52.0); Hemoglobin 16.2 g/dl (14.0-18.0); Imm Gran Abs Auto 0.01 X10*3/uL (0.00-0.03); Imm Gran Pct Auto 0.2 % (0.0-0.4); Lymphocytes Absolute Auto 1.6 X10*3/uL (1.2-4.9); Mean Corpuscular HGB Conc 32.8 g/dl (31.0-36.0); Mean Corpuscular Hemoglobin 30.9 pg (27.0-33.0); Mean Corpuscular Volume 94.3 fL (80.0-98.0); NRBC Abs Auto 0.000 X10*3/uL (0.0-0.012); NRBC Pct Auto 0.0 /100WBC (0.0-0.2); Platelet Count 216 X10*3/uL (160-400); Red Blood Count 5.24 X10*6/uL (4.60-5.80); White Blood Count 6.5 X10*3/uL (4.8-10.8)
[2025-02-25 11:54] LABS: Alanine Aminotransferase 39 U/L (0-40); Albumin Level 4.2 g/dL (3.5-5.0); Alkaline Phosphatase 59 U/L (39-117); Anion Gap 11 (12-20); Aspartate Amino Transferase 35 U/L (5-37); Blood Urea Nitrogen 22 mg/dL (9-16); Calcium 9.6 mg/dL (8.4-10.2); Carbon Dioxide 28 mmol/L (22-29); Chloride 107 mmol/L (96-108); Cholesterol 185 mg/dL (<200); Estimated Glomerular Filt Rate > 60; HDL Cholesterol 38 mg/dL (>40); Potassium 4.7 mmol/L (3.3-5.1); Sodium 141 mmol/L (135-145); Total Protein 7.1 g/dL (6.5-8.0); Triglycerides 99 mg/dL (<150)
[2025-02-25 14:13] LABS: Appearance Urine Clear; Glucose Urine UA >=1000 mg/dL (Negative); PH 5.5 (5.0-9.0); Specific Gravity - Urine 1.025 (1.005-1.025); UMIC TRIGGER UACC YES
[2025-02-25 14:52] LABS: Total Protein Urine Random < 7 mg/dL (<12)
== END 2025-02-25 07:31 | disposition home or self-care (01) ==
LOC: HO.WFDLDS 07:30
PROVIDERS: Internal Medicine Hypertension Specialist; Visit Provider Physician Assistant
DX: Z01.89 Encounter for other specified special examinations (principal); Z12.5 Encounter for screening for malignant neoplasm of prostate; I10 Essential (primary) hypertension; E11.29 Type 2 diabetes mellitus with other diabetic kidney complication; I48.20 Chronic atrial fibrillation, unspecified; E03.9 Hypothyroidism, unspecified; R80.9 Proteinuria, unspecified
CPT/HCPCS: 36415; 80048; 80053; 80061; 81001; 82570; 83036; 84153; 84156; 84443; 85025

== ENCOUNTER 2025-03-04 11:15 | Outpatient (AMB) | payer MEDICARE, SELFPAY ==
--- NOTE | 2025-03-04 11:20 | A.OFFVIS_ITS ---
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: No Allergies No Known Allergies Allergy (Verified 03/04/25 11:20) Medication List - Last Reconciled 03/04/25 by Lynn Trivedi PA-C allopurinol 100 mg PO BID apixaban (Eliquis) 5 mg PO BID blood sugar diagnostic (FreeStyle Lite Strips) Use daily As directed to check blood glucose blood-glucose meter (FreeStyle Lite Meter kit) Use daily As directed to check blood sugars empagliflozin (Jardiance) 25 mg PO QAM lancets (FreeStyle Lancets) use daily as directed to check blood glucose levothyroxine 88 mcg PO DAILY 90 days lisinopril 2.5 mg PO DAILY metformin 500 mg PO BID HPI mawv HPI Details Patient is a 80 year old male with a significant past medical history of type 2 diabetes, hypothyroidism, gout, dyslipidemia, AFib, s/p micra implant and RAYNE presenting today for a mwv. No acute concerns today. Immunizations UTD- flu, shingles, covid boosters, pneumonia vax No concerns regarding ADLs or falls. CV: Blood pressure today in the office is 106/68. He is on lisinopril 2.5 mg. He is followed with Cardiology, Dr. Burton. He is scheduled for follow up in the fall 2024. Stopped Zetia recently due to leg pain. Unable to tolerate most statins. Last LDL was 154. Endo: DM- A1c is 6.8. He is on Jardiance 25 mg and metformin 500 mg twice a day. He does check his blood sugars but usually every other day. States blood sugars are 100-150. Denies any hyper or hypoglycemic events. Follows with podiatry- Dr. Veloz. Follows with ophthamology. Did not tolerate trulicity. Tsh- was wnl on the levothyroxine 88 mcg. GI: has a positive cologuard last year. followed with GI and made the decision to not proceed with colonoscopy. understands risks of undiagnosed colon ca. He recently saw GI for the elevated LFTs and abnormal liver ultrasound. Weight loss was recommended. Possible MRI was recommended depending on liver tests. Pt has follow up arranged with them to further discuss/review. Derm: had a skin check this summer with rasheed. [facility] Medical History (Updated 12/24/24 @ 10:19 by Eunice Gutierrez, [facility]) Non-alcoholic fatty liver disease Obesity with serious comorbidity Severe obesity Pacemaker Hypothyroid Hyperlipidemia HTN (hypertension) Right hip pain Gout Erectile dysfunction Controlled type 2 diabetes mellitus Chronic a-fib Surgical History History of knee replacement Social History Housing: House Alcohol intake: current Patient Tobacco Use Status: Former Tobacco user Tobacco use type: Cigarette Cigarette Packs Per Day: 1 Years Smoked: 9 e-Cigarette/Vaping Use: Never Used Second Hand Smoke Exposure: No service: Yes Current occupational status: retired Cognitive needs: No Hearing needs: Yes (hearing aids) Vision needs: No Questionnaire Medicare Wellness Checkup What [age] What gender do you identify with?: male During the past 4 weeks, how much have you been bothered by emotional problems such as feeling anxious, depressed, irritable, sad or downhearted, and blue?: not at all During the past 4 weeks, has your physical & emotional health limited your social activities with family, friends, neighbors, or groups?: not at all During the past 4 weeks, how much bodily pain have you generally had?: no pain During the past 4 weeks, was someone available to help you if you needed & wanted help?: yes, as much as I wanted During the past 4 weeks, what was the hardest physical activity you could do for at least 2 minutes?: heavy Can you get to places out of walking distance without help? (For eg., can you travel alone on buses, taxis or drive your car?): Yes Can you go shopping for groceries or clothes without someone's help?: Yes Can you prepare your own meals?: Yes Can you do your housework without help?: Yes Because of any health problems, do you need the help of another person with your personal care needs such as eating, bathing, dressing or getting around the house?: No Can you handle your own money without help?: No During the past 4 weeks, how would you rate your health in general?: very good During the past 4 weeks how have things been going for you?: very well; could hardly better Are you having difficulties driving your car?: no Do you always fasten your seat belt when you are in a car?: yes, usually During past 4 weeks, have you been bothered by the following: never: Falling or dizzy when standing up, Trouble eating well?, Teeth or denture problems?, Problems using the telephone? and Tiredness or fatigue? and always: Sexual problems? Have you fallen 2 or more times in the past year?: No Are you afraid of falling?: Yes Are you a smoker?: no During the past 4 weeks, how many drinks of wine, beer, or other alcoholic beverages did you have?: 1 drink or less per week Do you exercise for about 20 minutes 3 or more times a week?: no, I usually do not exercise this much Have you been given information to help with the following?: no: Hazards in your house that might hurt you? and no: Keeping track of your medications? How often do you have trouble taking medicines the way you have been told to take them?: I always take medicine as prescribed How confident are you that you can control & manage most of your health problems?: very confident What is your race?: White Mini Mental State Exam (MMSE) Orientation What is the (year) (season) (date) (day) (month)?: year, season, date, day and month Where are we (state) (county) (town or city) (hospital) (floor)?: state, county, town or city, hospital/clinic and floor Registration Name of 3 unrelated objects clearly and slowly, then ask patient to repeat all 3 of them. (1st repeat determines score. Make sure they can repeat all three): object 3 Attention & Calculation (CHOOSE ONE) Spell WORLD backwards (DLROW): 5 letters Recall Ask patient to repeat the 3 items from question #3.: object 3 Language Show patient a wristwatch & ask what it is. Repeat for pencil.: pencil Ask the patient to repeat the phrase 'No ifs, ands, or buts' after you.: correct Ask the patient to 'take a piece of paper with their right hand' 'fold paper in half' 'place paper on floor': take paper in right hand Print the sentence 'CLOSE YOUR EYES' on a piece. If patient actually closes eyes then score.: followed written direction Give patient a blank piece of paper & ask to write a sentence. Score if it contains a noun & verb.: sentence contains subject and verb Score Score: 22 Activity of Daily Living Bathing - sponge bath, tub bath or shower: receives no assistance (gets in/out by self, if usual bathing means Dressing - getting clothes from closets & drawers, including inner/outer garments & fasteners.: gets clothes & gets completely dressed without help Toileting - going to the 'toilet room' for urine/bowel elimination & cleaning self/arranging clothes: goes to toilet room, cleans self, arranges clothes without help Transfer: moves in & out of bed and chair without help (may use support object) Continence: controls urination/bowel movements completely by self Feeding: feeds self without help Total Score: 0 Information obtained from: patient Using telephone: independent Traveling: independent Shopping: independent Preparing meals: independent Housework: independent Taking medicine: independent Managing money: independent PHQ-9 Over the last 2 weeks, how often have you been bothered by any of the following problems? 1. Little interest or pleasure in doing things: not at all 2. Feeling down, depressed, or hopeless: not at all 3. Trouble falling or staying asleep, or sleeping too much: not at all 4. Feeling tired or having little energy: not at all 5. Poor appetite or overeating: not at all 6. Feeling bad about yourself - or that you are a failure or have let yourself or your family down: not at all 7. Trouble concentrating on things, such as reading the newspaper or watching television: not at all 8. Moving or speaking so slowly that other people could have noticed. Or the opposite - being so fidgety or restless that you have been moving around a lot more than usual: not at all 9. Thoughts that you would be better off or of hurting yourself in some way: not at all Total score: 0 Depression Screening Interpretation: Negative Depression Screening Done: Yes 45056 - PHQ-9 Billing: Yes Source: Developed by Drs. David Fleming, Talia Guerrero, Dirk Brody and colleagues, with an educational kojo from [employer]. Physical Exam Vital Signs: BMI result Body Mass Index 35.4 Const Orientation/consciousness: patient oriented x3 HEENT Ears: hearing grossly normal bilaterally Neck Thyroid: Thyroid normal Lymphatic: no lymphadenopathy noted Resp Auscultation: clear to auscultation bilaterally Cardio Rate: regular rate Rhythm: regular rhythm Heart sounds: S1 normal heart sound present and S2 normal heart sound present GI Inspection: Yes normal to inspection Palpation (GI): Soft to palpation and Other GI palpation findings present (nontender, no cva tenderness) Auscultation: normoactive bowel sounds Rectal Exam - Male: Yes deferred Skin General skin exam: no rashes or lesions noted Neuro General: patient oriented x3, gait normal and no focal motor deficits Office Procedures EKG Details: EKG today in office is noted to have AFib rate 81 beats per minute. Right bundle branch block. He follows with Cardiology. EKG interpreted myself and Dr. Clements. [id number], Complete Results Reviewed Results Reviewed: Laboratory Tests 02/25/25 02/25/25 07:35 07:44 WBC 6.5 RBC 5.24 Hgb 16.2 Hct 49.4 Plt Count 216 Sodium 141 Potassium 4.7 Chloride 107 Carbon Dioxide 28 Anion Gap 11 L BUN 22 H Creatinine 1.12 Estimated GFR > 60 Random Glucose 126 H Hemoglobin A1c % 6.8 H AST 35 ALT 39 Triglycerides 99 Cholesterol 185 LDL Cholesterol, Calc 128 H HDL Cholesterol 38 L PSA Screen 0.24 TSH 3.80 Hyaline Casts 0-2 U Random Total Protein < 7 Urine Creatinine 78.98 Assessment & Plan Assessment & Plan (1) Encounter for subsequent annual wellness visit in Medicare patient: Code(s): Z00.00 - Encounter for general adult medical examination without abnormal findings Plan: Health maintenance reviewed Labs reviewed Forms provided today Immunizations up-to-date (2) Microalbuminuria due to type 2 diabetes mellitus: Comment: 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 Obesity could be a contributing factor as well. Code(s): E11.29 - Type 2 diabetes mellitus with other diabetic kidney complication; R80.9 - Proteinuria, unspecified Plan: well controlled continue jardiance to 25 mg and metformin repeat labs in a few months (3) Chronic a-fib: Code(s): I48.20 - Chronic atrial fibrillation, unspecified Plan: has follow up with cards stable (4) Hypothyroid: Code(s): E03.9 - Hypothyroidism, unspecified Qualifiers: Hypothyroidism type: acquired Qualified Code(s): E03.9 - Hypothyroidism, unspecified Plan: on levothyroxine 88 mcg tsh wnl continue will monitor (5) HTN (hypertension): Code(s): I10 - Essential (primary) hypertension Qualifiers: Hypertension type: primary hypertension Qualified Code(s): I10 - Essential (primary) hypertension Plan: wnl continue current plan Orders: Orders Comprehensive [place]. Panel Fast Today E03.9 - Hypothyroidism, unspecified, E11.29 - Type 2 diabetes mellitus with other diabetic kidney complication, I10 - Essential (primary) hypertension, R80.9 - Proteinuria, unspecified Hemoglobin A1c Today E03.9 - Hypothyroidism, unspecified, E11.29 - Type 2 diabetes mellitus with other diabetic kidney complication, I10 - Essential (primary) hypertension, R73.01 - Impaired fasting glucose, R80.9 - Proteinuria, unspecified Lipid Panel Today E03.9 - Hypothyroidism, unspecified, E11.29 - Type 2 diabetes mellitus with other diabetic kidney complication, I10 - Essential (primary) hypertension, R80.9 - Proteinuria, unspecified TSH reflex Free T4 Today E03.9 - Hypothyroidism, unspecified, E11.29 - Type 2 diabetes mellitus with other diabetic kidney complication, I10 - Essential (primary) hypertension, R80.9 - Proteinuria, unspecified Microalbumin, Random (w Creat) Today E03.9 - Hypothyroidism, unspecified, E11.29 - Type 2 diabetes mellitus with other diabetic kidney complication, I10 - Essential (primary) hypertension, R80.9 - Proteinuria, unspecified Patient Instructions: [phone]- radiology call to book u/s in Jun Quality Reporting (2019) Depression/Bipolar (159/160/161/177) PHQ-9: Total score: 0 Coding Level of Care Code Medicare First (G0438) Est Pt Level 3 (32842) Diagnoses Encounter for subsequent annual wellness visit in Medicare patient Z00.00 Microalbuminuria due to type 2 diabetes mellitus E11.29; R80.9 Chronic a-fib I48.20 Acquired hypothyroidism E03.9 Hypothyroidism type: acquired Primary hypertension I10 Hypertension type: primary hypertension CPT Codes EKG - CPT: [id number], Complete ([id number]) Additional Codes PHQ-9 - 23126 - PHQ-9 Billing: Yes ([id number]) Advance Care Planning Advance Care Planning discussion: Exists, not on file Date of discussion: 03/04/25 Forms completed: Health Care Proxy, MOLST and Living will
[2025-03-04 11:23] VITALS: BP 106/68; PULSE 84; RESP 14; TEMP 36.2; O2SAT 97; BMI 35.4
--- OUTSIDE RECORDS SUMMARY | 2025-03-04 14:20 | XMS_ITS ---
Author Name Interface, Q2Glkumls lity Address [place] [address] Organization [facility] Address [place] [address] Allergies and Adverse Reactions Medication/Group Name Reaction [...] m mmol/L 136.0 146.0 138 FINAL [facility] 11/10 Potas sium mmol/L 3.5 5.1 4.7 FINAL [facility] 11/10 Chlor vadim mmol/L 98.0 107.0 104 FINAL [facility] 11/10 CO2 mmol/L 21.0 31.0 28 FINAL [facility] 11/10 Anion gap 0.0 18.0 6.0% FINAL [facility] 11/10 Gluco se mg/dL 70.0 140.0 131 FINAL [facility] 11/10 BUN mg/dL 7.0 25.0 18 FINAL [facility] 11/10 Creat inine mg/dL 0.8 1.3 1.2 FINAL [facility] 11/10 GFR estim ate 1.73m2 59 Low FINAL [facility] 11/10 BUN/C reati nine ratio 15.0% FINAL [facility] 11/10 Osmol ality , calcu lated 270.0 300.0 279.0% FINAL [facility] 11/10 Calci um mg/dL 8.6 10.2 10.1 FINAL [facility] 11/10 Total prote in g/dL 5.7 8.0 6.8 FINAL [facility] 11/10 Album in g/dL 3.5 5.0 4.3 FINAL [facility] 11/10 A/G ratio 1.7% FINAL [facility] 11/10 Bilir ubin, total mg/dL 0.1 1.0 0.6 FINAL [facility] 11/10 Alkal ine phosp hatas e U/L 45.0 115.0 40 Low FINAL [facility] 11/10 ALT/S GPT U/L 7.0 52.0 28 FINAL [facility] 11/10 AST/S GOT U/L 13.0 39.0 22 Performed at [facility] FINAL [facility] 11/10 WBC Thsd/m m3 4.0 11.0 7.5 FINAL [facility] 11/10 RBC Mill/m m3 4.2 5.7 5.2 FINAL [facility] 11/10 HGB g/dL 13.3 17.1 16.1 FINAL [facility] 11/10 HCT % 39.0 50.0 48.5 FINAL [facility] 11/10 MCV fL 80.0 100.0 93 FINAL [facility] 11/10 MCH, g/dL pg 26.0 34.0 31 FINAL [facility] 11/10 MCHC g/dL 31.0 37.0 33 FINAL [facility] 11/10 RDW % 11.5 14.5 15.0 High FINAL [facility] 11/10 PLT Thsd/m m3 140.0 450.0 223 FINAL [facility] 11/10 MPV fL 7.0 12.0 8.8 FINAL [facility] 11/10 LY % % 20.0 44.0 25.0 FINAL [facility] 11/10 MO % % 2.0 9.0 7.4 FINAL [facility] 11/10 Ronn % % 50.0 70.0 63.0 FINAL [facility] 11/10 Eosin ophil % % 0.0 4.0 3.6 FINAL [facility] 11/10 Basop hil % % 0.0 2.0 1.0 FINAL [facility] 11/10 LY # Thsd/m m3 1.9 FINAL [facility] 11/10 MO # Thsd/m m3 0.5 FINAL [facility] 11/10 Ronn # (ANC) Thsd/m m3 4.7 FINAL [facility] 11/10 EO # Thsd/m m3 0.3 FINAL [facility] 11/10 BA # Thsd/m m3 0.1 Performed at [facility] FINAL [facility] Medications Date Name Route Dose Frequency Instructions [...]
--- OUTSIDE RECORDS SUMMARY | 2025-03-04 14:20 | XMS_ITS | Patient Health Record ---
Author Organization [facility] Address [address] [place], [place] [id number] Care Team Providers Care Campaign Management Specialist Name Role Phone Winsome Dutta Primary Care [...] Status Risk Notes Problem Obese class II ([id number]) BMI 39.0-39.9,adult (Z68.39) Active confirmed Problem Body mass index 40+ - morbidly obese (941611981) BMI 40.0-44.9, adult (Z68.41) Active confirmed Problem Essential hypertension (47953712) Essential hypertension (I10) Active confirmed Problem Type II diabetes mellitus without complication (704973442) Type 2 diabetes mellitus without complication, without long-term current use of insulin (E11.9) Active confirmed Problem Acquired hypothyroidism (868363958) Acquired hypothyroidism (E03.9) Active confirmed Problem Idiopathic gout (36861890) 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) Active confirmed Problem Lower urinary tract symptoms due to benign prostatic hypertrophy (56506665067771) Benign prostatic hyperplasia with lower urinary tract symptoms (N40.1) Active confirmed Problem Atrial fibrillation (62040793) Atrial fibrillation by electrocardiogram (I48.91) Active confirmed Problem Inflammation of foot joint (531446960) Inflammation of foot joint (M19.079) Active confirmed [...] MEDICARE [address] [place] [id number] [phone] [id number] RUDY ALEXANDER Self - patient is the insured [employer] [address] [address] [place], [place] [id number] [phone] [id number] RUDY ALEXANDER Self - patient is the insured Medical (General) History Medical History History ICD Code Essential hypertension I10 Type 2 diabetes mellitus wit hout complication, without long-term current use of insulin E11.9 Acquired hypothyroidism E03.9 Mixed hyperlipidemia E78.2 Surgical History Surgery Date(Month/Year) SAMANTHA KNEE REPLACEMENT 2015
--- OUTSIDE RECORDS SUMMARY | 2025-03-04 14:20 | XMS_ITS ---
Author Name Interface, [id number] lity Address [place] [address] Organization [facility] Address [place] [address] Allergies and Adverse Reactions Medication/Group Name Reaction [...] - Adult C ompleted 02/07/2021 Covid-19 vaccine ([employer]) Completed Diagnostic Results Date Type Test Units Lower Limit Upper Limit Result Flag Comments Status Ordered By Specimen Source Lab Address 05/19 Bilir ubin, total mg/dL 0.1 1.0 1.0 FINAL [facility] 05/19 Alkal ine phosp hatas e U/L 45.0 115.0 48 FINAL [facility] 05/19 ALT/S GPT U/L 7.0 52.0 26 FINAL [facility] 05/19 AST/S GOT U/L 13.0 39.0 24 Performed at [facility] FINAL [facility] 05/19 A/G ratio 1.6% FINAL [facility] 05/19 BUN mg/dL 7.0 25.0 23 FINAL [facility] 05/19 CO2 mmol/L 21.0 31.0 28 FINAL [facility] 05/19 Anion gap 0.0 18.0 8.0% FINAL [facility] 05/19 Gluco se mg/dL 70.0 140.0 172 High FINAL [facility] 05/19 Creat inine mg/dL 0.8 1.3 1.1 FINAL [facility] 05/19 GFR estim ate 1.73m2 >60 FINAL [facility] 05/19 BUN/C reati nine ratio 20.0% FINAL [facility] 05/19 Osmol ality , calcu lated 270.0 300.0 285.0% FINAL [facility] 05/19 Calci um mg/dL 8.6 10.2 9.5 FINAL [facility] 05/19 Total prote in g/dL 5.7 8.0 6.7 FINAL [facility] 05/19 Album in g/dL 3.5 5.0 4.1 FINAL [facility] 05/19 Chlor vadim mmol/L 98.0 107.0 103 FINAL [facility] 05/19 Sodiu m mmol/L 136.0 146.0 139 FINAL [facility] 05/19 Potas sium mmol/L 3.5 5.1 4.7 FINAL [facility] 05/19 WBC Thsd/m m3 4.0 11.0 6.0 FINAL [facility] 05/19 RBC Mill/m m3 4.2 5.7 5.4 FINAL [facility] 05/19 HGB g/dL 13.3 17.1 16.9 FINAL [facility] 05/19 HCT % 39.0 50.0 50.1 High FINAL [facility] 05/19 MCV fL 80.0 100.0 93 FINAL [facility] 05/19 MCH, g/dL pg 26.0 34.0 31 FINAL [facility] 05/19 MCHC g/dL 31.0 37.0 34 FINAL [facility] 05/19 RDW % 11.5 14.5 14.9 High FINAL [facility] 05/19 PLT Thsd/m m3 140.0 450.0 233 FINAL [facility] 05/19 MPV fL 7.0 12.0 8.8 FINAL [facility] 05/19 LY % % 20.0 44.0 32.3 FINAL [facility] 05/19 MO % % 2.0 9.0 9.0 FINAL [facility] 05/19 Ronn % % 50.0 70.0 53.7 FINAL [facility] 05/19 Eosin ophil % % 0.0 4.0 4.2 High FINAL [facility] 05/19 Basop hil % % 0.0 2.0 0.8 FINAL [facility] 05/19 LY # Thsd/m m3 1.9 FINAL [facility] 05/19 MO # Thsd/m m3 0.5 FINAL [facility] 05/19 Ronn # (ANC) Thsd/m m3 3.2 FINAL [facility] 05/19 EO # Thsd/m m3 0.3 FINAL [facility] 05/19 BA # Thsd/m m3 0.0 Performed at [facility] FINAL [facility] 11/10 WBC Thsd/m m3 4.0 11.0 [...] Performed at [facility] FINAL [facility] 11/10 Sodiu m mmol/L 136.0 146.0 138 FINAL [facility] 11/10 Potas sium mmol/L 3.5 5.1 4.7 FINAL [facility] 11/10 Chlor vadim mmol/L 98.0 107.0 104 FINAL [facility] 11/10 CO2 mmol/L 21.0 31.0 28 FINAL [facility] 11/10 Anion gap 0.0 18.0 6.0% FINAL [facility] [...] [place] 11/10 BUN/C reati nine ratio 15.0% FINAL [facility] 11/10 Osmol ality , calcu lated 270.0 300.0 279.0% FINAL [facility] 11/10 Calci um mg/dL 8.6 10.2 10.1 FINAL [facility] 11/10 Total prote in g/dL 5.7 8.0 6.8 FINAL [facility] 11/10 Album in g/dL 3.5 5.0 4.3 FINAL [facility] 11/10 A/G ratio 1.7% FINAL [facility] [...] Performed at [facility] FINAL [facility] [...]
--- OUTSIDE RECORDS SUMMARY | 2025-03-04 14:20 | XMS_ITS | Patient Health Record ---
Author Organization [facility] Billing Info Address [address] [place] [address] Support Name Relationship Address Phone Horacio Ratliff Guarantor Unknown [phone] Reason For Referral No Information Plan Of Treatment No Information Insurance Providers Payer Name Payer Address Payer Phone Subscriber Number Group Number Insured Name Patient Relationship to Insured Coverage Start Date Coverage End Date MEDICARE [place] PART B [address] [place] [id number] Horacio Ratliff Self - patient is the insured [employer] PPO MEDICARE [address] [address] [place], [place] [id number] [phone] [id number] Horacio Ratliff Self - patient is the insured
--- OUTSIDE RECORDS SUMMARY | 2025-03-04 14:20 | XMS_ITS | Clinical Summary ---
Author Organization [address] [place] [address] [place] [address] Phone Care Team Providers Care Lehr Loader Name Role Phone Lynn Trivedi Primary Care Provider [phone] Allergies No known active allergies Medications allopurinoL [...] Assessment & Plan (05/02/2024 10:18 AM EST): [id number] score of 3 based on his age [...] Description 02/13/2025 1:20 PM EDT Ancillary Procedure [facility] - [address] [facility] [address] [place] [address] from Last 3 Months Surgical History Surgery Date Site/Laterality Comments OTHER SURGICAL HISTORY PROCEDURE: HISTORY OTHER; COMMENT: KNEE REPLACEMENT PACEMAKER IMPLANT PROCEDURE: HISTORICAL PACEMAKER Medical History Medical History Date Comments HTN (hypertension) DX:HTN (hyper tension) Obese DX:Obese; COMMEN T: class I Gout DX:Gout Type 2 diabetes mellitus wit hout complications (CMS/HCC V24, [facility]/HCC V28) DX:Type 2 justin betes mellitus without [...] Description 10/05/2025 8:30 AM EDT Ancillary Procedure [facility] - [facility] [address] [facility] [address] [place] [address] Health Maintenance Due Date Last [...] this topic Medical Devices Implanted Type Area Development Manager Device Identifier Shelf Expiration Date Model / Serial / Lot Medt-Card [id number] Implanted:01/2021 (Quantity not on file) 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 [id number] / [id number] / Medt-Card Micra Vr Tcp [id number] Implanted:01/2021 (Quantity not on file) 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 MICRA VR TCP / [id number] / Procedures Procedure Name Priority Date/Time Associated Diagnosis Comments CARDIAC DEVICE CHECK- REMOTE- MURJ Routine 02/13/2025 1:15 PM EDT from Last 3 Months Results * Cardiac device check - Remote- MURJ (02/13/2025 1:15 PM EDT) Date Time Interrogation Session [id number] CV DEVICE CHECK Type Interrogation Session Remote CV DEVICE CHECK Implantable Pulse Generator Development Manager MDT CV DEVICE CHECK Implantable Pulse Generator Type IPG CV DEVICE CHECK Implantable Pulse Generator Model [id number] CV DEVICE CHECK Implantable Pulse Generator Serial Number [id number] CV DEVICE CHECK Implantable Pulse Generator Implant Date 20201213 CV DEVICE CHECK Battery Remaining Longevity 96.0 CV DEVICE CHECK Battery Voltage 3.010 CV D EVICE CHECK Battery DIRECTOR MARKETING COMMUNICATIONS Trigger 2.558 CV DEVICE CHECK Battery Status [...] Result from Last 3 Months Insurance MEDICARE [facility] Care Teams Lehr Loader Relationship Specialty Start Date End Date Lynn Trivedi PA [address] [place] [id number] PCP - General 08/16/22
--- OUTSIDE RECORDS SUMMARY | 2025-03-04 14:20 | XMS_ITS | CCD ---
Author Name Interface, [id number] lity Address [place] [address] Organization [facility] Address [place] [address] Care Team Providers Care Quarry Plant Crusher Operator Name Role Phone Veronica GIPSON, Milly Unavailable [...] status 100 11/10/2020 Karnofsky performance status 100 11/10/2021 Karnofsky performance status 100 05/19/2021 Karnofsky performance status 100 Medications Date Name [...]
== END 2025-03-04 12:05 | disposition home or self-care (01) ==
LOC: HO.HMCFM 11:16
PROVIDERS: PCP Physician Assistant; Visit Provider Physician Assistant
DX: Z00.00 Encounter for general adult medical examination without abnormal findings (principal); I48.20 Chronic atrial fibrillation, unspecified; E11.29 Type 2 diabetes mellitus with other diabetic kidney complication; E03.9 Hypothyroidism, unspecified; I10 Essential (primary) hypertension

== ENCOUNTER → 2025-03-04 11:15 | Outpatient (BNVA) | payer MEDICARE, SELFPAY | PROVIDERS: PCP Physician Assistant; Visit Provider Physician Assistant | DX: Z13.31 Encounter for screening for depression (principal) | CPT/HCPCS: 96127 ==

== ENCOUNTER 2025-03-19 13:18 | Outpatient (AMB) | payer MEDICARE, SELFPAY ==
--- NOTE | 2025-03-19 13:21 | A.OFFPC_ITS ---
Vital Signs 03/19/25 13:23 Height 5 ft 7 in Weight 234 lb 6 oz BMI 36.7 BP 118/64 Blood Pressure Location Lt brachial Position Sitting Respiration 14 Pulse 75 Pulse Source Pulse Oximeter Temp 98.1 F Temp Source Oral Pulse Oximetry (%) 100 Oxygen Delivery Method Room Air Intake Visit Reasons: right ear pain Intake Note: Right ear pain,pulsating, fluid started 3 days ago. Security Site Supervisor Required: No Allergies No Known Allergies Allergy (Verified 03/19/25 13:23) Medication List - Last Reconciled 03/19/25 by Lynn Trivedi PA-C allopurinol 100 mg PO BID apixaban (Eliquis) 5 mg PO BID blood sugar diagnostic (FreeStyle Lite Strips) Use daily As directed to check blood glucose blood-glucose meter (FreeStyle Lite Meter kit) Use daily As directed to check blood sugars empagliflozin (Jardiance) 25 mg PO QAM lancets (FreeStyle Lancets) use daily as directed to check blood glucose levothyroxine 88 mcg PO DAILY 90 days lisinopril 2.5 mg PO DAILY metformin 500 mg PO BID jfmswyeb-ivdurbpib-AD 3.5-10,000-1 mg/mL-unit/mL-% 4 drps otic (ear) right Q8H 10 days Tobacco use date assessed: 07/24/24 Dental Screening Dental Screen Date: 09/24/24 HPI right ear pain HPI Details Patient is a 80-year-old male who presents today with complaints of right ear pain x 3 days. He states that it feels swollen. He has had a hard time using his hearing aids. He states that he has noticed watery drainage from his right ear. No sinus pain. He does have regular sinus congestion but no fevers or chills. No cough, sore throat. CV: Blood pressure today in the office is 118/64. He is on lisinopril 2.5 mg. He is followed with Cardiology, Dr. Burton. He is scheduled for follow up in the fall 2024. Stopped Zetia recently due to leg pain. Unable to tolerate most statins. Last LDL was 154. Does not want to try Repatha right now Endo: DM- A1c is 6.8. He is on Jardiance 25 mg and metformin 500 mg twice a day. He does check his blood sugars but usually every other day. States blood sugars are 100-150. Denies any hyper or hypoglycemic events. Follows with podiatry- Dr. Veloz. Follows with ophthamology. Did not tolerate trulicity. Tsh- was wnl on the levothyroxine 88 mcg. PENDING SALE TO [facility] Medical History (Updated 03/19/25 @ 13:42 by Lynn Trivedi PA-C) Non-alcoholic fatty liver disease Obesity with serious comorbidity Severe obesity Pacemaker Hypothyroid Hyperlipidemia HTN (hypertension) Right hip pain Gout Erectile dysfunction Controlled type 2 diabetes mellitus Chronic a-fib Surgical History History of knee replacement Social History (Updated 03/04/25 @ 11:38 by Olivia Herr CMA) Housing: House Alcohol intake: current Patient Tobacco Use Status: Former Tobacco user Tobacco use type: Cigarette Cigarette Packs Per Day: 1 Years Smoked: 9 e-Cigarette/Vaping Use: Never Used Second Hand Smoke Exposure: No service: Yes Current occupational status: retired Cognitive needs: No Hearing needs: Yes (hearing aids) Vision needs: No Questionnaire Thrive Questionnaire Date Thrive assessed: 07/23/24 I am a: Patient What is your living situation today?: I have a steady place to live Within the past 12 months, did the food you bought not last and you didn't have the money to get more?: Never true Within the past 12 months, did you worry whether your food would run out before you got money to buy more?: Never true Do you have trouble paying for medicines?: No Do you have trouble getting transportation to medical appointments?: No Do you have trouble paying your heating and electricity bill?: No Do you have trouble taking care of your child, family member or friend?: No Do you have trouble with day-to-day activities such as bathing, preparing meals, shopping, managing finances, etc.?: No Are you currently unemployed and looking for a job?: No Are you interested in more education?: No Please select the resources that you would like help with: None Currently or been in a relationship where the following occur: No concerns reported THRIVE Score: 0 LILY-7 AMB Questionnaire LILY-7 Date LILY - 7 assessed: 10/10/23 Source: Developed by Drs. David Fleming, TaliaDirk Davis and colleagues, with an educational kojo from [employer]. Physical exam (Primary Care) Vital Signs: Last Vital Signs Temp 98.1 F 03/19/25 13:23 Pulse 75 03/19/25 13:23 Resp 14 03/19/25 13:23 BP 118/64 03/19/25 13:23 Pulse Ox 100 03/19/25 13:23 Oxygen Delivery Method Room Air 03/19/25 13:23 BMI result Body Mass Index 36.7 Tobacco/Smoking Status: Tobacco use Status Tobacco use date assessed 07/24/24 03/19/25 13:26 Patient Tobacco Use Status Former Tobacco user 03/19/25 13:26 Tobacco use type Cigarette 03/19/25 13:26 e-Cigarette/Vaping Use Never Used 03/19/25 13:26 Thrive Assessment: Date of Thrive Assessment Date Thrive assessed 07/23/24 03/19/25 13:26 Currently or been in a relationship where the following occur: No concerns reported Const Orientation/consciousness: patient oriented x3 HENMT Other: TM on left WNL. Negative tug test on left. TM on right poorly visualized due to ear canal inflammation, purulent drainage noted on the right. Tug test positive. General nose exam: Normal nasal mucous membranes and turbinates present Face and sinus: Yes sinuses nontender Mouth: Normal oral and palatal mucosa present Neck Thyroid: Thyroid normal Lymphatic: no lymphadenopathy noted Resp Auscultation: clear to auscultation bilaterally Cardio Rate: regular rate Rhythm: regular rhythm Heart sounds: S1 normal heart sound present and S2 normal heart sound present GI Inspection: Yes normal to inspection Palpation (GI): Soft to palpation and Other GI palpation findings present (nontender, no cva tenderness) Auscultation: normoactive bowel sounds Rectal Exam - Male: Yes deferred Skin General skin exam: no rashes or lesions noted Neuro General: patient oriented x3, gait normal and no focal motor deficits Coding Level of Care Code Est Pt Level 4 (94994) Complex EM visit Add On G2211 Diagnoses Microalbuminuria due to type 2 diabetes mellitus E11.29; R80.9 Primary hypertension I10 Hypertension type: primary hypertension Otitis externa H60.90 Assessment & Plan Assessment & Plan (1) Microalbuminuria due to type 2 diabetes mellitus: Code(s): E11.29 - Type 2 diabetes mellitus with other diabetic kidney complication; R80.9 - Proteinuria, unspecified Category: Medical Plan: well controlled continue jardiance to 25 mg and metformin repeat labs in a few months (2) HTN (hypertension): Code(s): I10 - Essential (primary) hypertension Category: Medical Qualifiers: Hypertension type: primary hypertension Qualified Code(s): I10 - E ssential (primary) hypertension Plan: wnl continue current plan (3) Otitis externa: Code(s): H60.90 - Unspecified otitis externa, unspecified ear Category: Medical Plan: We will start polymyxin/neomycin/HC drops. He will let me know if anything worsens or changes or fails to improve. Medications: New xvdopwlj-mcpbcylab-EV 3.5-10,000-1 mg/mL-unit/mL-% 4 drps otic (ear) right Q8H 10 mL 0RF 10 days
[2025-03-19 13:23] VITALS: BP 118/64; PULSE 75; RESP 14; TEMP 36.7; O2SAT 100; BMI 36.7
--- OUTSIDE RECORDS SUMMARY | 2025-03-19 16:36 | XMS_ITS ---
Author Name Interface, [id number] lity Address [place] [address] Organization [facility] Address More breakthroughs[place] [address] Allergies and Adverse Reactions Medication/Group Name Reaction [...] WBC Thsd/m m3 4.0 11.0 7.5 FINAL [facility] 11/10 RBC Mill/m m3 4.2 5.7 5.2 FINAL [facility] 11/10 HGB g/dL 13.3 17.1 16.1 FINAL [facility] 11/10 HCT % 39.0 50.0 48.5 FINAL [facility] 11/10 MCV fL 80.0 100.0 93 FINAL [facility] 11/10 MCH, g/dL pg 26.0 34.0 31 FINAL [facility] 11/10 MCHC g/dL 31.0 37.0 33 FINAL [facility] 11/10 RDW % 11.5 14.5 15.0 High FINAL [facility] 11/10 PLT Thsd/m m3 140.0 450.0 223 FINAL [facility] 11/10 MPV fL 7.0 12.0 8.8 FINAL [facility] 11/10 LY % % 20.0 44.0 25.0 FINAL [facility] 11/10 MO % % 2.0 9.0 7.4 FINAL [facility] 11/10 Ronn % % 50.0 70.0 63.0 FINAL [facility] 11/10 Eosin ophil % % 0.0 4.0 3.6 FINAL [facility] 11/10 Basop hil % % 0.0 2.0 1.0 FINAL [facility] 11/10 LY # Thsd/m m3 1.9 FINAL [facility] 11/10 MO # Thsd/m m3 0.5 FINAL [facility] 11/10 Ronn # (ANC) Thsd/m m3 4.7 FINAL [facility] 11/10 EO # Thsd/m m3 0.3 FINAL [facility] 11/10 BA # Thsd/m m3 0.1 Performed at [facility] FINAL [facility] 11/10 Sodiu m mmol/L 136.0 146.0 138 FINAL [facility] 11/10 Potas sium mmol/L 3.5 5.1 4.7 FINAL [facility] 11/10 Chlor vadim mmol/L 98.0 107.0 104 FINAL [facility] 11/10 CO2 mmol/L 21.0 31.0 28 FINAL [facility] 11/10 Anion gap 0.0 18.0 6.0% FINAL [facility] 11/10 Gluco se mg/dL 70.0 140.0 131 FINAL [facility] 11/10 BUN mg/dL 7.0 25.0 18 FINAL [facility] 11/10 Creat inine mg/dL 0.8 1.3 1.2 FINAL [facility] 11/10 GFR estim ate 1.73m2 59 Low FINAL [facility] 11/10 BUN/C reati nine ratio 15.0% FINAL [facility] 11/10 Osmol ality , calcu lated 270.0 300.0 279.0% FINAL [facility] 11/10 Calci um mg/dL 8.6 10.2 10.1 FINAL [facility] 11/10 Total prote in g/dL 5.7 8.0 6.8 FINAL [facility] 11/10 Album in g/dL 3.5 5.0 4.3 FINAL [facility] 11/10 A/G ratio 1.7% FINAL [facility] 11/10 Bilir ubin, total mg/dL 0.1 1.0 0.6 FINAL [facility] 11/10 Alkal ine phosp hatas e U/L 45.0 115.0 40 Low FINAL [facility] 11/10 ALT/S GPT U/L 7.0 52.0 28 FINAL [facility] 11/10 AST/S GOT U/L 13.0 39.0 22 Performed at [facility] FINAL [facility] Medications Date Name Route Dose [...]
--- OUTSIDE RECORDS SUMMARY | 2025-03-19 16:36 | XMS_ITS ---
Author Name Interface, [id number] lity Address [place] [address] [facility] Address [place] [address] Allergies and Adverse Reactions Plan Reason for Visit Encounters Immunizations Diagnostic Results Medications Problems Vital Signs
--- OUTSIDE RECORDS SUMMARY | 2025-03-19 16:37 | XMS_ITS | Clinical Summary ---
Author Organization [address] [place] [address] [place] [phone] Phone Care Team Providers Care Extended Insurance Clerk Name Role Phone Lynn Trivedi Primary Care Provider [phone] Allergies No known active allergies Medications allopurinoL [...] Assessment & Plan (05/02/2024 10:18 AM EST): [id number] score of 3 based on his age [...] Description 02/13/2025 1:20 PM EDT Ancillary Procedure [facility] - [address] [facility] [address] [place] [address] from Last 3 Months Surgical History Surgery Date Site/Laterality Comments OTHER SURGICAL HISTORY PROCEDURE: HISTORY OTHER; COMMENT: KNEE REPLACEMENT PACEMAKER IMPLANT PROCEDURE: HISTORICAL PACEMAKER Medical History Medical History Date Comments HTN (hypertension) DX:HTN (hyper tension) Obese DX:Obese; COMMEN T: class I Gout DX:Gout Type 2 diabetes mellitus wit hout complications (CMS/HCC V24, [facility]/HCC V28) DX:Type 2 justin betes mellitus without [...] Description 10/05/2025 8:30 AM EDT Ancillary Procedure [facility] - [facility] [address] [facility] [address] [place] [address] Health Maintenance Due Date Last [...] Depression Screening 05/07/2024 COVID-19 Vaccine ( season) 2025 02/04/2025, 01/25/2024, 01/24/2023 Pneumococcal Vaccine: 50+ Years Completed 02/16/2023 RSV Immunization Adult Patients Completed 02/16/2023 Influenza Vaccine Completed 02/04/2025, , 01/24/2023, Additional [...] this topic Medical Devices Implanted Type Area Produce Wrapper Device Identifier Shelf Expiration Date Model / Serial / Lot Medt-Card [id number] Implanted:01/2021 (Quantity not on file) 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 [id number] / [id number] / Medt-Card Micra Vr Tcp [id number] Implanted:01/2021 (Quantity not on file) 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 MICRA VR TCP / [id number] / Procedures Procedure Name Priority Date/Time Associated Diagnosis Comments CARDIAC DEVICE CHECK- REMOTE- MURJ Routine 02/13/2025 1:15 PM EDT from Last 3 Months Results * Cardiac device check - Remote- MURJ (02/13/2025 1:15 PM EDT) Date Time Interrogation Session [id number] CV DEVICE CHECK Type Interrogation Session Remote CV DEVICE CHECK Implantable Pulse Generator Produce Wrapper MDT CV DEVICE CHECK Implantable Pulse Generator Type IPG CV DEVICE CHECK Implantable Pulse Generator Model [id number] CV DEVICE CHECK Implantable Pulse Generator Serial Number [id number] CV DEVICE CHECK Implantable Pulse Generator Implant Date 20201213 CV DEVICE CHECK Battery Remaining Longevity 96.0 CV DEVICE CHECK Battery Voltage 3.010 CV D EVICE CHECK Battery TOOL DESIGNER APPRENTICE Trigger 2.558 CV DEVICE CHECK Battery Status [...] Result from Last 3 Months Insurance MEDICARE [facility] Care Teams Extended Insurance Clerk Relationship Specialty Start Date End Date Lynn Trivedi PA [address] [place] [id number] PCP - General 08/16/22
--- OUTSIDE RECORDS SUMMARY | 2025-03-19 16:37 | XMS_ITS | Patient Health Record ---
Author Organization [facility] Address [address] [place], [place] [id number] Care Team Providers Care Cereal Miller Name Role Phone Winsome Dutta Primary Care [...] Status Risk Notes Problem Obese class II (109884263762970) BMI 39.0-39.9,adult (Z68.39) Active confirmed Problem Body mass index 40+ - morbidly obese (420299973) BMI 40.0-44.9, adult (Z68.41) Active confirmed Problem Essential hypertension (67597043) Essential hypertension (I10) Active confirmed Problem Type II diabetes mellitus without complication (010820922) Type 2 diabetes mellitus without complication, without long-term current use of insulin (E11.9) Active confirmed Problem Acquired hypothyroidism (664720644) Acquired hypothyroidism (E03.9) Active confirmed Problem Idiopathic gout (82058759) 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) Active confirmed Problem Lower urinary tract symptoms due to benign prostatic hypertrophy (52631527890074) Benign prostatic hyperplasia with lower urinary tract symptoms (N40.1) Active confirmed Problem Atrial fibrillation (86934725) Atrial fibrillation by electrocardiogram (I48.91) Active confirmed Problem Inflammation of foot joint (455098837) Inflammation of foot joint (M19.079) Active confirmed [...] MEDICARE [address] [place] [id number] [phone] [id number] RUDY ALEXANDER Self - patient is the insured [employer] [address] [address] [place], [place] [id number] RUDY ALEXANDER Self - patient is the insured Medical (General) History Medical History History ICD Code Essential hypertension I10 Type 2 diabetes mellitus wit hout complication, without long-term current use of insulin E11.9 Acquired hypothyroidism E03.9 Mixed hyperlipidemia E78.2 Surgical History Surgery Date(Month/Year) SAMANTHA KNEE REPLACEMENT 2015
--- OUTSIDE RECORDS SUMMARY | 2025-03-19 16:37 | XMS_ITS | Patient Health Record ---
Author Organization [facility] Billing Info Address [address] [place] [id number] Support Name Relationship Address Phone Horacio Ratliff Guarantor Unknown [phone] Reason For Referral No Information Plan Of Treatment No Information Insurance Providers Payer Name Payer Address Payer Phone Subscriber Number Group Number Insured Name Patient Relationship to Insured Coverage Start Date Coverage End Date MEDICARE [place] PART B [address] [place] [id number] Horacio Ratliff Self - patient is the insured [employer] PPO MEDICARE [address] [address] [place], [place] [id number] [phone] [id number] Horacio Ratliff Self - patient is the insured
--- OUTSIDE RECORDS SUMMARY | 2025-03-19 16:37 | XMS_ITS | CCD ---
Author Name Interface, [id number] lity Address [place] [address] Organization [facility] Address [place] [address] Care Team Providers Care Delicatessen Department Manager Name Role Phone Veronica GIPSON, Milly Unavailable [...]
== END 2025-03-19 13:40 | disposition home or self-care (01) ==
LOC: HO.HMCFM 13:19
PROVIDERS: PCP Physician Assistant; Visit Provider Physician Assistant
DX: E11.29 Type 2 diabetes mellitus with other diabetic kidney complication (principal); R80.9 Proteinuria, unspecified; I10 Essential (primary) hypertension; H60.91 Unspecified otitis externa, right ear

== ENCOUNTER → 2025-03-19 13:18 | Outpatient (BNVA) | payer MEDICARE, SELFPAY | PROVIDERS: PCP Physician Assistant; Visit Provider Physician Assistant | DX: E11.29 Type 2 diabetes mellitus with other diabetic kidney complication (principal); R80.9 Proteinuria, unspecified; I10 Essential (primary) hypertension; H60.91 Unspecified otitis externa, right ear | CPT/HCPCS: 99212 ==

== ENCOUNTER 2025-04-13 14:00 | Outpatient (AMB) | payer MEDICARE, SELFPAY ==
--- NOTE | 2025-04-13 14:25 | MHC.OFFVIS ---
Vital Signs 04/13/25 14:28 Height 5 ft 7 in Weight 231 lb 0.711 oz BMI 36.2 BP 100/68 Blood Pressure Location Lt brachial Position Sitting Pulse 77 Pulse Source Monitor Intake Visit Reasons: ARMHOLE SEWER/ Jcarlos Zacariasen/ afib/ medtronic/ switch PV cardi Intake Note: dental hygiene administrative assistant/ jcarlos/ afib/ medtronic/switch pv Vice President Business Development Required: No Accompanied by: Self / Same As Patient Allergies No Known Allergies Allergy (Verified 04/13/25 14:31) Medication List - Last Reconciled 04/13/25 by Casa Mckeon MD allopurinol 100 mg PO BID apixaban (Eliquis) 5 mg PO BID blood sugar diagnostic (FreeStyle Lite Strips) Use daily As directed to check blood glucose blood-glucose meter (FreeStyle Lite Meter kit) Use daily As directed to check blood sugars empagliflozin (Jardiance) 25 mg PO QAM lancets (FreeStyle Lancets) use daily as directed to check blood glucose levothyroxine 88 mcg PO DAILY 90 days lisinopril 2.5 mg PO DAILY metformin 500 mg PO BID HPI Comments Details: Pleasant 80 year gentleman who is here for 1st office visit. He has been following at [facility] for atrial fibrillation. Around 6 years ago he was in [place] playing golf where he had syncopal episode. Subsequently saw cardiology and had a monitor put on him which showed a 2nd pause and he had a micra leadless permanent pacemaker placed. He is saying he has been doing fine since then. He is in atrial fibrillation all the time. It does not get any palpitations, dyspnea or heart failure episodes. He is on Eliquis for anticoagulation. He is physically active and has no exertional complaints. [facility] Medical History Non-alcoholic fatty liver disease Obesity with serious comorbidity Severe obesity Pacemaker Hypothyroid Hyperlipidemia HTN (hypertension) Right hip pain Gout Erectile dysfunction Controlled type 2 diabetes mellitus Chronic a-fib Surgical History History of knee replacement Family History Mother No problems noted. Social History (Reviewed 04/13/25 @ 14:33 by Mere Harris [facility]) Housing: House Alcohol intake: current Patient Tobacco Use Status: Former Tobacco user Tobacco use type: Cigarette Cigarette Packs Per Day: 1 Years Smoked: 9 e-Cigarette/Vaping Use: Never Used Second Hand Smoke Exposure: No service: Yes Current occupational status: retired Cognitive needs: No Hearing needs: Yes (hearing aids) Vision needs: No Review of Systems Const Denies chills, Denies fatigue, Denies fever(s), Denies frequent falls, Denies weakness, Denies weight gain and Denies weight loss ENT Denies dizziness Card Denies chest pain, Denies leg edema, Denies lightheadedness, Denies palpitations, Denies dyspnea, Denies dyspnea on exertion and Denies orthopnea Resp Denies cough, Denies dyspnea and Denies dyspnea on exertion GI Denies bloating and Denies change in bowel habits Musc Denies muscle weakness, Denies numbness and Denies tingling Neuro Denies dizziness, Denies frequent falls, Denies numbness, Denies tingling and Denies weakness Endo Denies fatigue and Denies palpitations Physical Exam Vital Signs: BMI result Body Mass Index 36.2 GENERAL APPEARANCE: in no acute distress, pleasant. NECK: no carotid bruit, no jugular venous distention. SKIN: no suspicious lesions, warm and dry. HEART: no murmurs, irregular rate and rhythm. LUNGS: clear to auscultation bilaterally. ABDOMEN: soft, nontender. EXTREMITIES: no edema. PERIPHERAL PULSES: equal. NEUROLOGIC: No gross deficits, AAO X 3 Office Procedures Cardiac Device Check Cardiac Device Check Details: Medtronic leadless pacemaker. VVIR mode. Battery life more than 80 years. V paced 50.6%. 93864-CA Cardiac Device Check, leadless/single lead pacemaker Procedure code (CPT) selection complete EKG Details: Atrial fibrillation 71 beats per minute, left axis deviation, right bundle-branch block with occasional V paced beats. QTC 459 milliseconds. QRS 150 milliseconds. 51884-Ovybwqpsikexbxrxs, Complete Assessment & Plan Assessment & Plan (1) Chronic a-fib: Code(s): I48.20 - Chronic atrial fibrillation, unspecified Category: Medical (2) Pacemaker: Code(s): Z95.0 - Presence of cardiac pacemaker Category: Medical Plan Pleasant 80 year gentleman who is here for 1st office visit. He has history of permanent pacemaker placement in [place] for 5 seconds pause in atrial fibrillation. He had syncope preceding that episode. He has a micra leadless pacemaker. Battery life is more than 8 years. He is on anticoagulation for atrial fibrillation. He is saying he has been in AFib for a long time. There was no attempts to do cardioversion because he was asymptomatic. We will get records from [facility]. He will see us back in 1 year. Thank you for allowing me to participate in the care of your patient. Please feel free to contact me if you have any questions. Coding Level of Care Code New Pt Level 4 (95443) Diagnoses Chronic a-fib I48.20 Pacemaker Z95.0 CPT Codes Cardiac Device Check - Cardiac Device 1: 23279-YX Cardiac Device Check, leadless/single lead pacemaker ([id number]) EKG - CPT: 61955-Scozjnnevcwolyaea, Complete ([id number])
[2025-04-13 14:28] VITALS: BP 100/68; PULSE 77; BMI 36.2
--- OUTSIDE RECORDS SUMMARY | 2025-04-13 22:50 | XMS_ITS | Clinical Summary ---
Author Organization [address] [place] [address] [place] [phone] Phone Care Team Providers Care Machine Ii Engraver Name Role Phone Lynn Trivedi Primary Care Provider [phone] Allergies No known active allergies Medications allopurinoL [...] Assessment & Plan (05/02/2024 10:18 AM EST): [id number] score of 3 based on his age [...] Description 02/13/2025 1:20 PM EDT Ancillary Procedure [facility] [address] [facility] [address] [place] [address] from Last 3 Months Surgical [...] AM EST Sexual Orientation Not on file Last Filed Vital Signs Vital Sign Reading [...] Description 10/05/2025 8:30 AM EDT Ancillary Procedure [facility] [address] [facility] [address] [place] [address] Health Maintenance Due Date Last Done Comments Diabetes: Annual GFR (Glomerular Filtration Rate) 1946 Diabetes: Annual Foot Exam 01/07/1956 Diabetes: Annual Retina Eye Exam 01/07/1956 DTaP,Tdap,and Td Vaccines (1 - Tdap) 1965 Zoster Vaccines (1 of 2) 01/07/1996 Cholesterol Screening (Lipid Panel) 06/01/2023 Falls Risk Assessment 06/01/2023 Hepatitis C Screening 06/01/2023 Medicare Annual Wellness Visit 06/01/2023 Social Influencers of Health Screening 06/01/2023 Hypertension/CHF/CAD [...] this topic Medical Devices Implanted Type Area Steeple Jack Device Identifier Shelf Expiration Date Model / Serial / Lot Medt-Card [id number] Implanted:01/2021 (Quantity not on file) 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 [id number] / [id number] / Medt-Card Micra Vr Tcp [id number] Implanted:01/2021 (Quantity not on file) 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 MICRA VR TCP / [id number] / Procedures Procedure Name Priority Date/Time Associated Diagnosis Comments CARDIAC DEVICE CHECK- REMOTE- MURJ Routine 02/13/2025 1:15 PM EDT from Last 3 Months Results * Cardiac device check - Remote- MURJ (02/13/2025 1:15 PM EDT) Date Time Interrogation Session [id number] CV DEVICE CHECK Type Interrogation Session Remote CV DEVICE CHECK Implantable Pulse Generator Steeple Jack MDT CV DEVICE CHECK Implantable Pulse Generator Type IPG CV DEVICE CHECK Implantable Pulse Generator Model [id number] CV DEVICE CHECK Implantable Pulse Generator Serial Number [id number] CV DEVICE CHECK Implantable Pulse Generator Implant Date [id number] CV DEVICE CHECK Battery Remaining Longevity 96.0 CV DEVICE CHECK Battery Voltage 3.010 CV D EVICE CHECK Battery ACUTE DIALYSIS REGISTERED NURSE Trigger 2.558 CV DEVICE CHECK Battery Status [...] MEDICARE [facility] Care Teams Machine Ii Engraver Relationship Specialty Start Date End Date Lynn Trivedi PA [address] [place] [id number] PCP - General 08/16/22
== END 2025-04-13 14:57 | disposition home or self-care (01) ==
LOC: HO.HCS 14:02
PROVIDERS: PCP Physician Assistant; Visit Provider Internal Medicine Cardiovascular Disease
DX: I48.20 Chronic atrial fibrillation, unspecified (principal); Z95.0 Presence of cardiac pacemaker
CPT/HCPCS: 93010; 93279; 99204

== ENCOUNTER → 2025-04-13 14:00 | Outpatient (BNVA) | payer MEDICARE, SELFPAY | PROVIDERS: PCP Physician Assistant; Visit Provider Internal Medicine Cardiovascular Disease | DX: Z45.010 Encounter for checking and testing of cardiac pacemaker pulse generator [battery] (principal); I48.20 Chronic atrial fibrillation, unspecified | CPT/HCPCS: 93005; 93279; 99202 ==

== ENCOUNTER 2025-04-20 11:16 | Outpatient (AMB) | payer MEDICARE, SELFPAY ==
--- NOTE | 2025-04-20 11:18 | HO.NEPHOV ---
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 Accompanied by: Self / Same As Patient Allergies No Known Allergies Allergy (Verified 04/20/25 11:21) Medication List - Last Reconciled 04/20/25 by Navjot Cosme MD allopurinol 100 mg PO BID apixaban (Eliquis) 5 mg PO BID blood sugar diagnostic (FreeStyle Lite Strips) Use daily As directed to check blood glucose blood-glucose meter (FreeStyle Lite Meter kit) Use daily As directed to check blood sugars empagliflozin (Jardiance) 25 mg PO QAM lancets (FreeStyle Lancets) use daily as directed to check blood glucose levothyroxine 88 mcg PO DAILY 90 days lisinopril 2.5 mg PO DAILY metformin 500 mg PO BID HPI Comments Details: Tony is a pleasant 79-year-old man with a history of diabetes mellitus for quite some time. Recently found to have microalbuminuria of 50. He was started on lisinopril 2.5 mg about 3 weeks ago. He is tolerating this well. No new issues. Recent hemoglobin A1c was 6.2%. 08/26/24 OVerall doing well;Tried Ozempic- 2 doses- did not tolerate 04/20/25 Semiannual follow up Doing well. No new issues. No weight loss No edema PFSH Medical History Non-alcoholic fatty liver disease Obesity with serious comorbidity Severe obesity Pacemaker Hypothyroid Hyperlipidemia HTN (hypertension) Right hip pain Gout Erectile dysfunction Controlled type 2 diabetes mellitus Chronic a-fib Surgical History History of knee replacement Family History Mother No problems noted. Social History Housing: House Alcohol intake: current Patient Tobacco Use Status: Former Tobacco user Tobacco use type: Cigarette Cigarette Packs Per Day: 1 Years Smoked: 9 e-Cigarette/Vaping Use: Never Used Second Hand Smoke Exposure: No service: Yes Current occupational status: retired Cognitive needs: No Hearing needs: Yes (hearing aids) Vision needs: No Physical Exam Vital Signs: Last Vital Signs Pulse 96 04/20/25 11:19 BP 120/70 04/20/25 11:19 Pulse Ox 96 04/20/25 11:19 Oxygen Delivery Method Room Air 04/20/25 11:19 BMI result Body Mass Index 36.2 Comfortable Neck supple no JVD. Lungs entry equal no rales. Heart S1-S2 heard no gallop or rub. Abdomen soft nontender. Neuro alert awake oriented. No asterixis. Extremities no edema. Results Reviewed Nephrology Results: Hgb, (14.0-18.0) 16.2 g/dl 02/25/25 WBC, (4.8-10.8) 6.5 X10*3/uL 02/25/25 Plt Count, (160-400) 216 X10*3/uL 02/25/25 Sodium, (135-145) 141 mmol/L 02/25/25 Potassium, (3.3-5.1) 4.7 mmol/L 02/25/25 Chloride, (96-108) 107 mmol/L 02/25/25 Carbon Dioxide, (22-29) 28 mmol/L 02/25/25 BUN, (9-16) 22 mg/dL H 02/25/25 Creatinine, (0.5-1.4) 1.12 mg/dL 02/25/25 Calcium, (8.4-10.2) 9.6 mg/dL 02/25/25 Urine Protein, (Neg-Trace) Negative mg/dL 02/25/25 Urine Creatinine 78.98 mg/dL 02/25/25 Assessment & Plan Assessment & Plan (1) Microalbuminuria due to type 2 diabetes mellitus: Code(s): E11.29 - Type 2 diabetes mellitus with other diabetic kidney complication; R80.9 - Proteinuria, unspecified Category: Medical Plan 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 He is currently on 2.5 mg of lisinopril and tolerating well. ADELA inhibitor can be gradually titrated upwards as tolerated based on blood pressure Agree with the SGLT2 inhibitors. Maintain blood pressure less than 130/80. I discussed importance of weight loss and the tight control of blood sugar to slow the portion disease. At present EGFR is at baseline for his age. We will continue to monitor this periodically. No changes were made Orders: Orders Basic Metabolic Panel 1 Year E11. - Type 2 diabetes mellitus with other diabetic kidney complication, R80.9 - Proteinuria, unspecified Total Protein Urine Random 1 Year E11. - Type 2 diabetes mellitus with other diabetic kidney complication, R80.9 - Proteinuria, unspecified UA and rflx microscopic 1 Year E11. - Type 2 diabetes mellitus with other diabetic kidney complication, R80.9 - Proteinuria, unspecified Creatinine Urine 1 Year E11. - Type 2 diabetes mellitus with other diabetic kidney complication, R80.9 - Proteinuria, unspecified Coding Level of Care Code Est Pt Level 4 (08433) Diagnoses Microalbuminuria due to type 2 diabetes mellitus .; R80.9
[2025-04-20 11:19] VITALS: BP 120/70; PULSE 96; O2SAT 96; BMI 36.2
== END 2025-04-20 11:29 | disposition home or self-care (01) ==
LOC: HO.HKA 11:17
PROVIDERS: PCP Physician Assistant; Visit Provider Internal Medicine Hypertension Specialist
DX: E11.29 Type 2 diabetes mellitus with other diabetic kidney complication (principal); R80.9 Proteinuria, unspecified
CPT/HCPCS: 99214

== ENCOUNTER → 2025-04-20 11:16 | Outpatient (BNVA) | payer MEDICARE, SELFPAY | PROVIDERS: PCP Physician Assistant; Visit Provider Internal Medicine Hypertension Specialist | DX: E11.29 Type 2 diabetes mellitus with other diabetic kidney complication (principal); R80.9 Proteinuria, unspecified | CPT/HCPCS: 99212 ==